=== PATIENT | male | born 1940 | race Hispanic/Latino ===

== ENCOUNTER 2017-10-02 00:09 | Inpatient (IN) | payer MEDICARE, MEDICAID ==
[2017-10-02] MEDS ORDERED: Succinylcholine Chloride 20 MG/ML 10 ml SYRINGE FS ONE (00:17)
[2017-10-02 00:28] LABS: #Eosinphils 0.1 thou/uL (0.0-0.7); #Lymphocytes 1.5 thou/uL (1.20-3.40); #Monocytes 0.4 thou/uL (0.11-0.59); #Neutrophils 5.9 thou/uL (1.40-6.50); %Basophils 0.2 % (0.0-1.0); %Eosinophils 1.3 % (0.0-10.0); %Lymphocytes 18.6 % (21.0-51.0); %Monocytes 5.6 % (0.0-10.0); %Neutrophils 74.4 % (42.0-75.0); Hemoglobin 13.6 g/dL (14.0-18.0); Mean Corpuscular HGB CONC 34.5 g/dL (32.0-36.0); Mean Corpuscular Hemoglobin 30.7 pg (27.0-31.0); Mean Platelet Volume 7.4 fL (7.4-10.4); Platelet Count 169 thou/uL (130-400); RBC Distribution Width 12.7 % (11.5-14.5); Red Blood Cell (RBC) Count 4.43 mill/uL (4.70-6.10); White Blood Cell (WBC) Count 7.9 thou/uL (4.8-10.8)
[2017-10-02] MEDS ORDERED: Propofol 1,000 MG/100 ML VIAL IV ONE ×2 (00:33→03:19)
[2017-10-02 00:35] LABS: INR-International Normal Ratio 1.1; PTT 27.9 SEC (22.9-36.1); Prothrombin Time 14.3 SEC (12.0-14.7)
[2017-10-02 00:55] LABS: ALT (SGPT) 14 U/L (8-55); AST (SGOT) 21 U/L (5-34); Albumin 4.3 g/dL (3.4-4.8); Alkaline Phosphatase 92 U/L (40-150); Anion Gap 12 mmol/L (10-20); BUN (Urea Nitrogen) 27 mg/dL (8.4-25.7); Bilirubin, Total 0.5 mg/dL (0.2-1.2); Calc. Creatinine Clearance 0 mL/min (70-130); Carbon Dioxide 25 mmol/L (23-31); Chloride 107 mmol/L (98-107); Estimated GFR-MDRD 65; Globulin 3.1 g/dL (2.4-3.5); Glucose 174 mg/dL (83-110); Protein, Total 7.4 g/dL (5.8-8.1); Sodium 140 mmol/L (136-145)
[2017-10-02 00:59] LABS: CKMB 4.5 ng/mL (0-6.6)
[2017-10-02] MEDS ORDERED: Midazolam HCl 5 mg/ml Vial ONE (01:09)
[2017-10-02] MEDS ORDERED: Vecuronium 10 MG VIAL ONE (01:34)
[2017-10-02 01:35] LABS: Actual Bicarbonate (HCO3a) 24.9 mEq/L (22-26); Base Excess (BEa) 1.2 mEq/L (0 (+/-) 2.5); CO2 Tension 47.4 mmHg (35.0-45.0); Hematocrit-ABG 36.6 % (42.0-52.0); O2 Tension (PaO2) 75.5 mmHg (80.0-100.0); pH, Arterial 7.34 (7.35-7.45)
[2017-10-02 01:36] LABS: Analyzer IN Cardio ER; Calcium, Ionized 1.2 mmol/L (1.12-1.30); Puncture Site LRA
[2017-10-02] MEDS ORDERED: Azithromycin 500 MG VIAL ONE (01:56)
[2017-10-02 02:40] LABS: Bilirubin Negative (Negative); Blood, Urine Large (Negative); Clarity CLEAR (Clear); Glucose, Urine (Dipstick) Negative (Negative); Leukocyte Negative (Negative); Nitrite Negative (Negative); Protein, Urine (Dipstick) 30 mg/dL (Neg-Trace); Specific Gravity, Urine 1.029 (1.002-1.036); Urobilinogen 0.2 mg/dL (0.2-1.0); pH, Urine 6.5 (5.0-9.0)
[2017-10-02 02:42] LABS: Bacteria/HPF None Seen HPF (None Seen); Hyaline Casts/LPF 4-6 HYALINE CAST LPF (0-3 Hyaline); Pathc Cast-AUWi Flag 0.58 (0-2.49); Squamous Epithelial 0-3 HPF (0-3); WBC/HPF 0-3 HPF (0-3)
[2017-10-02] MEDS ORDERED: Aspirin 300 MG Suppository ONE (02:55)
[2017-10-02] MEDS ORDERED: diphenhydrAMINE 50 MG/ML VIAL IVP SCH ×2 (03:30→03:44)
[2017-10-02] MEDS ORDERED: Dextrose 5 % And 0.9 % NaCl 1,000 ML IV SCH (03:45)
[2017-10-02] MEDS ORDERED: Famotidine/PF 20 mg/2ml Vial SLOW IVP SCH (03:45)
[2017-10-02] MEDS ORDERED: methylPREDNISolone Sod Succ/PF 125 MG/2 ML VIAL IVP SCH (03:45)
[2017-10-02] MEDS ORDERED: Ventilator Sedation Protocol 1 EACH FS SCH (03:48)
[2017-10-02] MEDS ORDERED: DISCONTINUE PREVIOUS NARCOTIC PAIN MEDICATIONS AND BENZODIAZEPINES FS SCH (03:56)
[2017-10-02] MEDS ORDERED: Fentanyl BOLUS 250 ML IVPB PRN (03:56)
[2017-10-02] MEDS ORDERED: fentaNYL Citrate/PF 2,000 MCG in Sodium Chloride 0.9% 60 ML IV SCH (03:56)
[2017-10-02] MEDS ORDERED: Propofol BOLUS 1,000 MG/100 ML VIAL IV PRN (03:56)
[2017-10-02] MEDS ORDERED: Morphine 4 MG/ML VIAL SLOW IVP PRN (03:56)
[2017-10-02] MEDS ORDERED: Famotidine 40 MG/4 ML VIAL SLOW IVP SCH ×3 (04:00→21:00)
[2017-10-02] MEDS ORDERED: Sodium Chloride 0.9% 1,000 ML IV SCH (04:00)
[2017-10-02] MEDS ORDERED: RENALLY ADJUST ANTIBIOTICS IVPB PRN (04:18)
[2017-10-02] MEDS: Sodium Chloride 0.9% 1,000 ML IV SCH ×2 (04:45→14:54)
[2017-10-02] MEDS: diphenhydrAMINE 50 MG/ML VIAL IVP SCH ×4 (04:52→22:04)
--- NOTE | 2017-10-02 05:03 | HP ---
DATE OF ADMISSION: 10/02/2017 CHIEF COMPLAINT: Altered mentation, stroke-like symptoms. HISTORY OF PRESENT ILLNESS: Patient is a 77-year-old male with coronary artery disease, status post CABG; hypertension; hyperlipidemia who presented to the emergency room by EMS with altered mentation. Patient currently follows Dr. Field. History obtained from the ER chart. No family at the bedside. No family in the waiting room. The patient was last seen normal around 8:00 p.m. yesterday. Around 11:00 p.m., he was in the shower when the family heard the patient screaming. When the family came to the bathroom, he was found to have altered mentation with some stroke-like symptoms. EMS was called. Per ER report, the patient h ad some weakness on the right side. Exact symptoms are unclear. Patient was intubated in the emerge ncy room due to worsening mentation. He received aspirin, azithromycin, ceftriaxone, Versed, propofo l, succinylcholine, etomidate, and vecuronium in the emergency room. After arrival to the emergency room, patient started breaking out in the generalized rash. PAST MEDICAL HISTORY: 1. Coronary artery disease, status post CABG. 2. Hypertension. 3. Hyperlipidemia. 4. History of ME. 5. ERCP. PAST SURGICAL HISTORY: 1. Cholecystectomy. 2. CABG. ALLERGIES: No known drug allergies. CURRENT HOME MEDICATIONS: Unavailable at this time. We will try to confirm with family when they ar rive. SOCIAL HISTORY: Cannot be obtained from the patient due to current cognitive status. FAMILY HISTORY: Cannot be obtained from the patient due to current cognitive status. REVIEW OF SYSTEMS: Cannot be obtained from the patient due to current cognitive status. PHYSICAL EXAMINATION: VITAL SIGNS: In the emergency room on arrival showed temperature 96.1, pulse rate of 69, blood press ure of 183/96 with O2 saturation 91% on room air. GENERAL: A 77-year-old male, intubated and sedated on mechanical ventilation. HEENT: Head atraumatic, normocephalic. Sclerae anicteric. Moist mucous membranes. No oral lesion. NECK: Supple. No JVD appreciated. No carotid bruit. LUNGS: Showed coarse breath sounds bilaterally with bibasilar crackles. There were scattered rhonch i. No wheezing appreciated. HEART: S1, S2 present. Regular rate and rhythm. Healed midline scar from previous CABG, 2/6 systol ic murmur over the mitral area. ABDOMEN: Soft. Bowel sounds present. No organomegaly appreciated. No guarding or rigidity. EXTREMITIES: No edema or calf tenderness. NEUROLOGIC/PSYCHIATRIC: Could not be done due to current cognitive status. Apparently, his NIH in [facility] emergency room was 37. SKIN: Warm and dry. LYMPH NODES: No palpable lymph nodes in the neck. PERIPHERAL VASCULAR: Radial pulses palpable bilaterally. MUSCULOSKELETAL: No joint swelling or tenderness. LABORATORY AND DIAGNOSTIC FINDINGS: EKG by my review showed sinus rhythm. CT scan of the brain was negative for acute CVA. CT angiogram of the head and neck were essentially negative. Chest x-ray by my review showed left-sided infiltrate. CBC showed WBC 7.9 with hemoglobin 13.6, hematocrit 39.4, p latelet 169,000. ABG showed pH 7.34 with pCO2 of 47.4, pO2 of 75.5 on mechanical ventilation. Tropo nins were negative. BUN was 27, creatinine 1.1. Urinalysis was negative for wbc's, bacteria. Chest x-ray by my review as discussed above. IMPRESSION AND PLAN: 1. Altered mentation/toxic metabolic encephalopathy/suspected cerebrovascular accident. Family not available at this time to confirm his symptoms prior to intubation. 2. Acute hypoxic and hypercapnic respiratory failure, multifactorial. 3. Suspected aspiration pneumonia. 4. Generalized rash, generalized rash/urticaria probably secondary to either aspirin or ceftriaxone. 5. Coronary artery disease, status post coronary artery bypass grafting. 6. Chronic kidney disease, stage 2. 7. Chronic anemia. 8. Hypertension. 9. Dyslipidemia. Home medications will be verified. Again, when the family arrives, will discuss the plan of care. This patient will require 3-4 days for stabilization.
[2017-10-02] MEDS ORDERED: MEROPENEM 1 GM/50 ML 1 GM in Premix Bag 1 BAG IVPB SCH (06:00)
[2017-10-02 06:02] LABS: Troponin I 0.016 ng/mL (< 0.028)
[2017-10-02] MEDS: Propofol 1,000 MG/100 ML VIAL IV PRN ×3 (06:30→15:08)
[2017-10-02 07:37] LABS: Actual Bicarbonate (HCO3a) 23.1 mEq/L (22-26); CO2 Tension 35.1 mmHg (35.0-45.0); O2 Tension (PaO2) 80.6 mmHg (80.0-100.0); pH, Arterial 7.44 (7.35-7.45)
[2017-10-02 07:38] LABS: Base Excess (BEa) -0.6 mEq/L (0 (+/-) 2.5); Calcium, Ionized 1.2 mmol/L (1.12-1.30); Hematocrit-ABG 39.5 % (42.0-52.0); Hemoglobin (Hb) 12.8 g/dL (14.0-18.0)
[2017-10-02 07:39] LABS: ALV-art Gradient 160.725 (0-20); Puncture Site L.R.
[2017-10-02] MEDS ORDERED: Vancomycin HCl 1 GM in Premix Bag 1 BAG IVPB SCH (08:00)
--- NOTE | 2017-10-02 08:50 | RAD ---
CHEST ONE VIEW: History: Pneumonia. Follow up. Comparison: 02-27-16 FINDINGS: Cardiac silhouette is magnified and upper limits of normal in size. Pulmonary vasculature is accentua gauri by shallow inspiration. Patchy infiltrate throughout the left lung is present with some component of atelectasis. Tip of the endotracheal catheter overlies the lower trachea just above the level of the ricky. Nasogastric tube descends to the abdomen. There are post-operative changes in the mediast inum. IMPRESSION: 1. Left lung infiltrate. Evidence of pneumonia. 2. Endotracheal catheter at the level of the ricky. Please consider withdrawal by approximately 2 cm . POS: [facility]
[2017-10-02] MEDS ORDERED: Prevnar 13-Val Conj/PF 0.5 ML SYRINGE IM ONE (09:00)
--- NOTE | 2017-10-02 09:23 | CT ---
PRELIMINARY REPORT/[facility]/EMERGENTY AFTER-HOURS PROCEDURE Addendum created by Raul Sanchez MD on 10/02/2017 1:19 AM Central Time ([place] & [place]) THIS REPORT CONTAINS FINDINGS THAT MAY BE CRITICAL TO PATIENT CARE. The findings were verbally commun icated via telephone conference with BASEBALL PLAYER Sofy Boston at 1:17 AM CDT on 10/02/2017. The findings were acknowledged and understood. Initial Report created on 10/02/2017 1:08 AM Central Time ([place] & [place]) CT Head Without Intravenous Contrast EXAM DATE/TIME: 10/02/2017 12:51 AM CLINICAL HISTORY: 77 years old, male; Signs and symptoms; Altered mental status/memory loss and weakness, facial; Other : AMS; Patient HX: stroke alert ems reports pt was lsn 1999, was in the shower at 2300 when famil y reported they hear pt screaming. They came to bathroom and pt was presenting altered to them. When ems arrived pt was altered by arousable. Pt with right sided facial droop but had equal gear inspector strength . Vss en route and glucose in 170's. TECHNIQUE: Axial computed tomography images of the head/brain without intravenous contrast. COMPARISON: No relevant prior studies available. FINDINGS: Brain: No radiographic evidence of acute territorial infarct or intracranial bleed. Patchy hypodensit y of the cerebral white matter, nonspecific but likely secondary to small vessel ischemic disease. Sm all areas of encephalomalacia from old infarcts in the right frontal, right occipital parietal, and h igh right frontal parietal regions. Ventricles: Unremarkable for patient age. Age-related generalized volume loss Bones/joints: No acute findings. No acute fracture. Soft tissues: No acute findings. Sinuses: Small fluid/mucosal thickening in the visualized left maxillary sinus Mastoid air cells: No significant mastoid effusion. IMPRESSION: 1. No radiographic evidence of acute territorial infarct or intracranial bleed. 2. Small vessel ischemic disease. 3. 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 4. Small fluid/mucosal thickening in the visualized left maxillary sinus. Consistent with changes fro m sinusitis Thank you for allowing us to participate in the care of your patient. Dictated and Authenticated by: Raul Sanchez MD 10/02/2017 1:08 AM Central Time ([place] & [place]) FINAL REPORT CT BRAIN WITHOUT CONTRAST: No acute intracranial hemorrhage, mass effect. Multifocal chronic ischemic disease including supratentorial and infratentorial remote infarctions [place] perimposed upon microvascular ischemic disease and mild cortical atrophy. I agree with the preliminary interpretation by DEBBI. POS: [facility]
--- NOTE | 2017-10-02 09:27 | CT ---
PRELIMINARY REPORT/[facility]/EMERGENTY AFTER-HOURS PROCEDURE Addendum created by Raul Sanchez MD on 10/02/2017 1:31 AM Central Time ([place] & [place]) THIS REPORT CONTAINS FINDINGS THAT MAY BE CRITICAL TO PATIENT CARE. The findings were verbally communicated via telephone conference with JADEN CHA at 1:30 AM CDT on 10/02/2017. The findings were acknowledged and unde rstood. Initial Report created on 10/02/2017 1:29 AM Central Time ([place] & [place]) CT Angiography Head With Intravenous Contrast CLINICAL HISTORY: 77 years old, male; Signs and symptoms; Weakness; Patient HX: stroke alert ems reports pt was lsn 1999, was in the shower at 2300 when family reported they hear pt screaming. They came to bathroom a nd pt was presenting altered to them. When ems arrived pt was altered by arousable. Pt with right bong ed facial droop but had eequal staff anesthesiologist strength. Vss en route and glucose in 170's. TECHNIQUE: Axial computed tomographic angiography images of the head with intravenous contrast using CT angiogra phy protocol. MIP reconstructed images were created and reviewed. Coronal reformatted images were cre ated and reviewed. COMPARISON: No relevant prior studies available. FINDINGS: Right internal carotid artery: No acute findings. Intracranial segment is patent with no significant stenosis. No aneurysm. Right anterior cerebral artery: No acute findings. No occlusion or significant stenosis. No aneurysm. Right middle cerebral artery: No acute findings. No occlusion or significant stenosis. No aneurysm. Right posterior cerebral artery: No acute findings. No occlusion or significant stenosis. No aneurysm . Right vertebral artery: Unremarkable as visualized. Left internal carotid artery: No acute findings. Intracranial segment is patent with no significant s tenosis. No aneurysm. Left anterior cerebral artery: No acute findings. No occlusion or significant stenosis. No aneurysm. Left middle cerebral artery: No acute findings. No occlusion or significant stenosis. No aneurysm. Left posterior cerebral artery: No acute findings. No occlusion or significant stenosis. No aneurysm. Left vertebral artery: Unremarkable as visualized. Basilar artery: No acute findings. No occlusion or significant stenosis. No aneurysm. Other: Moderate fluid/mucosal thickening in the left maxillary sinus. See head CT dictation IMPRESSION: 1: No acute vascular findings. 2: Moderate fluid/mucosal thickening in the left maxillary sinus. Consistent with changes from sinusi tis EXAM: CT Angiography Neck With Intravenous Contrast EXAM DATE/TIME: 10/02/2017 12:56 AM TECHNIQUE: Axial computed tomographic angiography images of the neck with intravenous contrast using CT angiogra phy protocol. MIP reconstructed images were created and reviewed. Coronal reformatted images were cre ated and reviewed. COMPARISON: CT Brain WO Con 2017-10-02 00:51 FINDINGS: VASCULATURE: Right common carotid artery: No acute findings. No significant stenosis. No dissection or occlusion. Right internal carotid artery: No acute findings. Extracranial segment is patent with no significant stenosis. No dissection or occlusion. Right external carotid artery: No acute findings. No occlusion. Right vertebral artery: No acute findings. No significant stenosis. No dissection or occlusion. Left common carotid artery: No acute findings. No significant stenosis. No dissection or occlusion. Left internal carotid artery: No acute findings. Extracranial segment is patent with no significant s tenosis. No dissection or occlusion. Left external carotid artery: No acute findings. No occlusion. Left vertebral artery: No acute findings. No significant stenosis. No dissection or occlusion. NECK: Bones/joints: No acute fracture. No dislocation. Small to moderate osteophytes at multiple levels of the C-spine Soft tissues: Unremarkable as visualized. No mass. Other findings: Atelectasis versus infiltrates in the visualized lungs, mild to moderate on the left and mild on the right. Endotracheal tube is in the right mainstem bronchus, 1.5 cm below the ricky. Vascular calcification in the aortic arch IMPRESSION: 1: No acute vascular findings. 2: Endotracheal tube is in the right mainstem bronchus, 1.5 cm below the ricky. Recommend withdrawin g the endotracheal tube 3.5 cm 3: Atelectasis versus infiltrates in the visualized lungs, mild to moderate on the left and mild on t he right. Thank you for allowing us to participate in the care of your patient. Dictated and Authenticated by: Raul Sanchez MD 10/02/2017 1:29 AM Central Time ([place] & [place]) FINAL REPORT CT ANGIOGRAM OF HEAD AND NECK: Date: 10/02/17 HISTORY: Altered mental status. Stroke alert. Right facial droop. COMPARISON: None. TECHNIQUE: CT angiogram of the head and neck are performed in the axial plane. Three-dimensional reformatted davey ges are submitted for interpretation. FINDINGS: This report is in agreement with the preliminary report by Alannah. There does not appear to be any acut e thrombus or high grade stenosis at the level of the [place]. There is asymmetric decrease in size of the left internal carotid artery involving the cervical, as well as intracranial segments. Findings are presumed to be longstanding. Endotracheal tube is at the level of the right mainstem bronchus and repositioning is recommended. There is opacification of the lung parenchyma as described in the preliminary report by Alannah. POS: [facility]
[2017-10-02] MEDS: Clopidogrel Bisulfate 75 MG TAB PER TUBE SCH (09:34)
[2017-10-02] MEDS: Famotidine 40 MG/4 ML VIAL SLOW IVP SCH (09:35)
[2017-10-02] MEDS: Vancomycin HCl 1 GM in Premix Bag 1 BAG IVPB SCH ×2 (09:39→20:30)
[2017-10-02] MEDS: MEROPENEM 1 GM/50 ML 1 GM in Premix Bag 1 BAG IVPB SCH ×2 (14:02→22:09)
[2017-10-02] MEDS ORDERED: ISOVUE-370 76%-LOCM 1 ML ONE (15:10)
[2017-10-02] MEDS: Lorazepam 2 MG/ML VIAL SLOW IVP PRN (18:20)
[2017-10-02] MEDS: Enoxaparin Sodium 40 MG/0.4 ML SYRINGE SC SCH (21:54)
[2017-10-02] MEDS: Atorvastatin Calcium 10 MG TAB PER TUBE SCH (22:08)
[2017-10-02] MEDS ORDERED: Famotidine 20 MG TAB PER TUBE SCH (22:15)
[2017-10-03] MEDS: Sodium Chloride 0.9% 1,000 ML IV SCH ×3 (00:14→22:20)
--- NOTE | 2017-10-03 00:45 | CON ---
DATE OF CONSULTATION: 10/02/2017 REFERRING PROVIDER: Giovany Ly M.D. REASON FOR CONSULTATION: Altered mental status. HISTORY OF PRESENT ILLNESS: Mr. Zamora is a 77-year-old male who has been consulted for evaluation of altered mental status. History is very limited as patient is unable to provide thus most of the history is obtained from the patient's medical chart and dictated H and P note. Apparently, the alonso ent was last seen normal around 8:00 p.m. on yesterday, around 11:00 p.m. he was in shower when the abby christy heard the patient screaming, when the family came to bathroom he was found to have altered ment ation and stroke-like symptoms. EMS was called. In the ER, he was noted to be somewhat weaker on hi s right side. He was intubated in the emergency room due to worsening of mentation. I am being aske d to further evaluate for changes in mentation. PAST MEDICAL HISTORY: Significant for hypertension, hyperlipidemia, history of [place], coronary artery d isease. PAST SURGICAL HISTORY: Significant for ERCP, CABG, and cholecystectomy. CURRENT MEDICATIONS: Please review MAR. ALLERGIES: No known drug allergies. SOCIAL HISTORY: Unable to obtain. FAMILY HISTORY: Unable to obtain. REVIEW OF SYSTEMS: Unable to obtain. PHYSICAL EXAMINATION: VITAL SIGNS: Blood pressure of 124/74, pulse of 92, temperature of 99.7, respirations of 16, O2 sats of 95% on mechanical ventilation. GENERAL: Well-developed, well-nourished male in no apparent distress. RESPIRATORY: Clear to auscultation bilaterally. CARDIOVASCULAR: Regular rate and rhythm. NEUROLOGIC: Mental status: The patient is awake. The patient is sedated with the Ativan that was g iven few minutes before my examination. He is nonresponsive to noxious or verbal stimuli. Cranial n erves: Pupils are 3 mm and reactive. Visual che cannot be performed. He does breathe over the v entilator machine. Face appears symmetric. Motor exam showed normal tone and bulk in both upper and lower extremities. He grimaces to noxious stimuli to supraorbital region on both sides. He withdra ws to pain on both upper extremities. No withdrawal is noted in both lower extremities. Babinski: Plantar responses equivocal bilaterally. Deep tendon reflexes, hyperreflexive throughout. LABORATORY DATA: Reviewed, which included CBC, CMP, BNP, urinalysis, which is significant for hemogl obin 13.6, hematocrit 39.4, BUN of 27, BNP of 165.8, glucose of 140, otherwise unremarkable. IMAGING STUDIES: CT head without contrast was reviewed which showed no acute intracranial abnormalit y. CT angiogram of the head and neck were reviewed, which showed no acute intracranial or extracrani al vascular abnormality and bilateral infiltrates noted in both lungs, more so on the left than the r ight. Chest x-ray showed left lung infiltrate, evidence of pneumonia. IMPRESSION: 1. Altered mental status, likely toxic metabolic encephalopathy. 2. Pneumonia. Mr. Zamora is a 77-year-old male who presented with the changes in mentation. He is found to have pneumonia on the chest x-ray and CT angiogram of the neck, this may be contributing to his changes in mentation. At this time, I will recommend continuing current medical management. I will recommend obtaining MRI brain without contrast in the morning. If MRI brain shows no acute intracranial abnorm ality, then patient is to be managed medically for changes in mentation. Thank you for the consultation.
[2017-10-03] MEDS: Propofol 1,000 MG/100 ML VIAL IV PRN ×3 (02:54→19:56)
[2017-10-03] MEDS: diphenhydrAMINE 50 MG/ML VIAL IVP SCH ×4 (03:38→22:39)
[2017-10-03] MEDS: MEROPENEM 1 GM/50 ML 1 GM in Premix Bag 1 BAG IVPB SCH ×3 (05:52→22:38)
[2017-10-03 06:01] LABS: #Lymphocytes 1.1 thou/uL (1.20-3.40); #Monocytes 0.2 thou/uL (0.11-0.59); #Neutrophils 10.2 thou/uL (1.40-6.50); %Basophils 0.1 % (0.0-1.0); %Eosinophils 0.2 % (0.0-10.0); %Lymphocytes 9.2 % (21.0-51.0); %Monocytes 1.8 % (0.0-10.0); %Neutrophils 88.8 % (42.0-75.0); Mean Corpuscular HGB CONC 32.3 g/dL (32.0-36.0); Mean Corpuscular Hemoglobin 29.4 pg (27.0-31.0); Mean Corpuscular Volume 90.8 fl (80.0-94.0); Mean Platelet Volume 8.5 fL (7.4-10.4); Platelet Count 155 thou/uL (130-400); Red Blood Cell (RBC) Count 4.42 mill/uL (4.70-6.10); White Blood Cell (WBC) Count 11.5 thou/uL (4.8-10.8)
--- NOTE | 2017-10-03 06:03 | CON ---
DATE OF CONSULTATION: 10/02/2017 HISTORY OF PRESENT ILLNESS: Mr. Zamora is a 77-year-old male who apparently presented to the emerg ency department with altered mental status, apparently was intubated in the emergency department. He was admitted to the critical care unit and I was consulted because of his presence in the critical care unit. History is obtained from the family and the medical records. PAST MEDICAL HISTORY: Remarkable for, 1. Coronary bypass grafting. 2. History of lipid disorder. 3. History of hypertension. 4. History of a cholecystectomy. Family says he is not a smoker or drinker. ALLERGIES: He has no known drug allergies. PAST SURGICAL HISTORY: 1. His last admission here was in 2013 for a laparoscopic cholecystectomy. 2. History of an appendectomy in the past. 3. History of anticoagulation in the past, reviewing all records. SOCIAL HISTORY: Apparently, has 8 children, according to old records, there is only one in the room and it was a granddaughter, there are 2 pastors in the room. Quit smoking in 1984. REVIEW OF SYSTEMS: Not obtainable because he is intubated. Family said he was fine up until the ons et of his confusion. PHYSICAL EXAMINATION: VITAL SIGNS: His heart rate is 92, blood pressure is 124/74, respiratory rate is 18, and oximetry is 92. GENERAL: He is sedated for ventilation. HEENT: Pupils react. Sclerae is anicteric. NECK: Supple. LUNGS: Clear anteriorly. HEART: Regular rhythm. S1 and S2 are normal. ABDOMEN: Soft and nontender. EXTREMITIES: Without clubbing, cyanosis, or edema. NEUROLOGIC: Cannot be assessed because of his sedation. LABORATORY AND X-RAY FINDINGS: White count 7.9, hemoglobin 13.6, and platelets 169. Sodium 140, pot assium 4, chloride 107, bicarb 25, BUN 27, creatinine 1.1, glucose 174. A pH of 7.44, pCO2 of 35, an d pO2 of 80. IMV of 16, FiO2 is 40, tidal volume is 500, pressure support is 10, and PEEP is 5. Chest x-ray shows patchy bilateral alveolar infiltrates, worse on the left than the right. IMPRESSION: 1. Respiratory failure associated with pneumonia. 2. Altered mental status ? secondary to pneumonia. 3. 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 No acute abnormalities were seen on the CT. Obtain ventilatory support, antimicrobial therapy. I have explained to the family that he will not b e weanable probably for several days. Critical care time was 30 minutes.
[2017-10-03 06:22] LABS: ALT (SGPT) 13 U/L (8-55); AST (SGOT) 20 U/L (5-34); Albumin 3.3 g/dL (3.4-4.8); Alkaline Phosphatase 77 U/L (40-150); Anion Gap 12 mmol/L (10-20); BUN (Urea Nitrogen) 19 mg/dL (8.4-25.7); Bilirubin, Total 0.4 mg/dL (0.2-1.2); Calc. Creatinine Clearance 111 mL/min (70-130); Carbon Dioxide 17 mmol/L (23-31); Cardiac Risk 5.8 (Less than 4.5); Chloride 112 mmol/L (98-107); Cholesterol 209 mg/dl (< 200 Desired); Estimated GFR-MDRD 89; Globulin 3.3 g/dL (2.4-3.5); Glucose 134 mg/dL (83-110); HDL Cholesterol 36 mg/dL (>60 Neg Risk); LDL Cholesterol, Calculated 143 mg/dL; Potassium 4.1 mmol/L (3.5-5.1); Protein, Total 6.6 g/dL (5.8-8.1); Sodium 137 mmol/L (136-145); Triglycerides 151 mg/dL (Less than 150)
--- NOTE | 2017-10-03 07:56 | RAD ---
SINGLE VIEW OF THE CHEST: COMPARISON: 10/02/17. HISTORY: Ventilated patient with respiratory failure. FINDINGS: A single view of the chest shows an enlarged but stable cardiomediastinal silhouette. The patient is status post sternotomy. The endotracheal tube is seen in good position with its tip above the lola a. The NG tube is seen with its tip in the stomach. Slight blunting of both costophrenic angles may represent small pleural effusions or atelectasis. IMPRESSION: Stable exam. POS: [facility]
[2017-10-03 08:01] LABS: Actual Bicarbonate (HCO3a) 22.7 mEq/L (22-26); Base Excess (BEa) -1.5 mEq/L (0 (+/-) 2.5); CO2 Tension 36.2 mmHg (35.0-45.0); Hematocrit-ABG 37.2 % (42.0-52.0); Hemoglobin (Hb) 12.3 g/dL (14.0-18.0); O2 Tension (PaO2) 75.8 mmHg (80.0-100.0); pH, Arterial 7.42 (7.35-7.45)
[2017-10-03 08:02] LABS: Calcium, Ionized 1.1 mmol/L (1.12-1.30); Puncture Site L.R.
[2017-10-03] MEDS: Vancomycin HCl 1 GM in Premix Bag 1 BAG IVPB SCH (09:43)
[2017-10-03] MEDS: Clopidogrel Bisulfate 75 MG TAB PER TUBE SCH (09:44)
[2017-10-03] MEDS: Famotidine 20 MG TAB PER TUBE SCH ×2 (09:44→21:38)
[2017-10-03] MEDS: Famotidine 40 MG/4 ML VIAL SLOW IVP SCH (09:48)
--- NOTE | 2017-10-03 11:33 | PDOC.PN ---
- Subjective Encounter Start Date: 10/03/17 Encounter Start Time: 10:15 -: old records requested/rev Pt seen and examined, chart reviewed in its entirety, this is my frist visit with this patient. Sedated and intubated. patchy bilaterla pneumonia, hypoxemic resp failure and metabolic encephalopathy Pt seen by neuro, CT reviewed, CTA ordered, but feels likely due to pneumonia. No F/C, no N/V/D/C. yeison vent Family at bedside, case disussed with dr Moreno ROs not obtainable - Objective Resuscitation Status: Resuscitation Status FULL:Full Resuscitation MAR Reviewed: Yes Vital Signs & Weight: Vital Signs (12 hours) Temp Pulse Resp BP Pulse Ox 10/03/17 10:32 61 122/59 L 10/03/17 10:00 16 10/03/17 09:00 98.8 F 10/03/17 08:00 98.8 F 61 16 93 L 10/03/17 07:31 64 121/59 L 10/03/17 06:00 16 10/03/17 05:40 98.5 F 10/03/17 04:00 16 10/03/17 03:05 94 L 10/03/17 03:00 98.9 F 16 10/03/17 02:00 16 10/03/17 00:00 98.3 F 16 93 L Weight Admit Weight 233 lb Weight 227 lb 11.8 oz Most Recent Monitor Data Heart Rate from ECG 60 NIBP 127/61 NIBP BP-Mean 72 Respiration from ECG 16 SpO2 92 I&O: 10/02/17 10/03/17 10/04/17 06:59 06:59 06:59 Intake Total 203.2 3091 Output Total 425 1525 220 Balance -221.8 1566 -220 Result Diagrams: 10/03/17 04:25 10/03/17 04:25 Additional Labs: Accuchecks 10/03/17 10/02/17 10/02/17 03:38 23:17 18:33 POC Glucose 145 H 165 H 140 H Radiology Reviewed by me: Yes EKG Reviewed by me: Yes Phys Exam - Physical Examination Constitutional: NAD HEENT: PERRLA, moist MMs, sclera anicteric, oral pharynx no lesions orally intubated Neck: no nodes, no JVD, supple, full ROM coarse rales bilaterally, no wheezes Cardiovascular: RRR, no significant murmur, no rub Gastrointestinal: soft, non-tender, no distention, positive bowel sounds Musculoskeletal: pulses present, edema present Lymphatic: no nodes Skin: no rash, normal turgor, cap refill <2 seconds Dx/Plan (1) CAP (community acquired pneumonia) Code(s): J18.9 - PNEUMONIA, UNSPECIFIED ORGANISM Status: Acute Qualifiers: Laterality: unspecified laterality Qualified Code(s): J18.9 - Pneumonia, unspecified organism Comment: bilateral, L>R (2) Acute hypoxemic respiratory failure Code(s): J96.01 - ACUTE RESPIRATORY FAILURE WITH HYPOXIA Status: Acute Comment: on vent, wean sedation, extubate when able (3) Metabolic encephalopathy Code(s): G93.41 - METABOLIC ENCEPHALOPATHY Status: Acute (4) CAD (coronary artery disease), [place] coronary artery Code(s): I25.10 - ATHSCL HEART DISEASE OF [place] CORONARY ARTERY W/O ANG PCTRS Status: Chronic Qualifiers: [place] vs. transplanted heart: [place] heart Associated angina: without angina Qualified Code(s): I25.10 - Atherosclerotic heart disease of [place] coronary artery without angina pectoris (5) HTN (hypertension) Code(s): I10 - ESSENTIAL (PRIMARY) HYPERTENSION Status: Chronic Qualifiers: Hypertension type: essential hypertension Qualified Code(s): I10 - Essential (primary) hypertension (6) CKD (chronic kidney disease), stage III Code(s): N18.3 - CHRONIC KIDNEY DISEASE, STAGE 3 (MODERATE) Status: Chronic - Plan cont current plan of care, plan discussed w/ family, continue antibiotics, PT/OT , respiratory therapy * . tube feeds started by Dr Moreno
--- NOTE | 2017-10-03 11:42 | PRG ---
DATE OF SERVICE: 10/03/2017 Mr. Zamora is sedated for mechanical ventilation. PHYSICAL EXAMINATION: VITAL SIGNS: His heart rate is in the 60s. Blood pressure 133/61, respiratory rate 16, oximetry is 92. LUNGS: Clear. CARDIOVASCULAR: Regular rhythm. S1 and S2 are normal. ABDOMEN: Soft and nontender. EXTREMITIES: Without clubbing, cyanosis, or edema. LABORATORY DATA: White count 11.5, hemoglobin 13.0, platelets 155,000. Sodium 137, potassium 4.1, c hloride 112, bicarb 17, BUN 19, creatinine 0.84, pH 7.42, CO2 36, pO2 of 75. Chest radiograph today is unchanged. Tomorrow we will probably start decreasing mechanical ventilatory support. IMPRESSION: Pneumonia with encephalopathy on presentation. He follows commands and helps out with r olling in bed now as long as instructions are given in Japanese. Overall I explained to the [facility] that he is clinically stable at this time. Hopefully, he will be weanable within a few days. Critical care time was 30 minutes.
[2017-10-03 19:40] LABS: Vancomycin, Trough 13.4 ug/mL
[2017-10-03] MEDS: Vancomycin HCl 1.25 GM in Sodium Chloride 0.9% 250 ML 250 ML IVPB SCH (21:36)
[2017-10-03] MEDS: Enoxaparin Sodium 40 MG/0.4 ML SYRINGE SC SCH (21:37)
[2017-10-03] MEDS: Atorvastatin Calcium 10 MG TAB PER TUBE SCH (22:38)
[2017-10-04 05:26] LABS: #Lymphocytes 0.9 thou/uL (1.20-3.40); #Monocytes 0.2 thou/uL (0.11-0.59); %Basophils 0.1 % (0.0-1.0); %Eosinophils 0.2 % (0.0-10.0); %Lymphocytes 8.4 % (21.0-51.0); %Monocytes 2.4 % (0.0-10.0); %Neutrophils 88.9 % (42.0-75.0); Hemoglobin 12.9 g/dL (14.0-18.0); Mean Corpuscular HGB CONC 33.4 g/dL (32.0-36.0); Mean Corpuscular Hemoglobin 30.4 pg (27.0-31.0); Mean Corpuscular Volume 90.9 fl (80.0-94.0); Mean Platelet Volume 9.2 fL (7.4-10.4); PLT Morphology Comment Appears Decreased; Platelet Count 88 thou/uL (130-400); RBC Distribution Width 12.9 % (11.5-14.5); RBC Morphology Normal; Red Blood Cell (RBC) Count 4.25 mill/uL (4.70-6.10); White Blood Cell (WBC) Count 10.1 thou/uL (4.8-10.8)
[2017-10-04 06:23] LABS: CO2 Tension 33.9 mmHg (35.0-45.0); O2 Tension (PaO2) 74.6 mmHg (80.0-100.0)
[2017-10-04 06:24] LABS: Base Excess (BEa) -3.3 mEq/L (0 (+/-) 2.5); Calcium, Ionized 1.2 mmol/L (1.12-1.30); Hemoglobin (Hb) 11.9 g/dL (14.0-18.0); Puncture Site RRA
[2017-10-04 06:25] LABS: ALV-art Gradient 168.225 (0-20)
[2017-10-04 06:30] LABS: ALT (SGPT) 16 U/L (8-55); AST (SGOT) 18 U/L (5-34); Albumin 3.1 g/dL (3.4-4.8); Alkaline Phosphatase 66 U/L (40-150); Anion Gap 8 mmol/L (10-20); BUN (Urea Nitrogen) 24 mg/dL (8.4-25.7); Bilirubin, Total 0.3 mg/dL (0.2-1.2); Calc. Creatinine Clearance 111 mL/min (70-130); Calcium 7.9 mg/dL (7.8-10.44); Carbon Dioxide 21 mmol/L (23-31); Chloride 112 mmol/L (98-107); Estimated GFR-MDRD Greater than 90; Globulin 2.7 g/dL (2.4-3.5); Glucose 192 mg/dL (83-110); Potassium 3.8 mmol/L (3.5-5.1); Protein, Total 5.8 g/dL (5.8-8.1); Sodium 137 mmol/L (136-145)
[2017-10-04] MEDS: MEROPENEM 1 GM/50 ML 1 GM in Premix Bag 1 BAG IVPB SCH ×3 (06:30→22:47)
[2017-10-04] MEDS: Propofol 1,000 MG/100 ML VIAL IV PRN ×3 (06:35→18:13)
[2017-10-04] MEDS: Sodium Chloride 0.9% 1,000 ML IV SCH ×2 (07:51→20:17)
--- NOTE | 2017-10-04 09:22 | RAD ---
SE[facility]UPRIGHT PORTABLE CHEST 1 VIEW: Date: 10/04/17 HISTORY: 77-year-old male with history of respiratory insufficiency, follow-up. COMPARISON: 10/03/17. FINDINGS: NG tube and endotracheal tubes remain in place. Left pleural effusion and small right pleural effusio n with bilateral vascular congestion and increased markings in the lower lobes. The amount of opacity in the left chest appears somewhat increased, suggesting some increasing pleural effusion. IMPRESSION: Vascular congestion bilaterally with bilateral pleural effusions, greater on the left side, showing s ome increase from prior study. Continue short-term follow-up. POS: OFF
[2017-10-04] MEDS ORDERED: DOBUTamine 500 mg/250 ml 250 ML IVPB SCH (09:30)
[2017-10-04] MEDS: Clopidogrel Bisulfate 75 MG TAB PER TUBE SCH (09:44)
[2017-10-04] MEDS: Famotidine 20 MG TAB PER TUBE SCH ×2 (09:44→20:21)
[2017-10-04] MEDS: Vancomycin HCl 1.25 GM in Sodium Chloride 0.9% 250 ML 250 ML IVPB SCH (09:47)
[2017-10-04] MEDS: Lorazepam 2 MG/ML VIAL SLOW IVP PRN ×2 (10:44→17:55)
--- NOTE | 2017-10-04 12:50 | CON ---
DATE OF CONSULTATION: 10/04/2017 REASON FOR CONSULTATION: Bradycardia. REFERRING PROVIDER: Dr. Lin. HISTORY OF PRESENT ILLNESS: Mr. Zamora is a 77-year-old gentleman who I have seen and evaluated in the past. He has a history of mechanical mitral valve replacement, not performed at [place]. He recently presented with altered mental status. He was felt to be septic. He was intubated. Upon my arrival, he is awake, still intubated, off any pressors. He is on antibiotic therapy. He recently began having acute onset of bradycardia with heart rate in the 30s to 40s. Blood pressur e appears stable. His QRS complex was narrow. PAST MEDICAL HISTORY: Previous bacterial endocarditis, status post mechanical mitral valve in 1995, hyperlipidemia, mild coronary disease diagnosed in 2014. ALLERGIES: PENICILLIN. HOME MEDICATIONS: Hydrocodone, Nexium, Coumadin, atenolol, lisinopril/hydrochlorothiazide, nitroglyc rola, Zocor, and aspirin. REVIEW OF SYSTEMS: Unobtainable. He is currently intubated. PHYSICAL EXAMINATION: GENERAL: Patient is a pleasant male who is in no acute distress. The patient appears his stated age . VITAL SIGNS: Blood pressure 152/65, pulse 89, temperature afebrile. NEUROLOGIC: He is currently intubated. HEENT: Sclerae without icterus. Mouth has moist mucous membranes with normal pallor. NECK: No JVD. Carotid upstroke brisk. No bruits bilaterally. LUNGS: Clear to auscultation with unlabored respirations. BACK: No scoliosis or kyphosis. CARDIAC: Regular rate and rhythm with normal S1 and S2. No S3 or S4 noted. No significant rubs, mu rmurs, thrills, or gallops noted throughout the precordium. PMI is not displaced. There is no boo ternal heave. ABDOMEN: Soft, nontender, nondistended. No peritoneal signs present. No hepatosplenomegaly. No ab normal striae. EXTREMITIES: 2+ femoral and 2+ dorsalis pedis pulses. No cyanosis, clubbing, or edema. SKIN: No gross abnormalities. PERTINENT LABORATORY DATA: Hemoglobin 12.9, hematocrit 38.6, platelet count 0.79. IMPRESSION: 1. Bradycardia. 2. Sepsis. 3. Respiratory failure. 4. Status post mechanical mitral valve. RECOMMENDATIONS: Continue Coumadin as prescribed. His bradycardia has improved on low dose dobutami ne. Dobutamine was started at 10, then had decreased to 5 and is now on 2.5 mg with appropriate hear t rate response. We will continue to monitor closely. At this point, there is no need for temporary pacemaker or permanent pacemaker. Continue antibiotic therapy as prescribed. Continue respiratory support.
[2017-10-04] MEDS: Enoxaparin Sodium 100 MG/ML SYRINGE SC SCH (17:55)
[2017-10-04] MEDS ORDERED: Furosemide 100 MG/10 ML VIAL SLOW IVP SCH (19:53)
[2017-10-04] MEDS: Atorvastatin Calcium 10 MG TAB PER TUBE SCH (20:14)
--- NOTE | 2017-10-04 20:14 | PRG ---
Date of service: 10/04/2017 SUBJECTIVE: Mr. Zamora is hemodynamically stable overnight. Heart rates in the 50s, respiratory r ate is 18, blood pressure 145/38. Heart rate actually dropped into the 20s this morning. He was started on dobutamine by Cardiology and this has been tapered down to a minimal dose. When th e dobutamine is turned off, he becomes bradycardic again. His intake and output is positive 2309. OBJECTIVE: LUNGS: Clear. CARDIOVASCULAR: Regular rate and rhythm. ABDOMEN: Soft and nontender. EXTREMITIES: Without clubbing, cyanosis or edema. IMAGING: Chest radiograph shows increased infiltrates bilaterally. LABORATORY DATA: White count 10.5, hemoglobin 12.9, platelets 88,000. Sodium 137, potassium 3.8, chloride 112, bicarbonate 21, BUN 24, creatinine 0.7. PH 7.40, CO2 33, pO 2 74. IMPRESSION: 1. Pneumonia. 2. ? cardiogenic pulmonary edema with increase in pulmonary infiltrates with positive fluid balance. An echocardiogram needs to be done. He will be given Lasix this evening. CRITICAL CARE TIME: 30 minutes.
[2017-10-04] MEDS ORDERED: Enoxaparin Sodium 100 MG/ML SYRINGE SC SCH (21:00)
[2017-10-05] MEDS: Enoxaparin Sodium 100 MG/ML SYRINGE SC SCH ×2 (04:48→15:14)
[2017-10-05] MEDS: MEROPENEM 1 GM/50 ML 1 GM in Premix Bag 1 BAG IVPB SCH ×3 (04:52→21:44)
[2017-10-05 05:59] LABS: #Lymphocytes 0.8 thou/uL (1.20-3.40); #Monocytes 0.5 thou/uL (0.11-0.59); #Neutrophils 9.3 thou/uL (1.40-6.50); %Basophils 0.1 % (0.0-1.0); %Eosinophils 0.2 % (0.0-10.0); %Lymphocytes 7.8 % (21.0-51.0); %Monocytes 4.3 % (0.0-10.0); %Neutrophils 87.6 % (42.0-75.0); Hemoglobin 13.4 g/dL (14.0-18.0); Mean Corpuscular Hemoglobin 30.1 pg (27.0-31.0); Mean Corpuscular Volume 88.4 fl (80.0-94.0); Platelet Count 162 thou/uL (130-400); RBC Distribution Width 12.8 % (11.5-14.5); Red Blood Cell (RBC) Count 4.46 mill/uL (4.70-6.10); White Blood Cell (WBC) Count 10.7 thou/uL (4.8-10.8)
[2017-10-05 06:22] LABS: ALT (SGPT) 49 U/L (8-55); AST (SGOT) 58 U/L (5-34); Albumin 3.4 g/dL (3.4-4.8); Alkaline Phosphatase 68 U/L (40-150); Anion Gap 12 mmol/L (10-20); BUN (Urea Nitrogen) 25 mg/dL (8.4-25.7); Bilirubin, Total 0.4 mg/dL (0.2-1.2); Calc. Creatinine Clearance 114 mL/min (70-130); Carbon Dioxide 21 mmol/L (23-31); Chloride 111 mmol/L (98-107); Estimated GFR-MDRD Greater than 90; Globulin 3.2 g/dL (2.4-3.5); Glucose 163 mg/dL (83-110); Potassium 4.2 mmol/L (3.5-5.1); Protein, Total 6.6 g/dL (5.8-8.1); Sodium 140 mmol/L (136-145)
[2017-10-05] MEDS: Propofol 1,000 MG/100 ML VIAL IV PRN ×3 (06:59→18:53)
[2017-10-05 07:33] LABS: Actual Bicarbonate (HCO3a) 23.7 mEq/L (22-26); Base Excess (BEa) 0.3 mEq/L (0 (+/-) 2.5); CO2 Tension 34.2 mmHg (35.0-45.0); Hematocrit-ABG 39.6 % (42.0-52.0); Hemoglobin (Hb) 13.3 g/dL (14.0-18.0); O2 Tension (PaO2) 65.3 mmHg (80.0-100.0); pH, Arterial 7.46 (7.35-7.45)
[2017-10-05 07:34] LABS: Calcium, Ionized 1.2 mmol/L (1.12-1.30); Puncture Site RR
[2017-10-05] MEDS: Famotidine 20 MG TAB PER TUBE SCH ×2 (08:40→21:00)
[2017-10-05] MEDS: Clopidogrel Bisulfate 75 MG TAB PER TUBE SCH (08:40)
[2017-10-05] MEDS: Acetaminophen 650 MG Suppository PR PRN (09:01)
--- NOTE | 2017-10-05 09:36 | RAD ---
CHEST 1 VIEW: COMPARISON: 10/04/17. HISTORY: Respiratory distress. Ventilated patient. FINDINGS: Redemonstration of ET and NG tubes. There is persistent cardiomegaly. The patient is rotated to the left, limiting evaluation of the cardiac silhouette. Improved aeration of the left lung. There is still persistent pleural and parenchymal changes in the left lung base. There is worsening opacifica tion of the right lung base. IMPRESSION: Bibasilar pleural and parenchymal changes. Continued surveillance. POS: [facility]
[2017-10-05] MEDS ORDERED: Furosemide 100 MG/10 ML VIAL SLOW IVP SCH (12:45)
--- NOTE | 2017-10-05 12:48 | PDOC.PN ---
- Subjective Encounter Start Date: 10/04/17 Encounter Start Time: 09:40 -: non-verbal pt developed bradycardia, cards called, recommended echo and low dose dobutatine. looks to be sinus. Pt awake, sedation off, following commands, falls asleep otherwise, no distress. no acute overnight events otherwise. No F/C, no N/V/d/C, no CP with low heart rate All systems reviewed and neg except as above - Objective Resuscitation Status: Resuscitation Status FULL:Full Resuscitation MAR Reviewed: Yes Vital Signs & Weight: Vital Signs (12 hours) Temp Pulse Resp BP Pulse Ox 10/05/17 10:55 60 161/59 H 10/05/17 08:00 99.8 F H 64 18 92 L 10/05/17 07:20 64 157/68 H 10/05/17 06:00 16 10/05/17 04:55 98.2 F 10/05/17 04:00 17 10/05/17 02:55 74 16 94 L 10/05/17 02:00 16 Weight Admit Weight 233 lb Weight 228 lb 2.855 oz Most Recent Monitor Data Heart Rate from ECG 57 NIBP 157/61 NIBP BP-Mean 93 Respiration from ECG 16 SpO2 92 I&O: 10/04/17 10/05/17 10/06/17 06:59 06:59 06:59 Intake Total 3679 4130.3 30 Output Total 1370 4275 135 Balance 2309 -144.7 -105 Result Diagrams: 10/05/17 05:43 10/05/17 05:43 Additional Labs: Accuchecks 10/05/17 10/05/17 10/05/17 12:34 06:26 00:44 POC Glucose 157 H 141 H 135 H 10/04/17 18:49 POC Glucose 108 Radiology Reviewed by me: Yes EKG Reviewed by me: Yes Phys Exam - Physical Examination Constitutional: NAD HEENT: PERRLA, moist MMs, sclera anicteric, oral pharynx no lesions Neck: no nodes, no JVD, supple, full ROM coare rales bialterally, no wheezes, no rpolnged expiration Cardiovascular: no significant murmur, no rub bradycardic, regular Gastrointestinal: soft, non-tender, no distention, positive bowel sounds Musculoskeletal: pulses present, edema present Neurological: non-focal, normal sensation, moves all 4 limbs Lymphatic: no nodes Skin: no rash, normal turgor, cap refill <2 seconds Dx/Plan (1) CAP (community acquired pneumonia) Code(s): J18.9 - PNEUMONIA, UNSPECIFIED ORGANISM Status: Acute Qualifiers: Laterality: unspecified laterality Qualified Code(s): J18.9 - Pneumonia, unspecified organism Comment: bilateral, L>R (2) Acute hypoxemic respiratory failure Code(s): J96.01 - ACUTE RESPIRATORY FAILURE WITH HYPOXIA Status: Acute Comment: on vent, wean sedation, extubate when able (3) Metabolic encephalopathy Code(s): G93.41 - METABOLIC ENCEPHALOPATHY Status: Acute Comment: improved, more awake, follwoing commands, nods/shakes head appropriately (4) CAD (coronary artery disease), [place] coronary artery Code(s): I25.10 - ATHSCL HEART DISEASE OF [place] CORONARY ARTERY W/O ANG PCTRS Status: Chronic Qualifiers: [place] vs. transplanted heart: [place] heart Associated angina: without angina Qualified Code(s): I25.10 - Atherosclerotic heart disease of [place] coronary artery without angina pectoris (5) HTN (hypertension) Code(s): I10 - ESSENTIAL (PRIMARY) HYPERTENSION Status: Chronic Qualifiers: Hypertension type: essential hypertension Qualified Code(s): I10 - Essential (primary) hypertension (6) CKD (chronic kidney disease), stage III Code(s): N18.3 - CHRONIC KIDNEY DISEASE, STAGE 3 (MODERATE) Status: Chronic - Plan cont current plan of care, continue antibiotics, PT/OT, respiratory therapy, DVT proph w/lovenox * .
--- NOTE | 2017-10-05 12:51 | PDOC.PN ---
- Subjective Encounter Start Date: 10/05/17 Encounter Start Time: 11:45 -: non-verbal Pt remained rally intubated, still on , but less. Pt arousable, follows commands no acute events reported, no sadie, no D/C, no N/V, denies CP still All systems reviewed, and neg x as above - Objective Resuscitation Status: Resuscitation Status FULL:Full Resuscitation MAR Reviewed: Yes Vital Signs & Weight: Vital Signs (12 hours) Temp Pulse Resp BP Pulse Ox 10/05/17 10:55 60 161/59 H 10/05/17 08:00 99.8 F H 64 18 92 L 10/05/17 07:20 64 157/68 H 10/05/17 06:00 16 10/05/17 04:55 98.2 F 10/05/17 04:00 17 10/05/17 02:55 74 16 94 L 10/05/17 02:00 16 Weight Admit Weight 233 lb Weight 228 lb 2.855 oz Most Recent Monitor Data Heart Rate from ECG 57 NIBP 157/61 NIBP BP-Mean 93 Respiration from ECG 16 SpO2 92 I&O: 10/04/17 10/05/17 10/06/17 06:59 06:59 06:59 Intake Total 3679 4130.3 30 Output Total 1370 4275 135 Balance 2309 -144.7 -105 Result Diagrams: 10/05/17 05:43 10/05/17 05:43 Additional Labs: Accuchecks 10/05/17 10/05/17 10/05/17 12:34 06:26 00:44 POC Glucose 157 H 141 H 135 H 10/04/17 18:49 POC Glucose 108 Radiology Reviewed by me: Yes EKG Reviewed by me: Yes Phys Exam - Physical Examination Constitutional: NAD HEENT: PERRLA, moist MMs, sclera anicteric, oral pharynx no lesions orally intubated, OG tube in Neck: no nodes, no JVD, supple, full ROM Respiratory: no wheezing coarse bialteral raels, L>R Cardiovascular: RRR, no significant murmur, no rub HR in 60s Gastrointestinal: soft, non-tender, no distention, positive bowel sounds Musculoskeletal: pulses present, edema present Neurological: non-focal, normal sensation, moves all 4 limbs Lymphatic: no nodes Psychiatric: normal affect, A&O x 3 Skin: no rash, normal turgor, cap refill <2 seconds Dx/Plan (1) CAP (community acquired pneumonia) Code(s): J18.9 - PNEUMONIA, UNSPECIFIED ORGANISM Status: Acute Qualifiers: Laterality: unspecified laterality Qualified Code(s): J18.9 - Pneumonia, unspecified organism Comment: bilateral, L>R (2) Acute hypoxemic respiratory failure Code(s): J96.01 - ACUTE RESPIRATORY FAILURE WITH HYPOXIA Status: Acute Comment: on vent, wean sedation, extubate when able (3) Metabolic encephalopathy Code(s): G93.41 - METABOLIC ENCEPHALOPATHY Status: Acute Comment: improved, more awake, follwoing commands, nods/shakes head appropriately (4) CAD (coronary artery disease), [place] coronary artery Code(s): I25.10 - ATHSCL HEART DISEASE OF [place] CORONARY ARTERY W/O ANG PCTRS Status: Chronic Qualifiers: [place] vs. transplanted heart: [place] heart Associated angina: without angina Qualified Code(s): I25.10 - Atherosclerotic heart disease of [place] coronary artery without angina pectoris (5) HTN (hypertension) Code(s): I10 - ESSENTIAL (PRIMARY) HYPERTENSION Status: Chronic Qualifiers: Hypertension type: essential hypertension Qualified Code(s): I10 - Essential (primary) hypertension (6) CKD (chronic kidney disease), stage III Code(s): N18.3 - CHRONIC KIDNEY DISEASE, STAGE 3 (MODERATE) Status: Chronic - Plan * .
--- NOTE | 2017-10-05 17:05 | PRG ---
DATE OF SERVICE: 10/05/2017 SUBJECTIVE: Mr. Zamora is on the ventilator, resting comfortably. OBJECTIVE: VITAL SIGNS: Blood pressure 153/77, pulse is in the 60s, not having recurrent bradycardia currently. LUNGS: Clear. CARDIAC: Normal S1 and normal S2. ABDOMEN: Soft, nontender. EXTREMITIES: No edema. ASSESSMENT AND PLAN: 1. Sepsis. 2. Previous mechanical mitral valve. 3. Episode of bradycardia, no bradycardia currently. Continue current medical regimen.
[2017-10-05] MEDS: Sodium Chloride 0.9% 1,000 ML IV SCH (18:53)
--- NOTE | 2017-10-05 19:45 | PRG ---
DATE OF SERVICE: 10/05/2017 SUBJECTIVE: Mr. Zamora awakens quickly. He is in no distress. His minute volume is about 8 liter s a minute. OBJECTIVE: VITAL SIGNS: His blood pressure 120/96, heart rate is 83, respiratory rate is 23, oximetry 100%. LUNGS: His lungs are remarkable for coarse equal breath sounds. HEART: Regular rhythm. ABDOMEN: Soft. EXTREMITIES: Without asymmetry. Moves all his extremities equally. LABORATORY DATA: White count 10.7, hemoglobin 13.4, platelets 162. Sodium 140, potassium 4.2, chloride 111, bicarbonate 21, BUN 25, creatinine 0.82. A pH of 7.46, CO2 of 34, PO2 of 65. His ventilatory rate has been turned down to 6 and he is maintained his minute volume. IMAGING: Chest radiographs have been reviewed. Bibasilar infiltrates are seen. Echocardiogram report has been reviewed. 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 His function appears to be normal per the report. IMPRESSION AND PLAN: 1. Respiratory failure associated with pneumonia. 2. Bradycardia, one of his rhythm strips looks like a type 2 Mobitz block. He is on low dose dobuta mine at this point in time. 3. History of mechanical mitral valve. Cultures have again been reviewed and these remain negative. We will continue progressive weaning attempts. Pacemaker decisions or the need for a pacemaker will be determined by Cardiology. His dobutamine probably should be discontinued while he is intubated, s o we can determine whether or not he continues to have a bradycardic rhythm disturbance. I discussed with Cardiology in the morning. We would like to extubate him tomorrow if he clinically remains sta ble and his radiograph remains stable. Critical care time was 30 minutes.
[2017-10-05] MEDS: Atorvastatin Calcium 10 MG TAB PER TUBE SCH (21:45)
[2017-10-06] MEDS: Propofol 1,000 MG/100 ML VIAL IV PRN (01:30)
[2017-10-06] MEDS: Enoxaparin Sodium 100 MG/ML SYRINGE SC SCH ×2 (04:29→16:11)
[2017-10-06] MEDS: MEROPENEM 1 GM/50 ML 1 GM in Premix Bag 1 BAG IVPB SCH ×3 (06:00→20:48)
[2017-10-06] MEDS ORDERED: Furosemide 40 MG/4 ML VIAL SLOW IVP SCH (07:45)
[2017-10-06] MEDS: Famotidine 20 MG TAB PER TUBE SCH ×2 (08:12→20:48)
[2017-10-06] MEDS: Clopidogrel Bisulfate 75 MG TAB PER TUBE SCH (08:12)
[2017-10-06 08:21] LABS: #Lymphocytes 1.2 thou/uL (1.20-3.40); #Monocytes 0.8 thou/uL (0.11-0.59); #Neutrophils 11.1 thou/uL (1.40-6.50); %Basophils 0.3 % (0.0-1.0); %Eosinophils 0.2 % (0.0-10.0); %Lymphocytes 9.4 % (21.0-51.0); %Monocytes 6.1 % (0.0-10.0); %Neutrophils 84.1 % (42.0-75.0); Hemoglobin 14.3 g/dL (14.0-18.0); Mean Corpuscular HGB CONC 33.3 g/dL (32.0-36.0); Mean Corpuscular Hemoglobin 29.7 pg (27.0-31.0); Platelet Count 184 thou/uL (130-400); RBC Distribution Width 13.1 % (11.5-14.5); Red Blood Cell (RBC) Count 4.82 mill/uL (4.70-6.10); White Blood Cell (WBC) Count 13.2 thou/uL (4.8-10.8)
[2017-10-06 08:35] LABS: ALT (SGPT) 73 U/L (8-55); AST (SGOT) 56 U/L (5-34); Albumin 3.7 g/dL (3.4-4.8); Alkaline Phosphatase 75 U/L (40-150); Anion Gap 10 mmol/L (10-20); BUN (Urea Nitrogen) 27 mg/dL (8.4-25.7); Bilirubin, Total 0.5 mg/dL (0.2-1.2); Calc. Creatinine Clearance 118 mL/min (70-130); Calcium 8.3 mg/dL (7.8-10.44); Carbon Dioxide 24 mmol/L (23-31); Chloride 108 mmol/L (98-107); Estimated GFR-MDRD Greater than 90; Glucose 158 mg/dL (83-110); Magnesium 2.6 mg/dL (1.6-2.6); Potassium 3.7 mmol/L (3.5-5.1); Protein, Total 6.7 g/dL (5.8-8.1); Sodium 138 mmol/L (136-145)
[2017-10-06 08:37] LABS: Actual Bicarbonate (HCO3a) 24.6 mEq/L (22-26); Base Excess (BEa) 1.4 mEq/L (0 (+/-) 2.5); CO2 Tension 34.5 mmHg (35.0-45.0); Hematocrit-ABG 41.5 % (42.0-52.0); Hemoglobin (Hb) 13.8 g/dL (14.0-18.0); O2 Tension (PaO2) 62.6 mmHg (80.0-100.0); pH, Arterial 7.47 (7.35-7.45)
[2017-10-06 08:38] LABS: ALV-art Gradient 177.475 (0-20); Calcium, Ionized 1.1 mmol/L (1.12-1.30); Puncture Site RR
[2017-10-06] MEDS ORDERED: Spironolactone 25 MG TAB PO SCH (10:30)
--- NOTE | 2017-10-06 11:48 | RAD ---
PORTABLE AP CHEST XRAY: DATE: 10/06/17. HISTORY: Patient on a ventilator. Daily followup evaluation. COMPARISON: 10/05/17. FINDINGS: Postsurgical changes related to median sternotomy and likely CABG are again present. Again noted is a fracture of the most superior sternal wire. Endotracheal tube and nasogastric tubes remain in plac e and unchanged in position. The cardiac silhouette is magnified by projection. There is increased density at the left lung base which may represent left pleural effusion and atelectasis. Pneumonia i n left lung base cannot be excluded. The opacity at the right lung base does appear improved. The c ardiac silhouette and bronchovascular markers are accentuated by the shallow depth of inspiration. IMPRESSION: 1. Lines and tubes stable in position. 2. Persistent opacity at the left lung base which may be related to left pleural effusion and atelec tasis. Pneumonia left lung base cannot be excluded. 3. Improved aeration right lung base compared to the prior study. However, there is small right ple ural effusion present. POS: [facility]
--- NOTE | 2017-10-06 12:24 | PDOC.PN ---
- Subjective Encounter Start Date: 10/06/17 Encounter Start Time: 10:45 Pt extubated at 1020 this AM, doing well, weaning off of O2. no CP, no SOb, no N/V. Mental status almost to baseline. HR elevated earlier, BP elevated, stopped. HR setling into lower 60s. Pt did go inafib, cardiology contacted, no itnervention at this time no f/c, no cough, no N/V/D/C. family at bedside all systems reviewed and neg x as above - Objective Resuscitation Status: Resuscitation Status FULL:Full Resuscitation MAR Reviewed: Yes Vital Signs & Weight: Vital Signs (12 hours) Temp Pulse Resp BP Pulse Ox 10/06/17 10:45 97 10/06/17 10:44 66 18 97 10/06/17 10:20 96 10/06/17 07:25 71 161/79 H 10/06/17 06:00 18 10/06/17 04:00 99.6 F 18 10/06/17 03:13 85 20 92 L 10/06/17 02:00 18 Weight Admit Weight 233 lb Weight 231 lb 0.711 oz Most Recent Monitor Data Heart Rate from ECG 72 NIBP 171/72 NIBP BP-Mean 95 Respiration from ECG 18 SpO2 92 I&O: 10/05/17 10/06/17 10/07/17 06:59 06:59 06:59 Intake Total 4130.3 1434.2 833 Output Total 4275 4460 60 Balance -144.7 -3025.8 773 Result Diagrams: 10/06/17 08:05 10/06/17 08:05 Additional Labs: Accuchecks 10/06/17 10/06/17 10/06/17 09:03 06:36 00:40 POC Glucose 175 H 149 H 151 H 10/05/17 10/05/17 17:33 12:34 POC Glucose 160 H 157 H Radiology Reviewed by me: Yes EKG Reviewed by me: Yes Phys Exam - Physical Examination Constitutional: NAD HEENT: PERRLA, moist MMs, sclera anicteric, oral pharynx no lesions Neck: no nodes, no JVD, supple, full ROM Respiratory: no wheezing, no rhonchi, clear to auscultation bilateral Cardiovascular: irregular mech MV without murmur Gastrointestinal: soft, non-tender, no distention, positive bowel sounds Musculoskeletal: pulses present, edema present Neurological: non-focal, normal sensation, moves all 4 limbs Lymphatic: no nodes Psychiatric: normal affect, A&O x 3 Skin: no rash, normal turgor, cap refill <2 seconds Dx/Plan (1) CAP (community acquired pneumonia) Code(s): J18.9 - PNEUMONIA, UNSPECIFIED ORGANISM Status: Acute Qualifiers: Laterality: unspecified laterality Qualified Code(s): J18.9 - Pneumonia, unspecified organism Comment: bilateral, L>R, covered with abx. ? aspiration (2) Acute hypoxemic respiratory failure Code(s): J96.01 - ACUTE RESPIRATORY FAILURE WITH HYPOXIA Status: Resolved Comment: extubated today. awake and alert (3) Metabolic encephalopathy Code(s): G93.41 - METABOLIC ENCEPHALOPATHY Status: Resolved Comment: A&O X 3 , family reports occasioally 'off' but almost at baseline (4) CAD (coronary artery disease), [place] coronary artery Code(s): I25.10 - ATHSCL HEART DISEASE OF [place] CORONARY ARTERY W/O ANG PCTRS Status: Chronic Qualifiers: [place] vs. transplanted heart: [place] heart Associated angina: without angina Qualified Code(s): I25.10 - Atherosclerotic heart disease of [place] coronary artery without angina pectoris (5) HTN (hypertension) Code(s): I10 - ESSENTIAL (PRIMARY) HYPERTENSION Status: Chronic Qualifiers: Hypertension type: essential hypertension Qualified Code(s): I10 - Essential (primary) hypertension (6) CKD (chronic kidney disease), stage III Code(s): N18.3 - CHRONIC KIDNEY DISEASE, STAGE 3 (MODERATE) Status: Chronic (7) Sinus bradycardia Code(s): R00.1 - BRADYCARDIA, UNSPECIFIED Status: Resolved Comment: resovled with drip. drip now off (8) New onset atrial fibrillation Code(s): I48.91 - UNSPECIFIED ATRIAL FIBRILLATION Status: Acute Comment: cardiology aware, rate controlled - Plan cont current plan of care, plan discussed w/ family, continue antibiotics, PT/OT , respiratory therapy, out of bed/ambulate * .
--- NOTE | 2017-10-06 13:17 | PRG ---
DATE OF SERVICE: 10/06/2017 SUBJECTIVE: Mr. Zamora remains on the ventilator. He looks comfortable. There is consideration f or possibly going off the ventilator today. OBJECTIVE: GENERAL: He is awake and alert. VITAL SIGNS: His blood pressure is high 160/79, pulse is in the 70s. It looks like he is now in atr ial fibrillation with a controlled rate. ASSESSMENT: 1. Previous mechanical mitral valve. 2. Bradycardia, resolved. 3. Atrial fibrillation with controlled rate. 4. Hypertension. PLAN: 1. He did receive intravenous furosemide. 2. He is now off dobutamine. 3. We will add spironolactone 25 mg per NG.
--- NOTE | 2017-10-06 13:26 | PRG ---
DATE OF SERVICE: 10/06/2017 SUBJECTIVE: He has done well overnight. OBJECTIVE: GENERAL: He is awake and alert. He follows all commands, moves all four extremities. VITAL SIGNS: Heart rate 66, respiratory rate 18, blood pressure 161/79. LUNGS: Clear. HEART: Regular rhythm. ABDOMEN: Soft and nontender. EXTREMITIES: Without clubbing, cyanosis, or edema. NEUROLOGIC: Nonfocal. LABORATORY DATA: White count 13.2, hemoglobin 14.3, platelets 184. Sodium 138, potassium 3.7, chlor luis 108, bicarbonate 24, BUN 27, creatinine 0.8, pH 7.47, CO2 of 35, and PO2 of 62. IMPRESSION: 1. Respiratory failure associated with pneumonia. 2. Bradycardia, resolved. 3. Atrial fibrillation, now with controlled ventricular response. PLAN: His minute volume is 7-8 liters a minute. I felt he was a candidate for extubation after we g radually decrease ventilatory support throughout the morning. This has been done successfully. Ches t radiograph reviewed by me shows no alveolar infiltrates. His dobutamine was held when he went into atrial fibrillation. He is still anticoagulated. Antimicrobial therapy can be converted to p.o. to asencio. We will decrease his steroid dosing today. He will remain in the Critical Care Unit. CRITICAL CARE TIME: 30 minutes.
[2017-10-06] MEDS: Sodium Chloride 0.9% 1,000 ML IV SCH ×2 (18:16→21:38)
[2017-10-06] MEDS: Atorvastatin Calcium 10 MG TAB PER TUBE SCH (20:50)
[2017-10-06] MEDS: Vancomycin HCl 1 GM in Premix Bag 1 BAG IVPB SCH (21:37)
[2017-10-06] MEDS: Potassium Chloride 20 MEQ in Premix Bag 1 BAG IVPB SCH (22:26)
[2017-10-07] MEDS: Potassium Chloride 20 MEQ in Premix Bag 1 BAG IVPB SCH (02:03)
[2017-10-07 05:45] LABS: #Basophils 0.1 thou/uL (0.0-0.2); #Eosinphils 0.1 thou/uL (0.0-0.7); #Lymphocytes 1.8 thou/uL (1.20-3.40); #Monocytes 1.2 thou/uL (0.11-0.59); #Neutrophils 9.1 thou/uL (1.40-6.50); %Basophils 0.8 % (0.0-1.0); %Eosinophils 0.4 % (0.0-10.0); %Lymphocytes 14.5 % (21.0-51.0); %Monocytes 9.9 % (0.0-10.0); %Neutrophils 74.4 % (42.0-75.0); Hemoglobin 15.3 g/dL (14.0-18.0); Mean Corpuscular HGB CONC 32.9 g/dL (32.0-36.0); Mean Corpuscular Hemoglobin 29.6 pg (27.0-31.0); Mean Platelet Volume 8.4 fL (7.4-10.4); Platelet Count 155 thou/uL (130-400); RBC Distribution Width 13.3 % (11.5-14.5); Red Blood Cell (RBC) Count 5.15 mill/uL (4.70-6.10); White Blood Cell (WBC) Count 12.2 thou/uL (4.8-10.8)
[2017-10-07 05:49] LABS: ALT (SGPT) 103 U/L (8-55); AST (SGOT) 64 U/L (5-34); Albumin 3.7 g/dL (3.4-4.8); Alkaline Phosphatase 82 U/L (40-150); Anion Gap 12 mmol/L (10-20); BUN (Urea Nitrogen) 31 mg/dL (8.4-25.7); Bilirubin, Total 0.9 mg/dL (0.2-1.2); Calc. Creatinine Clearance 125 mL/min (70-130); Calcium 8.3 mg/dL (7.8-10.44); Carbon Dioxide 26 mmol/L (23-31); Chloride 105 mmol/L (98-107); Estimated GFR-MDRD Greater than 90; Glucose 118 mg/dL (83-110); Magnesium 2.8 mg/dL (1.6-2.6); Potassium 4.1 mmol/L (3.5-5.1); Protein, Total 6.7 g/dL (5.8-8.1); Sodium 139 mmol/L (136-145)
[2017-10-07] MEDS: MEROPENEM 1 GM/50 ML 1 GM in Premix Bag 1 BAG IVPB SCH ×3 (06:01→21:05)
[2017-10-07] MEDS: Enoxaparin Sodium 100 MG/ML SYRINGE SC SCH ×2 (06:01→16:13)
--- NOTE | 2017-10-07 07:38 | PDOC.CTH ---
Cardiology Progress Note - Subjective Pt extubated. Pt without complaints. Remains on dobutaimne at low dose. When dobutamine d/c'ed, HR decreases to 30's. - ROS not able to obtain ROS - Objective Vital Signs Temp Pulse Resp Pulse Ox 10/07/17 07:15 96 10/07/17 07:13 64 14 97 10/07/17 04:00 98.2 F 10/07/17 02:14 68 14 96 10/06/17 22:27 69 16 93 L 10/06/17 20:00 97.9 F 69 16 93 L Admit Weight 233 lb Weight 231 lb 12.8 oz 10/06/17 10/07/17 10/08/17 06:59 06:59 06:59 Intake Total 1434.2 2010.7 Output Total 4460 4740 Balance -3025.8 -2729.3 - Physical Examination General/Neuro: other: (nfusion) Neck: carotid US brisk, no JVD present Lungs: CTA Heart: RRR Abdomen: no HSM, NT/ND Extremities: + femoral B - Labs Result Diagrams: 10/07/17 05:03 10/07/17 05:03 Troponin/CKMB CK-MB (CK-2) 4.5 ng/mL (0-6.6) 10/02/17 00:16 Troponin I 0.016 ng/mL (< 0.028) 10/02/17 04:33 - Assessment/Plan 1. Respiratory failure 2. Pneumonia 3. Bradycardia 4. mechanical MVR 5. Non-compliance d/c plavix Pt with previous mild CAD diagnosed on angio in 2014. Bradycardia continues to require low dose dobutamine. May benefit from pacer. Will disucss with Dr. Harris. Continue lovenox and add coumadin when more stable. I have been unable to discuss reasoning behind stopping coumadin in the past. Pt has not been see in the office for over 2 yrs.
--- NOTE | 2017-10-07 09:15 | RAD ---
PORTABLE AP CHEST: Date: 10/07/17 HISTORY: Patient on ventilator. Daily follow-up evaluation. COMPARISON: 10/06/17. FINDINGS: The endotracheal tube and nasogastric tubes have been removed. Median sternotomy wires are again seen with fracture of the superior sternotomy wire. Cardiac silhouette is magnified by projection, but does appear mildly enlarged. Again noted is increa sed density at the left lung base, which could be related to either atelectasis or pneumonia. Mild at electasis present at the right lung base. There is probable tiny left pleural effusion. Pulmonary vas culature is within normal limits. No other interval change. IMPRESSION: 1. Interval removal of endotracheal tube and nasogastric tube. 2. Persistent increased density left lung base, which may be related to small left pleural effusion and\or atelectasis. Pneumonia is not entirely excluded. 3. Atelectasis right lung base. POS: [facility]
[2017-10-07] MEDS: Famotidine 20 MG TAB PER TUBE SCH ×2 (09:28→21:04)
[2017-10-07] MEDS: Spironolactone 25 MG TAB PO SCH (09:28)
--- NOTE | 2017-10-07 13:54 | PRG ---
DATE OF SERVICE: 10/07/2017 SUBJECTIVE: Mr. Zamora is doing well. He has no complaints. PHYSICAL EXAMINATION: VITAL SIGNS: Have been stable. Heart rates in the 60s, respiratory rates in the teens, oximetry is 96%, he is afebrile, blood pressure is 124/54. He had dobutamine removed and then became bradycardic with dobutamines continued to run. LUNGS: Clear anteriorly. HEART: Regular rhythm. ABDOMEN: Soft. IMPRESSION: 1. Pneumonia. 2. Bradycardia? needing a pacemaker. 3. Status post mechanical ventilation for pneumonia. 4. Encephalopathy associated with his pneumonia that is resolved. 5. Atrial fibrillation. 6. Status post mechanical mitral valve replacement. 7. Mild coronary artery disease. 8. History of medical noncompliance. He remains anticoagulated. 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 We will continue to follow along with t [place] physician's care and for me, he probably should remain in a critical care environment given that h e may require pacing.
--- NOTE | 2017-10-07 14:15 | PDOC.PN ---
- Subjective Encounter Start Date: 10/07/17 Encounter Start Time: 14:30 Subjective: Patient Lao speaking mostly, still confused per family, sleeping most -: of the day today. Heart rate dropped to 30s this AM and had to turn up -: dobutamine, currently HR stable at 90-100 - Objective Resuscitation Status: Resuscitation Status FULL:Full Resuscitation MAR Reviewed: Yes Vital Signs & Weight: Vital Signs (12 hours) Temp Pulse Resp Pulse Ox 10/07/17 14:10 99 14 95 10/07/17 10:25 63 17 94 L 10/07/17 08:00 98.6 F 72 16 95 10/07/17 07:57 98.6 F 10/07/17 07:15 96 10/07/17 07:13 64 14 97 10/07/17 04:00 98.2 F 10/07/17 02:14 68 14 96 Weight Admit Weight 233 lb Weight 231 lb 12.8 oz Most Recent Monitor Data Heart Rate from ECG 98 NIBP 119/61 NIBP BP-Mean 81 Respiration from ECG 13 SpO2 94 I&O: 10/06/17 10/07/17 10/08/17 06:59 06:59 06:59 Intake Total 1434.2 2010.7 Output Total 4460 4740 200 Balance -3025.8 -2729.3 -200 Result Diagrams: 10/07/17 05:03 10/07/17 05:03 Additional Labs: Accuchecks 10/07/17 10/06/17 00:56 15:59 POC Glucose 115 H 139 H Phys Exam - Physical Examination Constitutional: NAD HEENT: moist MMs Respiratory: no wheezing, no rales, no rhonchi Cardiovascular: no significant murmur tachycardic, regular Gastrointestinal: soft, non-tender, positive bowel sounds davis in place Neurological: non-focal, moves all 4 limbs Psychiatric: normal affect Deviation from normal: sleepy Dx/Plan (1) CAP (community acquired pneumonia) Code(s): J18.9 - PNEUMONIA, UNSPECIFIED ORGANISM Status: Acute Qualifiers: Laterality: unspecified laterality Qualified Code(s): J18.9 - Pneumonia, unspecified organism Comment: bilateral, L>R, covered with abx. ? aspiration (2) Acute hypoxemic respiratory failure Code(s): J96.01 - ACUTE RESPIRATORY FAILURE WITH HYPOXIA Status: Resolved Comment: extubated today. awake and alert (3) Metabolic encephalopathy Code(s): G93.41 - METABOLIC ENCEPHALOPATHY Status: Resolved Comment: A&O X 3 , family reports still confused (4) CAD (coronary artery disease), [place] coronary artery Code(s): I25.10 - ATHSCL HEART DISEASE OF [place] CORONARY ARTERY W/O ANG PCTRS Status: Chronic Qualifiers: [place] vs. transplanted heart: [place] heart Associated angina: without angina Qualified Code(s): I25.10 - Atherosclerotic heart disease of [place] coronary artery without angina pectoris (5) CKD (chronic kidney disease), stage III Code(s): N18.3 - CHRONIC KIDNEY DISEASE, STAGE 3 (MODERATE) Status: Chronic (6) HTN (hypertension) Code(s): I10 - ESSENTIAL (PRIMARY) HYPERTENSION Status: Chronic Qualifiers: Hypertension type: essential hypertension Qualified Code(s): I10 - Essential (primary) hypertension (7) Sinus bradycardia Code(s): R00.1 - BRADYCARDIA, UNSPECIFIED Status: Resolved Comment: resovled with drip. may need pacerDr. Harris consulted - Plan cont current plan of care, continue antibiotics, PT/OT, DVT proph w/lovenox, DVT proph w/SCDs * . - Discharge Day Encounter end time: 14:40
[2017-10-07] MEDS: Atorvastatin Calcium 10 MG TAB PER TUBE SCH (21:04)
[2017-10-07] MEDS: Sodium Chloride 0.9% 1,000 ML IV SCH (21:07)
[2017-10-08] MEDS: MEROPENEM 1 GM/50 ML 1 GM in Premix Bag 1 BAG IVPB SCH ×3 (05:40→21:39)
[2017-10-08] MEDS: Enoxaparin Sodium 100 MG/ML SYRINGE SC SCH ×2 (05:41→16:24)
--- NOTE | 2017-10-08 06:47 | PDOC.CTH ---
Cardiology Progress Note - Subjective Pt still with some encephalopathy noted. He denies stopping coumadin. He remains on low dose dobutamine at 3 mics with stable HR. - Objective Vital Signs Temp Pulse Resp Pulse Ox 10/08/17 04:00 97.9 F 10/08/17 02:33 61 12 94 L 10/07/17 22:00 68 17 93 L 10/07/17 20:00 98.2 F 72 11 L 95 10/07/17 18:49 71 10 L 92 L Admit Weight 233 lb Weight 231 lb 12.8 oz 10/06/17 10/07/17 10/08/17 06:59 06:59 06:59 Intake Total 1434.2 2010.7 1181.9 Output Total 4460 4740 1380 Balance -3025.8 -2729.3 -198.1 - Physical Examination General/Neuro: NAD Neck: no JVD present Lungs: CTA, unlabored respirations Heart: RRR Abdomen: no HSM, NT/ND, soft Extremities: + femoral B - Labs Result Diagrams: 10/07/17 05:03 10/07/17 05:03 Troponin/CKMB CK-MB (CK-2) 4.5 ng/mL (0-6.6) 10/02/17 00:16 Troponin I 0.016 ng/mL (< 0.028) 10/02/17 04:33 - Assessment/Plan 1. Respiratory failure 2. Pneumonia 3. Bradycardia 4. mechanical MVR 5. Non-compliance Spoke with Dr. Harris yesterday. Concerned about continued requirement of dobutamine. Pt likely would benefit from pacer. Continue dobutamine for now. EP consult today. Needs INR 2.5-3.5 when pacer is placed and pt more stable. Spoke with family yesterday. They are unaware of him not taking coumadin for valve.
--- NOTE | 2017-10-08 09:16 | RAD ---
CHEST ONE VIEW: History: Dyspnea. Follow up. Comparison: 10-07-17 FINDINGS: Cardiac silhouette is magnified and upper limits of normal in size. Pulmonary vasculature remains sli ghtly engorged and accentuated by shallow inspiration. Patchy bibasilar infiltrates are unchanged. Me diastinum is midline with post-operative changes and aortic calcification. IMPRESSION: 1. Pulmonary vascular congestion and other findings are stable. POS: TPC
[2017-10-08] MEDS: Spironolactone 25 MG TAB PO SCH (09:28)
[2017-10-08] MEDS: Famotidine 20 MG TAB PER TUBE SCH ×2 (09:28→21:39)
--- NOTE | 2017-10-08 10:10 | PDOC.PN ---
- Subjective Encounter Start Date: 10/08/17 Encounter Start Time: 12:30 Subjective: Patient reports some mild chest discomfort, worse on the lower left side. -: No other complaints. Had some recurrent bradycardia, back on Dobutamine -: 3. - Objective Resuscitation Status: Resuscitation Status FULL:Full Resuscitation MAR Reviewed: Yes Vital Signs & Weight: Vital Signs (12 hours) Temp Pulse Resp Pulse Ox 10/08/17 08:00 98.7 F 72 14 100 10/08/17 07:40 75 18 10/08/17 04:00 97.9 F 10/08/17 02:33 61 12 94 L Weight Admit Weight 233 lb Weight 231 lb 12.8 oz Most Recent Monitor Data Heart Rate from ECG 72 NIBP 140/52 NIBP BP-Mean 77 Respiration from ECG 14 SpO2 98 I&O: 10/07/17 10/08/17 10/09/17 06:59 06:59 06:59 Intake Total 2010.7 1181.9 Output Total 4740 1380 100 Balance -2729.3 -198.1 -100 Result Diagrams: 10/07/17 05:03 10/07/17 05:03 Additional Labs: Accuchecks 10/08/17 10/07/17 10/07/17 05:49 21:16 17:14 POC Glucose 98 90 115 H Phys Exam - Physical Examination Constitutional: NAD HEENT: moist MMs Respiratory: no wheezing, no rales, no rhonchi Cardiovascular: no significant murmur, irregular Gastrointestinal: soft, positive bowel sounds Neurological: non-focal, moves all 4 limbs Psychiatric: normal affect Dx/Plan (1) CAP (community acquired pneumonia) Code(s): J18.9 - PNEUMONIA, UNSPECIFIED ORGANISM Status: Acute Qualifiers: Laterality: unspecified laterality Qualified Code(s): J18.9 - Pneumonia, unspecified organism Comment: bilateral, L>R, covered with abx. ? aspiration, ST eval and start diet if ok (2) Acute hypoxemic respiratory failure Code(s): J96.01 - ACUTE RESPIRATORY FAILURE WITH HYPOXIA Status: Resolved Comment: extubated, awake and alert (3) Metabolic encephalopathy Code(s): G93.41 - METABOLIC ENCEPHALOPATHY Status: Resolved Comment: A&O X 3 , improved (4) CAD (coronary artery disease), [place] coronary artery Code(s): I25.10 - ATHSCL HEART DISEASE OF [place] CORONARY ARTERY W/O ANG PCTRS Status: Chronic Qualifiers: [place] vs. transplanted heart: [place] heart Associated angina: without angina Qualified Code(s): I25.10 - Atherosclerotic heart disease of [place] coronary artery without angina pectoris (5) CKD (chronic kidney disease), stage III Code(s): N18.3 - CHRONIC KIDNEY DISEASE, STAGE 3 (MODERATE) Status: Chronic (6) HTN (hypertension) Code(s): I10 - ESSENTIAL (PRIMARY) HYPERTENSION Status: Chronic Qualifiers: Hypertension type: essential hypertension Qualified Code(s): I10 - Essential (primary) hypertension (7) Sinus bradycardia Code(s): R00.1 - BRADYCARDIA, UNSPECIFIED Status: Resolved Comment: resolved with drip. may need pacer, Dr. Harris concerned about MAINOR and hypoxia as source, will try and wean dobutamine, document O2 sat with any bradycardia and see if stimulation alone resolves - Plan cont current plan of care, continue antibiotics, PT/OT, speech therapy * . - Discharge Day Encounter end time: 12:45
--- NOTE | 2017-10-08 16:14 | PRG ---
DATE OF SERVICE: 10/08/2017 SUBJECTIVE: Natalio Zamora has no complaints. OBJECTIVE: VITAL SIGNS: He is afebrile, heart rate in the 70s, respiratory rates in teens, blood pressure 143/7 1. LUNGS: Clear. HEART: Regular rhythm. ABDOMEN: Soft and nontender. EXTREMITIES: Without asymmetry. LABORATORY DATA: Chest radiograph is unchanged, reviewed by me. White count 12.2, hemoglobin 15.3, platelets 155,000. There are no electrolytes today. IMPRESSION: 1. Status post intubation for pneumonia and encephalopathy, clinically stable post-extubation. 2. Mechanical mitral valve. 3. Bradycardia. 4. Medical noncompliance. Continuing with Dobutamine and evaluation by Electrophysiology.
--- NOTE | 2017-10-08 19:17 | CON ---
DATE OF CONSULTATION: 10/07/2017 ELECTROPHYSIOLOGY CONSULTATION This is Esha Valenzuela, nurse practitioner, dictating as scribe for Dr. Patrick Harris REFERRING PHYSICIAN: Alvaro Onofre M.D. REASON FOR CONSULTATION: Bradycardia. HISTORY OF PRESENT ILLNESS: Mr. Zamora is a pleasant 77-year-old gentleman, [facility]. He was felt to be septic and was intubated for a while. He is c urrently extubated, awake, alert, and oriented. He did have metabolic encephalopathy. Once he was e xtubated, he had an acute onset of bradycardia with heart rates in the 30s and 40s; however, blood pr essure remained stable. The QRS at that time was narrow. He was started on dobutamine, which has sl owly been titrated down and is currently too low dose; however, he continues to have bradycardia epis odes at night. He is asymptomatic at the bradycardia and overall does not have any cardiac concerns or complaints today. REVIEW OF SYSTEMS: Twelve point review of systems was conducted and is negative except that listed i n the HPI. PAST MEDICAL HISTORY: 1. Status post mechanical mitral valve in 1995, on chronic anticoagulation. 2. Bacterial endocarditis. 3. Hyperlipidemia. 4. Mild coronary artery disease diagnosed in 2014. SOCIAL HISTORY: Negative for alcohol or illicit drug use. FAMILY HISTORY: Noncontributory. Unknown if there is history of arrhythmias or sudden cardiac . ALLERGIES: PENICILLIN. MEDICATIONS AT HOME: Hydrocodone, Nexium, Coumadin, atenolol, lisinopril, hydrochlorothiazide, nitro glycerin, Zocor, and aspirin. PHYSICAL EXAMINATION: GENERAL: The patient is well-groomed, well-nourished elderly male in no acute distress. VITAL SIGNS: Most recent vital signs, blood pressure 154/79, heart rate 75, respirations 15, oxygen saturation 94%. HEENT: He is normocephalic, atraumatic. Sclerae are anicteric. Awake, alert, and oriented. His sp eech is clear. Affect is appropriate. NECK: Supple without jugular venous distention. CHEST: His lungs are clear to auscultation bilaterally. Respirations are even and unlabored. CARDIOVASCULAR: Heart rate is regularly regular. ABDOMEN: Soft, nontender, no palpable masses. EXTREMITIES: Warm and dry to touch without clubbing or cyanosis. NEUROLOGIC: He is grossly intact, but he still has some mild encephalopathy noted. DATABASE: WBC 12.2, hemoglobin 15, hematocrit 46, platelet count 155. INR on 10/02/2017 was 1.1. C hemistry on 10/07/2017, sodium 139, potassium 4.1, chloride 105, carbon dioxide 26, BUN 31, creatini ne 0.76, magnesium 2.8, AST 64, ALT 103. Chest x-ray on 10/08/2017, stable findings, but there is so me pulmonary vascular congestion present. Echocardiogram on 10/05/2017, EF 65%-70%. LV size is norm al. Left atrium normal size. Mechanical mitral prosthetic valve present with normal function. Stru cturally normal aortic valve. Review of telemetry and EKG reveal currently sinus rhythm with heart r ates in the 70-80 range. There is paroxysmal sinus bradycardia while asleep and there was an episode of nonsustained ventricular tachycardia as well as some trigeminy and paroxysmal atrial fibrillation with controlled ventricular response. IMPRESSION: 1. Paroxysmal sinus bradycardia while asleep. 2. Nonsustained ventricular tachycardia. 3. Mental status changes and metabolic encephalopathy. 4. History of mechanical mitral valve replacement, on chronic anticoagulation with warfarin. 5. Likely obstructive sleep apnea. 6. Paroxysmal atrial fibrillation with controlled ventricular response. PLAN: Continue to monitor and wean dobutamine as tolerated. Recommend evaluation for obstructive sl eep apnea and feel the patient would likely benefit from CPAP at night as these are when he is asympt omatic pauses and sinus bradycardia are occurring. Continue Coumadin for chronic anticoagulation giv en his mechanical valve. Thank you for allowing us to participate in the care of this patient.
[2017-10-08] MEDS: Atorvastatin Calcium 10 MG TAB PER TUBE SCH (21:39)
[2017-10-08] MEDS: Sodium Chloride 0.9% 1,000 ML IV SCH (21:41)
[2017-10-09] MEDS: Enoxaparin Sodium 100 MG/ML SYRINGE SC SCH ×2 (04:16→18:17)
[2017-10-09] MEDS: MEROPENEM 1 GM/50 ML 1 GM in Premix Bag 1 BAG IVPB SCH ×2 (05:53→13:41)
--- NOTE | 2017-10-09 06:35 | PDOC.CTH ---
Cardiology Progress Note - Objective Vital Signs Temp Pulse Resp Pulse Ox 10/09/17 04:00 98.3 F 10/09/17 02:06 53 L 16 100 10/09/17 00:00 98.0 F 10/08/17 22:10 52 L 16 95 10/08/17 20:00 98.1 F 61 10 L 94 L Admit Weight 233 lb Weight 229 lb 8.019 oz 10/07/17 10/08/17 10/09/17 06:59 06:59 06:59 Intake Total 2010.7 1181.9 791 Output Total 4740 1380 1758 Balance -2729.3 -198.1 -967 - Physical Examination Neck: carotid US brisk, no JVD present, other: Lungs: CTA, unlabored respirations, other: Heart: PMI normal, RRR, other: Abdomen: no HSM, NT/ND, soft, other: Extremities: + femoral B - Labs Result Diagrams: 10/07/17 05:03 10/07/17 05:03 Troponin/CKMB CK-MB (CK-2) 4.5 ng/mL (0-6.6) 10/02/17 00:16 Troponin I 0.016 ng/mL (< 0.028) 10/02/17 04:33 Labs: O/W CBC wnl, O/W BMP wnl - Assessment/Plan 1. Respiratory failure 2. Pneumonia 3. Bradycardia 4. mechanical MVR 5. Non-compliance EP consulted anf felt symptoms related to MAINOR. Dobutrex off Lovenox BID until we are able to determine pt does not need a pacer. Once dobutrex off, add coumadin Abx Encephalopathy improving Given no episodes in last 18 hours of dobutrex, ok to transfer to [facility] and start coumadin
--- NOTE | 2017-10-09 07:45 | PRG ---
ELECTROPHYSIOLOGIY FOLLOWUP NOTE This is dictated as scribe for Dr. Patrick Harris. SUBJECTIVE: The patient was seen and evaluated and does not have any new cardiac concerns or complai nts. He has some mild encephalopathy noted. Dobutamine is currently off. He denies any dizziness, lightheadedness, heart racing, palpitations, chest pain, pressure, syncope, near syncope, stroke, or stroke-like symptoms. OBJECTIVE: VITAL SIGNS: Most recent vital signs, temperature 98.2 degrees, heart rate is 72, respirations are 1 2, oxygen saturations 95% on room air. GENERAL: The patient is alert, oriented, in no acute distress. NECK: Supple without jugular venous distention. LUNGS: Clear to auscultation. Respirations are even and unlabored with good bilateral excursion. HEART: His heart rate is regularly regular. ABDOMEN: Soft and nontender without palpable masses. Positive bowel tones are heard throughout. EXTREMITIES: Warm and dry to touch without clubbing, cyanosis, or edema. NEUROLOGIC: Nonfocal. DATA BASE: EKG and telemetry reveals normal sinus rhythm with a first-degree AV block. He continues to have sinus bradycardia while sleeping, which also correlates with significant desaturation episod e that he had, where saturations dropped to 70% while asleep. Lab work was reviewed and is unremarka ble except elevated white count of 12.2, BUN of 31, and glucose of 118. ASSESSMENT AND PLAN: 1. Paroxysmal sinus bradycardia while asleep, asymptomatic and likely associated with undiagnosed sl eep apnea. 2. Nonsustained ventricular tachycardia without recurrence. 3. Altered mental status, mostly resolved, but mild encephalopathic changes noted. 4. History of mechanical mitral valve. Continue chronic Coumadin, currently subtherapeutic. 5. Paroxysmal atrial fibrillation, now in sinus rhythm.
--- NOTE | 2017-10-09 09:18 | RAD ---
PORTABLE AP CHEST RADIOGRAPH: Date: 10-09-17 History: Follow up evaluation. Comparison: 10-08-17 FINDINGS: Again noted are median sternotomy wires with fracture of the superior external wire. Cardiac silhouet te is magnified by projection. Pulmonary vasculature is within normal limits. There is mild bibasilar atelectasis with what appears to be moderate improvement in aeration of the left lung base. Pulmonar y vascular congestion also appears improved. The thoracic aorta is ectatic and calcified. IMPRESSION: Mild improvement in aeration in each lung base as well as improvement in pulmonary vascular congestio n. POS: OFF
[2017-10-09] MEDS: Famotidine 20 MG TAB PER TUBE SCH ×2 (10:18→21:29)
[2017-10-09] MEDS: Spironolactone 25 MG TAB PO SCH (10:18)
--- NOTE | 2017-10-09 11:16 | PDOC.PN ---
- Subjective Encounter Start Date: 10/09/17 Encounter Start Time: 11:14 Subjective: alert, only complaint is discomfort in L arm iv site - Objective Resuscitation Status: Resuscitation Status FULL:Full Resuscitation MAR Reviewed: Yes Vital Signs & Weight: Vital Signs (12 hours) Temp Pulse Resp Pulse Ox 10/09/17 09:00 98.1 F 10/09/17 08:00 98.1 F 62 16 95 10/09/17 07:59 99 10/09/17 07:55 59 L 16 10/09/17 04:00 98.3 F 10/09/17 02:06 53 L 16 100 10/09/17 00:00 98.0 F Weight Admit Weight 233 lb Weight 229 lb 8.019 oz Most Recent Monitor Data Heart Rate from ECG 62 NIBP 137/69 NIBP BP-Mean 83 Respiration from ECG 15 SpO2 98 I&O: 10/08/17 10/09/17 10/10/17 06:59 06:59 06:59 Intake Total 1181.9 791 Output Total 1380 1758 355 Balance -198.1 -967 -355 Result Diagrams: 10/07/17 05:03 10/07/17 05:03 Additional Labs: Accuchecks 10/09/17 10/09/17 10/08/17 05:57 00:34 18:35 POC Glucose 98 101 129 H 10/08/17 13:15 POC Glucose 121 H Phys Exam - Physical Examination Neck: no JVD good BS, bilat rhonchi Cardiovascular: RRR crisp mech valve sounds Gastrointestinal: soft, positive bowel sounds Musculoskeletal: edema present L spastic hemiplegia Dx/Plan (1) Hemiplegia affecting left nondominant side Code(s): G81.94 - HEMIPLEGIA, UNSPECIFIED AFFECTING LEFT NONDOMINANT SIDE Status: Acute Qualifiers: 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 ? aspiration, ST eval and start diet if ok (4) CAD (coronary artery disease), [place] coronary artery Code(s): I25.10 - ATHSCL HEART DISEASE OF [place] CORONARY ARTERY W/O ANG PCTRS Status: Chronic Qualifiers: [place] vs. transplanted heart: [place] heart Associated angina: without angina Qualified Code(s): I25.10 - Atherosclerotic heart disease of [place] coronary artery without angina pectoris (5) CKD (chronic kidney disease), stage III Code(s): N18.3 - CHRONIC KIDNEY DISEASE, STAGE 3 (MODERATE) Status: Chronic (6) HTN (hypertension) Code(s): I10 - ESSENTIAL (PRIMARY) HYPERTENSION Status: Chronic Qualifiers: Hypertension type: essential hypertension Qualified Code(s): I10 - Essential (primary) hypertension (7) Acute hypoxemic respiratory failure Code(s): J96.01 - ACUTE RESPIRATORY FAILURE WITH HYPOXIA Status: Resolved Comment: extubated, awake and alert (8) Metabolic encephalopathy Code(s): G93.41 - METABOLIC ENCEPHALOPATHY Status: Resolved Comment: A&O X 3 , improved (9) Sinus bradycardia Code(s): R00.1 - BRADYCARDIA, UNSPECIFIED Status: Resolved Comment: resolved with drip. may need pacer, Dr. Harris concerned about MAINOR and hypoxia as source, will try and wean dobutamine, document O2 sat with any bradycardia and see if stimulation alone resolves - Plan move to tele -: CPAP at [facility] -: cont antibx, nebs, steroids * .
--- NOTE | 2017-10-09 15:25 | PRG ---
DATE OF SERVICE: 10/09/2017 SUBJECTIVE: Mr. Zamora has been stable. He was taken off dobutamine. OBJECTIVE: VITAL SIGNS: His heart rate is in the 70s in sinus rhythm. Blood pressure 156/76, respiratory rate 16. LUNGS: Clear. HEART: Regular rhythm. ABDOMEN: Soft. LABORATORY DATA: There are no new labs. IMPRESSION: 1. Status post pneumonia with mechanical ventilation. 2. Encephalopathy secondary to his pneumonia, resolved. 3. Bradycardia, on dobutamine for a while for his bradycardia. He will continue to be telemetry mon itored. He will be transferred out of the Critical Care Unit to a telemetry bed. PLAN: He was started on antimicrobial therapy on the . Today , so he has had 7 days of IV me ropenem I believe we can stop his antimicrobial therapy at this point, especially in light of the fac t that his radiograph is almost completely cleared completely. His Solu-Medrol will be discontinued as well. He is on warfarin for his heart valve. His INR is 1.1 when last checked on the . This will need to be followed closely. If he is going to be managed with warfarin. He is still on Lovenox, at full dose, but no acute pulmonary issues and he is certainly stable enough to move out of the Critical Care Unit. We will sign off.
[2017-10-09] MEDS: Warfarin Sodium 5 MG TAB PO SCH (18:17)
[2017-10-09] MEDS: Sodium Chloride 0.9% 1,000 ML IV SCH (21:27)
[2017-10-09] MEDS: Atorvastatin Calcium 10 MG TAB PER TUBE SCH (21:29)
[2017-10-10] MEDS: Enoxaparin Sodium 100 MG/ML SYRINGE SC SCH ×2 (05:31→17:02)
[2017-10-10 05:57] LABS: INR-International Normal Ratio 1.1; Prothrombin Time 14.1 SEC (12.0-14.7)
--- NOTE | 2017-10-10 08:12 | PDOC.PN ---
- Subjective Encounter Start Date: 10/10/17 Encounter Start Time: 08:09 - Objective Resuscitation Status: Resuscitation Status FULL:Full Resuscitation MAR Reviewed: Yes Vital Signs & Weight: Vital Signs (12 hours) Temp Pulse Resp BP Pulse Ox 10/10/17 07:06 96 10/10/17 07:04 56 L 16 96 10/10/17 04:29 97.4 F L 59 L 20 129/65 95 10/10/17 03:17 61 14 97 10/10/17 00:00 98.4 F 65 14 161/78 H 92 L 10/09/17 22:40 67 14 96 Weight Admit Weight 233 lb Weight 223 lb 2.24 oz Most Recent Monitor Data Heart Rate from ECG 80 NIBP 156/76 NIBP BP-Mean 117 Respiration from ECG 16 SpO2 98 I&O: 10/09/17 10/10/17 10/11/17 06:59 06:59 06:59 Intake Total 791 550 Output Total 1758 960 Balance -967 -410 Result Diagrams: 10/07/17 05:03 10/07/17 05:03 Additional Labs: Accuchecks 10/10/17 10/09/17 06:26 13:11 POC Glucose 105 155 H Radiology Reviewed by me: Yes (cxr- improved airation, decreased POVC) Phys Exam - Physical Examination Neck: no JVD Respiratory: clear to auscultation bilateral Cardiovascular: RRR, no significant murmur crisp mech valve sounds Gastrointestinal: soft, positive bowel sounds Musculoskeletal: edema present Dx/Plan (1) Hemiplegia affecting left nondominant side Code(s): G81.94 - HEMIPLEGIA, UNSPECIFIED AFFECTING LEFT NONDOMINANT SIDE Status: Acute Qualifiers: 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 ? aspiration, ST eval and start diet if ok (4) CAD (coronary artery disease), [place] coronary artery Code(s): I25.10 - ATHSCL HEART DISEASE OF [place] CORONARY ARTERY W/O ANG PCTRS Status: Chronic Qualifiers: [place] vs. transplanted heart: [place] heart Associated angina: without angina Qualified Code(s): I25.10 - Atherosclerotic heart disease of [place] coronary artery without angina pectoris (5) CKD (chronic kidney disease), stage III Code(s): N18.3 - CHRONIC KIDNEY DISEASE, STAGE 3 (MODERATE) Status: Chronic (6) HTN (hypertension) Code(s): I10 - ESSENTIAL (PRIMARY) HYPERTENSION Status: Chronic Qualifiers: Hypertension type: essential hypertension Qualified Code(s): I10 - Essential (primary) hypertension (7) Acute hypoxemic respiratory failure Code(s): J96.01 - ACUTE RESPIRATORY FAILURE WITH HYPOXIA Status: Resolved Comment: extubated, awake and alert (8) Metabolic encephalopathy Code(s): G93.41 - METABOLIC ENCEPHALOPATHY Status: Resolved Comment: A&O X 3 , improved (9) Sinus bradycardia Code(s): R00.1 - BRADYCARDIA, UNSPECIFIED Status: Resolved Comment: resolved with drip. may need pacer, Dr. Harris concerned about MAINOR and hypoxia as source, will try and wean dobutamine, document O2 sat with any bradycardia and see if stimulation alone resolves (10) H/O prosthetic mitral valve Status: Acute - Plan oral anticoag started, daily PT/INR. still on [place] lovenox -: off antibx -: discuss with cardiology * .
[2017-10-10] MEDS: Spironolactone 25 MG TAB PO SCH (09:02)
[2017-10-10] MEDS: Famotidine 20 MG TAB PER TUBE SCH ×2 (09:02→22:34)
--- NOTE | 2017-10-10 16:24 | PRG ---
DATE OF SERVICE: 10/10/2017 SUBJECTIVE: Mr. Zamora is transferred from the ICU to a telemetry floor. He still feels very fati gued. He does not want to take a shower because of that. OBJECTIVE: VITAL SIGNS: Blood pressure is 135/60, heart rate 66, respiration 16, temperature 97.6 degrees [place] nheit. GENERAL: He is alert and oriented man, in no apparent distress. NECK: Supple. Jugular veins not distended. CHEST: Coarse without crackles. CARDIOVASCULAR: Heart sounds are regular to rate and rhythm. Mechanical heart sounds are heard. ABDOMEN: Benign. Bowel sounds positive. EXTREMITIES: Lower extremities without edema, clubbing or cyanosis. DATABASE: Telemetry strips reviewed reveals chronic bradycardia down in the 40s. ASSESSMENT AND PLAN: Noah is a 77-year-old man with history of mechanical mitral valve replaceme nt, on Coumadin, who was admitted with community-acquired pneumonia, required intubation, but now ext ubated. He had episodes of marked bradycardia which do seems to have improved with him recovering fr om respiratory status. Although he might have genuine sinus node disease, I suspect sleep apnea and other cause of hypoxia l ikely contributes to his paroxysmal bradycardia. Extreme pausing has not recurred for now. For now, we are waiting for further evaluation while he is awake to see if his milder bradycardia is indeed s ymptomatic enough to warrant pacemaker. We will follow with you.
[2017-10-10] MEDS: Warfarin Sodium 5 MG TAB PO SCH (17:02)
[2017-10-10] MEDS: Atorvastatin Calcium 10 MG TAB PER TUBE SCH (22:34)
[2017-10-11] MEDS: Enoxaparin Sodium 100 MG/ML SYRINGE SC SCH ×2 (04:40→16:30)
[2017-10-11 05:58] LABS: Hemoglobin 14.2 g/dL (14.0-18.0); Platelet Count 159 thou/uL (130-400)
[2017-10-11 06:03] LABS: INR-International Normal Ratio 1.3; Prothrombin Time 16.9 SEC (12.0-14.7)
[2017-10-11 06:06] LABS: Calc. Creatinine Clearance 130 mL/min (70-130); Estimated GFR-MDRD Greater than 90
--- NOTE | 2017-10-11 07:12 | PDOC.PN ---
- Subjective Encounter Start Date: 10/11/17 Encounter Start Time: 07:11 Subjective: alert, no complaints - Objective Resuscitation Status: Resuscitation Status FULL:Full Resuscitation MAR Reviewed: Yes Vital Signs & Weight: Vital Signs (12 hours) Temp Pulse Resp BP Pulse Ox 10/11/17 04:00 99.1 F 66 17 154/69 H 95 10/11/17 02:00 64 16 95 10/10/17 22:52 68 18 95 10/10/17 20:00 98.4 F 64 16 152/81 H 92 L Weight Admit Weight 233 lb Weight 216 lb 1.6 oz Most Recent Monitor Data Heart Rate from ECG 80 NIBP 156/76 NIBP BP-Mean 117 Respiration from ECG 16 SpO2 98 I&O: 10/10/17 10/11/17 10/12/17 06:59 06:59 06:59 Intake Total 550 1340 Output Total 960 1600 Balance -410 -260 Result Diagrams: 10/11/17 05:33 10/11/17 05:33 Additional Labs: Accuchecks 10/11/17 10/10/17 10/10/17 06:38 16:31 10:44 POC Glucose 100 93 133 H Phys Exam - Physical Examination Neck: no JVD Respiratory: clear to auscultation bilateral Cardiovascular: RRR crisp valve soounds Gastrointestinal: soft, positive bowel sounds Musculoskeletal: pulses present, edema present Dx/Plan (1) Hemiplegia affecting left nondominant side Code(s): G81.94 - HEMIPLEGIA, UNSPECIFIED AFFECTING LEFT NONDOMINANT SIDE Status: Acute Qualifiers: 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 ? aspiration, ST eval and start diet if ok (4) CAD (coronary artery disease), [place] coronary artery Code(s): I25.10 - ATHSCL HEART DISEASE OF [place] CORONARY ARTERY W/O ANG PCTRS Status: Chronic Qualifiers: [place] vs. transplanted heart: [place] heart Associated angina: without angina Qualified Code(s): I25.10 - Atherosclerotic heart disease of [place] coronary artery without angina pectoris (5) CKD (chronic kidney disease), stage III Code(s): N18.3 - CHRONIC KIDNEY DISEASE, STAGE 3 (MODERATE) Status: Chronic (6) HTN (hypertension) Code(s): I10 - ESSENTIAL (PRIMARY) HYPERTENSION Status: Chronic Qualifiers: Hypertension type: essential hypertension Qualified Code(s): I10 - Essential (primary) hypertension (7) Acute hypoxemic respiratory failure Code(s): J96.01 - ACUTE RESPIRATORY FAILURE WITH HYPOXIA Status: Resolved Comment: extubated, awake and alert (8) Metabolic encephalopathy Code(s): G93.41 - METABOLIC ENCEPHALOPATHY Status: Resolved Comment: A&O X 3 , improved (9) Sinus bradycardia Code(s): R00.1 - BRADYCARDIA, UNSPECIFIED Status: Resolved Comment: resolved with drip. may need pacer, Dr. Harris concerned about MAINOR and hypoxia as source, will try and wean dobutamine, document O2 sat with any bradycardia and see if stimulation alone resolves (10) H/O prosthetic mitral valve Status: Acute (11) Anticoagulant long-term use Code(s): Z79.01 - [facility] (CURRENT) USE OF ANTICOAGULANTS Status: Acute - Plan plan discussed w/ family, PT/OT warfarin- anticoag in progress , still on lovenox -: eventual SNF/rehab * .
[2017-10-11] MEDS: Famotidine 20 MG TAB PER TUBE SCH ×2 (08:43→19:54)
[2017-10-11] MEDS: Spironolactone 25 MG TAB PO SCH (08:43)
[2017-10-11] MEDS: Sodium Chloride 0.9% 1,000 ML IV SCH ×2 (08:43→19:54)
--- NOTE | 2017-10-11 13:28 | PDOC.CTH ---
Cardiology Progress Note - Subjective No complaints. Overall feels well. No CP, SOB, dizziness. - Objective Vital Signs Temp Pulse Resp BP Pulse Ox 10/11/17 11:29 70 12 10/11/17 08:00 98.0 F 74 17 122/56 L 92 L 10/11/17 07:24 95 10/11/17 07:22 66 12 10/11/17 04:00 99.1 F 66 17 154/69 H 95 10/11/17 02:00 64 16 95 Admit Weight 233 lb Weight 216 lb 1.6 oz 10/10/17 10/11/17 10/12/17 06:59 06:59 06:59 Intake Total 550 2024 Output Total 960 1600 Balance -410 424 - Physical Examination General/Neuro: alert & oriented x3, NAD Neck: no JVD present Lungs: CTA Heart: RRR Abdomen: NT/ND Extremities: other: (no edema) - Telemetry Telemetry Rhythm: SB - Labs Result Diagrams: 10/11/17 05:33 10/11/17 05:33 Troponin/CKMB CK-MB (CK-2) 4.5 ng/mL (0-6.6) 10/02/17 00:16 Troponin I 0.016 ng/mL (< 0.028) 10/02/17 04:33 - Assessment/Plan 1. Bradycardia - asymptomatic and no significant pauses while awake. ? related to MAINOR. Continue monitoring. Needs EVR at discharge. 2. Respiratory failure - improved. Managed per primary team. 3. Pneumonia - continue antibiotics 4. s/p mechanical MVR - noncompliant with coumadin in the past. INR managed by pharmacy. Continue Lovenox bridge for now. 5. Non-compliance 6. HTN - well-controlled
--- NOTE | 2017-10-11 15:10 | PDOC.CTH ---
<Esha Valenzuela - Last Filed: 10/11/17 15:09> Cardiology Progress Note - Subjective EP progress note: Patient seen and evaluated. No new cardiac concerns or complaints. + generalized weakness. Not able to ambulate due to weakness. No dizziness or passing out. - Objective Vital Signs Temp Pulse Resp BP Pulse Ox 10/11/17 12:00 98.3 F 88 18 121/65 95 10/11/17 11:29 70 12 10/11/17 08:00 98.0 F 74 17 122/56 L 92 L 10/11/17 07:24 95 10/11/17 07:22 66 12 10/11/17 04:00 99.1 F 66 17 154/69 H 95 Admit Weight 233 lb Weight 216 lb 1.6 oz 10/10/17 10/11/17 10/12/17 06:59 06:59 06:59 Intake Total 550 2024 Output Total 960 1600 Balance -410 424 - Physical Examination General/Neuro: alert & oriented x3, NAD Neck: no JVD present Lungs: CTA, unlabored respirations Heart: RRR Abdomen: NT/ND (NSR, minimal transient SB), soft - Labs Result Diagrams: 10/11/17 05:33 10/11/17 05:33 Troponin/CKMB CK-MB (CK-2) 4.5 ng/mL (0-6.6) 10/02/17 00:16 Troponin I 0.016 ng/mL (< 0.028) 10/02/17 04:33 - Assessment/Plan 1. Bradycardia- while asleep, most likely MAINOR but possibly true sinus node dysfunction. No significant bradycardia episodes overnight. Asymptomatic with episodes. No true indication for PPM at this time. 2. Mechanical MVR- continue life long coumadin. 3. CAP Ok for discharge by EP. <Patrick Harris - Last Filed: 10/15/17 18:23> Cardiology Progress Note - Objective Vital Signs Temp Pulse Resp BP Pulse Ox 10/15/17 18:00 20 10/15/17 16:00 99.6 F 10/15/17 14:30 69 121/39 L 10/15/17 14:29 68 20 99 10/15/17 14:00 20 10/15/17 12:00 99.6 F 10/15/17 10:49 63 132/50 L 10/15/17 10:48 60 20 99 10/15/17 10:00 20 10/15/17 08:00 99.6 F 68 20 97 10/15/17 06:37 63 122/38 L 10/15/17 06:35 69 26 H 97 Admit Weight 233 lb Weight 236 lb 15.951 oz 10/14/17 10/15/17 10/16/17 06:59 06:59 06:59 Intake Total 6625.8 6780.0 2226 Output Total 725 674 210 Balance 5900.8 6106.0 2016 - Labs Result Diagrams: 10/15/17 17:06 10/15/17 04:26 Troponin/CKMB CK-MB (CK-2) 5.6 ng/mL (0-6.6) 10/14/17 03:58 Troponin I 0.586 ng/mL (< 0.028) H* 10/14/17 03:58 Attending Addendum - Attending Addendum Date/Time: 10/15/171822 I personally evaluated the patient and discussed the management with Ms Valenzuela. I agree with the History, Examination, Assessment and Plan documented above with any addition or exceptions noted below.
[2017-10-11] MEDS: Warfarin Sodium 5 MG TAB PO SCH (16:30)
[2017-10-11] MEDS: Atorvastatin Calcium 10 MG TAB PER TUBE SCH (19:54)
[2017-10-12] MEDS: Enoxaparin Sodium 100 MG/ML SYRINGE SC SCH ×2 (04:38→18:13)
[2017-10-12 06:06] LABS: INR-International Normal Ratio 1.7; Prothrombin Time 20.3 SEC (12.0-14.7)
[2017-10-12] MEDS: Famotidine 20 MG TAB PER TUBE SCH ×2 (08:23→19:41)
[2017-10-12] MEDS: Spironolactone 25 MG TAB PO SCH (08:23)
--- NOTE | 2017-10-12 11:20 | PDOC.PN ---
- Subjective Encounter Start Date: 10/12/17 Encounter Start Time: 11:18 Subjective: "martinez" - Objective Resuscitation Status: Resuscitation Status FULL:Full Resuscitation MAR Reviewed: Yes Vital Signs & Weight: Vital Signs (12 hours) Temp Pulse Resp BP Pulse Ox 10/12/17 11:00 98.5 F 82 16 138/72 93 L 10/12/17 10:38 76 15 96 10/12/17 08:00 98.2 F 76 15 96 10/12/17 07:18 98.2 F 72 16 106/61 92 L 10/12/17 06:44 68 16 94 L 10/12/17 03:43 98 F 71 20 137/78 96 10/12/17 02:50 74 16 95 10/12/17 00:00 98 F 74 20 125/75 91 L Weight Admit Weight 233 lb Weight 213 lb Most Recent Monitor Data Heart Rate from ECG 80 NIBP 156/76 NIBP BP-Mean 117 Respiration from ECG 16 SpO2 98 I&O: 10/11/17 10/12/17 10/13/17 06:59 06:59 06:59 Intake Total 4 200 Output Total 1600 Balance 424 200 Result Diagrams: 10/11/17 05:33 10/11/17 05:33 Additional Labs: Accuchecks 10/11/17 10/11/17 16:42 12:13 POC Glucose 116 H 104 Phys Exam - Physical Examination Neck: no JVD Respiratory: clear to auscultation bilateral Cardiovascular: RRR mech valve sounds Gastrointestinal: soft, positive bowel sounds Musculoskeletal: edema present Dx/Plan (1) Hemiplegia affecting left nondominant side Code(s): G81.94 - HEMIPLEGIA, UNSPECIFIED AFFECTING LEFT NONDOMINANT SIDE Status: Acute Qualifiers: 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 ? aspiration, ST eval and start diet if ok (4) CAD (coronary artery disease), [place] coronary artery Code(s): I25.10 - ATHSCL HEART DISEASE OF [place] CORONARY ARTERY W/O ANG PCTRS Status: Chronic Qualifiers: [place] vs. transplanted heart: [place] heart Associated angina: without angina Qualified Code(s): I25.10 - Atherosclerotic heart disease of [place] coronary artery without angina pectoris (5) CKD (chronic kidney disease), stage III Code(s): N18.3 - CHRONIC KIDNEY DISEASE, STAGE 3 (MODERATE) Status: Chronic (6) HTN (hypertension) Code(s): I10 - ESSENTIAL (PRIMARY) HYPERTENSION Status: Chronic Qualifiers: Hypertension type: essential hypertension Qualified Code(s): I10 - Essential (primary) hypertension (7) Acute hypoxemic respiratory failure Code(s): J96.01 - ACUTE RESPIRATORY FAILURE WITH HYPOXIA Status: Resolved Comment: extubated, awake and alert (8) Metabolic encephalopathy Code(s): G93.41 - METABOLIC ENCEPHALOPATHY Status: Resolved Comment: A&O X 3 , improved (9) Sinus bradycardia Code(s): R00.1 - BRADYCARDIA, UNSPECIFIED Status: Resolved Comment: resolved with drip. may need pacer, Dr. Harris concerned about MAINOR and hypoxia as source, will try and wean dobutamine, document O2 sat with any bradycardia and see if stimulation alone resolves (10) H/O prosthetic mitral valve Status: Acute (11) Anticoagulant long-term use Code(s): Z79.01 - [employer] (CURRENT) USE OF ANTICOAGULANTS Status: Acute - Plan awaiting REHAB approval -: cont warfarin, DC lovenox when INR > 2.5 * .
--- NOTE | 2017-10-12 16:00 | EKG ---
Test Reason : Blood Pressure : / mmHG Vent. Rate : 068 BPM Atrial Rate : 068 BPM P-R Int : 204 ms QRS Dur : 088 ms QT Int : 432 ms P-R-T Axes : 033 006 026 degrees QTc Int : 459 ms Normal sinus rhythm Normal ECG Confirmed by JADEN CHA ([id number]), photographic editor MIKE MONSON ([id number]) on 10/12/2017 4:00:01 PM Referred By: STARLA Confirmed By:JADEN CHA
[2017-10-12] MEDS: Sodium Chloride 0.9% 1,000 ML IV SCH (17:10)
[2017-10-12] MEDS: Warfarin Sodium 5 MG TAB PO SCH (18:13)
[2017-10-12] MEDS: Atorvastatin Calcium 10 MG TAB PER TUBE SCH (19:41)
[2017-10-13] MEDS: Enoxaparin Sodium 100 MG/ML SYRINGE SC SCH ×2 (05:11→17:13)
[2017-10-13 05:34] LABS: Hemoglobin 12.7 g/dL (14.0-18.0); Platelet Count 160 thou/uL (130-400)
[2017-10-13 05:40] LABS: INR-International Normal Ratio 1.9; Prothrombin Time 22.5 SEC (12.0-14.7)
[2017-10-13 05:47] LABS: Calc. Creatinine Clearance 106 mL/min (70-130); Estimated GFR-MDRD Greater than 90
[2017-10-13] MEDS: Spironolactone 25 MG TAB PO SCH (07:51)
[2017-10-13] MEDS: Famotidine 20 MG TAB PER TUBE SCH ×2 (07:52→20:03)
--- NOTE | 2017-10-13 13:40 | PDOC.PN ---
- Subjective Encounter Start Date: 10/13/17 Encounter Start Time: 12:35 -: old records requested/rev Pt seen adn examined, chart reviewed, this is my first visit with this patient in a week. Interval history reviewed. Extubated, transitioned to floor, awaiting insurance approval for rehab Pt denies fever or chills, no N/V/D/c, no CP, somewhat weak all systems reviewed and neg x as per HPI - Objective Resuscitation Status: Resuscitation Status FULL:Full Resuscitation MAR Reviewed: Yes Vital Signs & Weight: Vital Signs (12 hours) Temp Pulse Resp BP Pulse Ox 10/13/17 10:46 89 16 94 L 10/13/17 08:00 98.0 F 86 20 126/72 94 L 10/13/17 07:58 98.8 F 93 20 139/84 91 L 10/13/17 07:04 80 16 95 10/13/17 01:56 90 18 90 L Weight Admit Weight 233 lb Weight 216 lb Most Recent Monitor Data Heart Rate from ECG 80 NIBP 156/76 NIBP BP-Mean 117 Respiration from ECG 16 SpO2 98 I&O: 10/12/17 10/13/17 10/14/17 06:59 06:59 06:59 Intake Total 200 1700 240 Balance 200 1700 240 Result Diagrams: 10/13/17 04:55 10/13/17 04:55 Additional Labs: Accuchecks 10/12/17 10/12/17 20:33 16:18 POC Glucose 140 H 127 H Radiology Reviewed by me: Yes EKG Reviewed by me: Yes Phys Exam - Physical Examination Constitutional: NAD HEENT: PERRLA, moist MMs, sclera anicteric, oral pharynx no lesions Neck: no nodes, no JVD, supple, full ROM Respiratory: no wheezing, no rales, no rhonchi, clear to auscultation bilateral Cardiovascular: RRR, no significant murmur, no rub Gastrointestinal: soft, non-tender, no distention, positive bowel sounds Musculoskeletal: pulses present, edema present Neurological: non-focal, normal sensation, moves all 4 limbs Lymphatic: no nodes Psychiatric: normal affect Skin: no rash, normal turgor, cap refill <2 seconds Dx/Plan (1) CAP (community acquired pneumonia) Code(s): J18.9 - PNEUMONIA, UNSPECIFIED ORGANISM Status: Acute Qualifiers: Laterality: unspecified laterality Qualified Code(s): J18.9 - Pneumonia, unspecified organism Comment: bilateral, L>R, treated (2) Acute hypoxemic respiratory failure Code(s): J96.01 - ACUTE RESPIRATORY FAILURE WITH HYPOXIA Status: Resolved Comment: extubated, awake and alert (3) Metabolic encephalopathy Code(s): G93.41 - METABOLIC ENCEPHALOPATHY Status: Resolved Comment: A&O X 3 , improved (4) CAD (coronary artery disease), [place] coronary artery Code(s): I25.10 - ATHSCL HEART DISEASE OF [place] CORONARY ARTERY W/O ANG PCTRS Status: Chronic Qualifiers: [place] vs. transplanted heart: [place] heart Associated angina: without angina Qualified Code(s): I25.10 - Atherosclerotic heart disease of [place] coronary artery without angina pectoris (5) HTN (hypertension) Code(s): I10 - ESSENTIAL (PRIMARY) HYPERTENSION Status: Chronic Qualifiers: Hypertension type: essential hypertension Qualified Code(s): I10 - Essential (primary) hypertension (6) CKD (chronic kidney disease), stage III Code(s): N18.3 - CHRONIC KIDNEY DISEASE, STAGE 3 (MODERATE) Status: Chronic (7) Sinus bradycardia Code(s): R00.1 - BRADYCARDIA, UNSPECIFIED Status: Resolved Comment: resolved with drip. may need pacer, Dr. Harris concerned about MAINOR and hypoxia as source, will try and wean dobutamine, document O2 sat with any bradycardia and see if stimulation alone resolves (8) New onset atrial fibrillation Code(s): I48.91 - UNSPECIFIED ATRIAL FIBRILLATION Status: Acute Comment: cardiology aware, rate controlled (9) Anticoagulant long-term use Code(s): Z79.01 - ASSISTED (CURRENT) USE OF ANTICOAGULANTS Status: Chronic (10) H/O prosthetic mitral valve Status: Chronic (11) Hemiplegia affecting left nondominant side Code(s): G81.94 - HEMIPLEGIA, UNSPECIFIED AFFECTING LEFT NONDOMINANT SIDE Status: Acute Qualifiers: 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
[2017-10-13] MEDS: Warfarin Sodium 5 MG TAB PO SCH (17:13)
[2017-10-13] MEDS: Sodium Chloride 0.9% 1,000 ML IV SCH (17:25)
[2017-10-13] MEDS: Atorvastatin Calcium 10 MG TAB PER TUBE SCH (20:03)
[2017-10-13] MEDS ORDERED: Digoxin 0.5 MG/2 ML AMP SLOW IVP SCH (21:30)
[2017-10-13 21:49] LABS: Band 4 % (5-11); Hemoglobin 10.7 g/dL (14.0-18.0); Lymphocytes 4 % (21-51); MDiff Complete? YES; Mean Corpuscular HGB CONC 33.1 g/dL (32.0-36.0); Mean Corpuscular Hemoglobin 29.8 pg (27.0-31.0); Mean Corpuscular Volume 90.1 fl (80.0-94.0); Mean Platelet Volume 8.3 fL (7.4-10.4); Monocytes 5 % (0-10); Neutrophil 87 % (42-75); PLT Morphology Comment Appears Adequate; Platelet Count 192 thou/uL (130-400); Red Blood Cell (RBC) Count 3.61 mill/uL (4.70-6.10); White Blood Cell (WBC) Count 24.2 thou/uL (4.8-10.8)
[2017-10-13 21:51] LABS: Anion Gap 16 mmol/L (10-20); BUN (Urea Nitrogen) 35 mg/dL (8.4-25.7); Calc. Creatinine Clearance 49 mL/min (70-130); Calcium 8.4 mg/dL (7.8-10.44); Carbon Dioxide 16 mmol/L (23-31); Chloride 103 mmol/L (98-107); Estimated GFR-MDRD 37; Glucose 300 mg/dL (83-110); Potassium 4.6 mmol/L (3.5-5.1); Sodium 130 mmol/L (136-145)
[2017-10-13 21:57] LABS: Troponin I 0.592 ng/mL (< 0.028)
[2017-10-13] MEDS ORDERED: Vancomycin HCl 25 MG/ML Oral PO SCH (22:00)
[2017-10-13 22:11] LABS: INR-International Normal Ratio 2.4; Prothrombin Time 26.8 SEC (12.0-14.7)
[2017-10-13 22:12] LABS: PTT 69.5 SEC (22.9-36.1)
[2017-10-13] MEDS ORDERED: Sodium Chloride 0.9% 1,000 ML IV SCH (22:30)
[2017-10-13] MEDS: metroNIDAZOLE 500 MG in Premix Bag 1 BAG IVPB SCH (22:57)
--- NOTE | 2017-10-13 23:02 | RAD ---
SUPINE ABDOMEN: History: Abdominal pain. FINDINGS: Two supine views of the abdomen obtained. Abdominal gas pattern is nonspecific. No evidence of obstruction or ileus seen. No dilated loops of b owel seen. Multilevel lumbar and lower thoracic changes of spondylosis with osteophytes and mid and lower lumbar disc space height loss is seen. IMPRESSION: Unremarkable AP abdomen. POS: [facility]
[2017-10-13] MEDS ORDERED: Sodium Chloride 0.9% 500 ML IV SCH (23:30)
[2017-10-14] MEDS ORDERED: Sodium Chloride 0.9% 500 ML IV SCH ×2 (00:15)
[2017-10-14] MEDS: Sodium Chloride 0.9% 1,000 ML IV SCH ×2 (01:41→09:31)
--- NOTE | 2017-10-14 02:04 | PDOC.EVN ---
Event Note - Event Note Event Note: jann ascencio was called around 9pm. Pt was found to be in afib rvr and hypotensive. pt was diaphoretic and was complaining of abdominal pain. Iv was started and pt was given 500ml of bolus and iv digoxin of 0.5mg and was transferred to im. Upon arrival pt was still hypotensive and had received only 100ml of the 500ml bolus ordered. Second iv was started and pt received a total of 2L of fluid. Labs were drawn, pt hh was stable but [place] wbc was [id number]. Nurse notified me that pt has been having diarrhea also. stool for cdiff and leukocytes were sent and oral vanco and flagyl was started. Pt continued to be hypotensive after fluid and will be transferred to ccu for levophed. Abd xray no abnormalities noted if pt's continue be worsen will get ct abd/pel. will check lactic acid and also get cxr. Inr is therapeutic. pt continued to have low bp. Pt awake and alert but appears ill. called ICU attending about pt. Pt was also given steroids. some haziness around the left heart border. Since pt is so ill and continues to be hypotensive besides fluid will given him one dose of abx. Also he went into aflutter pt initially was given 0.5mg of dig and then given 0.25mg. His map's have improved. lactic acid is 3.5. pt is alert and talking but appears ill. Called family and left message. May discontinue flagyl.
[2017-10-14] MEDS ORDERED: Vancomycin HCl 1.5 GM in Sodium Chloride 0.9% 250 ML 300 ML IVPB SCH (04:00)
[2017-10-14] MEDS ORDERED: Cefepime 2 GM in Sodium Chloride 0.9% 100 ML IVPB SCH (04:00)
[2017-10-14] MEDS: Hydrocortisone Sod Succ/PF 100 mg/2 ml Vial IVP SCH ×4 (04:12→23:53)
[2017-10-14] MEDS: Enoxaparin Sodium 100 MG/ML SYRINGE SC SCH (04:14)
[2017-10-14] MEDS ORDERED: Digoxin 0.5 MG/2 ML AMP SLOW IVP SCH ×2 (04:15→10:30)
[2017-10-14 04:28] LABS: INR-International Normal Ratio 2.5; Prothrombin Time 27.7 SEC (12.0-14.7)
[2017-10-14 04:29] LABS: Lactic Acid 3.5 mmol/L (0.5-2.2)
[2017-10-14 04:45] LABS: pH, Arterial 7.46 (7.35-7.45)
[2017-10-14 04:46] LABS: Actual Bicarbonate (HCO3a) 14.1 mEq/L (22-26); Base Excess (BEa) -8.4 mEq/L (0 (+/-) 2.5); CO2 Tension 20.5 mmHg (35.0-45.0); Hematocrit-ABG 28.4 % (42.0-52.0); Hemoglobin (Hb) 8.7 g/dL (14.0-18.0); O2 Tension (PaO2) 83.5 mmHg (80.0-100.0)
[2017-10-14 04:47] LABS: ALV-art Gradient 90.515 (0-20); Puncture Site RBR
[2017-10-14 04:48] LABS: CKMB 5.6 ng/mL (0-6.6)
[2017-10-14 04:50] LABS: Troponin I 0.586 ng/mL (< 0.028)
[2017-10-14] MEDS: metroNIDAZOLE 500 MG in Premix Bag 1 BAG IVPB SCH ×2 (05:06→16:14)
[2017-10-14] MEDS: Vancomycin HCl 25 MG/ML Oral PO SCH ×2 (05:06→16:07)
[2017-10-14] MEDS ORDERED: Vancomycin HCl 25 MG/ML Oral PO SCH (06:00)
[2017-10-14 06:29] LABS: Band 6 % (5-11); Hemoglobin 9.7 g/dL (14.0-18.0); Lymphocytes 8 % (21-51); MDiff Complete? YES; Mean Corpuscular HGB CONC 32.3 g/dL (32.0-36.0); Mean Corpuscular Hemoglobin 29.6 pg (27.0-31.0); Mean Corpuscular Volume 91.5 fl (80.0-94.0); Mean Platelet Volume 9.4 fL (7.4-10.4); Monocytes 8 % (0-10); Neutrophil 78 % (42-75); PLT Morphology Comment Appears Adequate; Platelet Count 192 thou/uL (130-400); RBC Distribution Width 13.3 % (11.5-14.5); Red Blood Cell (RBC) Count 3.28 mill/uL (4.70-6.10); White Blood Cell (WBC) Count 36.2 thou/uL (4.8-10.8)
--- NOTE | 2017-10-14 09:07 | RAD ---
SEMIUPRIGHT PORTABLE CHEST ONE VIEW: History: 77-year-old male with history of hypotension. Comparison: 10-09-17 FINDINGS: Post underlying sternotomy. Monitor leads overlie the chest. Inspiration is suboptimal with increased markings bilaterally. No overt confluent pneumonia or acute edema. IMPRESSION: Suboptimal inspiratory effort with increased markings bilaterally but overall stable. No significant new process. POS: OFF
[2017-10-14] MEDS ORDERED: Benzocaine 20% Spray 60 ML CAN ONE (10:00)
[2017-10-14 12:46] LABS: Hemoglobin 9.1 g/dL (14.0-18.0); Mean Corpuscular HGB CONC 32.1 g/dL (32.0-36.0); Mean Corpuscular Hemoglobin 29.9 pg (27.0-31.0); Platelet Count 191 thou/uL (130-400); RBC Distribution Width 13.1 % (11.5-14.5); Red Blood Cell (RBC) Count 3.03 mill/uL (4.70-6.10)
[2017-10-14 12:57] LABS: Anion Gap 19 mmol/L (10-20); BUN (Urea Nitrogen) 50 mg/dL (8.4-25.7); Calc. Creatinine Clearance 36 mL/min (70-130); Calcium 7.6 mg/dL (7.8-10.44); Carbon Dioxide 13 mmol/L (23-31); Chloride 107 mmol/L (98-107); Estimated GFR-MDRD 25; Glucose 229 mg/dL (83-110); Magnesium 2.2 mg/dL (1.6-2.6); Potassium 5.3 mmol/L (3.5-5.1); Sodium 134 mmol/L (136-145)
[2017-10-14 12:58] LABS: Lactic Acid 7.2 mmol/L (0.5-2.2)
--- NOTE | 2017-10-14 13:00 | EKG ---
Test Reason : STAT Blood Pressure : / mmHG Vent. Rate : 100 BPM Atrial Rate : 326 BPM P-R Int : 000 ms QRS Dur : 072 ms QT Int : 334 ms P-R-T Axes : 000 020 145 degrees QTc Int : 430 ms Atrial fibrillation Cannot rule out Inferior infarct , age undetermined Abnormal ECG When compared with ECG of 04-OCT-2017 08:49, (Unconfirmed) Significant changes have occurred Confirmed by SERGE GOMEZ, SDulce ([id number]) on 10/14/2017 1:00:41 PM Referred By: COGENT Confirmed By:DR. Sudhakar VALENTINE MD
--- NOTE | 2017-10-14 13:01 | EKG ---
Test Reason : STAT Blood Pressure : / mmHG Vent. Rate : 099 BPM Atrial Rate : 374 BPM P-R Int : 000 ms QRS Dur : 074 ms QT Int : 336 ms P-R-T Axes : 036 023 208 degrees QTc Int : 431 ms Atrial flutter with variable A-V block Abnormal ECG When compared with ECG of 13-OCT-2017 21:10, (Unconfirmed) Atrial flutter has replaced Atrial fibrillation Minimal criteria for Inferior infarct are no longer Present ST now depressed in Inferior leads Nonspecific T wave abnormality, worse in Inferior leads T wave inversion now evident in Anterior leads Confirmed by SERGE GOMEZ, DR. De La Fuente ([id number]) on 10/14/2017 1:00:48 PM Referred By: CLEO Confirmed By:DR. Sudhakar VALENTINE MD
[2017-10-14 13:10] LABS: Bilirubin Small (Negative); Blood, Urine Moderate (Negative); Clarity TURBID (Clear); Glucose, Urine (Dipstick) Negative (Negative); Leukocyte Moderate (Negative); Nitrite Negative (Negative); Protein, Urine (Dipstick) Trace mg/dL (Neg-Trace); Specific Gravity, Urine 1.023 (1.002-1.036); Urobilinogen 0.2 mg/dL (0.2-1.0)
[2017-10-14 13:12] LABS: Bacteria/HPF None Seen HPF (None Seen); WBC/HPF 21-50 HPF (0-3)
--- NOTE | 2017-10-14 13:13 | EKG ---
Test Reason : MARKED BRADYCARDIA Blood Pressure : / mmHG Vent. Rate : 037 BPM Atrial Rate : 037 BPM P-R Int : 220 ms QRS Dur : 100 ms QT Int : 518 ms P-R-T Axes : 066 022 035 degrees QTc Int : 406 ms Marked sinus bradycardia with marked sinus arrhythmia with 1st degree A-V block Abnormal ECG When compared with ECG of 02-OCT-2017 01:28, (Unconfirmed) Vent. rate has decreased BY 31 BPM QT has shortened Confirmed by DR. Sepideh LORENZO ([id number]) on 10/14/2017 1:12:50 PM Referred By: ANNA Confirmed By:DR. Sepideh LORENZO
[2017-10-14 13:15] LABS: Pathc Cast-AUWi Flag 17.59 (0-2.49); Yeast-AUWi Flag 165.1 (0-25.0)
[2017-10-14 13:20] LABS: Other Casts/LPF 4-6 COARSE GRAN LPF (0-3 Hyaline)
[2017-10-14 13:29] LABS: Renal Epithelial 0-3 HPF (0-3); Transitional Epithelial 0-3 HPF (0-3); Yeast-All Forms None Seen HPF (None Seen)
[2017-10-14 13:30] LABS: Band 9 % (5-11); Lymphocytes 12 % (21-51); MDiff Complete? YES; Monocytes 3 % (0-10); Neutrophil 76 % (42-75); PLT Morphology Comment Appears Adequate; Polychromasia SLIGHT = 2-3 cells (100X) (0-2/hpf)
--- NOTE | 2017-10-14 14:07 | PRG ---
DATE OF SERVICE: 10/14/2017 SUBJECTIVE: Ms. Zamora has developed a sudden diaphoresis and abdominal discomfort which prompted a code green evaluation. He was found to be in atrial fibrillation with controlled rate 90-100. Eventually, he was also noted to be hypotensive. IV digoxin was given. He was transferred over to the ICU where he is being monitored, still on norepinephrine. Lowest blood pressure recorded on a code green sheet was 76/48. OBJECTIVE: VITAL SIGNS: Blood pressure is 105/36, heart rate 86 in atrial fibrillation, respirations 30, temperature 99.5 degrees Fahrenheit, still on Levophed. GENERAL: Reveals a morbidly obese [place]an speaking man in mild abdominal distress. NECK: Supple. Jugular veins difficult to be visualized. CHEST: Coarse without crackles. CARDIOVASCULAR: Heart sounds are irregularly irregular. S1, S2, variable. No murmur or gallop. ABDOMEN: Benign. Bowel sounds positive. EXTREMITIES: Lower extremities without edema, clubbing or cyanosis. LABORATORY DATA: White count increased to 43, marked jump from 24 on 2017 and 36 on 10/14/2017. Hemoglobin 9.1, platelet count is 191. INR 2.5 and was somewhat subtherapeutic, on the was 1.7, 1.9 on 10/13/2017 and 2.4 on the 10/13/2017. PTT was 69.5. The blood gases revealed pCO2 of 20, sodium 134 , potassium 5.3, BUN 50, creatinine is 2.49, which is marked worsening compared to before. Abnormal x-ray was reviewed, report was unremarkable. EKG reveals atrial fibrillation. ASSESSMENT AND PLAN: Mr. Zamora is a 77-year-old man with history of mechanical mitral valve, who was admitted with respiratory distress and mental status changes and was eventually intubated, had developed paroxysmal bradycardia and also paroxysms of atrial fibrillation as well. His bradycardia is improved after extubation and remained stable and we opted no pacemaker implantation. On the other hand yesterday he required transfer to the ICU, hence development of hypertension and abdomen discomforts. Currently, the patient has persisting atrial fibrillation. Rates, are though controlled on the initially given digoxin. He is on Levophed. His INRs final are therapeutic. PLAN: 1. Bradycardai, now resolved. Likely due to transient excessive central vagotonia. 2. Regarding atrial fibrillation, continued monitoring is advised. At this point, he is a poor candidate for cardioversion and/or antiarrhythmic agents. If necessary amiodarone could be considered. 2. Hypertension and abdominal discomfort of unclear etiology as per primary team workup for ischemic bowel versus sepsis in view of the elevated white cell count. 3. Acute on chronic renal failure. 4. History of mechanical mitral valve as per Dr. Onofre. No history of malfunction. We will follow with you. BREANA
[2017-10-14 14:19] LABS: Actual Bicarbonate (HCO3a) 8.3 mEq/L (22-26); Base Excess (BEa) -14.8 mEq/L (0 (+/-) 2.5); CO2 Tension 13.9 mmHg (35.0-45.0); Hematocrit-ABG 25.2 % (42.0-52.0); Hemoglobin (Hb) 7.6 g/dL (14.0-18.0); O2 Tension (PaO2) 102.4 mmHg (80.0-100.0)
[2017-10-14 14:20] LABS: ALV-art Gradient 51.345 (0-20); Calcium, Ionized 0.9 mmol/L (1.12-1.30); Puncture Site L.B.
[2017-10-14] MEDS: Norepinephrine 8 MG/0.9% NS 250 ML IVPB SCH (14:55)
[2017-10-14] MEDS: ADMIXTURE FEE IV SCH ×2 (14:55→22:10)
[2017-10-14] MEDS: STERILE WATER IV SCH ×2 (14:55→22:10)
[2017-10-14] MEDS: SODIUM BICARBONATE IV SCH ×2 (14:55→22:10)
[2017-10-14] MEDS ORDERED: DISCONTINUE PREVIOUS NARCOTIC PAIN MEDICATIONS AND BENZODIAZEPINES FS SCH (15:24)
[2017-10-14] MEDS ORDERED: Fentanyl BOLUS 250 ML IVPB PRN (15:24)
[2017-10-14] MEDS ORDERED: Propofol BOLUS 1,000 MG/100 ML VIAL IV PRN (15:24)
[2017-10-14] MEDS ORDERED: Lorazepam 2 MG/ML VIAL SLOW IVP PRN (15:24)
[2017-10-14] MEDS: Midazolam HCl 2 mg/2 ml Vial ONE ×2 (15:25→16:15)
[2017-10-14 16:11] LABS: pH, Arterial 7.33 (7.35-7.45)
[2017-10-14] MEDS: Propofol 1,000 MG/100 ML VIAL IV PRN (16:11)
--- NOTE | 2017-10-14 16:11 | HP ---
HISTORY OF PRESENT ILLNESS: Natalio Zamora is a 77-year-old male, Bangladeshi speaking only, whose gra ndson is at the bedside. 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 He has had intermittent episodes of atrial fibrillation with R VR. He was on therapeutic Lovenox, last dose last night at 1700, none since, starting on Coumadin. INR 2.5 this morning, developed acute onset of left lower quadrant pain with associated white count i ncreasing from 12,000-20,000 last night and [id number] today without a left shift. He became acidotic tod ay. He has not had fever and underwent a CAT scan oral without IV contrast (acute kidney injury) not ed to have fluid density in the left lower quadrant. I have discussed with Radiology, Dr. Reeder. Th e patient has acute tenderness in left lower quadrant, localized without tenderness elsewhere in his abdomen. The density of the fluid is more consistent with a hematoma and radiologically more consist ent with a hematoma. I have been asked to see him regarding these findings. ALLERGIES: None. TOBACCO: None. ALCOHOL: None. MEDICATIONS: At home, hydroxyzine, hydrocodone, atenolol, lisinopril and Coumadin. PAST SURGICAL HISTORY: Coronary bypass grafting, prosthetic aortic valve, cholecystectomy. He has n ever had a colonoscopy. History of umbilical hernia repair. PAST MEDICAL HISTORY: Coronary artery disease, status post CABG, prosthetic valve, hypertension, hyp erlipidemia, history of ERCP, cholecystectomy. The patient has never had a colonoscopy. He has neve r had past history of diverticulitis. PHYSICAL EXAMINATION: VITAL SIGNS: 5 foot 8, 220 pounds, BMI 33, and 99.5 degrees, 105/36, heart rate 86, respiratory rate 30. LUNGS: Clear to auscultation. CARDIAC: Regular rate and rhythm without murmur or gallop. ABDOMEN: Soft, tenderness in his left lower quadrant, guarding, rebound. Remainder of abdomen is so ft. He has protuberant abdomen, obese. EXTREMITIES: Unremarkable. Scar infraumbilical per past umbilical hernia repair. LABORATORY DATA: White count 43, hemoglobin 9.1 down from 12.7 yesterday. INR 2.5. Sodium 134, pot assium 5.3, chloride 107, BUN 19, BUN 50, creatinine 2.49. Lactic acid 7.2. ASSESSMENT AND PLAN: 1. Acute bleed. Drop in hemoglobin is consistent with that. Elevated white count is concerning. I have discussed with Radiology and Radiology is convinced this is a hematoma and acute bleeding and n ot diverticulitis. At this point, I would reverse his anticoagulation. Continue meropenem antibioti cs and observe the patient and I check serial hemoglobins, percutaneous drainage I do not think is in dicated. 2. Coronary artery disease. 3. Acute kidney injury.
[2017-10-14 16:13] LABS: Actual Bicarbonate (HCO3a) 7.1 mEq/L (22-26); CO2 Tension 13.8 mmHg (35.0-45.0); O2 Tension (PaO2) 472.6 mmHg (80.0-100.0)
[2017-10-14 16:14] LABS: Calcium, Ionized 0.9 mmol/L (1.12-1.30); Hematocrit-ABG 23.6 % (42.0-52.0); Hemoglobin (Hb) 7.2 g/dL (14.0-18.0); Puncture Site LBA
--- NOTE | 2017-10-14 16:36 | CT ---
ABDOMEN CT WITHOUT CONTRAST PELVIC CT WITHOUT CONTRAST: Date: 10/14/17 HISTORY: Diarrhea. Severe sepsis. Acute abdominal pain. COMPARISON: None. CORRELATION: Dissection protocol CT dated 11/01/13. TECHNIQUE: Abdomen and pelvis CT are performed without IV contrast. Enteric contrast was administered. Coronal r eformatted images are submitted for interpretation. FINDINGS: ABDOMEN CT: Multiple nodules are noted in the visualized lung parenchyma. Largest nodule in the right lower lobe measuring 7.0 mm. There is consolidation in the left lower lobe with adjacent pleural effusion. Heart size is normal. No significant pericardial fluid. Prosthetic mitral valve is noted. Limited evaluation of the solid organs due to lack of IV contrast. Grossly, the adrenal glands and pa ncreas are unremarkable. Diminutive spleen is noted. There is a hypodensity involving the liver, near the hepatic dome, which is inadequately assessed. No gastrohepatic, retrocrural, or periportal lymphadenopathy. Symmetric attenuation of the kidneys. Bilaterally, no obstructive uropathy. Hypodensity in the left r enal cortex is incompletely evaluated. There is abnormal attenuation involving the left flank and left retroperitoneal region. There is abno rmal attenuation involving an asymmetrically enlarged left psoas muscle that measures 6.0 x 6.8 cm. M ixed attenuation of the psoas muscle in this region is noted. There is a predominantly hypodense lesi on with peripheral isodensity measuring 7.6 x 9.5 cm. No evidence of bowel obstruction. PELVIC CT: Verdin catheter decompresses urinary bladder. Mild prosthetic hypertrophy. Small amount of fluid in th e left hemipelvis. There are no lytic or blastic lesions of the osseous structures. IMPRESSION: 1. Abnormal attenuation in the left retroperitoneal region, worrisome for retroperitoneal hematoma u ntil proven otherwise. Hemorrhagic masses cannot be excluded. There is involvement of the left psoas muscle. If there is concern for an infectious process, clinical correlation and interrogation with po stcontrast CT is recommended. 2. Multiple lung parenchymal nodules, incompletely evaluated. The possibility of malignancy/metastas es cannot be excluded. Nodules are not appreciated on the examination from October 2013 but were noted i n 2015. Results of study discussed with Dr. Jovel on 10/14/17 at 1511 hours. CODE CR. POS: [facility]
--- NOTE | 2017-10-14 16:37 | PDOC.PN ---
- Subjective Encounter Start Date: 10/14/17 Encounter Start Time: 11:45 (revisited at 1400) Pt complaining of LLQ abd pain, tender to palpation, no fevers, no N/V/D/c. events from overnight reviewed Pt with abd pain, diarrhea, hypotension. labs with increased WBC and lactate. required pressors, 2L IV fluids given today, still with lactate increase form 3.5 to 7, Cr up from 0.8 yesterday AM to 1.8 last evening, to 2.5 today. bowel sounds quiet, abd exquisitely tender. ROs neg x as above - Objective Resuscitation Status: Resuscitation Status FULL:Full Resuscitation MAR Reviewed: Yes Vital Signs & Weight: Vital Signs (12 hours) Temp Pulse Resp Pulse Ox 10/14/17 15:46 98 10/14/17 15:39 100 46 H 10/14/17 11:57 99.5 F 10/14/17 10:48 86 19 99 10/14/17 09:31 85 10/14/17 08:00 99.4 F 85 32 H 96 10/14/17 07:50 99.4 F 10/14/17 06:41 99 10/14/17 06:39 90 28 H 99 Weight Admit Weight 233 lb Weight 220 lb 0.341 oz Most Recent Monitor Data Heart Rate from ECG 104 NIBP 131/72 NIBP BP-Mean 97 Respiration from ECG 36 SpO2 100 I&O: 10/13/17 10/14/17 10/15/17 06:59 06:59 06:59 Intake Total 1700 6625.8 250 Output Total 725 50 Balance 1700 5900.8 200 Result Diagrams: 10/14/17 12:27 10/14/17 12:27 Additional Labs: Accuchecks 10/13/17 10/13/17 20:45 16:22 POC Glucose 220 H 205 H Radiology Reviewed by me: Yes EKG Reviewed by me: Yes Phys Exam - Physical Examination nod distress, looks acutely ill HEENT: PERRLA, moist MMs, sclera anicteric, oral pharynx no lesions Neck: no nodes, no JVD, supple, full ROM Respiratory: no wheezing, no rhonchi, clear to auscultation bilateral Cardiovascular: no significant murmur, no rub, irregular tachy soft, +guarding,+ ttp, no rebound, decreased bowel sounds Musculoskeletal: pulses present, edema present Neurological: non-focal, normal sensation, moves all 4 limbs Lymphatic: no nodes Psychiatric: normal affect, A&O x 3 Skin: no rash, normal turgor, cap refill <2 seconds Dx/Plan (1) CAP (community acquired pneumonia) Code(s): J18.9 - PNEUMONIA, UNSPECIFIED ORGANISM Status: Resolved Qualifiers: Laterality: unspecified laterality Qualified Code(s): J18.9 - Pneumonia, unspecified organism Comment: bilateral, L>R, treated (2) Acute hypoxemic respiratory failure Code(s): J96.01 - ACUTE RESPIRATORY FAILURE WITH HYPOXIA Status: Resolved Comment: extubated, awake and alert (3) Metabolic encephalopathy Code(s): G93.41 - METABOLIC ENCEPHALOPATHY Status: Resolved Comment: A&O X 3 , improved, starting to worsen now (4) CAD (coronary artery disease), [place] coronary artery Code(s): I25.10 - ATHSCL HEART DISEASE OF [place] CORONARY ARTERY W/O ANG PCTRS Status: Chronic Qualifiers: [place] vs. transplanted heart: [place] heart Associated angina: without angina Qualified Code(s): I25.10 - Atherosclerotic heart disease of [place] coronary artery without angina pectoris (5) HTN (hypertension) Code(s): I10 - ESSENTIAL (PRIMARY) HYPERTENSION Status: Chronic Qualifiers: Hypertension type: essential hypertension Qualified Code(s): I10 - Essential (primary) hypertension Comment: meds on hold due to hypotension (6) CKD (chronic kidney disease), stage III Code(s): N18.3 - CHRONIC KIDNEY DISEASE, STAGE 3 (MODERATE) Status: Chronic Comment: nowwith CHICO on CKD 3 (7) Sinus bradycardia Code(s): R00.1 - BRADYCARDIA, UNSPECIFIED Status: Resolved Comment: resolved with drip. may need pacer, Dr. Harris concerned about MAINOR and hypoxia as source, will try and wean dobutamine, document O2 sat with any bradycardia and see if stimulation alone resolves (8) New onset atrial fibrillation Code(s): I48.91 - UNSPECIFIED ATRIAL FIBRILLATION Status: Acute Comment: cardiology aware, rate controlled (9) Anticoagulant long-term use Code(s): Z79.01 - WOOD GLUER (CURRENT) USE OF ANTICOAGULANTS Status: Chronic Comment: plasma now, reversal needed, planfor abscess drainage tomorrow (10) H/O prosthetic mitral valve Status: Chronic (11) Hemiplegia affecting left nondominant side Code(s): G81.94 - HEMIPLEGIA, UNSPECIFIED AFFECTING LEFT NONDOMINANT SIDE Status: Acute Qualifiers: 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 Cerebrovascular disease type: cerebral infarction Qualified Code(s): I69.354 - Hemiplegia and hemiparesis following cerebral infarction affecting left non-dominant side (12) Bowel perforation Code(s): K63.1 - PERFORATION OF INTESTINE (NONTRAUMATIC) Status: Acute (13) Intra-abdominal abscess Code(s): K65.1 - PERITONEAL ABSCESS Status: Acute (14) Septic shock Code(s): A41.9 - SEPSIS, UNSPECIFIED ORGANISM; R65.21 - SEVERE SEPSIS WITH SEPTIC SHOCK Status: Acute (15) Metabolic acidosis Code(s): E87.2 - ACIDOSIS Status: Acute - Plan cont current plan of care, plan discussed w/ family, continue antibiotics, respiratory therapy * . intubated by pulm, change abx to meropenem. needs abscess drainage tomorrow. pressors, IV fluids with bicard as i started earlier, aM labs
[2017-10-14] MEDS ORDERED: Meropenem 1 GM in Sodium Chloride 0.9% 100 ML IVPB SCH (17:00)
--- NOTE | 2017-10-14 19:08 | PRG ---
DATE OF SERVICE: 10/14/2017 SUBJECTIVE: Mr. Zamora apparently was transferred back to the Critical Care Unit after a code green was called last night for hypotension. After talking with Dr. Lin, he actually looked well yesterday and they are just waiting for clearance for rehabilitation. Apparently, last night, he started developing abdominal pain, drop in his blood pressure, and was transferred in. His creatinine has gone from 0.8 to [place] 2[place] [address] [place]. On the when we last checked, it was 12.2. OBJECTIVE: VITAL SIGNS: He is afebrile, blood pressure 105/36 at noon, heart rate 86, respiratory rates in the 30s. LUNGS: Clear. CARDIOVASCULAR: Regular rhythm. S1 and S2 are normal. ABDOMEN: Very tender, especially with left lower quadrant. He guards in this area. CT just done shows a left lower quadrant abscess. I suspect there is perforated diverticulitis. IMPRESSION: Clinical sepsis with perforated diverticulitis. I have consulted General Surgery. He will be having operative procedure today and then remain mechanically ventilated afterwards. He is compensating now. His pH 7.39 with a CO2 of 13. Two units of packed cells have been ordered. Four units of fresh frozen plasma have been ordered since his INR is 2.5. Needs to be n.p.o. Warfarin will be discontinued for now. Dr. Lin write antibiotic orders. Critical care time 35 minutes excluding procedures. [facility]
[2017-10-14] MEDS: MEROPENEM 1 GM/50 ML 1 GM in Premix Bag 1 BAG IVPB SCH (19:09)
--- NOTE | 2017-10-14 19:19 | PRG ---
DATE OF SERVICE: 10/14/2017 SUBJECTIVE: Mr. Zamora's CT was reviewed with Radiology and General Surgery. The radiologist jefferson eves this more likely to be a hematoma and an abscess. The history certainly would fit with an acute bleed since he looked so well yesterday. Acute perforation can also make him suddenly ill, but he should not have an abscess at this point. I recommended intubation and mechanical ventilation as well as central line placement. We will not p lace a subclavian at this point in time because of his anticoagulation. He will receive 4 units of f resh frozen, 2 units of packed cells and also get a blood gas as soon as we have him intubated.
--- NOTE | 2017-10-14 19:26 | CON ---
DATE OF SERVICE: 10/14/2017 CRITICAL CARE NOTE Total critical care time 40 minutes. HISTORY OF PRESENT ILLNESS: Mr. Zamora last night worsened. He became hypotensive and tachycardic . He had atrial fibrillation with RVR. He also had mental status changes. He was transferred to [facility] ICU. He was placed on Levophed. He was intubated. Subsequent CT scan of the abdomen and pelvis suggested a left retroperitoneal hematoma cannot complet vinayak exclude his infection. PHYSICAL EXAMINATION: VITAL SIGNS: Blood pressure 90/40, pulse 74, temperature afebrile. He is currently on vancomycin IV in addition to norepinephrine. LUNGS: Clear to auscultation. CARDIAC: Irregularly irregular with a systolic click present. ABDOMEN: Distended. EXTREMITIES: No edema. PERTINENT LABORATORY DATA: ABG, hemoglobin of 7.2, which is down from 13.8. IMPRESSION: 1. Hypotension. 2. Retroperitoneal hematoma versus infection. 3. Mechanical mitral valve. 4. Atrial fibrillation. RECOMMENDATIONS: I had a long discussion with the family today including his two daughters and his w edwige. I stated that his situation is certainly complex. There were highly suspicious of a retroperit sandy hematoma which makes it very difficult to anticoagulate which is what he requires to help preve nt stroke. At this point, no anticoagulation. He did receive a plasma products in order to reverse the Coumadin effects. The patient's family understand the risk of stroke, but also understand the ri sk of continuing anticoagulation not prevent stroke and risk of worsening of bleeding. We will denisse nue antibiotic therapy given elevated white blood cell count. All questions from the family were answered. The entire discussion was noted in [place].
[2017-10-14 19:33] LABS: Hemoglobin 7.6 g/dL (14.0-18.0)
[2017-10-14] MEDS ORDERED: Famotidine 20 MG TAB PER TUBE SCH (21:00)
[2017-10-14] MEDS: Atorvastatin Calcium 10 MG TAB PER TUBE SCH (22:10)
--- NOTE | 2017-10-14 22:23 | OP ---
10/14/2017 PROCEDURE: It was explained to Mr. Zamora in French that we plan to put a breathing tube in him. He consented by nodding. Bronchoscope was brought to the bedside. Bite block was placed in his mouth. Hurricaine [place] was used to anesthetize the airway. Bronchoscope was introduced and his trachea was quickly cannulated. A 7.5 endotracheal tube was inserted to 24 cm and secured. No endobronchial lesions or retained secretions were identified in his tracheobronchial inspection. The scope was then withdrawn. Central line placed in his right groin and shaved. He was then prepped with 4 x 4s and Betadine. Once this was dry, sterile drape was applied. His femoral vein was located easily with an introducer needle. J-wire was easily passed. The vein dilator was then inserted after a small incision was made with a #11 blade. Central line triple lumen was inserted and sewn in place x2. Good blood return was obtained from all 3 ports. Sterile dressing was applied. BREANA
[2017-10-15 00:48] LABS: Hemoglobin 9.8 g/dL (14.0-18.0)
[2017-10-15] MEDS: ADMIXTURE FEE IV SCH ×3 (04:08→18:07)
[2017-10-15] MEDS: SODIUM BICARBONATE IV SCH ×3 (04:08→18:07)
[2017-10-15] MEDS: STERILE WATER IV SCH ×3 (04:08→18:07)
[2017-10-15] MEDS: Norepinephrine 8 MG/0.9% NS 250 ML IVPB SCH (04:08)
[2017-10-15 04:45] LABS: INR-International Normal Ratio 2.2
[2017-10-15 05:02] LABS: Band 16 % (5-11); Hemoglobin 9.7 g/dL (14.0-18.0); Lymphocytes 5 % (21-51); MDiff Complete? YES; Mean Corpuscular HGB CONC 34.3 g/dL (32.0-36.0); Mean Corpuscular Hemoglobin 29.9 pg (27.0-31.0); Mean Platelet Volume 8.6 fL (7.4-10.4); Monocytes 4 % (0-10); Neutrophil 74 % (42-75); PLT Morphology Comment Appears Decreased; Platelet Count 114 thou/uL (130-400); RBC Distribution Width 12.7 % (11.5-14.5); Red Blood Cell (RBC) Count 3.23 mill/uL (4.70-6.10); White Blood Cell (WBC) Count 28.6 thou/uL (4.8-10.8)
[2017-10-15] MEDS: Propofol 1,000 MG/100 ML VIAL IV PRN ×2 (05:18→10:27)
[2017-10-15] MEDS: MEROPENEM 1 GM/50 ML 1 GM in Premix Bag 1 BAG IVPB SCH ×2 (05:18→17:56)
[2017-10-15] MEDS: Hydrocortisone Sod Succ/PF 100 mg/2 ml Vial IVP SCH ×2 (05:18→11:32)
[2017-10-15 05:40] LABS: ALT (SGPT) 1516 U/L (8-55); AST (SGOT) 2284 U/L (5-34); Albumin 2.9 g/dL (3.4-4.8); Alkaline Phosphatase 66 U/L (40-150); Anion Gap 18 mmol/L (10-20); BUN (Urea Nitrogen) 65 mg/dL (8.4-25.7); Bilirubin, Total 1.1 mg/dL (0.2-1.2); Calc. Creatinine Clearance 25 mL/min (70-130); Calcium 6.8 mg/dL (7.8-10.44); Carbon Dioxide 24 mmol/L (23-31); Chloride 101 mmol/L (98-107); Estimated GFR-MDRD 15; Globulin 2.1 g/dL (2.4-3.5); Glucose 159 mg/dL (83-110); Magnesium 1.9 mg/dL (1.6-2.6); Potassium 4.5 mmol/L (3.5-5.1); Sodium 138 mmol/L (136-145)
[2017-10-15 06:53] LABS: pH, Arterial 7.57 (7.35-7.45)
[2017-10-15 06:54] LABS: ALV-art Gradient 191.625 (0-20); Base Excess (BEa) -0.4 mEq/L (0 (+/-) 2.5); CO2 Tension 23.5 mmHg (35.0-45.0); Calcium, Ionized 0.8 mmol/L (1.12-1.30); Hematocrit-ABG 26.9 % (42.0-52.0); Hemoglobin (Hb) 8.9 g/dL (14.0-18.0); O2 Tension (PaO2) 64.2 mmHg (80.0-100.0); Puncture Site LRA
[2017-10-15 08:36] LABS: Hemoglobin 9.4 g/dL (14.0-18.0)
--- NOTE | 2017-10-15 12:20 | PDOC.PN ---
- Subjective Encounter Start Date: 10/15/17 Encounter Start Time: 11:00 -: non-verbal Pt seen and examined, grand-daughter, daughter at bedside, updated. Pt intubated yesterday, low grade temp this AM, 100.9 overnight. Seen by Tiffanie De La Fuente and Med and radiology apparently discussed the case. radiology feels strongly that hematoma is more favored than abscess. Pt given 4 units FFP and 4 units PRBCs. H/H up today to 9.8. Remains on abx, weaning off of pressors, WBC down. Still with exquisite abd tenderness, particularly in LLQ ROs not obtainable - Objective Resuscitation Status: Resuscitation Status FULL:Full Resuscitation MAR Reviewed: Yes Vital Signs & Weight: Vital Signs (12 hours) Temp Pulse Resp BP Pulse Ox 10/15/17 12:00 99.6 F 20 10/15/17 10:49 63 132/50 L 10/15/17 10:48 60 20 99 10/15/17 10:00 20 10/15/17 08:00 99.6 F 68 20 97 10/15/17 06:37 63 122/38 L 10/15/17 06:35 69 26 H 97 10/15/17 06:00 26 H 10/15/17 04:00 100.3 F H 32 H 10/15/17 03:38 88 26 H 95 10/15/17 03:35 75 142/45 H 10/15/17 02:00 28 H Weight Admit Weight 233 lb Weight 236 lb 15.951 oz Most Recent Monitor Data Heart Rate from ECG 74 NIBP 124/49 NIBP BP-Mean 60 Respiration from ECG 20 SpO2 99 I&O: 10/14/17 10/15/17 10/16/17 06:59 06:59 06:59 Intake Total 6625.8 6780.0 Output Total 725 674 70 Balance 5900.8 6106.0 -70 Result Diagrams: 10/15/17 08:26 10/15/17 04:26 Radiology Reviewed by me: Yes EKG Reviewed by me: Yes Phys Exam - Physical Examination Constitutional: NAD HEENT: PERRLA, moist MMs, sclera anicteric, oral pharynx no lesions oral ETT and OGT in place Neck: no nodes, no JVD, supple, full ROM Respiratory: no wheezing, no rales, no rhonchi, clear to auscultation bilateral Cardiovascular: no significant murmur, no rub, irregular normal rate tense, tender to palpation, no guarding, no rebound. no peritoneal signs Musculoskeletal: no edema, pulses present Lymphatic: no nodes Skin: no rash, normal turgor, cap refill <2 seconds Dx/Plan (1) CAP (community acquired pneumonia) Code(s): J18.9 - PNEUMONIA, UNSPECIFIED ORGANISM Status: Resolved Qualifiers: Laterality: unspecified laterality Qualified Code(s): J18.9 - Pneumonia, unspecified organism Comment: bilateral, L>R, treated (2) Acute hypoxemic respiratory failure Code(s): J96.01 - ACUTE RESPIRATORY FAILURE WITH HYPOXIA Status: Resolved Comment: intubated again (3) Metabolic encephalopathy Code(s): G93.41 - METABOLIC ENCEPHALOPATHY Status: Resolved Comment: A&O X 3 , improved, then declined in setting of hyoptensive event. sedated on vent, arousable (4) CAD (coronary artery disease), [place] coronary artery Code(s): I25.10 - ATHSCL HEART DISEASE OF [place] CORONARY ARTERY W/O ANG PCTRS Status: Chronic Qualifiers: [place] vs. transplanted heart: [place] heart Associated angina: without angina Qualified Code(s): I25.10 - Atherosclerotic heart disease of [place] coronary artery without angina pectoris Comment: eleavted trop to 0.5XX in setting of hypotension. [place] following (5) HTN (hypertension) Code(s): I10 - ESSENTIAL (PRIMARY) HYPERTENSION Status: Chronic Qualifiers: Hypertension type: essential hypertension Qualified Code(s): I10 - Essential (primary) hypertension Comment: meds on hold due to hypotension (6) CKD (chronic kidney disease), stage III Code(s): N18.3 - CHRONIC KIDNEY DISEASE, STAGE 3 (MODERATE) Status: Chronic Comment: now with [facility]ICO on CKD 3. Cr continues to rise. support (7) Sinus bradycardia Code(s): R00.1 - BRADYCARDIA, UNSPECIFIED Status: Resolved Comment: resolved with drip. may need pacer, Dr. Harris concerned about MAINOR and hypoxia as source, will try and wean dobutamine, document O2 sat with any bradycardia and see if stimulation alone resolves (8) New onset atrial fibrillation Code(s): I48.91 - UNSPECIFIED ATRIAL FIBRILLATION Status: Acute Comment: cardiology aware, rate controlled (9) Anticoagulant long-term use Code(s): Z79.01 - LONG-TERM (CURRENT) USE OF ANTICOAGULANTS Status: Chronic Comment: 4 units FFP overnight, IN only down to 2.0. If hematoma, needs reversal of anticoagultion, if abscess, may need temporary reversal for drianage. 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 radiolgy favors hematoma, though rpresentation doesnt fit 100%. Will discuss with Dr Moreno (14) Septic shock Code(s): A41.9 - SEPSIS, UNSPECIFIED ORGANISM; R65.21 - SEVERE SEPSIS WITH SEPTIC SHOCK Status: Acute (15) Metabolic acidosis Code(s): E87.2 - ACIDOSIS Status: Acute - Plan cont current plan of care, davis catheter, continue antibiotics, respiratory therapy * .
[2017-10-15] MEDS: Albumin 25% 25 GM/100 ML BOT IVPB SCH ×3 (12:53→23:38)
--- NOTE | 2017-10-15 13:45 | PDOC.CTH ---
Cardiology Progress Note - Subjective Pt intubated sedated. HR and BP more stable today. COntinues with low dose levophed. Pt received 4 units of PRBC yesterday with stable HB today (9.6). Pt continues to be irregular - Objective Vital Signs Temp Pulse Resp BP Pulse Ox 10/15/17 12:00 99.6 F 20 10/15/17 10:49 63 132/50 L 10/15/17 10:48 60 20 99 10/15/17 10:00 20 10/15/17 08:00 99.6 F 68 20 97 10/15/17 06:37 63 122/38 L 10/15/17 06:35 69 26 H 97 10/15/17 06:00 26 H 10/15/17 04:00 100.3 F H 32 H 10/15/17 03:38 88 26 H 95 10/15/17 03:35 75 142/45 H 10/15/17 02:00 28 H Admit Weight 233 lb Weight 236 lb 15.951 oz 10/14/17 10/15/17 10/16/17 06:59 06:59 06:59 Intake Total 6625.8 6780.0 Output Total 725 674 70 Balance 5900.8 6106.0 -70 - Physical Examination General/Neuro: other: (I/S) Neck: carotid US brisk, no JVD present Lungs: CTA Heart: other: (IRR) Abdomen: no HSM, other: (decreased BS) Extremities: + femoral B - Telemetry Telemetry Rhythm: afib - Labs Result Diagrams: 10/15/17 08:26 10/15/17 04:26 Troponin/CKMB CK-MB (CK-2) 5.6 ng/mL (0-6.6) 10/14/17 03:58 Troponin I 0.586 ng/mL (< 0.028) H* 10/14/17 03:58 - Assessment/Plan 1. Retroperitoneal HT 2. Mechanical MVR 3. Respiratory failure 4. afib 5. Anemia 6. Elevated LFT's After discussing the case with Dr. Lin, the most likley scenario is retroperitoneal HT after receivng ACT for mechanical MV Difficult situation. Discussed with family. At this point, do not feel comfortable continuing ACT given RP HT. Pt at increased risk of CVA but also at risk of a life-threatening bleed if continued. Family understands. Continue pressor support and vent support. INR elevated likely from recent shocked liver (from hypovolemic shock Prognosis guarded.
[2017-10-15 14:12] LABS: Hemoglobin 8.4 g/dL (14.0-18.0)
[2017-10-15] MEDS: Sodium Chloride 0.45% 1,000 ML IV SCH ×2 (14:28→23:38)
[2017-10-15] MEDS ORDERED: Phytonadione 10 MG/ML AMP SC SCH (14:30)
--- NOTE | 2017-10-15 16:19 | PRG ---
DATE OF SERVICE: 10/15/2017 OBJECTIVE: VITAL SIGNS: His vital signs are stabilized. , blood pressure , respiratory rate 20, oxi metry is 99, and blood pressure 124/38. LUNGS: Clear. CARDIOVASCULAR: Regular rhythm. ABDOMEN: Soft. EXTREMITIES: No clubbing, cyanosis, or edema. He is sedated for ventilation. He is still on Levophed. We stopped his propofol to see if we can facilitate weaning from Levophed. I received 2 more units of blood last night. His hemoglobin this morning is 9.4, it was 9.7 at 4:00, 7.6 when we transfused him 2 more units. He still has coagulopathy with INR 2.2, but does not appear to be bleeding rather not completely reversi ng because of a stroke risk. Hopefully, he will clinically stabilize. I met with family and answered all their questions. Hopefu lly, we can wean from mechanical ventilation with 48-72 hours. Critical care time was 30 minutes.
[2017-10-15] MEDS: Morphine 4 MG/ML VIAL SLOW IVP PRN ×2 (18:05→21:53)
--- NOTE | 2017-10-15 18:14 | PRG ---
DATE OF SERVICE: 10/15/2017 SUBJECTIVE: The patient is doing well. He is on the ventilator. He is communicative. He indicates that he is having less pain today than yesterday. He feels better. OBJECTIVE: VITAL SIGNS: Blood pressure 136/41, heart rate 71. He has been afebrile overnight. He is on the ve ntilator and tolerating this well. LUNGS: Clear to auscultation. CARDIAC: Regular rate and rhythm without murmur or gallop. ABDOMEN: Soft. Less tender in left lower quadrant. Less guarding. He is protuberant and obese. LABORATORY DATA: White count has fallen from 43,000 yesterday to 28,000 today. Hemoglobin dropped d own to 7.6. He was transfused, it is now 8.4. After fresh frozen plasma yesterday, his PT is 25, IN R 2.2. Prosthetic cardiac valve, on anticoagulation, probably complication of bleeding due to bridging thera peutic Lovenox to Coumadin. We would probably can resume anticoagulation in the future as he had bee n anticoagulated in the past without problems to this date. Continue current management. Currently, no evidence of infection and this is most likely related to bleeding.
--- NOTE | 2017-10-15 19:12 | PRG ---
DATE OF SERVICE: 10/15/2017 Esha Valenzuela NP, dictating a scribe for Dr. Patrick Harris. SUBJECTIVE: The patient remains intubated and sedated since becoming unstable yesterday. He has rec eived 4 units of packed cells yesterday, so far blood counts remained stable. He remains on a low do se norepinephrine and blood pressure is stable with this on board. OBJECTIVE: VITAL SIGNS: Most recent vital signs, heart rate 78, blood pressure 103/36, respirations 20, and oxy gen saturation 100%, intubated. GENERAL: The patient is intubated and sedated. NECK: Supple without jugular venous distention. LUNGS: Clear to auscultation bilaterally with mechanical ventilation. HEART: Heart rate is irregularly irregular with ventricular rate controlled. ABDOMEN: Obese, but soft. Decreased bowel sounds are noted throughout ( distant). EXTREMITIES: Warm and dry to touch without clubbing or cyanosis. NEUROLOGIC: Not possible at this time given patient's sedation. LABORATORY DATA: Hemoglobin 8.4, hematocrit 24.4. INR is 2.2. Sodium 138, potassium 4.5, BUN is 65 , creatinine 3.85. AST 2284, ALT 1516. Telemetry atrial fibrillation with ventricular rate controlled between 60 and 85 over the past 24 abhishek rs. ASSESSMENT AND PLAN: 1. Atrial fibrillation, rate controlled. 2. Mechanical mitral valve, need for chronic anticoagulation. 3. Respiratory failure. 4. Retroperitoneal HTs. 5. Acute anemia. 6. Elevated liver function tests. PLAN: Mr. Zamora certainly presents a challenging case. At this point, rate control for his atria l arrhythmias is prudent. If he would ever become stable enough or candidate for oral anticoagulatio n, this would benefit in reducing a stroke risk in the presence of atrial arrhythmias; however, given his mechanical valve even left atrial appendage closure would not be of much benefit for him, as he would still require anticoagulation. Thank you for allowing us to participate in the care of this patient. We will continue to follow thr ough his hospitalization and manage with his arrhythmias as possible.
[2017-10-15 21:39] LABS: Hemoglobin 8.2 g/dL (14.0-18.0)
[2017-10-15] MEDS: Pantoprazole 40 MG VIAL IVP SCH (21:39)
[2017-10-16 01:24] LABS: Hemoglobin 8.3 g/dL (14.0-18.0)
[2017-10-16] MEDS: Norepinephrine 8 MG/0.9% NS 250 ML IVPB SCH (03:15)
[2017-10-16 05:21] LABS: INR-International Normal Ratio 2.3
[2017-10-16 05:33] LABS: Anion Gap 18 mmol/L (10-20); BUN (Urea Nitrogen) 79 mg/dL (8.4-25.7); Calc. Creatinine Clearance 20 mL/min (70-130); Calcium 6.4 mg/dL (7.8-10.44); Carbon Dioxide 26 mmol/L (23-31); Chloride 98 mmol/L (98-107); Estimated GFR-MDRD 12; Glucose 101 mg/dL (83-110); Potassium 4.1 mmol/L (3.5-5.1); Sodium 138 mmol/L (136-145)
[2017-10-16 05:43] LABS: Band 7 % (5-11); Hemoglobin 9.1 g/dL (14.0-18.0); Lymphocytes 12 % (21-51); MDiff Complete? YES; Mean Corpuscular HGB CONC 34.9 g/dL (32.0-36.0); Mean Corpuscular Hemoglobin 29.7 pg (27.0-31.0); Mean Corpuscular Volume 85.1 fl (80.0-94.0); Mean Platelet Volume 8.5 fL (7.4-10.4); Monocytes 3 % (0-10); Neutrophil 78 % (42-75); Nucleated RBC 2 % (0); PLT Morphology Comment Appears Decreased; Platelet Count 65 thou/uL (130-400); RBC Distribution Width 14.3 % (11.5-14.5); Red Blood Cell (RBC) Count 3.07 mill/uL (4.70-6.10); White Blood Cell (WBC) Count 13.9 thou/uL (4.8-10.8)
[2017-10-16] MEDS: MEROPENEM 1 GM/50 ML 1 GM in Premix Bag 1 BAG IVPB SCH ×2 (05:48→18:36)
[2017-10-16] MEDS: Albumin 25% 25 GM/100 ML BOT IVPB SCH ×4 (05:48→23:25)
[2017-10-16 07:07] LABS: Puncture Site RR
[2017-10-16 07:08] LABS: ALV-art Gradient 173.725 (0-20); Actual Bicarbonate (HCO3a) 23.6 mEq/L (22-26); Base Excess (BEa) 1.3 mEq/L (0 (+/-) 2.5); CO2 Tension 28.3 mmHg (35.0-45.0); Hematocrit-ABG 26.2 % (42.0-52.0); Hemoglobin (Hb) 8.2 g/dL (14.0-18.0); O2 Tension (PaO2) 74.1 mmHg (80.0-100.0); pH, Arterial 7.54 (7.35-7.45)
--- NOTE | 2017-10-16 08:45 | RAD ---
PORTABLE FRONTAL CHEST RADIOGRAPH: DATE: 10/16/17. COMPARISON: 10/14/17. HISTORY: CCU ventilated patient. FINDINGS: There is an endotracheal tube projecting over the tracheal air column terminating just below the leve l of the clavicles. Nasogastric tube extends into the upper abdomen. Midline sternotomy wires are p resent. Heart and mediastinal contours are grossly unchanged. There is hazy bibasilar density sugge sting nonspecific bilateral lower lobe consolidation/collapse and bilateral pleural effusions, new. IMPRESSION: Lines and tubes as detailed above. Bibasilar pleural and parenchymal opacity as detailed above. POS: [facility]
[2017-10-16 09:33] LABS: Hemoglobin 8.8 g/dL (14.0-18.0)
--- NOTE | 2017-10-16 10:34 | CT ---
CT ABDOMEN AND PELVIS NONCONTRAST: HISTORY: Bleeding. Retroperitoneal hematoma. Abdominal pain. COMPARISON: 10/14/17. FINDINGS: Atelectasis is now apparent at the lung bases. Nodule from the previous study at the right lung base is not visible. A small amount of left pleural fluid. Nasogastric tube descends to the stomach. The lobular low-density indeterminate lesion within the posterior aspect of the liver dome is stable compared to the 2016 exam. There is calcification throughout the arterial structures. The large heterogeneous fluid density mass within the left retroperitoneum is now 8.3 cm length x 10. 7 cm width x 10.4 cm depth. A more clear fluid-fluid level is now apparent. Stranding in the adjace nt fat extending to the left groin and stranding in the right retroperitoneum have not increased sign ificantly. The urinary bladder is decompressed by a Verdin catheter. No evidence of bowel obstruction. IMPRESSION: 1. Slight interval enlargement of the left retroperitoneal hematoma, now measuring up to 10.7 cm gre atest diameter. 2. Interval development of significant bibasilar lung atelectasis and small left pleural fluid. POS: [facility]
[2017-10-16] MEDS: Acetaminophen 650 MG Suppository PR PRN (11:04)
[2017-10-16] MEDS: Sodium Chloride 0.45% 1,000 ML IV SCH ×2 (11:18→20:50)
--- NOTE | 2017-10-16 11:26 | PDOC.PN ---
- Subjective Encounter Start Date: 10/16/17 Encounter Start Time: 10:15 -: non-verbal Pt remained sedated, though a little arousable, on Vent and orally intubated. afebrile overnight, WBC improving. Cr up, Hgb back down to 8.4 yesterday afternoon, 3 more units PRBCs given, 9.1 today. Weaning off propfol in hopes that Levophed can come off. Case discussed with Dr Moreno, repeat CT ordered for today, he conceded thats there is a large drop in Hgb and pt has now had 7 units PRBCs, but bands, high WBC, severe tenderness more consistent with infection. Pt unable to give ROS - Objective Resuscitation Status: Resuscitation Status FULL:Full Resuscitation MAR Reviewed: Yes Vital Signs & Weight: Vital Signs (12 hours) Temp Pulse Pulse Resp BP Pulse Ox 10/16/17 11:00 98.6 F 10/16/17 10:51 62 130/48 L 10/16/17 10:00 19 10/16/17 08:00 100.0 F H 64 17 100 10/16/17 07:32 60 105/30 L 100 10/16/17 06:00 20 10/16/17 04:00 98.9 F 20 10/16/17 03:05 99.7 F H 60 20 10/16/17 03:03 60 20 100 10/16/17 02:53 60 130/42 L 10/16/17 02:50 99.4 F 60 20 10/16/17 02:35 100.1 F H 61 20 10/16/17 02:00 20 10/16/17 00:00 99.0 F 61 20 10/15/17 23:25 99.0 F 72 20 Weight Admit Weight 233 lb Weight 235 lb 7.259 oz Most Recent Monitor Data Heart Rate from ECG 56 NIBP 146/51 NIBP BP-Mean 61 Respiration from ECG 17 SpO2 97 I&O: 10/15/17 10/16/17 10/17/17 06:59 06:59 06:59 Intake Total 6780.0 4432 0 Output Total 674 763 211 Balance 6106.0 3669 -211 Result Diagrams: 10/16/17 09:13 10/16/17 05:00 EKG Reviewed by me: Yes Phys Exam - Physical Examination Constitutional: NAD HEENT: PERRLA, moist MMs, sclera anicteric, oral pharynx no lesions orally intubated, OGT in place Neck: no nodes, no JVD, supple, full ROM Respiratory: no wheezing, no rales, no rhonchi, clear to auscultation bilateral normal rate, irregular, in afib on mintor, no murmur tense, tinkling bowel sounds, grimaces with palpation, no rebound Musculoskeletal: edema present Lymphatic: no nodes Skin: no rash, normal turgor, cap refill <2 seconds Dx/Plan (1) Intra-abdominal abscess Code(s): K65.1 - PERITONEAL ABSCESS Status: Acute Comment: abscess vs hemtoma. radiology favors hematoma, though presentation doesnt fit 100%. Will discuss with Dr Moreno. repeat CT today, will follow up (2) Metabolic encephalopathy Code(s): G93.41 - METABOLIC ENCEPHALOPATHY Status: Resolved Comment: A&O X 3 , improved, then declined in setting of hyoptensive event. sedated on vent, arousable (3) Acute hypoxemic respiratory failure Code(s): J96.01 - ACUTE RESPIRATORY FAILURE WITH HYPOXIA Status: Resolved Comment: intubated again (4) CAD (coronary artery disease), [place] coronary artery Code(s): I25.10 - ATHSCL HEART DISEASE OF [place] CORONARY ARTERY W/O ANG PCTRS Status: Chronic Qualifiers: [place] vs. transplanted heart: [place] heart Associated angina: without angina Qualified Code(s): I25.10 - Atherosclerotic heart disease of [place] coronary artery without angina pectoris Comment: eleavted trop to 0.5XX in setting of hypotension. [place] following (5) HTN (hypertension) Code(s): I10 - ESSENTIAL (PRIMARY) HYPERTENSION Status: Chronic Qualifiers: Hypertension type: essential hypertension Qualified Code(s): I10 - Essential (primary) hypertension Comment: meds on hold due to hypotension (6) CKD (chronic kidney disease), stage III Code(s): N18.3 - CHRONIC KIDNEY DISEASE, STAGE 3 (MODERATE) Status: Chronic Comment: now with CHICO on CKD 3. Cr continues to rise. support (7) Sinus bradycardia Code(s): R00.1 - BRADYCARDIA, UNSPECIFIED Status: Resolved Comment: resolved with drip. may need pacer, Dr. Harris concerned about MAINOR and hypoxia as source, will try and wean dobutamine, document O2 sat with any bradycardia and see if stimulation alone resolves (8) New onset atrial fibrillation Code(s): I48.91 - UNSPECIFIED ATRIAL FIBRILLATION Status: Acute Comment: cardiology aware, rate controlled (9) Anticoagulant long-term use Code(s): Z79.01 - ASH WORKER (CURRENT) USE OF ANTICOAGULANTS Status: Chronic Comment: 4 units FFP overnight, IN only down to 2.0. If hematoma, needs reversal of anticoagultion, if abscess, may need temporary reversal for drianage. 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 Cerebrovascular disease type: cerebral infarction Qualified Code(s): I69.354 - Hemiplegia and hemiparesis following cerebral infarction affecting left non-dominant side (12) Bowel perforation Code(s): K63.1 - PERFORATION OF INTESTINE (NONTRAUMATIC) Status: Acute (13) Septic shock Code(s): A41.9 - SEPSIS, UNSPECIFIED ORGANISM; R65.21 - SEVERE SEPSIS WITH SEPTIC SHOCK Status: Acute (14) Metabolic acidosis Code(s): E87.2 - ACIDOSIS Status: Acute (15) CAP (community acquired pneumonia) Code(s): J18.9 - PNEUMONIA, UNSPECIFIED ORGANISM Status: Resolved Qualifiers: Laterality: unspecified laterality Qualified Code(s): J18.9 - Pneumonia, unspecified organism Comment: bilateral, L>R, treated - Plan * .
--- NOTE | 2017-10-16 13:35 | CON ---
DATE OF CONSULTATION: 10/16/2017 HISTORY OF PRESENT ILLNESS: Mr. Zamora is a 77-year-old male who was initially admitted for mental status change. He has been evaluated by Surgery for abdominal pain and he was incidentally found to have a left retroperitoneal hematoma. The feeling is that this is a bleed secondary to his anticoagulation. He is also being admitted for the possibility of an aspiration pneumonia. Cardiology has followed this patient due to an onset of bradycardia. Initially dobutamine was started to improve the heart rate. At that time, it was felt there was no need for any temporary pacemaker. Over time , his renal function has worsened. He initially had a normal creatinine, but now is abnormal with a creatinine more than 4 mg percent. Cardiac echo showed a value of 65-70%. His most recent creatinine is noted at 4.74 mg percent. Previous to this creatinine on 10/13/2017 was noted at 0.82. A concern for increased intra-abdominal pressure was also entertained. Measurement of the intraabdominal pressure shows it still within normal and below 20 cm . We are now being consulted for further management of this acute kidney injury. REVIEW OF SYSTEMS: Not obtainable since the patient is intubated. PAST MEDICAL HISTORY: Atrial fibrillation, mechanical mitral valve, coronary artery disease, hypertension, hyperlipidemia, status post infective endocarditis. Renal diverticulitis. PAST SURGICAL HISTORY: 1. Status post mitral valve replacement, mechanical. 2. History of cardiac catheterization. 3. Status post CABG. 4. Status post umbilical hernia repair. 5. Status post ERCP. SOCIAL HISTORY: The patient is and lives in [place]. Nine children with 1 . 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 Currently, not smoking, currently no alcohol. Originally from [place]. Education; primary grade. No IV drug abuse. ALLERGIES: No known drug allergies. TRAUMA: None. IMMUNIZATIONS: Unknown. HOSPITALIZATIONS: Please see past medical history. FAMILY HISTORY: Noncontributory. PHYSICAL EXAMINATION: VITAL SIGNS: Blood pressure 151/53, heart rate 68, respiratory rate 19, temperature 98.4, pulse ox 96%. GENERAL: The patient is awake and follows simple commands, intubated on ventilator support. SKIN: Adequate turgor. HEENT: Patient has slightly pale conjunctivae, anicteric sclerae. NECK: No neck mass, no carotid bruits, no JVD. CHEST: No deformities. LUNGS: Decreased breath sounds, no wheezing. HEART: Normal sinus rhythm. Grade 2/6 systolic murmur, no gallops or rubs. ABDOMEN: Globular, soft, nontender. Decreased bowel sounds. EXTREMITIES: Trace edema. NEUROLOGIC: He can follow simple commands. MEDICATIONS: 10/16/2017 - Salt-poor albumin 25 grams IV q.6h., DuoNeb q.4 hours , Ativan 1 mg p.r.n., meropenem 1 gram IV q.12h., Levophed drip, currently on normal saline - half normal at 100 mL an hour. LABORATORY: 10/16/2017 - Hemoglobin 8.8. Sodium 130, potassium 4.6, chloride 103, carbon dioxide 16, BUN 35, creatinine 1.81. 10/16/2017 - Sodium 138, potassium 4.1, chloride 98, carbon dioxide 26, BUN 18, creatinine 79, creatinine 4.74, calcium 6.4. 10/15/2017 - AST 2284, ALT 1516, albumin 2.9. Urinalysis of 10/14/2017 showed a specific gravity 1.023, protein is trace, RBC 4-6, WBC 21-50, positive for coarse granular cast. 10/14/2017 - Positive left retroperitoneal hematoma, - right kidneys, no obstruction. ASSESSMENT AND PLAN: Acute kidney injury - with findings of a coarse granular casts in the urine sediment, I am suspicious for the development of acute tubular necrosis. I am biased towards ischemic acute tubular necrosis with this patient. Even though the specific gravity is quite concentrated, the patient is already being adequately volume repleted. He is currently on IV fluid, at the same time salt poor albumin has been started. The patient does make some urine output and our plan is to continue IV hydration with this patient. If no further improvement in spite of optimizing his hemodynamics with pressor support and volume repletion, consider the possibility of an overt acute tubular necrosis. Furthermore, if the renal function remains unimproved over the next 24 hours, we need to consider the possibility of a dialytic intervention with this patient. I did discuss the case with the patient's granddaughter. I left my number for the daughter to call me if they have any further questions with regard to his renal dysfunction. I am less suspicious for any significant intra-abdominal compression of the renal vessels due to the fact that abdomen is still soft and indirect measurement of intraabdominal pressure was still within normal. It is possible that the left retroperitoneal hematoma may be contributing to the renal dysfunction, but this is less likely due to the fact that the other kidney is not involved with the retroperitoneal hematoma. In addition, there is urine sediment that suggest overt acute tubular necrosis. Thank you for the consult. We will continue to follow. We will be rechecking a urine sodium and urine creatinine. BREANA
[2017-10-16 13:46] LABS: Creatinine, Urine 71.66 mg/dL (63-166)
--- NOTE | 2017-10-16 14:59 | PRG ---
DATE OF SERVICE: 10/16/2017 SUBJECTIVE: Natalio Zamora woke up on exam today. He nods that he is reasonably comfortable. He still has a tender abdomen. His blood pressures are running around 100 off Levophed, so he is on a low dose of Levophed to get hi s pressure up. His urine output picks up when his pressure is higher. His intake and output is positive 6 liters yesterday and positive 3600 mL today. OBJECTIVE: LUNGS: Clear. HEART: Regular rhythm. ABDOMEN: Soft. EXTREMITIES: Without asymmetry. LABORATORY DATA: Hemoglobin was 9.1 at 05:00, 8.8, 9.3. He is receiving another unit of blood. CT of his abdomen was reviewed. This looks in my opinion more like a hematoma that is enlarged. He still has mild coagulopathy, but I am hesitant to completely reverse, I am worrying about him clot ting off his mitral valve or having a stroke. He remains in atrial fibrillation. His renal function continues to decline, but throughout the day today his urine output has picked up a little bit, so hopefully this will plateau. His creatinine is 4.74, potassium is 4.1. His pH today is 7.54, pCO2 28, pO2 74. Turned his rate down to 14 yesterday, but apparently his rate was set at 20 this morning, we turned h is rate down to 14. We will continue to support him. Critical care time was 30 minutes. I met with his daughter and answered all of her questions.
[2017-10-16 15:18] LABS: Hemoglobin 9.8 g/dL (14.0-18.0)
[2017-10-16] MEDS ORDERED: Atropine Sulfate 1 mg/1 ml Vial IVP PRN ×2 (15:33→15:34)
[2017-10-16 17:03] LABS: Hemoglobin 9.8 g/dL (14.0-18.0)
--- NOTE | 2017-10-16 17:04 | PDOC.CTH ---
Cardiology Progress Note - Subjective Pt intubated but awake and answering questions with nodding head. - ROS not able to obtain ROS - Objective Vital Signs Temp Pulse Pulse Resp BP BP Pulse Ox 10/16/17 15:58 98.2 F 10/16/17 15:57 18 10/16/17 14:54 58 L 132/49 L 10/16/17 14:00 18 10/16/17 13:29 98.8 F 58 L 17 149/59 H 98 10/16/17 12:37 68 141/53 H 10/16/17 12:00 98.4 F 19 10/16/17 11:45 98.4 F 63 19 125/52 L 96 10/16/17 11:31 98.6 F 67 16 132/48 L 96 10/16/17 11:00 98.6 F 10/16/17 10:51 62 130/48 L 10/16/17 10:00 19 10/16/17 08:00 100.0 F H 64 17 100 10/16/17 07:32 60 105/30 L 100 10/16/17 06:00 20 Admit Weight 233 lb Weight 235 lb 7.259 oz 10/15/17 10/16/17 10/17/17 06:59 06:59 06:59 Intake Total 6780.0 4432 350 Output Total 674 763 461 Balance 6106.0 3669 -111 - Physical Examination Neck: carotid US brisk, no JVD present, other: Lungs: CTA, unlabored respirations, other: Heart: other: (IRR) Abdomen: NT/ND, soft Extremities: + femoral B - Labs Result Diagrams: 10/16/17 14:52 10/16/17 05:00 Troponin/CKMB CK-MB (CK-2) 5.6 ng/mL (0-6.6) 10/14/17 03:58 Troponin I 0.586 ng/mL (< 0.028) H* 10/14/17 03:58 - Assessment/Plan 1. Retroperitoneal HT 2. Mechanical MVR 3. Respiratory failure 4. afib 5. Anemia 6. Elevated LFT's Pt more awake today. did require low dose levophed to increase pressure for UO. He has require 2 more units of blood today making a retroperitoneal HT more likely. CT scan with contract cannot be performed secondary to increased creatinine. Continue to hold ACT given RPHT. Pts family understand the risk. Avoid FFP for now. Given two units today., It appears Hb may have started to stabilize. Hope if for the RP HT to tamponade.
--- NOTE | 2017-10-16 17:58 | PRG ---
DATE OF SERVICE: 10/16/2017 SUBJECTIVE: Mr. Zamora was doing well this morning. He indicates he is having less pain. He is o n the ventilator. OBJECTIVE: VITAL SIGNS: 150/57, 72, respiratory rate 26. LUNGS: Clear to auscultation, no wheezing. CARDIAC: Regular rate and rhythm. ABDOMEN: Soft, protuberant, less tender than yesterday. Minimal guarding left lower quadrant. LABORATORY: Hemoglobin 8.8 this morning, 9.8 this afternoon, stable. Basic metabolic profile is nor mal with elevation of his BUN and creatinine. His urine output is 170 for the last 24 hours up to 48 8 today. BUN 79, creatinine 4.74. ASSESSMENT AND PLAN: 1. Acute kidney injury secondary to hemorrhage from anticoagulation. 2. Abdominal pain, improving; white count diminishing down to 13.9, hemoglobin stable at 9.8, INR 2. 3. Continue monitoring.
[2017-10-16] MEDS: Morphine 4 MG/ML VIAL SLOW IVP PRN (18:48)
[2017-10-16] MEDS: Pantoprazole 40 MG VIAL IVP SCH (20:43)
[2017-10-16 20:47] LABS: Hemoglobin 9.3 g/dL (14.0-18.0)
--- NOTE | 2017-10-16 21:07 | PRG ---
DATE OF SERVICE: 10/16/2017 ELECTROPHYSIOLOGY FOLLOWUP NOTE SUBJECTIVE: Mr. Zamora seems to be doing fair. He still has anemia and further evaluation will be necessary regarding his abnormal status. He is heading for a CT scan. Overnight, he had no further bradyarrhythmias. OBJECTIVE: VITAL SIGNS: Temperature 100.1, blood pressure 130/42 overnight and 105/30 this morning, heart rate 60, respirations 12. GENERAL: He is an alert and responsive man in intubated state. NECK: Supple. Jugular veins are difficult to see due to obesity. CHEST: Coarse without crackles. CARDIOVASCULAR: Heart sounds are irregularly irregular. S1, S2 variable. Mechanical heart sounds a re heard. ABDOMEN: Distended. Bowel sounds are not heard. EXTREMITIES: Lower extremities without edema, clubbing, or cyanosis. DATABASE: Telemetry strips reviewed, reveals atrial flutter, atypical with controlled ventricular ra enzo. LABORATORY DATA: Hemoglobin this morning 9.1; white count is 13.9; platelet count is 65, which is a marked drop from 10/03/2017. Sodium 138, potassium 4.1, BUN 79, creatinine 4.7, lactic acid 7.2 on . ASSESSMENT AND PLAN: Mr. Zamora is an unfortunate 77-year-old man with a history of mechanical alex ral valve, who developed abnormal issues. Retroperitoneal hematoma is suspected possibly due to the patient's anemia. For now, surgery has evaluated the patient and rates are really well controlled ov ernight. He is requiring pressor support. If bradyarrhythmias recur as it did in the past, consider switching to dopamine. Atropine could also be used. He is a poor candidate for pacing.
[2017-10-16] MEDS: Bisacodyl 10 MG SUPP PR PRN (23:25)
[2017-10-17] MEDS: Morphine 4 MG/ML VIAL SLOW IVP PRN (01:13)
[2017-10-17 01:18] LABS: Hemoglobin 9.1 g/dL (14.0-18.0)
[2017-10-17] MEDS: Albumin 25% 25 GM/100 ML BOT IVPB SCH ×2 (04:59→13:01)
[2017-10-17] MEDS: MEROPENEM 1 GM/50 ML 1 GM in Premix Bag 1 BAG IVPB SCH ×2 (04:59→17:46)
[2017-10-17 05:19] LABS: INR-International Normal Ratio 1.7; Prothrombin Time 20.9 SEC (12.0-14.7)
[2017-10-17 05:33] LABS: Anion Gap 15 mmol/L (10-20); BUN (Urea Nitrogen) 87 mg/dL (8.4-25.7); Calc. Creatinine Clearance 21 mL/min (70-130); Calcium 6.9 mg/dL (7.8-10.44); Carbon Dioxide 26 mmol/L (23-31); Chloride 101 mmol/L (98-107); Estimated GFR-MDRD 12; Glucose 86 mg/dL (83-110); Potassium 4.1 mmol/L (3.5-5.1); Sodium 138 mmol/L (136-145)
[2017-10-17 05:42] LABS: Band 3 % (5-11); Hemoglobin 9.1 g/dL (14.0-18.0); Lymphocytes 7 % (21-51); MDiff Complete? YES; Mean Corpuscular Hemoglobin 29.7 pg (27.0-31.0); Mean Corpuscular Volume 87.3 fl (80.0-94.0); Mean Platelet Volume 8.6 fL (7.4-10.4); Monocytes 5 % (0-10); Neutrophil 85 % (42-75); Nucleated RBC 1 % (0); PLT Morphology Comment Appears Decreased; Platelet Count 57 thou/uL (130-400); RBC Distribution Width 15.1 % (11.5-14.5); Red Blood Cell (RBC) Count 3.08 mill/uL (4.70-6.10); White Blood Cell (WBC) Count 11.1 thou/uL (4.8-10.8)
[2017-10-17 07:20] LABS: Actual Bicarbonate (HCO3a) 22.7 mEq/L (22-26); Base Excess (BEa) -0.9 mEq/L (0 (+/-) 2.5); CO2 Tension 33.1 mmHg (35.0-45.0); Hematocrit-ABG 27.8 % (42.0-52.0); Hemoglobin (Hb) 8.5 g/dL (14.0-18.0); O2 Tension (PaO2) 80.5 mmHg (80.0-100.0); pH, Arterial 7.45 (7.35-7.45)
[2017-10-17 07:21] LABS: ALV-art Gradient 161.325 (0-20); Calcium, Ionized 0.8 mmol/L (1.12-1.30); Puncture Site RR
--- NOTE | 2017-10-17 09:26 | PRG ---
DATE OF SERVICE: 10/17/2017 SERVICE: Renal Medicine. SUBJECTIVE: Mr. Zamora is a 77-year-old male who was seen by the renal service for his ac [place] kidney injury. My initial evaluation is that he may have an acute tubular necrosis based on the urine sediment, which showed numerous granular cast. I did review his urine chemistries and it is no t suggestive of any prerenal azotemia. His urine sodium was 55 and his fractional excretion of sodiu m is greater than 2%. No acute events last night. He remains hemodynamically stable. His pressors has been discontinued. He continues to receive crystalloid and colloid infusion. OBJECTIVE: VITAL SIGNS: Blood pressure is noted at 116/45, heart rate 74, respiratory rate 22, pulse ox 95%, GENERAL: He is awake and follows simple commands. He is intubated on ventilator support. HEENT: He has pinkish conjunctivae, anicteric sclerae. NECK: No neck mass, no carotid bruits, no JVD. CHEST: No deformities. LUNGS: Clear breath sounds. No wheezing, no crackles. HEART: Normal sinus rhythm. No murmur, no gallops or rubs. ABDOMEN: Globular, soft, nontender, no masses. EXTREMITIES: Trace edema. MEDICATIONS: Of 10/17/2017 was reviewed. LABORATORY DATA: Of 10/17/2017, white count 11.1, hemoglobin 9.1. Sodium 138, potassium 4.1, chlori de 101, carbon dioxide 26, BUN 87, creatinine 4.67, glucose 86, calcium 6.9. Urine sodium 55, urine creatinine 71. ASSESSMENT AND PLAN: Acute kidney injury - most likely related to ischemic acute tubular necrosis. I did review the creatinine, it seems to be plateauing. The patient is also diuresing. He is making urine output of about 1.4 liters in the last 24 hours. The plan is to continue the hydration and co ntinue colloid and crystalloid infusion. No indication for any emergent dialysis with this patient. Overall, agree with current management.
--- NOTE | 2017-10-17 09:32 | PRG ---
DATE OF SERVICE: 10/17/2017 SUBJECTIVE: Mr. Zamora is doing well today, reasonably stable. He is still on ____ support with dobutamine. No further significant bradyarrhythmias noted. OBJECTIVE: VITAL SIGNS: Blood pressure is 149/49, heart rate 59, temperature 99.4 degrees Fahrenheit. GENERAL: Reveals an intubated patient who is alert and responsive to verbal stimuli. NECK: Supple. Jugular veins difficult to see. CHEST: Coarse, no crackles. CARDIOVASCULAR: Heart sounds are irregularly irregular. S1 is variable. No murmur or gallop. ABDOMEN: Benign. Bowel sounds positive. EXTREMITIES: No edema, clubbing or cyanosis. Mechanical heart sounds are heard. The ____ reviewed reveals atrial fibrillation with controlled rates. LABORATORY DATA: White count 11.1, hemoglobin 9.1, platelet count is 57. Sodium 138, potassium 4.1, BUN is 87, creatinine 4.67. ASSESSMENT AND PLAN: Ms. Zamora is a 77-year-old man with history of mechanical mitral valve, paro xysmal atrial fibrillation which now persisting, had episodes of bradycardia while intubated, possibl y hyper[place] in nature. Due to worsening of mental status, possible retroperitoneal abscess he h as required reintubation and still being monitored from the GI Service and from a surgical standpoint . He also developed acute kidney injury. He does require some dopamine for increasing his heart rat e. At this point, I would continue the current management. He did not require dopamine support when alice ke and extubated, hopefully we will be able to avoid long-term pacing. For now anticoagulation is o n hold, hence bleeding issues. The plan is to continue supportive dobutamine therapy.
--- NOTE | 2017-10-17 09:36 | RAD ---
CHEST ONE VIEW: Comparison: 10-16-17 History: Respiratory distress. Ventilated patient. FINDINGS: Endotracheal and nasogastric tube are identified. Persistent bibasilar pleural and parenchymal change s. Stable cardiac silhouette. No pneumothorax. IMPRESSION: No significant interval change. POS: [facility]
[2017-10-17] MEDS: Spironolactone 25 MG TAB PO SCH (10:08)
[2017-10-17] MEDS: Sodium Chloride 0.45% 1,000 ML IV SCH ×2 (10:09→17:46)
--- NOTE | 2017-10-17 10:34 | PDOC.CTH ---
Cardiology Progress Note - Subjective Awake and answering questions and following commands appropriately. Still intubated. Pt not able to move left leg. Previous CVA affecting left side but family states he has walked although slowing in the past. - Objective Vital Signs Temp Pulse Resp BP Pulse Ox 10/17/17 07:00 99.4 F 10/17/17 06:23 59 L 149/49 H 10/17/17 06:22 68 16 96 10/17/17 06:00 18 10/17/17 04:00 99.0 F 16 10/17/17 02:17 73 17 96 10/17/17 02:00 19 10/17/17 00:00 18 Admit Weight 233 lb Weight 253 lb 1.451 oz 10/16/17 10/17/17 10/18/17 06:59 06:59 06:59 Intake Total 4432 3590.5 Output Total 763 1556 100 Balance 3669 2034.5 -100 - Physical Examination General/Neuro: NAD Neck: no JVD present Lungs: CTA, unlabored respirations Heart: other: (IRR) Abdomen: no HSM, NT/ND Extremities: + femoral B Other PE findings: normal left leg and UE bilatrerally; no movement noted to left LE this AM - Labs Result Diagrams: 10/17/17 04:40 10/17/17 04:40 Troponin/CKMB CK-MB (CK-2) 5.6 ng/mL (0-6.6) 10/14/17 03:58 Troponin I 0.586 ng/mL (< 0.028) H* 10/14/17 03:58 - Assessment/Plan 1. Retroperitoneal HT 2. Mechanical MVR 3. Respiratory failure 4. afib 5. Anemia 6. Elevated LFT's 7. Left leg weakness INR improved. Hb appears stable Continue pressors as needed Hold ACT Abx Check LFT's Discussed leg weakness with Dr. Moreno. Not felt to be secondary to HT. Recommend CT scan of the head. Unusual to affect only one limb. Cannot perform MRI at this time secondary to pt being intubated.
[2017-10-17 11:09] LABS: ALT (SGPT) 559 U/L (8-55); AST (SGOT) 268 U/L (5-34); Albumin 3.8 g/dL (3.4-4.8); Alkaline Phosphatase 48 U/L (40-150); Bilirubin, Direct 1.2 mg/dL (0.1-0.3); Bilirubin, Total 2.1 mg/dL (0.2-1.2); Protein, Total 5.4 g/dL (5.8-8.1)
--- NOTE | 2017-10-17 11:27 | ULT ---
DIALYSIS ACCESS VENOUS MAPPING: History: Endstage renal disease. Comparison: None. Technique: Grade scale, color flow, doppler imaging and spectral waveform analysis was performed in t he left and right upper extremity venous and arterial systems. FINDINGS: Right Upper Extremity: Brachial artery 5.8 mm Radial artery 3.2 mm Ulnar artery 4.0 mm CEPHALIC VEIN Proximal Arm: 1.2 mm Mid Arm: 1.3 mm Distal Arm: 1.6 mm Antecubital Fossa: 2.6 mm Proximal Forearm: 1.0 mm Mid Forearm: 1.2 mm Distal Forearm: 0.7 mm BASILIC VEIN Proximal Arm: 4.3 mm Mid Arm: 3.6 mm Distal Arm: 4.2 mm Antecubital Fossa: 4.7 mm Proximal Forearm: 1.9 mm Mid Forearm: 1.9 mm Distal Forearm: 1.8 mm LEFT UPPER EXTREMITY BRACHIAL ARTERY: 6.3 mm RADIAL ARTERY: 3.2 mm ULNAR ARTERY: 2.6 mm CEPHALIC VEIN Proximal Arm: 3.1 mm Mid Arm: 3.4 mm Distal Arm: 3.1 mm Antecubital Fossa: 3.7 mm Proximal Forearm: 4.0 mm Mid Forearm: 3.2 mm Distal Forearm: 2.4 mm BASILIC VEIN Proximal Arm: 5.4 mm Mid Arm: 4.4 mm Distal Arm: 4.5 mm Antecubital Fossa: 3.2 mm Proximal Forearm: 3.7 mm Mid Forearm: 4.2 mm Distal Forearm: 3.8 mm IMPRESSION: Venous mapping as above. POS: [facility]
--- NOTE | 2017-10-17 14:12 | PDOC.PN ---
- Subjective Encounter Start Date: 10/17/17 Encounter Start Time: 11:45 -: non-verbal Pt weaning off ssedation, still intubated, arousable. no pain, no F/c, no N/v, no /C, abd still hurts. events reviewed, got another unit of PRBCs overnight, INR down to 1.7. repeat with with slight increase in size of hematoma. ROS not obtainable Family concerned of inability of pt to move left leg. CT recommended by cardiology - Objective Resuscitation Status: Resuscitation Status FULL:Full Resuscitation MAR Reviewed: Yes Vital Signs & Weight: Vital Signs (12 hours) Temp Pulse Pulse Pulse Resp BP BP 10/17/17 13:00 99.3 F 10/17/17 12:21 77 109/39 L 10/17/17 12:00 17 10/17/17 10:46 70 115/45 L 10/17/17 10:00 22 H 10/17/17 09:15 70 66 122/38 L 10/17/17 08:00 99.4 F 90 20 10/17/17 07:00 99.4 F 10/17/17 06:23 59 L 149/49 H 10/17/17 06:22 68 16 10/17/17 06:00 18 10/17/17 04:00 99.0 F 16 10/17/17 02:17 73 17 BP Pulse Ox 10/17/17 13:00 10/17/17 12:21 10/17/17 12:00 10/17/17 10:46 10/17/17 10:00 10/17/17 09:15 111/42 L 10/17/17 08:00 95 10/17/17 07:00 10/17/17 06:23 10/17/17 06:22 96 10/17/17 06:00 10/17/17 04:00 10/17/17 02:17 96 Weight Admit Weight 233 lb Weight 253 lb 1.451 oz Most Recent Monitor Data Heart Rate from ECG 67 NIBP 117/41 NIBP BP-Mean 54 Respiration from ECG 18 SpO2 92 I&O: 10/16/17 10/17/17 10/18/17 06:59 06:59 06:59 Intake Total 4432 3590.5 5.6 Output Total 763 1556 620 Balance 3669 2034.5 -614.4 Result Diagrams: 10/17/17 04:40 10/17/17 04:40 Radiology Reviewed by me: No EKG Reviewed by me: Yes Phys Exam - Physical Examination Constitutional: NAD HEENT: PERRLA, moist MMs, sclera anicteric, oral pharynx no lesions orally intubated Neck: no nodes, no JVD, supple, full ROM Respiratory: no wheezing, no rales, no rhonchi, clear to auscultation bilateral Cardiovascular: no significant murmur, no rub, irregular normal rate Gastrointestinal: soft, no distention TTP, LLQ more than elsewhere,no R/R/G Musculoskeletal: pulses present, edema present Lymphatic: no nodes Skin: no rash, normal turgor, cap refill <2 seconds Dx/Plan (1) Intra-abdominal abscess Code(s): K65.1 - PERITONEAL ABSCESS Status: Acute Comment: abscess vs hemtoma. radiology favors hematoma, though presentation doesnt fit 100%. Repeat CT slightly larger. WBC down, almost normal, afebrile, yeison abx. Will review CT (2) Metabolic encephalopathy Code(s): G93.41 - METABOLIC ENCEPHALOPATHY Status: Resolved Comment: A&O X 3 , improved, then declined in setting of hyoptensive event. sedated on vent, arousable (3) CAD (coronary artery disease), [place] coronary artery Code(s): I25.10 - ATHSCL HEART DISEASE OF [place] CORONARY ARTERY W/O ANG PCTRS Status: Chronic Qualifiers: [place] vs. transplanted heart: [place] heart Associated angina: without angina Qualified Code(s): I25.10 - Atherosclerotic heart disease of [place] coronary artery without angina pectoris Comment: eleavted trop to 0.5XX in setting of hypotension. Onofre following (4) Acute hypoxemic respiratory failure Code(s): J96.01 - ACUTE RESPIRATORY FAILURE WITH HYPOXIA Status: Resolved Comment: intubated, weaning (5) HTN (hypertension) Code(s): I10 - ESSENTIAL (PRIMARY) HYPERTENSION Status: Chronic Qualifiers: Hypertension type: essential hypertension Qualified Code(s): I10 - Essential (primary) hypertension Comment: meds on hold due to hypotension (6) CKD (chronic kidney disease), stage III Code(s): N18.3 - CHRONIC KIDNEY DISEASE, STAGE 3 (MODERATE) Status: Chronic Comment: now with CHICO on CKD 3. Cr continues to rise. support (7) Sinus bradycardia Code(s): R00.1 - BRADYCARDIA, UNSPECIFIED Status: Resolved Comment: resolved with drip. may need pacer, Dr. 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 If hematoma, needs reversal of anticoagultion, if abscess, may need temporary reversal for drianage. 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 Cerebrovascular disease type: cerebral infarction Qualified Code(s): I69.354 - Hemiplegia and hemiparesis following cerebral infarction affecting left non-dominant side (12) Bowel perforation Code(s): K63.1 - PERFORATION OF INTESTINE (NONTRAUMATIC) Status: Acute (13) Septic shock Code(s): A41.9 - SEPSIS, UNSPECIFIED ORGANISM; R65.21 - SEVERE SEPSIS WITH SEPTIC SHOCK Status: Acute (14) Metabolic acidosis Code(s): E87.2 - ACIDOSIS Status: Acute (15) CAP (community acquired pneumonia) Code(s): J18.9 - PNEUMONIA, UNSPECIFIED ORGANISM Status: Resolved Qualifiers: Laterality: unspecified laterality Qualified Code(s): J18.9 - Pneumonia, unspecified organism Comment: bilateral, L>R, treated (16) CHICO (acute kidney injury) Code(s): N17.9 - ACUTE KIDNEY FAILURE, UNSPECIFIED Status: Acute Comment[place] [facility] [place] - Plan cont current plan of care, plan discussed w/ family, continue antibiotics, respiratory therapy * .
--- NOTE | 2017-10-17 15:57 | CT ---
CT BRAIN WITHOUT CONTRAST: INDICATIONS: Left lower extremity weakness. COMPARISON: 10/02/2017 FINDINGS: Remote infarcts involving the right frontal and right parietal lobe and watershed distribution are si milar appearing. A remote infarct involving the left frontal lobe and left cerebellar hemisphere is stable. No definite acute infarct, hemorrhage, or hydrocephalus is present. The septum pellucidum a nd third ventricle are midline. The skull and extracranial soft tissues are within normal limits. IMPRESSION: 1. No acute intracranial abnormality. 2. Chronic ischemic change, as above. POS: [facility]
[2017-10-17 16:04] LABS: Hemoglobin 8.7 g/dL (14.0-18.0)
--- NOTE | 2017-10-17 16:45 | PRG ---
DATE OF SERVICE: 10/17/2017 SUBJECTIVE: Mr. Natalio Zamora is a 77-year-old male on ventilator in the ICU. He still cannot be weaned from the ventilator at this time. Dr. Auguste is working with him on that. Patient, however , is awake and responds appropriately. He has weakness in the left leg and a CT scan of his head was repeated today and was normal. I suspect he will not move his left leg due to the large hematoma ov er his left psoas muscle. OBJECTIVE: VITAL SIGNS: Heart rate 70, 127/39 on the ventilator. LUNGS: Clear to auscultation. CARDIAC: Regular rate and rhythm without murmur or gallop. ABDOMEN: Soft, even less tenderness in the left lower quadrant yesterday. No rebound. No peritonea l signs. LABORATORY DATA: White count 11, hemoglobin 9.1, platelet count 57,000. Renal function worse or at least stabilized, BUN 87, creatinine 4.67. Sodium 138, potassium 4.1. Liver function tests slightly elevated, probably reflecting the liver congestion. The patient's urine output remains adequate 488 mL 24 hours 2 days prior, 1481 yesterday, [address] Romero is following him. ASSESSMENT AND PLAN: 1. Acute kidney injury, severe. He is on chronic kidney disease. Dr. Romero is following him. Avoid IV access blood draws above his wrist. Obtain ultrasound vein mapping his arms, protect his veins fo r possible future dialysis access, hopefully, this will not be necessary. Ultrasound vein mapping adonay th arms was obtained on 10/17/2017, cephalic vein, right, 1.2, 1.3, 1.6 mm, antecubital fossa 2.6, 1 mm of size vein below the elbow, right arm basilic vein 4.3, 3.6, 4.2 mm, 4.7 antecubital fossa, left cephalic vein, 3.1, 3.4, 3.1, 3.7 mm, antecubital fossa 4, 3.2, 2.4, basilic vein 5.4, 4.4, 4,5, 3.2 mm, antecubital fossa, 3.7, 4.2, 3.8. 2. Respiratory failure per Dr. Moreno. 3. Retroperitoneal bleeding, probably irritating the left psoas muscle limiting the left leg movemen t. This should resolve spontaneously. As abdominal tenderness is improving, I would recommend start ing tube feedings. Hopefully, the patient will not need a tracheostomy. At this point, we will star t tube feedings and follow him with you. I can see him occasionally. Please call if necessary.
--- NOTE | 2017-10-17 16:54 | PRG ---
DATE OF SERVICE: 10/17/2017 SUBJECTIVE: Mr. Zamora is more alert, we are decreasing his sedation. He is turned his IMV with his mechanical ventilation down. His transfusion requirements have decreased. He still has abdominal discomfort. It was noted that he is not moving his left leg like he was before this decompensation. CT of his head without contrast has been ordered. PHYSICAL EXAMINATION: VITAL SIGNS: His blood pressure 127/39, heart rate 70, respiratory rate 19. Intake and output was positive 2034 mL. LUNGS: Clear anteriorly. HEART: Regular rhythm. ABDOMEN: Soft. LABORATORY DATA: White count 11.1, hemoglobin 9.1, platelets 57,000. Electrolytes are normal. BUN is 87, creatinine is 4.67, potassium is 4.1. INR is 1.7 today. IMPRESSION: 1. Retroperitoneal bleed. 2. Mechanical mitral valve. 3. History of cerebrovascular accident in the past. 4. Inability to move his left lower extremity, it seem unlikely that this would be related to his retroperitoneal hematoma. 5. Bradycardia, back on dobutamine, this is the problem last time he was in the Critical Care Unit. We decreased the frequency of his blood draws. We will continue to transfuse him as needed. We will continue to monitor his anticoagulation, although fully anticoagulating him again at this point has enormous risk. The family is aware of the risks. His renal function hopefully will plateau. There is no indication for surgical procedure on his abdomen. No indication for dialysis. We probably need to change out his central line in the next day or two. Critical care time 35 minutes. BREANA
[2017-10-18] MEDS: Sodium Chloride 0.45% 1,000 ML IV SCH ×2 (00:06→10:46)
[2017-10-18 04:49] LABS: INR-International Normal Ratio 1.3; Prothrombin Time 16.8 SEC (12.0-14.7)
[2017-10-18 04:52] LABS: Anion Gap 14 mmol/L (10-20); BUN (Urea Nitrogen) 85 mg/dL (8.4-25.7); Calc. Creatinine Clearance 28 mL/min (70-130); Calcium 7.4 mg/dL (7.8-10.44); Carbon Dioxide 23 mmol/L (23-31); Chloride 103 mmol/L (98-107); Estimated GFR-MDRD 16; Glucose 95 mg/dL (83-110); Potassium 4.5 mmol/L (3.5-5.1); Sodium 135 mmol/L (136-145)
[2017-10-18] MEDS: MEROPENEM 1 GM/50 ML 1 GM in Premix Bag 1 BAG IVPB SCH (05:14)
[2017-10-18 05:27] LABS: Band 8 % (5-11); Eosinophils 3 % (0-10); Hemoglobin 9.7 g/dL (14.0-18.0); Lymphocytes 7 % (21-51); MDiff Complete? YES; Mean Corpuscular HGB CONC 34.7 g/dL (32.0-36.0); Mean Corpuscular Hemoglobin 30.9 pg (27.0-31.0); Mean Platelet Volume 8.8 fL (7.4-10.4); Monocytes 7 % (0-10); Neutrophil 75 % (42-75); PLT Morphology Comment Appears Decreased; Platelet Count 60 thou/uL (130-400); RBC Distribution Width 14.9 % (11.5-14.5); Red Blood Cell (RBC) Count 3.15 mill/uL (4.70-6.10); White Blood Cell (WBC) Count 9.2 thou/uL (4.8-10.8)
[2017-10-18] MEDS ORDERED: Atropine Sulfate 1 mg/10 ml Syringe ONE (06:31)
--- NOTE | 2017-10-18 07:04 | PRG ---
DATE OF SERVICE: 10/18/2017 SERVICE: Renal Medicine. SUBJECTIVE: Mr. Zamora is a 77-year-old male who was admitted for abdominal pain with sub sequent findings of a left renal hematoma. Bleeding was suspected that it was secondary to his antic oagulation. He was also referred to the Renal Service for his acute kidney injury secondary to ische teddy acute tubular necrosis. Aggressive volume repletion was given with this patient - blood transfus ion, salt poor albumin and crystalloids. Renal function has been stabilizing over the last 2 days. He has been making adequate urine output at the same time. Last urine output was now noted at 2.3 liters over the last 24 hours. No acute events noted last night. OBJECTIVE: VITAL SIGNS: Blood pressure is noted at 125/49 with a heart rate of 47, respiratory rate 17, O2 sat 94%. GENERAL: Awake, intubated on ventilator support, following commands. SKIN: Adequate turgor. HEENT: He has pinkish conjunctivae, anicteric sclerae. NECK: No neck mass, no carotid bruits, no JVD. CHEST: No deformities. LUNGS: Clear breath sounds, no wheezing, no crackles. HEART: Bradycardic. ABDOMEN: Globular, soft, nontender, no masses. EXTREMITIES: No edema. MEDICATIONS: Of 10/18/2017 was reviewed. LABORATORY DATA: Of 10/18/2017, white count 9.2, hemoglobin 9.7, hematocrit 28.1. Sodium 135, potas sium 4.5, chloride 103, carbon dioxide 23, BUN 85, creatinine 3.67, GFR 16 mL per minute, glucose 95, calcium 7.4. AST is 268, ALT 559, albumin 3.8. ASSESSMENT AND PLAN: 1. Acute kidney injury - secondary to ischemic acute tubular necrosis. Overall, renal function has been stabilizing and actually this morning it is much improved with a creatinine of 3.67. Please not e that the creatinine peaked at 4.74. Continue current supportive care. Continue current IV hydrati on with this patient - currently on half normal saline 100 mL per hour. 2. Status post left retroperitoneal hemorrhage/perinephric hematoma - stabilizing bleeding. Hemoglo bin is now stable. Overall, agree with current management. There is no indication for any dialytic intervention.
[2017-10-18 07:24] LABS: Actual Bicarbonate (HCO3a) 21.4 mEq/L (22-26); CO2 Tension 31.2 mmHg (35.0-45.0); Hematocrit-ABG 31.4 % (42.0-52.0); Hemoglobin (Hb) 9.9 g/dL (14.0-18.0); pH, Arterial 7.45 (7.35-7.45)
[2017-10-18 07:25] LABS: Calcium, Ionized 0.9 mmol/L (1.12-1.30); Puncture Site LRA
[2017-10-18] MEDS: Bisacodyl 10 MG SUPP PR PRN (07:53)
--- NOTE | 2017-10-18 07:53 | PDOC.CTH ---
Cardiology Progress Note - Subjective improving. Creatinine better. Pt extubated. - Objective Vital Signs Temp Pulse Resp BP Pulse Ox 10/18/17 07:00 98.9 F 10/18/17 06:56 56 L 142/54 H 10/18/17 06:52 51 L 19 93 L 10/18/17 06:00 17 10/18/17 04:00 98.9 F 10/18/17 02:07 46 L 141/46 H 10/18/17 02:00 19 10/18/17 00:00 99.2 F 10/17/17 22:38 55 L 127/52 L 10/17/17 22:00 15 10/17/17 20:00 99.2 F 55 L 18 94 L Admit Weight 233 lb Weight 254 lb 10.142 oz 10/17/17 10/18/17 10/19/17 06:59 06:59 06:59 Intake Total 3590.5 3514.6 Output Total 1556 2435 180 Balance 2034.5 1079.6 -180 - Physical Examination General/Neuro: alert & oriented x3, NAD Neck: carotid US brisk, no JVD present Lungs: CTA, unlabored respirations Heart: RRR Abdomen: no HSM, NT/ND Extremities: + femoral B - Labs Result Diagrams: 10/18/17 04:00 10/18/17 04:00 Troponin/CKMB CK-MB (CK-2) 5.6 ng/mL (0-6.6) 10/14/17 03:58 Troponin I 0.586 ng/mL (< 0.028) H* 10/14/17 03:58 - Assessment/Plan 1. Retroperitoneal HT 2. Mechanical MVR 3. Respiratory failure 4. afib 5. Anemia 6. Elevated LFT's 7. Left leg weakness HR and BP have stabilized Pt now in SR Avoid ACT given RPB Pt appears to be moving leg a little better today.
--- NOTE | 2017-10-18 08:42 | RAD ---
CHEST 1 VIEW: HISTORY: Ventilated patient. COMPARISON: Chest radiograph from prior day. FINDINGS: The patient continues to be intubated with endotracheal tube tip above the ricky 2 cm. Layering eff usions. Mild edema. NO pneumothorax. Cardiac silhouette is enlarged. Enteric tube tip below the diaphragm out of the field of view. Fracture of the superiormost median s ternotomy wire. IMPRESSION: No significant change. POS: [facility]
--- NOTE | 2017-10-18 10:22 | PRG ---
DATE OF SERVICE: 10/18/2017 Mr. Zamora is awake and alert. His minute volume was 8 liters a minute. He is in no distress. He has been on 5 of pressure support, 5 of PEEP all morning, doing well with that. PHYSICAL EXAMINATION: VITAL SIGNS: His blood pressure is 127/53, heart rate 82, respiratory rate 23. His intake and outputs is up another liter. He is up 17 liters since he transferred back into the Critical Care Unit at the beginning of the week . His bleeding appears to have stopped his INR is down to 1.3. His white count is 8.9, 9.2, hemoglobin 9.7, platelets 60,000. Creatinine is improved from 4.6 to 3.67. Potassium is still normal at 4.5. Liver enzymes have gone from 2284 to 268 and 1516 to 559. Bilirubin is 2.1. IMPRESSION: 1. Retroperitoneal bleed. 2. Shock liver. 3. Mechanical mitral valve. Perhaps in a few days he can go back on prophylactic dose Lovenox, woul d not fully anticoagulate him at this point. 4. Poor left lower extremity function. CT of his head yesterday showed no evidence of a brain hemor rhage. He has extensive involvement in his iliopsoas muscles on the left. If his left lower extremity function fails to improve, we can repeat a CT in a few days and this shou ld show evidence of a thrombotic event if one has occurred. I do not think he needs to go lay down i n an MRI scanner for an hour. It would be nice to start to diurese him at this point, or at least cut back on his fluids. He denisse nues not to have any pulmonary edema. He does have bilateral pleural effusions as expected. His pH today is 7.45, CO2 of 31, pO2 of 70. Hopefully, we can consider weaning and extubation today. Critical care time was 30 minutes.
--- NOTE | 2017-10-18 13:37 | PDOC.PN ---
- Subjective Encounter Start Date: 10/18/17 Encounter Start Time: 11:30 Pt extubated, off pressors, belly pain less, announces he is hungry No f/C, no N/V/d/C. got another unit of PRBCs. Hgb stable from last night at 9.2. All systems reviewed and neg x as per HPI - Objective Resuscitation Status: Resuscitation Status FULL:Full Resuscitation MAR Reviewed: Yes Vital Signs & Weight: Vital Signs (12 hours) Temp Pulse Resp BP Pulse Ox 10/18/17 12:00 98.6 F 95 10/18/17 11:08 79 19 99 10/18/17 10:05 18 94 L 10/18/17 10:00 20 10/18/17 08:00 98.9 F 53 L 18 92 L 10/18/17 07:00 98.9 F 10/18/17 06:56 56 L 142/54 H 10/18/17 06:52 51 L 19 93 L 10/18/17 06:00 17 10/18/17 04:00 98.9 F 10/18/17 02:07 46 L 141/46 H 10/18/17 02:00 19 Weight Admit Weight 233 lb Weight 254 lb 10.142 oz Most Recent Monitor Data Heart Rate from ECG 68 NIBP 140/64 NIBP BP-Mean 80 Respiration from ECG 21 SpO2 90 I&O: 10/17/17 10/18/17 10/19/17 06:59 06:59 06:59 Intake Total 3590.5 3514.6 79 Output Total 1556 2435 880 Balance 2034.5 1079.6 -801 Result Diagrams: 10/18/17 04:00 10/18/17 04:00 Radiology Reviewed by me: Yes EKG Reviewed by me: Yes Phys Exam - Physical Examination Constitutional: NAD HEENT: PERRLA, moist MMs, sclera anicteric, oral pharynx no lesions Neck: no nodes, no JVD, supple, full ROM Respiratory: no wheezing, no rales, no rhonchi, clear to auscultation bilateral Cardiovascular: RRR, no significant murmur, no rub Gastrointestinal: soft distended, firm, minimally tender Musculoskeletal: edema present Neurological: non-focal, normal sensation, moves all 4 limbs Lymphatic: no nodes Psychiatric: normal affect, A&O x 3 Skin: no rash, normal turgor, cap refill <2 seconds Dx/Plan (1) Intra-abdominal abscess Code(s): K65.1 - PERITONEAL ABSCESS Status: Acute Comment: abscess vs hemtoma. radiology favors hematoma, though presentation doesnt fit 100%. Repeat CT slightly larger. WBC down, almost normal, afebrile, yeison abx. CT still calling it a hematoma. H/H now stable, stop abx and watch (2) Metabolic encephalopathy Code(s): G93.41 - METABOLIC ENCEPHALOPATHY Status: Resolved Comment: extubated, MS normal (3) CAD (coronary artery disease), [place] coronary artery Code(s): I25.10 - ATHSCL HEART DISEASE OF [place] CORONARY ARTERY W/O ANG PCTRS Status: Chronic Qualifiers: [place] vs. transplanted heart: [place] heart Associated angina: without angina Qualified Code(s): I25.10 - Atherosclerotic heart disease of [place] coronary artery without angina pectoris Comment: eleavted trop to 0.5XX in setting of hypotension. [place] following (4) Acute hypoxemic respiratory failure Code(s): J96.01 - ACUTE RESPIRATORY FAILURE WITH HYPOXIA Status: Resolved Comment: extubated (5) HTN (hypertension) Code(s): I10 - ESSENTIAL (PRIMARY) HYPERTENSION Status: Chronic Qualifiers: Hypertension type: essential hypertension Qualified Code(s): I10 - Essential (primary) hypertension Comment: meds on hold due to hypotension (6) CKD (chronic kidney disease), stage III Code(s): N18.3 - CHRONIC KIDNEY DISEASE, STAGE 3 (MODERATE) Status: Chronic Comment: now with CHICO on CKD 3. Cr finally down some, follow (7) Sinus bradycardia Code(s): R00.1 - BRADYCARDIA, UNSPECIFIED Status: Resolved Comment: resolved with drip. may need pacer, Dr. 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 Cerebrovascular disease type: cerebral infarction Qualified Code(s): I69.354 - Hemiplegia and hemiparesis following cerebral infarction affecting left non-dominant side Comment: left leg weakness, but can move it (12) Bowel perforation Code(s): K63.1 - PERFORATION OF INTESTINE (NONTRAUMATIC) Status: Ruled-out Comment: doubted by general surgery (13) Septic shock Code(s): A41.9 - SEPSIS, UNSPECIFIED ORGANISM; R65.21 - SEVERE SEPSIS WITH SEPTIC SHOCK Status: Ruled-out Comment: hemorrhqagic shock instead (14) Metabolic acidosis Code(s): E87.2 - ACIDOSIS Status: Resolved (15) CAP (community acquired pneumonia) Code(s): J18.9 - PNEUMONIA, UNSPECIFIED ORGANISM Status: Resolved Qualifiers: Laterality: unspecified laterality Qualified Code(s): J18.9 - Pneumonia, unspecified organism Comment: bilateral, L>R, treated (16) CHICO (acute kidney injury) Code(s): N17.9 - ACUTE KIDNEY FAILURE, UNSPECIFIED Status: Acute Comment: due to [place] [facility] [place]) - Plan cont current plan of care, PT/OT, respiratory therapy, out of bed/ambulate * .
--- NOTE | 2017-10-18 14:39 | PDOC.CTH ---
<Esha Valenzuela - Last Filed: 10/18/17 14:36> Cardiology Progress Note - Subjective EP progress note: Patient seen and evaluated. Extubated this AM. sitting EOB. + dizziness while upright, weakness, and fatigue. - heart racing, palpitations, CP, passing out. - Objective Vital Signs Temp Pulse Resp BP Pulse Ox 10/18/17 12:00 98.6 F 95 10/18/17 11:08 79 19 99 10/18/17 10:05 18 94 L 10/18/17 10:00 20 10/18/17 08:00 98.9 F 53 L 18 92 L 10/18/17 07:00 98.9 F 10/18/17 06:56 56 L 142/54 H 10/18/17 06:52 51 L 19 93 L 10/18/17 06:00 17 10/18/17 04:00 98.9 F Admit Weight 233 lb Weight 254 lb 10.142 oz 10/17/17 10/18/17 10/19/17 06:59 06:59 06:59 Intake Total 3590.5 3514.6 79 Output Total 1556 2435 1155 Balance 2034.5 1079.6 -1076 - Physical Examination General/Neuro: alert & oriented x3, NAD Neck: no JVD present Lungs: CTA Heart: RRR Abdomen: NT/ND, soft Extremities: + edema B - Telemetry Telemetry Rhythm: NSR - Labs Result Diagrams: 10/18/17 04:00 10/18/17 04:00 Troponin/CKMB CK-MB (CK-2) 5.6 ng/mL (0-6.6) 10/14/17 03:58 Troponin I 0.586 ng/mL (< 0.028) H* 10/14/17 03:58 - Assessment/Plan 1. Atrial fibrillation- Converted to NSR this AM. AF overnight with occasional VR dipping into 40s briefly. No pauses. Known to have bradycardia while extubated. No dennis episodes since converting to NSR. 2. Mechanical Valve- recommend resuming OAC with warfarin as soon as deemed safe. <Patrick Harris - Last Filed: 10/19/17 07:58> Cardiology Progress Note - Objective Vital Signs Temp Pulse Resp Pulse Ox 10/19/17 07:06 75 20 92 L 10/19/17 04:00 98.9 F 10/19/17 03:38 97 10/19/17 00:00 98.7 F 10/18/17 23:08 97 Admit Weight 233 lb Weight 247 lb 5.738 oz 10/18/17 10/19/17 10/20/17 06:59 06:59 06:59 Intake Total 3514.6 3236 Output Total 2435 3070 Balance 1079.6 166 - Labs Result Diagrams: 10/19/17 03:50 10/19/17 03:50 Troponin/CKMB CK-MB (CK-2) 5.6 ng/mL (0-6.6) 10/14/17 03:58 Troponin I 0.586 ng/mL (< 0.028) H* 10/14/17 03:58 Attending Addendum - Attending Addendum Date/Time: 10/19/17 0757 I personally evaluated the patient and discussed the management with Ms Valenzuela. I agree with the History, Examination, Assessment and Plan documented above with any addition or exceptions noted below.
[2017-10-18 16:08] LABS: Hemoglobin 10.3 g/dL (14.0-18.0)
[2017-10-19 04:49] LABS: INR-International Normal Ratio 1.2; Prothrombin Time 15.6 SEC (12.0-14.7)
[2017-10-19 04:58] LABS: Band 3 % (5-11); Eosinophils 5 % (0-10); Hemoglobin 9.8 g/dL (14.0-18.0); Lymphocytes 13 % (21-51); MDiff Complete? YES; Mean Corpuscular Hemoglobin 30.5 pg (27.0-31.0); Mean Corpuscular Volume 89.6 fl (80.0-94.0); Mean Platelet Volume 8.1 fL (7.4-10.4); Monocytes 4 % (0-10); Neutrophil 75 % (42-75); PLT Morphology Comment Appears Decreased; Platelet Count 92 thou/uL (130-400); RBC Distribution Width 15.2 % (11.5-14.5); Red Blood Cell (RBC) Count 3.21 mill/uL (4.70-6.10); White Blood Cell (WBC) Count 9.2 thou/uL (4.8-10.8)
[2017-10-19 05:05] LABS: Anion Gap 11 mmol/L (10-20); BUN (Urea Nitrogen) 80 mg/dL (8.4-25.7); Calc. Creatinine Clearance 41 mL/min (70-130); Calcium 7.9 mg/dL (7.8-10.44); Carbon Dioxide 25 mmol/L (23-31); Chloride 103 mmol/L (98-107); Estimated GFR-MDRD 25; Glucose 82 mg/dL (83-110); Potassium 4.4 mmol/L (3.5-5.1); Sodium 135 mmol/L (136-145)
[2017-10-19] MEDS: Sodium Chloride 0.45% 1,000 ML IV SCH ×2 (05:21→10:20)
--- NOTE | 2017-10-19 10:22 | RAD ---
PORTABLE SEMIUPRIGHT FRONTAL CHEST RADIOGRAPH: DATE: 10/19/17. COMPARISON: 10/18/17. HISTORY: Ventilated CCU patient. FINDINGS: The endotracheal tube and nasogastric tube have been removed since the prior examination. There is n onspecific stable widening of the superior mediastinum. Midline sternotomy wires are present. Blunting of bilateral costophrenic angles suggests bilateral pleural effusions, left greater than rig ht. Increased density in the left base noted obscuring the left heart border and left hemidiaphragm suggesting nonspecific left lower lobe consolidation/collapse. IMPRESSION: No significant interval change aside from interval removal of nasogastric tube and endotracheal tube. POS: [facility]
[2017-10-19] MEDS ORDERED: Furosemide 40 MG/4 ML VIAL SLOW IVP SCH (10:45)
--- NOTE | 2017-10-19 10:58 | PRG ---
DATE OF SERVICE: 10/19/2017 SERVICE: Pulmonary Medicine. INTERVAL HISTORY: The patient is doing fine from a respiratory standpoint. He denies any chest pain , nausea, vomiting, fevers or chills. Otherwise, there has been no interval change to his condition. He has increasing scrotal edema. He is volume overloaded in general. He was in AFIB with RVR yest erday morning, but converted back to sinus rhythm and had no events overnight. PHYSICAL EXAMINATION: VITAL SIGNS: Afebrile, pulse 69, blood pressure 153/58, respirations 21, saturation 97% on 2 liters nasal cannula. GENERAL: The patient is awake, alert, no apparent distress. LUNGS: Decent air entry. There is no prolonged expiratory phase or wheezing. Crackles are present. No rhonchi. HEART: Normal rate and regular. ABDOMEN: Soft. Distended. Bowel sounds are present. No rebound or guarding is identified. MUSCULOSKELETAL: No cyanosis or clubbing. There is 1-2+ pitting throughout. GENITOURINARY: Verdin catheter in place with extensive scrotal edema. NEUROLOGIC: Grossly nonfocal. LABORATORY DATA: WBC 9.2, hemoglobin 9.8 and roughly stable, platelets 92,000 and up trending. INR 1.2. Creatinine 2.52 and beautifully down trending, BUN 80, sodium 135, bicarbonate 25, stable. AST and ALT are down trending. Urine culture is negative. C. diff antigen and toxin are unremarkable. Blood cultures x2 are negative. Stool lactoferrin was positive. IMAGING: Chest x-ray demonstrates removal of the endotracheal tube and nasogastric tube. Sternotomy wires are in place. Low lung volumes accentuate interstitial markings but there appears to be some pulmonary vascular congestion. There is some fluid in the fissure, as well as very subtle pleural ef fusions. ASSESSMENT: 1. Acute hypoxic respiratory failure. 2. Atrial fibrillation with rapid ventricular response. 3. Acute blood loss anemia secondary to retroperitoneal bleed. 4. Shock liver, resolving. 5. Mechanical mitral valve, in need of full anticoagulation at some point in the future. DISCUSSION AND PLAN: I will give the patient a dose of Lasix. We will interrupt his IV fluids. He can be transitioned to the telemetry unit. We will need to keep watching his heart because of his re cent episode of atrial fibrillation. Pulmonary or Critical Care will continue to follow along.
--- NOTE | 2017-10-19 11:05 | PRG ---
DATE OF SERVICE: 10/19/2017 SUBJECTIVE: Mr. Zamora is a 77-year-old male who was admitted for perirenal hematoma sta tus retroperitoneal bleed secondary to anticoagulation which is now resolved. We saw this patient fo r his acute kidney injury secondary to ischemic ATN. Renal function has been spontaneously improving for the last several days. He received crystalloid and colloid infusion with this. However, this m orning, he is mildly short of breath. No complaints of chest pain. OBJECTIVE: VITAL SIGNS: Blood pressure is 164/65, heart rate 73, pulse ox 94%. GENERAL: Awake, obese, comfortable, not in overt distress. SKIN: Adequate turgor. HEENT: Pinkish conjunctivae, anicteric sclerae. NECK: No neck mass, no carotid bruits, no JVD. CHEST: No deformities. LUNGS: Decreased breath sounds. HEART: Normal sinus rhythm. No murmur, no gallops, no rubs. ABDOMEN: Globular, soft, nontender, no masses. EXTREMITIES: Positive for edema. MEDICATIONS: Of 10/19/2017 was reviewed. LABORATORY DATA: Of 10/19/2017, white count 9.2, hemoglobin 9.8. Sodium 135, potassium 4.4, chlorid e 103, carbon dioxide 25, BUN 80, creatinine 2.52, GFR 25 mL per minute, and calcium 7.9. ASSESSMENT AND PLAN: 1. Lower leg edema/mild shortness of breath - agree with p.r.n. diuretics. Continue to observe mike l function. 2. Acute kidney injury - secondary to a presumed ischemic acute tubular necrosis. Slowly improving. Please note the patient has been diuresing. His last urine output was noted at 3 liters. Continue current management, continue p.r.n. Lasix. 3. Status post left retroperitoneal hemorrhage/perinephric hematoma - supportive care. No evidence of active bleeding. As per recommendation by Cardiology, restart anticoagulation when he is more sta ble.
--- NOTE | 2017-10-19 13:37 | PDOC.PN ---
- Subjective Encounter Start Date: 10/19/17 Encounter Start Time: 11:10 Pt doing well, extubated yesterday, resp status stable. ate good, good BP. has a lotof edema in ext x 4, scrotum. No f/c, no n/V, no CP, no SOB, yeison po, no cough or sputum production All systems reviewed and neg x as above - Objective Resuscitation Status: Resuscitation Status FULL:Full Resuscitation MAR Reviewed: Yes Vital Signs & Weight: Vital Signs (12 hours) Temp Pulse Resp Pulse Ox 10/19/17 10:45 75 21 H 94 L 10/19/17 08:00 98.7 F 74 22 H 96 10/19/17 07:06 75 20 92 L 10/19/17 04:00 98.9 F 10/19/17 03:38 97 Weight Admit Weight 233 lb Weight 247 lb 5.738 oz Most Recent Monitor Data Heart Rate from ECG 78 NIBP 164/57 NIBP BP-Mean 126 Respiration from ECG 18 SpO2 96 I&O: 10/18/17 10/19/17 10/20/17 06:59 06:59 06:59 Intake Total 3514.6 3236 677 Output Total 2435 3070 760 Balance 1079.6 166 -83 Result Diagrams: 10/19/17 03:50 10/19/17 03:50 Radiology Reviewed by me: Yes Phys Exam - Physical Examination Constitutional: NAD HEENT: PERRLA, moist MMs, sclera anicteric, oral pharynx no lesions Neck: no nodes, no JVD, supple, full ROM Respiratory: no wheezing, no rales, no rhonchi, clear to auscultation bilateral Cardiovascular: RRR, no significant murmur, no rub mechanical mitral valve stable without regurg Gastrointestinal: soft, non-tender, no distention, positive bowel sounds Musculoskeletal: edema present Neurological: non-focal, normal sensation LLE weakness, worse than baseline Lymphatic: no nodes Psychiatric: normal affect, A&O x 3 Skin: no rash, normal turgor, cap refill <2 seconds Dx/Plan (1) Intra-abdominal abscess Code(s): K65.1 - PERITONEAL ABSCESS Status: Acute Comment: abscess vs hemtoma. radiology favors hematoma, though presentation doesnt fit 100%. Repeat CT slightly larger. WBC down, almost normal, afebrile, yeison abx. CT still calling it a hematoma. H/H now stable, off abx and watching, afebrile normal WBC (2) Metabolic encephalopathy Code(s): G93.41 - METABOLIC ENCEPHALOPATHY Status: Resolved Comment: extubated, MS normal (3) CAD (coronary artery disease), [place] coronary artery Code(s): I25.10 - ATHSCL HEART DISEASE OF [place] CORONARY ARTERY W/O ANG PCTRS Status: Chronic Qualifiers: [place] vs. transplanted heart: [place] heart Associated angina: without angina Qualified Code(s): I25.10 - Atherosclerotic heart disease of [place] coronary artery without angina pectoris Comment: eleavted trop to 0.5XX in setting of hypotension. [place] following (4) Acute hypoxemic respiratory failure Code(s): J96.01 - ACUTE RESPIRATORY FAILURE WITH HYPOXIA Status: Resolved Comment: extubated (5) HTN (hypertension) Code(s): I10 - ESSENTIAL (PRIMARY) HYPERTENSION Status: Chronic Qualifiers: Hypertension type: essential hypertension Qualified Code(s): I10 - Essential (primary) hypertension Comment: meds on hold due to hypotension (6) CKD (chronic kidney disease), stage III Code(s): N18.3 - CHRONIC KIDNEY DISEASE, STAGE 3 (MODERATE) Status: Chronic Comment: now with CHICO on CKD 3. Cr finally down some, follow (7) Sinus bradycardia Code(s): R00.1 - BRADYCARDIA, UNSPECIFIED Status: Resolved Comment: resolved with drip. may need pacer, Dr. 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 Cerebrovascular disease type: cerebral infarction Qualified Code(s): I69.354 - Hemiplegia and hemiparesis following cerebral infarction affecting left non-dominant side Comment: left leg weakness, but can move it (12) Bowel perforation Code(s): K63.1 - PERFORATION OF INTESTINE (NONTRAUMATIC) Status: Ruled-out Comment: doubted by general surgery (13) Septic shock Code(s): A41.9 - SEPSIS, UNSPECIFIED ORGANISM; R65.21 - SEVERE SEPSIS WITH SEPTIC SHOCK Status: Ruled-out Comment: hemorrhqagic shock instead (14) Metabolic acidosis Code(s): E87.2 - ACIDOSIS Status: Resolved (15) CAP (community acquired pneumonia) Code(s): J18.9 - PNEUMONIA, UNSPECIFIED ORGANISM Status: Resolved Qualifiers: Laterality: unspecified laterality Qualified Code(s): J18.9 - Pneumonia, unspecified organism Comment: bilateral, L>R, treated (16) CHICO (acute kidney injury) Code(s): N17.9 - ACUTE KIDNEY FAILURE, UNSPECIFIED Status: Acute Comment: [place] [facility] [place] - Plan cont current plan of care, davis catheter, PT/OT, social services designee, respiratory therapy, out of bed/ambulate * .
[2017-10-20] MEDS ORDERED: Furosemide 40 MG/4 ML VIAL SLOW IVP SCH (06:00)
[2017-10-20 06:25] LABS: Anion Gap 14 mmol/L (10-20); BUN (Urea Nitrogen) 74 mg/dL (8.4-25.7); Calc. Creatinine Clearance 45 mL/min (70-130); Calcium 8.7 mg/dL (7.8-10.44); Carbon Dioxide 21 mmol/L (23-31); Chloride 104 mmol/L (98-107); Estimated GFR-MDRD 33; Glucose 101 mg/dL (83-110); Magnesium 2.1 mg/dL (1.6-2.6); Potassium 4.3 mmol/L (3.5-5.1); Sodium 135 mmol/L (136-145)
[2017-10-20 07:40] LABS: Band 7 % (5-11); Hemoglobin 10.8 g/dL (14.0-18.0); Lymphocytes 12 % (21-51); MDiff Complete? YES; Mean Corpuscular Volume 90.7 fl (80.0-94.0); Mean Platelet Volume 7.7 fL (7.4-10.4); Monocytes 2 % (0-10); Neutrophil 78 % (42-75); Platelet Count 139 thou/uL (130-400); RBC Distribution Width 15.3 % (11.5-14.5); Red Blood Cell (RBC) Count 3.62 mill/uL (4.70-6.10); White Blood Cell (WBC) Count 9.8 thou/uL (4.8-10.8)
--- NOTE | 2017-10-20 08:48 | PRG ---
DATE OF SERVICE: 10/20/2017 RENAL MEDICINE SUBJECTIVE: Mr. Zamora is a 77-year-old male who was admitted for acute abdomen secondary to left retroperitoneal hematoma. It was noted to be actively bleeding. He received several units of packed RBC. With the conservative management and correction of his INR, he eventually improved wi th the bleeding. Renal Service also evaluated this patient for his acute kidney injury secondary to ischemic acute tubular necrosis. Overtime with conservative management, volume repletion with rahel lloids and colloids, renal function stabilized. This morning, he has no new complaints. He continue s to get p.r.n. diuretics. He has diuresed well in the last 24 hours. No new complaints. PHYSICAL EXAMINATION: VITAL SIGNS: Blood pressure is noted at 133/62, heart rate 82, respiratory rate 16, temperature 98, pulse ox 94%. GENERAL: Awake, alert, comfortable, not in distress. SKIN: Adequate turgor. HEENT: He has pinkish conjunctivae, anicteric sclerae. NECK: No neck mass, no carotid bruits, no JVD. CHEST: No deformities. LUNGS: Decreased breath sounds. HEART: Normal sinus rhythm. No murmurs, no gallops, no rubs. ABDOMEN: Globular, soft, nontender, no masses. EXTREMITIES: Positive for edema. MEDICATIONS: Medications of 10/20/2017 was reviewed. LABORATORY DATA: Laboratories of 10/20/2017; white count 9.8, hemoglobin 10.8. Sodium 135, [place] m 4.3, chloride 104, carbon dioxide 21, BUN 74, creatinine 2.01. GFR 33 mL per minute. Calcium 8.7, magnesium 2.1. ASSESSMENT AND PLAN: 1. Acute kidney injury - secondary to ischemic acute tubular necrosis. Slowly improving renal funct ion. Continue supportive care. There is no indication for any dialytic intervention. He is tolerat ing current diuretic regimen. Adjust Lasix as needed. 2. Lower leg edema, currently on IV diuretics. Adjust as needed. 3. Status post retroperitoneal hematoma - left - bleeding stabilized. As per recommendation by Card iology, eventual resumption of anticoagulation is indicated. Overall, agree with current management. Recheck base met and CBC in a.m.
--- NOTE | 2017-10-20 13:23 | PDOC.PN ---
- Subjective Encounter Start Date: 10/20/17 Encounter Start Time: 10:00 Pt feeling better, asking about going home, hasnt been out of bed in days. No f /C, no abd pain. having BMs. passing gas. belly distended but not tender No sOB, no cough, no N/V/D/C All systems reviewed and neg x as per HPI - Objective Resuscitation Status: Resuscitation Status FULL:Full Resuscitation MAR Reviewed: Yes Vital Signs & Weight: Vital Signs (12 hours) Temp Pulse Resp BP BP Pulse Ox 10/20/17 09:59 84 16 95 10/20/17 07:25 98.4 F 76 18 132/60 94 L 10/20/17 06:43 82 16 92 L 10/20/17 04:46 98.0 F 82 16 133/62 94 L 10/20/17 02:21 82 18 89 L Weight Admit Weight 233 lb Weight 222 lb 3.2 oz Most Recent Monitor Data Heart Rate from ECG 78 NIBP 164/57 NIBP BP-Mean 126 Respiration from ECG 18 SpO2 96 I&O: 10/19/17 10/20/17 10/21/17 06:59 06:59 06:59 Intake Total 3236 677 Output Total 3070 5385 Balance 166 -4708 Result Diagrams: 10/20/17 04:33 10/20/17 04:33 Phys Exam - Physical Examination Constitutional: NAD HEENT: PERRLA, moist MMs, sclera anicteric, oral pharynx no lesions Neck: no nodes, no JVD, supple, full ROM Respiratory: no wheezing, no rales, no rhonchi, clear to auscultation bilateral Cardiovascular: RRR, no rub MV murmur stable, mechanical click heard Gastrointestinal: soft, non-tender distended, tympanitic, normal sounds, no R/R/G Musculoskeletal: edema present Neurological: normal sensation, moves all 4 limbs left UE and LE weak Lymphatic: no nodes Psychiatric: normal affect, A&O x 3 Skin: no rash, normal turgor, cap refill <2 seconds Dx/Plan (1) Intra-abdominal abscess Code(s): K65.1 - PERITONEAL ABSCESS Status: Acute Comment: Hematoma - off abx, afebrile, WBC normal. CCM. H/H stable (2) Metabolic encephalopathy Code(s): G93.41 - METABOLIC ENCEPHALOPATHY Status: Resolved Comment: extubated, MS normal (3) CAD (coronary artery disease), [place] coronary artery Code(s): I25.10 - ATHSCL HEART DISEASE OF [place] CORONARY ARTERY W/O ANG PCTRS Status: Chronic Qualifiers: [place] vs. transplanted heart: [place] heart Associated angina: without angina Qualified Code(s): I25.10 - Atherosclerotic heart disease of [place] coronary artery without angina pectoris Comment: eleavted trop to 0.5XX in setting of hypotension. [place] following (4) Acute hypoxemic respiratory failure Code(s): J96.01 - ACUTE RESPIRATORY FAILURE WITH HYPOXIA Status: Resolved Comment: extubated (5) HTN (hypertension) Code(s): I10 - ESSENTIAL (PRIMARY) HYPERTENSION Status: Chronic Qualifiers: Hypertension type: essential hypertension Qualified Code(s): I10 - Essential (primary) hypertension Comment: meds on hold due to hypotension (6) CKD (chronic kidney disease), stage III Code(s): N18.3 - CHRONIC KIDNEY DISEASE, STAGE 3 (MODERATE) Status: Chronic Comment: now with CHICO on CKD 3. Cr almost back to baseline (7) Sinus bradycardia Code(s): R00.1 - BRADYCARDIA, UNSPECIFIED Status: Resolved Comment: resolved with drip. may need pacer, Dr. Harris concerned about MAINOR and hypoxia as source, will try and wean dobutamine, document O2 sat with any bradycardia and see if stimulation alone resolves (8) New onset atrial fibrillation Code(s): I48.91 - UNSPECIFIED ATRIAL FIBRILLATION Status: Acute Comment: cardiology aware, rate controlled (9) Anticoagulant long-term use Code(s): Z79.01 - [facility] (CURRENT) USE OF ANTICOAGULANTS Status: Chronic Comment: 4 units FFP initially, INR only down to 2.0. 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 Cerebrovascular disease type: cerebral infarction Qualified Code(s): I69.354 - Hemiplegia and hemiparesis following cerebral infarction affecting left non-dominant side Comment: left leg weakness, but can move it (12) Bowel perforation Code(s): K63.1 - PERFORATION OF INTESTINE (NONTRAUMATIC) Status: Ruled-out Comment: doubted by general surgery (13) Septic shock Code(s): A41.9 - SEPSIS, UNSPECIFIED ORGANISM; R65.21 - SEVERE SEPSIS WITH SEPTIC SHOCK Status: Ruled-out Comment: hemorrhagic shock instead (14) Metabolic acidosis Code(s): E87.2 - ACIDOSIS Status: Resolved (15) CAP (community acquired pneumonia) Code(s): J18.9 - PNEUMONIA, UNSPECIFIED ORGANISM Status: Resolved Qualifiers: Laterality: unspecified laterality Qualified Code(s): J18.9 - Pneumonia, unspecified organism Comment: bilateral, L>R, treated (16) CHICO (acute kidney injury) Code(s): N17.9 - ACUTE KIDNEY FAILURE, UNSPECIFIED Status: Acute Comment: due to ATN from [facility] [place] (hemorrhagic vs septic) - Plan * .
--- NOTE | 2017-10-20 21:13 | PRG ---
DATE OF SERVICE: 10/20/2017 SERVICE: Pulmonary Medicine. INTERVAL HISTORY: The patient is breathing comfortably. He denies any current chest pain, shortness of breath, cough, fevers or chills. Otherwise, he has no complaints. There were no significant overnight events. He does not typically use Verdin catheter at home. We will wean oxygen down. He has yet to be out of bed essentially since he has been here. PHYSICAL EXAMINATION: VITAL SIGNS: Afebrile, pulse 75, blood pressure 147/61, respirations 16, saturation 97% on 3 liters nasal cannula. GENERAL: The patient is awake, alert, no apparent distress. LUNGS: Excellent air entry. I listened carefully in the dependent regions. There are actually no crackles. No prolonged expiratory phase or wheezing is appreciated. HEART: Normal rate, regular. ABDOMEN: Soft, nontender, nondistended. Bowel sounds are positive. MUSCULOSKELETAL: No cyanosis or clubbing. There is trace pitting in the left lower extremity. No pitting in the right lower extremity. GENITOURINARY: Verdin catheter in place. NEUROLOGIC: Grossly nonfocal. LABORATORY: WBC 9.8, hemoglobin 10.8, platelets 139,000 and beautifully responding. INR 1.2. Creatinine 2.01 and down trending, BUN 74. Basic metabolic profile is otherwise unremarkable. Magnesium 2.1. ASSESSMENT: 1. Acute hypoxic respiratory failure, improving. 2. Atrial fibrillation with rapid ventricular response. 3. Acute blood loss anemia secondary to retroperitoneal bleed. 4. Shock liver, resolving. 5. Acute kidney injury, improving. 6. Mechanical mitral valve, in need of full dose anticoagulation at some future time. DISCUSSION AND PLAN: We will remove the Verdin catheter. We will make certain physical therapy is working with the patient. We will try to get him into a chair a couple times on a daily basis. We will also request that he walk with assistance, frequently. Pulmonary Critical Care will continue to follow along for the time being. Eventually, he will need to resume anticoagulation. BREANA
[2017-10-21 05:25] LABS: #Eosinphils 0.2 thou/uL (0.0-0.7); #Lymphocytes 0.9 thou/uL (1.20-3.40); #Monocytes 0.9 thou/uL (0.11-0.59); #Neutrophils 8.7 thou/uL (1.40-6.50); %Basophils 0.1 % (0.0-1.0); %Eosinophils 2.3 % (0.0-10.0); %Lymphocytes 8.4 % (21.0-51.0); %Monocytes 8.1 % (0.0-10.0); %Neutrophils 81.1 % (42.0-75.0); Hemoglobin 11.4 g/dL (14.0-18.0); Mean Corpuscular HGB CONC 33.1 g/dL (32.0-36.0); Mean Corpuscular Hemoglobin 30.4 pg (27.0-31.0); Mean Corpuscular Volume 91.7 fl (80.0-94.0); Mean Platelet Volume 7.5 fL (7.4-10.4); Platelet Count 179 thou/uL (130-400); RBC Distribution Width 15.2 % (11.5-14.5); Red Blood Cell (RBC) Count 3.76 mill/uL (4.70-6.10); White Blood Cell (WBC) Count 10.7 thou/uL (4.8-10.8)
[2017-10-21 06:00] LABS: Anion Gap 15 mmol/L (10-20); BUN (Urea Nitrogen) 71 mg/dL (8.4-25.7); Calc. Creatinine Clearance 50 mL/min (70-130); Calcium 9.4 mg/dL (7.8-10.44); Carbon Dioxide 21 mmol/L (23-31); Chloride 105 mmol/L (98-107); Estimated GFR-MDRD 37; Glucose 115 mg/dL (83-110); Potassium 4.2 mmol/L (3.5-5.1); Sodium 137 mmol/L (136-145)
--- NOTE | 2017-10-21 10:07 | PDOC.PN ---
- Subjective Encounter Start Date: 10/21/17 Encounter Start Time: 10:30 Subjective: Patient feeling better. No more abdominal pain. No SOB/CP. - Objective Resuscitation Status: Resuscitation Status FULL:Full Resuscitation MAR Reviewed: Yes Vital Signs & Weight: Vital Signs (12 hours) Temp Pulse Resp BP BP Pulse Ox 10/21/17 08:16 98.6 F 81 18 122/60 92 L 10/21/17 06:15 90 16 96 10/21/17 04:54 97.8 F 81 16 130/60 91 L 10/21/17 02:39 77 16 95 10/20/17 23:34 99 F 83 18 154/67 H 91 L 10/20/17 22:16 77 18 96 Weight Admit Weight 233 lb 0.458 oz Weight 218 lb 12.8 oz Most Recent Monitor Data Heart Rate from ECG 78 NIBP 164/57 NIBP BP-Mean 126 Respiration from ECG 18 SpO2 96 I&O: 10/20/17 10/21/17 10/22/17 06:59 06:59 06:59 Intake Total 677 Output Total 5385 350 Balance -4708 -350 Result Diagrams: 10/21/17 04:36 10/21/17 04:36 Additional Labs: Accuchecks 10/20/17 20:39 POC Glucose 130 H Phys Exam - Physical Examination Constitutional: NAD HEENT: moist MMs Respiratory: no wheezing, no rales, no rhonchi Cardiovascular: RRR, no significant murmur Gastrointestinal: soft, non-tender, positive bowel sounds distended Neurological: non-focal, moves all 4 limbs Psychiatric: normal affect, A&O x 3 Dx/Plan (1) Intra-abdominal abscess Code(s): K65.1 - PERITONEAL ABSCESS Status: Acute Comment: Hematoma - off abx, afebrile, WBC normal. CCM. H/H stable (2) CAP (community acquired pneumonia) Code(s): J18.9 - PNEUMONIA, UNSPECIFIED ORGANISM Status: Resolved Qualifiers: Laterality: unspecified laterality Qualified Code(s): J18.9 - Pneumonia, unspecified organism Comment: bilateral, L>R, treated (3) Acute hypoxemic respiratory failure Code(s): J96.01 - ACUTE RESPIRATORY FAILURE WITH HYPOXIA Status: Resolved Comment: extubated (4) Metabolic encephalopathy Code(s): G93.41 - METABOLIC ENCEPHALOPATHY Status: Resolved Comment: extubated, MS normal (5) CAD (coronary artery disease), [place] coronary artery Code(s): I25.10 - ATHSCL HEART DISEASE OF [place] CORONARY ARTERY W/O ANG PCTRS Status: Chronic Qualifiers: [place] vs. transplanted heart: [place] heart Associated angina: without angina Qualified Code(s): I25.10 - Atherosclerotic heart disease of [place] coronary artery without angina pectoris Comment: eleavted trop to 0.5XX in setting of hypotension. [place] following (6) CKD (chronic kidney disease), stage III Code(s): N18.3 - CHRONIC KIDNEY DISEASE, STAGE 3 (MODERATE) Status: Chronic Comment: now with CHCIO on CKD 3. Cr almost back to baseline (7) HTN (hypertension) Code(s): I10 - ESSENTIAL (PRIMARY) HYPERTENSION Status: Chronic Qualifiers: Hypertension type: essential hypertension Qualified Code(s): I10 - Essential (primary) hypertension Comment: well controlled currently (8) Sinus bradycardia Code(s): R00.1 - BRADYCARDIA, UNSPECIFIED Status: Resolved Comment: off dobutamine, Dr. 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 Cerebrovascular disease type: cerebral infarction Qualified Code(s): I69.354 - Hemiplegia and hemiparesis following cerebral infarction affecting left non-dominant side Comment: left leg weakness, but can move it (10) New onset atrial fibrillation Code(s): I48.91 - UNSPECIFIED ATRIAL FIBRILLATION Status: Resolved Comment: cardiology aware, converted to NSR (11) Obstructive sleep apnea Code(s): G47.33 - OBSTRUCTIVE SLEEP APNEA (ADULT) (PEDIATRIC) Status: Acute (12) Anticoagulant long-term use Code(s): Z79.01 - [facility] (CURRENT) USE OF ANTICOAGULANTS Status: Chronic Comment: Will need to resume anticoagulation at some point (13) H/O prosthetic mitral valve Status: Chronic - Plan 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 Resume anticoagulation at some point. * . - Discharge Day Encounter end time: 10:45
--- NOTE | 2017-10-21 10:25 | PRG ---
DATE OF SERVICE: 10/21/2017 SERVICE: Renal Medicine. SUBJECTIVE: Mr. Zamora is a 77-year-old male who was seen by Renal Service for his acute kidney injury secondary to acute tubular necrosis. Renal function has been improving over time. He was previously on diuretics, but this has been placed on hold. The leg edema is much improved. He d enies any chest pain or shortness of breath. Please note, he was initially admitted for an acute abdomen secondary to a left retroperitoneal hemor rhage. He received several units of blood with this. He has no new complaints today. PHYSICAL EXAMINATION: VITAL SIGNS: Blood pressure is 122/60, heart rate 81, respiratory rate 18, temperature 98.6, pulse o x 92%. GENERAL: Noted to be awake, alert, comfortable, obese, not in distress. SKIN: Adequate turgor. HEENT: Pinkish conjunctivae, anicteric sclerae. NECK: No neck mass, no carotid bruits, no JVD. CHEST: No deformities. LUNGS: Decreased breath sounds. HEART: Normal sinus rhythm. No murmur, no gallops, no rubs. ABDOMEN: Globular, soft, nontender, no masses. EXTREMITIES: No edema, no deformities. MEDICATIONS: Of 10/21/2017 was reviewed. LABORATORY DATA: Of 10/21/2017, white count 10.7, hemoglobin 11.4, sodium 137, potassium 4.2, chlori de 105, carbon dioxide 21, BUN 71, creatinine 1.78, GFR 37 mL per minute, calcium 9.4. ASSESSMENT AND PLAN: Acute kidney injury - secondary to ischemic acute tubular necrosis, resolving a cute kidney injury. No indication for any dialytic intervention. Agree with current management. Pl ease note the patient is off diuretics. Due to the much improved renal function, we will be signing off. No new recommendations.
--- NOTE | 2017-10-21 11:41 | PDOC.CTH ---
Cardiology Progress Note - Subjective Awake, multiple family members at bedside. Denies chest pain, SOB, N/V/D. C/O productive cough, states is working with PT. Continues to have LLQ abdominal pain. Left leg weakness improving. No overnight events. - Objective Vital Signs Temp Pulse Resp BP BP Pulse Ox 10/21/17 10:12 85 16 97 10/21/17 08:18 98.6 F 85 16 92 L 10/21/17 08:16 98.6 F 81 18 122/60 92 L 10/21/17 06:15 90 16 96 10/21/17 04:54 97.8 F 81 16 130/60 91 L 10/21/17 02:39 77 16 95 Admit Weight 233 lb 0.458 oz Weight 218 lb 12.8 oz 10/20/17 10/21/17 10/22/17 06:59 06:59 06:59 Intake Total 677 Output Total 5385 350 Balance -4708 -350 - Physical Examination General/Neuro: alert & oriented x3, NAD Neck: no JVD present Lungs: unlabored respirations, other: (Diminished post BLL) Heart: RRR Abdomen: NT/ND - Telemetry Telemetry Rhythm: SR - Labs Result Diagrams: 10/21/17 04:36 10/21/17 04:36 Troponin/CKMB CK-MB (CK-2) 5.6 ng/mL (0-6.6) 10/14/17 03:58 Troponin I 0.586 ng/mL (< 0.028) H* 10/14/17 03:58 - Assessment/Plan 1.Resp failure-aspiration pneumonia, resolved 2. Mechanical MVR-on warfarin, resume when feasible 3. Paroxysmal AFib-maintaining SR 4.Retroperitoneal hematoma 5.CHICO on CKD-creatinine 1.78 today 6.Hypotension-resolved 7.Left leg weakness-some movement, working with PT
--- NOTE | 2017-10-21 12:19 | PRG ---
DATE OF SERVICE: 10/21/2017 Mr. Zamora looks good. He has no complaints. He denies abdominal pain. PHYSICAL EXAMINATION: VITAL SIGNS: He is afebrile, heart rate 88, respiratory rate 14, oximetry is 97 on 2 liters, 90 on r oom air. LUNGS: Lungs are clear. HEART: Regular rhythm. ABDOMEN: Abdomen is still distended. EXTREMITIES: Without asymmetry. LABORATORY DATA: White count 10.7, hemoglobin 11.4, platelets 179. Sodium 137, potassium 4.2, chloride 105, bicarbonate 21, BUN 71, creatinine 1.78. IMPRESSION: 1. Retroperitoneal bleed. 2. Acute tubular necrosis, resolving. 3. Mechanical mitral valve. PLAN: I will plan to discuss with Cardiology. Placing him back on some form of at least prophylacti c anticoagulation. He is doing better than I would have expected him to be at this point. I met with family and answere d their questions.
[2017-10-22 05:43] LABS: Anion Gap 15 mmol/L (10-20); BUN (Urea Nitrogen) 72 mg/dL (8.4-25.7); Calc. Creatinine Clearance 52 mL/min (70-130); Calcium 9.1 mg/dL (7.8-10.44); Carbon Dioxide 21 mmol/L (23-31); Chloride 105 mmol/L (98-107); Estimated GFR-MDRD 39; Glucose 112 mg/dL (83-110); Potassium 4.1 mmol/L (3.5-5.1); Sodium 137 mmol/L (136-145)
--- NOTE | 2017-10-22 08:40 | PDOC.CTH ---
Cardiology Progress Note - Subjective Pt has been moved out of the ICU to tele. No complaints today. Creatinine continues to improve. Hb has stabilized. - Objective Vital Signs Temp Pulse Resp BP Pulse Ox 10/22/17 08:22 79 16 96 10/22/17 07:59 97.9 F 72 18 141/72 H 94 L 10/22/17 04:21 98.5 F 76 19 139/63 93 L 10/22/17 00:13 92 L Admit Weight 233 lb 0.458 oz Weight 217 lb 11.2 oz 10/21/17 10/22/17 10/23/17 06:59 06:59 06:59 Output Total 350 Balance -350 - Physical Examination General/Neuro: alert & oriented x3, NAD Neck: no JVD present Lungs: CTA, unlabored respirations Heart: RRR Abdomen: no HSM, NT/ND Extremities: + femoral B - Labs Result Diagrams: 10/21/17 04:36 10/22/17 04:35 Troponin/CKMB CK-MB (CK-2) 5.6 ng/mL (0-6.6) 10/14/17 03:58 Troponin I 0.586 ng/mL (< 0.028) H* 10/14/17 03:58 - Assessment/Plan 1. Retroperitoneal HT 2. Mechanical MVR 3. Respiratory failure 4. afib 5. Anemia 6. Elevated LFT's 7. Left leg weakness Discussed with Dr. Moreno. Start low dose lovenox today. Slowy increase as tolerated and watch Hb closely. Creatinine continue to improve. More movement of the left LE but still weak overall As lovenox is tolerated may consider adding coumadin. Pt remains in SR
--- NOTE | 2017-10-22 09:19 | PDOC.PN ---
- Subjective Encounter Start Date: 10/22/17 Encounter Start Time: 10:50 Subjective: Patient feeling ok this morning. No pain. No SOB. - Objective Resuscitation Status: Resuscitation Status FULL:Full Resuscitation MAR Reviewed: Yes Vital Signs & Weight: Vital Signs (12 hours) Temp Pulse Resp BP Pulse Ox 10/22/17 08:22 79 16 96 10/22/17 07:59 97.9 F 72 18 141/72 H 94 L 10/22/17 04:21 98.5 F 76 19 139/63 93 L 10/22/17 00:13 92 L Weight Admit Weight 233 lb 0.458 oz Weight 217 lb 11.2 oz Most Recent Monitor Data Heart Rate from ECG 78 NIBP 164/57 NIBP BP-Mean 126 Respiration from ECG 18 SpO2 96 I&O: 10/21/17 10/22/17 10/23/17 06:59 06:59 06:59 Output Total 350 Balance -350 Result Diagrams: 10/21/17 04:36 10/22/17 04:35 Additional Labs: Accuchecks 10/22/17 05:41 POC Glucose 167 H Phys Exam - Physical Examination Constitutional: NAD HEENT: moist MMs Respiratory: no wheezing, no rales, no rhonchi Cardiovascular: RRR 2/6 systolic murmur Gastrointestinal: soft, non-tender, positive bowel sounds Psychiatric: normal affect, A&O x 3 Dx/Plan (1) Intra-abdominal abscess Code(s): K65.1 - PERITONEAL ABSCESS Status: Acute Comment: Hematoma - off abx, afebrile, WBC normal. CCM. H/H stable (2) CAP (community acquired pneumonia) Code(s): J18.9 - PNEUMONIA, UNSPECIFIED ORGANISM Status: Resolved Qualifiers: Laterality: unspecified laterality Qualified Code(s): J18.9 - Pneumonia, unspecified organism Comment: bilateral, L>R, treated (3) Acute hypoxemic respiratory failure Code(s): J96.01 - ACUTE RESPIRATORY FAILURE WITH HYPOXIA Status: Resolved Comment: extubated (4) Metabolic encephalopathy Code(s): G93.41 - METABOLIC ENCEPHALOPATHY Status: Resolved Comment: extubated, MS normal (5) CAD (coronary artery disease), [place] coronary artery Code(s): I25.10 - ATHSCL HEART DISEASE OF [place] CORONARY ARTERY W/O ANG PCTRS Status: Chronic Qualifiers: [place] vs. transplanted heart: [place] heart Associated angina: without angina Qualified Code(s): I25.10 - Atherosclerotic heart disease of [place] coronary artery without angina pectoris Comment: eleavted trop to 0.5XX in setting of hypotension. [place] following (6) CKD (chronic kidney disease), stage III Code(s): N18.3 - CHRONIC KIDNEY DISEASE, STAGE 3 (MODERATE) Status: Chronic Comment: now with CHICO on CKD 3. Cr almost back to baseline (7) HTN (hypertension) Code(s): I10 - ESSENTIAL (PRIMARY) HYPERTENSION Status: Chronic Qualifiers: Hypertension type: essential hypertension Qualified Code(s): I10 - Essential (primary) hypertension Comment: well controlled currently (8) Sinus bradycardia Code(s): R00.1 - BRADYCARDIA, UNSPECIFIED Status: Resolved Comment: off dobutamine, Dr. 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 Cerebrovascular disease type: cerebral infarction Qualified Code(s): I69.354 - Hemiplegia and hemiparesis following cerebral infarction affecting left non-dominant side Comment: left leg weakness, but can move it (10) New onset atrial fibrillation Code(s): I48.91 - UNSPECIFIED ATRIAL FIBRILLATION Status: Resolved Comment: cardiology aware, converted to NSR (11) Obstructive sleep apnea Code(s): G47.33 - OBSTRUCTIVE SLEEP APNEA (ADULT) (PEDIATRIC) Status: Acute (12) Anticoagulant long-term use Code(s): 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 Will titrate up as tolerated and eventually convert back to -: Warfarin. * . - Discharge Day Encounter end time: 11:00
[2017-10-22] MEDS ORDERED: Enoxaparin Sodium 40 MG/0.4 ML SYRINGE SC SCH (09:30)
--- NOTE | 2017-10-22 14:01 | PRG ---
DATE OF SERVICE: 10/22/2017 Natalio Zamora has been started back on prophylactic dose Lovenox. Since he has a mechanical valve there are concerns about him clotting off a low flow mitral valve. Otherwise is doing well. VITAL SIGNS: His vital signs are stable. He is afebrile. His hemoglobin was 10.8 yesterday, 11.4 today. Intake and output is not recorded today. IMPRESSION: 1. Status post retroperitoneal bleed, clinically stable. 2. Mechanical mitral valve. 3. Atrial fibrillation. 4. Elevated liver enzymes. 5. Blood loss anemia. 6. Left leg weakness with no evidence of stroke on CT. This may be a mechanical problem associated with his retroperitoneal hematoma on the left. He probably needs to have Coumadin gently restarted here within the next week. His renal function re darin stable. His creatinine today is 1.71. His acute tubular necrosis associated with his blood lo ss appears to be resolving.
[2017-10-23 05:21] LABS: Anion Gap 11 mmol/L (10-20); BUN (Urea Nitrogen) 64 mg/dL (8.4-25.7); Calc. Creatinine Clearance 54 mL/min (70-130); Calcium 9.1 mg/dL (7.8-10.44); Carbon Dioxide 25 mmol/L (23-31); Chloride 107 mmol/L (98-107); Estimated GFR-MDRD 41; Glucose 138 mg/dL (83-110); Potassium 4.1 mmol/L (3.5-5.1); Sodium 139 mmol/L (136-145)
[2017-10-23] MEDS: Enoxaparin Sodium 40 MG/0.4 ML SYRINGE SC SCH (08:30)
--- NOTE | 2017-10-23 13:06 | PDOC.PN ---
- Subjective Encounter Start Date: 10/23/17 Encounter Start Time: 13:05 Subjective: Pt seen and examined , no new complain - Objective Resuscitation Status: Resuscitation Status FULL:Full Resuscitation MAR Reviewed: Yes Vital Signs & Weight: Vital Signs (12 hours) Temp Pulse Resp BP Pulse Ox 10/23/17 08:18 98.4 F 77 18 92 L 10/23/17 08:16 98.4 F 77 18 152/72 H 92 L 10/23/17 07:33 75 16 92 L 10/23/17 04:32 98.7 F 78 17 133/70 93 L Weight Admit Weight 233 lb 0.458 oz Weight 221 lb 9.6 oz Most Recent Monitor Data Heart Rate from ECG 78 NIBP 164/57 NIBP BP-Mean 126 Respiration from ECG 18 SpO2 96 Result Diagrams: 10/21/17 04:36 10/23/17 04:40 Phys Exam - Physical Examination HEENT: PERRLA, sclera anicteric Neck: no nodes, no JVD, supple, full ROM Respiratory: no wheezing, no rales, no rhonchi, wheezing present, clear to auscultation bilateral Cardiovascular: RRR, no significant murmur, no rub, gallop Gastrointestinal: soft, non-tender, no distention, positive bowel sounds Musculoskeletal: no edema, pulses present, edema present Neurological: non-focal Lymphatic: no nodes Psychiatric: normal affect, A&O x 3 Skin: no rash, normal turgor, cap refill <2 seconds Dx/Plan - Plan (1) Intra-abdominal abscess Code(s): K65.1 - PERITONEAL ABSCESS Status: Acute Comment: Hematoma - off abx, afebrile, WBC normal. CCM. H/H stable (2) CAP (community acquired pneumonia) Code(s): J18.9 - PNEUMONIA, UNSPECIFIED ORGANISM Status: Resolved Qualifiers: Laterality: unspecified laterality Qualified Code(s): J18.9 - Pneumonia, unspecified organism Comment: bilateral, L>R, treated (3) Acute hypoxemic respiratory failure Code(s): J96.01 - ACUTE RESPIRATORY FAILURE WITH HYPOXIA Status: Resolved Comment: extubated (4) Metabolic encephalopathy Code(s): G93.41 - METABOLIC ENCEPHALOPATHY Status: Resolved Comment: extubated, MS normal (5) CAD (coronary artery disease), [place] coronary artery Code(s): I25.10 - ATHSCL HEART DISEASE OF [place] CORONARY ARTERY W/O ANG PCTRS Status: Chronic Qualifiers: [place] vs. transplanted heart: [place] heart Associated angina: without angina Qualified Code(s): I25.10 - Atherosclerotic heart disease of [place] coronary artery without angina pectoris Comment: eleavted trop to 0.5XX in setting of hypotension. [place] following (6) CKD (chronic kidney disease), stage III Code(s): N18.3 - CHRONIC KIDNEY DISEASE, STAGE 3 (MODERATE) Status: Chronic Comment: now with [facility] on CKD 3. Cr almost back to baseline (7) HTN (hypertension) Code(s): I10 - ESSENTIAL (PRIMARY) HYPERTENSION Status: Chronic Qualifiers: Hypertension type: essential hypertension Qualified Code(s): I10 - Essential (primary) hypertension Comment: well controlled currently (8) Sinus bradycardia Code(s): R00.1 - BRADYCARDIA, UNSPECIFIED Status: Resolved Comment: off dobutamine, Dr. 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 Cerebrovascular disease type: cerebral infarction Qualified Code(s): I69.354 - Hemiplegia and hemiparesis following cerebral infarction affecting left non-dominant side Comment: left leg weakness, but can move it (10) New onset atrial fibrillation Code(s): I48.91 - UNSPECIFIED ATRIAL FIBRILLATION Status: Resolved Comment: cardiology aware, converted to NSR (11) Obstructive sleep apnea Code(s): G47.33 - OBSTRUCTIVE SLEEP APNEA (ADULT) (PEDIATRIC) Status: Acute (12) Anticoagulant long-term use Code(s): Z79.01 - FDC (CURRENT) USE OF ANTICOAGULANTS Status: Chronic Comment: Will need to resume anticoagulation at some point (13) H/O prosthetic mitral valve Status: Chronic - Plan cont current plan of care, PT/OT, DVT proph w/lovenox, DVT proph w/SCDs on low dose Lovenox at prophylactic dose only today and monitor H/H -: closely. Will titrate up as tolerated and eventually convert back to -: Warfarin. * . Review of Systems - Review of Systems Constitutional: negative: fever, chills, sweats, weakness, malaise, other Eyes: negative: Pain, Vision Change, Conjunctivae Inflammation, Eyelid Inflammation, Redness, Other Respiratory: negative: Cough, Dry, Shortness of Breath, Hemoptysis, SOB with Excertion, Pleuritic Pain, Sputum, Wheezing Cardiovascular: negative: chest pain, palpitations, orthopnea, paroxysmal nocturnal dyspnea, edema, light headedness, other Gastrointestinal: negative: Nausea, Vomiting, Abdominal Pain, Diarrhea, Constipation, Melena, Hematochezia, Other Genitourinary: negative: Dysuria, Frequency, Incontinence, Hematuria, Retention , Other Musculoskeletal: negative: Neck Pain, Shoulder Pain, Arm Pain, Back Pain, Hand Pain, Leg Pain, Foot Pain, Other - Medications/Allergies Allergies/Adverse Reactions: Allergies Allergy/AdvReac Type Severity Reaction Status Date / Time No Known Allergies Allergy Unverified 11/01/13 16:51 Medications: Current Medications Acetaminophen (Tylenol) 650 mg [place] Q4H PRN PRN Reason: Headache/Fever or Pain Last Admin: 10/16/17 11:04 Dose: 650 mg Albuterol/Ipratropium (Duoneb) 3 ml NEB TID-RT [facility] Last Admin: 10/23/17 07:33 Dose: 3 ml Bisacodyl (Dulcolax) 10 mg [place] Q24H PRN PRN Reason: Constipation Last Admin: 10/18/17 07:53 Dose: 10 mg Enoxaparin Sodium (Lovenox) 40 mg SC 0900 [facility] Last Admin: 10/23/17 08:30 Dose: 40 mg Miscellaneous Medication (Pharmacy To Dose) 1 each IVPB PRN PRN PRN Reason: Pharmacy to dose Discontinue Previous Narcotic Pain Medications And Benzodiazepines 1 each FS .ONE [facility] Stop: 11/01/17 03:56 Discontinue Previous Narcotic Pain Medications And Benzodiazepines 1 each FS .ONE [facility] Stop: 11/13/17 15:24 Pantoprazole Sodium (Protonix) 40 mg PO 2100 [facility] Last Admin: 10/22/17 19:41 Dose: 40 mg Senna (Senokot) 2 tab PO HSPRN PRN PRN Reason: Constipation Sodium Chloride (Flush - Normal Saline) 10 ml IVF Q12HR [facility] Last Admin: 10/23/17 08:30 Dose: 10 ml Sodium Chloride (Flush - Normal Saline) 10 ml IVF PRN PRN PRN Reason: Saline Flush
--- NOTE | 2017-10-23 16:12 | PRG ---
DATE OF SERVICE: 10/23/2017 SUBJECTIVE: Natalio Zamora has no new complaints. PHYSICAL EXAMINATION: VITAL SIGNS: He is afebrile, heart rate is 85, respiratory rate is 18, oximetry is 95% on 2 liters a nd blood pressure 134/63. LUNGS: Clear. HEART: Regular rhythm. ABDOMEN: Distended, but not tender. LABORATORY DATA: His hemoglobin has been checked in a couple of days. Probably it should be checked tomorrow. His creatinine is down to 1.65. IMPRESSION: 1. Status post retroperitoneal bleed. 2. Mechanical mitral valve back on prophylactic dose Lovenox. He will need to be transitioned into Coumadin at some point. I would think this could be safely done in 10-14 days after the acute bleedi ng event. This was on 10/13/2017. So in 2 days to a week, we probably should be restarting Coumadin. It will take a week to get him an ticoagulated on the Coumadin. So it would not be unreasonable to start this within a couple of days. In my opinion, I will discuss with Cardiology first however.
--- NOTE | 2017-10-23 16:53 | PDOC.CTH ---
Cardiology Progress Note - Subjective No complaints today other than some left hip discomfort. - Objective Vital Signs Temp Pulse Pulse Pulse Resp BP BP 10/23/17 16:30 98.7 F 75 18 10/23/17 13:58 97.7 F 85 18 10/23/17 13:56 78 16 10/23/17 11:23 85 78 134/63 136/64 10/23/17 08:18 98.4 F 77 18 10/23/17 08:16 98.4 F 77 18 10/23/17 07:33 75 16 BP Pulse Ox Pulse Ox Pulse Ox 10/23/17 16:30 105/51 L 94 L 10/23/17 13:58 134/63 95 10/23/17 13:56 95 10/23/17 11:23 93 L 89 L 10/23/17 08:18 92 L 10/23/17 08:16 152/72 H 92 L 10/23/17 07:33 92 L Admit Weight 233 lb 0.458 oz Weight 221 lb 9.6 oz - Physical Examination General/Neuro: alert & oriented x3, NAD Lungs: CTA Heart: RRR Abdomen: NT/ND Extremities: other: (no edema) - Labs Result Diagrams: 10/21/17 04:36 10/23/17 04:40 Troponin/CKMB CK-MB (CK-2) 5.6 ng/mL (0-6.6) 10/14/17 03:58 Troponin I 0.586 ng/mL (< 0.028) H* 10/14/17 03:58 - Assessment/Plan 1. Retroperitoneal hematoma - patient started on lovenox. Will closely monitor. 2. History of mechanical MVR - see above. Plan to resume coumadin if H/H remains stable and no increased bleed. 3. Respiratory failure 4. Paroxysmal AFib - in NSR. 5. Anemia - secondary to hematoma - stable counts 6. BA - improved Cr.
[2017-10-24 05:33] LABS: Anion Gap 9 mmol/L (10-20); BUN (Urea Nitrogen) 62 mg/dL (8.4-25.7); Calc. Creatinine Clearance 57 mL/min (70-130); Calcium 9.1 mg/dL (7.8-10.44); Carbon Dioxide 25 mmol/L (23-31); Chloride 109 mmol/L (98-107); Estimated GFR-MDRD 43; Glucose 117 mg/dL (83-110); Sodium 139 mmol/L (136-145)
[2017-10-24 07:17] LABS: #Eosinphils 0.3 thou/uL (0.0-0.7); #Lymphocytes 0.6 thou/uL (1.20-3.40); #Monocytes 0.6 thou/uL (0.11-0.59); #Neutrophils 5.8 thou/uL (1.40-6.50); %Basophils 0.4 % (0.0-1.0); %Eosinophils 3.7 % (0.0-10.0); %Lymphocytes 8.5 % (21.0-51.0); %Neutrophils 79.3 % (42.0-75.0); Mean Corpuscular HGB CONC 32.3 g/dL (32.0-36.0); Mean Corpuscular Hemoglobin 29.9 pg (27.0-31.0); Mean Corpuscular Volume 92.7 fl (80.0-94.0); Mean Platelet Volume 7.6 fL (7.4-10.4); Platelet Count 193 thou/uL (130-400); RBC Distribution Width 14.6 % (11.5-14.5); Red Blood Cell (RBC) Count 3.35 mill/uL (4.70-6.10); White Blood Cell (WBC) Count 7.4 thou/uL (4.8-10.8)
[2017-10-24] MEDS: Enoxaparin Sodium 40 MG/0.4 ML SYRINGE SC SCH (09:16)
--- NOTE | 2017-10-24 13:13 | PDOC.PN ---
- Subjective Encounter Start Date: 10/24/17 Encounter Start Time: 13:16 Subjective: Pt seen and examined, no new complain - Objective Resuscitation Status: Resuscitation Status FULL:Full Resuscitation MAR Reviewed: Yes Vital Signs & Weight: Vital Signs (12 hours) Temp Pulse Pulse Resp BP BP Pulse Ox 10/24/17 09:52 80 145/81 H 10/24/17 06:13 70 16 98 10/24/17 04:03 99 F 73 16 122/58 L 93 L Pulse Ox 10/24/17 09:52 94 L 10/24/17 06:13 10/24/17 04:03 Weight Admit Weight 233 lb 0.458 oz Weight 220 lb 9.6 oz Most Recent Monitor Data Heart Rate from ECG 78 NIBP 164/57 NIBP BP-Mean 126 Respiration from ECG 18 SpO2 96 I&O: 10/23/17 10/24/17 10/25/17 06:59 06:59 06:59 Intake Total 360 Balance 360 Result Diagrams: 10/24/17 04:46 10/24/17 04:46 Radiology Reviewed by me: Yes Phys Exam - Physical Examination HEENT: PERRLA Neck: no nodes Respiratory: no wheezing, no rales, no rhonchi, clear to auscultation bilateral Cardiovascular: RRR, no significant murmur, no rub Gastrointestinal: soft, non-tender, no distention, positive bowel sounds Musculoskeletal: no edema Neurological: non-focal Lymphatic: no nodes Skin: no rash Dx/Plan - Plan Dx/Plan - Plan (1) Intra-abdominal abscess Code(s): K65.1 - PERITONEAL ABSCESS Status: Acute Comment: Hematoma - off abx, afebrile, WBC normal. CCM. H/H stable (2) CAP (community acquired pneumonia) Code(s): J18.9 - PNEUMONIA, UNSPECIFIED ORGANISM Status: Resolved Qualifiers: Laterality: unspecified laterality Qualified Code(s): J18.9 - Pneumonia, unspecified organism Comment: bilateral, L>R, treated (3) Acute hypoxemic respiratory failure Code(s): J96.01 - ACUTE RESPIRATORY FAILURE WITH HYPOXIA Status: Resolved Comment: extubated (4) Metabolic encephalopathy Code(s): G93.41 - METABOLIC ENCEPHALOPATHY Status: Resolved Comment: extubated, MS normal (5) CAD (coronary artery disease), [place] coronary artery Code(s): I25.10 - ATHSCL HEART DISEASE OF [place] CORONARY ARTERY W/O ANG PCTRS Status: Chronic Qualifiers: [place] vs. transplanted heart: [place] heart Associated angina: without angina Qualified Code(s): I25.10 - Atherosclerotic heart disease of [place] coronary artery without angina pectoris Comment: eleavted trop to 0.5XX in setting of hypotension. [place] following (6) CKD (chronic kidney disease), stage III Code(s): N18.3 - CHRONIC KIDNEY DISEASE, STAGE 3 (MODERATE) Status: Chronic Comment: now with [facility] on CKD 3. Cr almost back to baseline (7) HTN (hypertension) Code(s): I10 - ESSENTIAL (PRIMARY) HYPERTENSION Status: Chronic Qualifiers: Hypertension type: essential hypertension Qualified Code(s): I10 - Essential (primary) hypertension Comment: well controlled currently (8) Sinus bradycardia Code(s): R00.1 - BRADYCARDIA, UNSPECIFIED Status: Resolved Comment: off dobutamine, Dr. 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 Cerebrovascular disease type: cerebral infarction Qualified Code(s): I69.354 - Hemiplegia and hemiparesis following cerebral infarction affecting left non-dominant side Comment: left leg weakness, but can move it (10) New onset atrial fibrillation Code(s): I48.91 - UNSPECIFIED ATRIAL FIBRILLATION Status: Resolved Comment: cardiology aware, converted to NSR (11) Obstructive sleep apnea Code(s): G47.33 - OBSTRUCTIVE SLEEP APNEA (ADULT) (PEDIATRIC) Status: Acute (12) Anticoagulant long-term use Code(s): Z79.01 - CUSTODIAL (CURRENT) USE OF ANTICOAGULANTS Status: Chronic Comment: Will need to resume anticoagulation at some point (13) H/O prosthetic mitral valve Status: Chronic - Plan cont current plan of care, PT/OT, DVT proph w/lovenox, DVT proph w/SCDs on low dose Lovenox at prophylactic dose only today and monitor H/H -: closely. Will titrate up as tolerated and eventually convert back to * . * .
[2017-10-25 05:33] LABS: Anion Gap 13 mmol/L (10-20); BUN (Urea Nitrogen) 58 mg/dL (8.4-25.7); Calc. Creatinine Clearance 63 mL/min (70-130); Calcium 9.2 mg/dL (7.8-10.44); Carbon Dioxide 22 mmol/L (23-31); Chloride 108 mmol/L (98-107); Estimated GFR-MDRD 48; Glucose 120 mg/dL (83-110); Potassium 4.2 mmol/L (3.5-5.1); Sodium 139 mmol/L (136-145)
[2017-10-25] MEDS: Enoxaparin Sodium 40 MG/0.4 ML SYRINGE SC SCH (09:44)
--- NOTE | 2017-10-25 13:37 | CT ---
CT OF THE ABDOMEN AND PELVIS WITHOUT CONTRAST: COMPARISON: 10/16/17. History Abdominal pain and distention. History of retroperitoneal bleed. TECHNIQUE: Multiple contiguous axial images were obtained in a CT of the abdomen and pelvis without contrast. C oronal reformats were performed. FINDINGS: The patient is status post cholecystectomy. There is a stable hypodensity in the right lobe of the l iver which likely represents a cyst. There is mild prominence of the bilateral renal collecting syst ems. Air is seen in the urinary bladder which may be from recent instrumentation. No focal kidney abnormality or mass are seen. The adrenal glands, spleen, and pancreas are unremarka ble, although evaluation is limited without IV contrast. The large and small bowel are unremarkable. No abdominal or pelvic lymphadenopathy are seen. Athero sclerotic calcifications are seen in the aorta. There is a left retroperitoneal fluid collection which has decreased in size compared to the prior ex amination. This is high density and consistent with a retroperitoneal hematoma. This measures 9.5 c m in width. Degenerative changes are seen in the spine. There is a trace left pleural effusion. Bibasilar atele ctasis is seen. IMPRESSION: 1. Slightly smaller left retroperitoneal hematoma. 2. Air in the urinary bladder may be from recent instrumentation. Correlate with history. 3. Slight prominence of both renal collecting systems may be secondary to vesicoureteral reflux. 4. Stable hepatic cyst. 5. Small left pleural effusion. POS: [facility]
--- NOTE | 2017-10-25 14:29 | PDOC.CTH ---
Cardiology Progress Note - Subjective NO complaints today. Feels like he is moving the left LE better today - Objective Vital Signs Temp Pulse Resp BP BP Pulse Ox 10/25/17 12:00 98.1 F 67 14 135/69 10/25/17 06:40 70 18 97 10/25/17 03:21 98.1 F 76 19 135/63 96 Admit Weight 233 lb 0.458 oz Weight 218 lb 5 oz 10/24/17 10/25/17 10/26/17 06:59 06:59 06:59 Intake Total 360 940 Balance 360 940 - Physical Examination General/Neuro: alert & oriented x3, NAD Neck: no JVD present Lungs: CTA, unlabored respirations Heart: PMI normal, RRR Abdomen: no HSM, NT/ND Extremities: + femoral B - Labs Result Diagrams: 10/24/17 04:46 10/25/17 04:58 Troponin/CKMB CK-MB (CK-2) 5.6 ng/mL (0-6.6) 10/14/17 03:58 Troponin I 0.586 ng/mL (< 0.028) H* 10/14/17 03:58 - Assessment/Plan 1. Retroperitoneal HT 2. Mechanical MVR 3. Respiratory failure 4. afib 5. Anemia 6. Elevated LFT's 7. Left leg weakness Dicussed with Dr. Moreno. It appears the hematoma is smaller on CT rodriges. Add coumadin without therapeutic Lovenox. HT likley secondary to Lovenox and not Coumadin. Slight risk of hypercoaguablility but will continue lovenox at low dose. Pharmacy to dose coumadin. Ok to move to rehab while titrating coumadin.
[2017-10-25] MEDS: Warfarin Sodium 5 MG TAB PO SCH (18:45)
--- NOTE | 2017-10-25 20:04 | PRG ---
DATE OF SERVICE: 10/25/2017 SUBJECTIVE: Natalio Zamora is clinically unchanged. His abdomen in my opinion is not more tender than it has been. OBJECTIVE: VITAL SIGNS: He is afebrile, heart rate 67, respiratory rate is 14, oximetry is 95 on 2 liters. LUNGS: Clear. CARDIOVASCULAR: Regular rhythm. ABDOMEN: Distended. Abdomen CT shows a decreased size of his retroperitoneal hematoma. I believe he is at a point where starting Coumadin is a reasonable option. I will keep him on DVT prophylaxis with Lovenox and gradua lly anticoagulate him with warfarin with a goal of 1.8 or maybe a high of 2.5 for now. His renal function continues to improve. Deconditioning is the biggest factor and rehabilitation placement is the next task.
[2017-10-26 05:22] LABS: INR-International Normal Ratio 1.2; Prothrombin Time 15.3 SEC (12.0-14.7)
[2017-10-26 05:30] LABS: Hemoglobin 10.4 g/dL (14.0-18.0); Mean Corpuscular HGB CONC 32.1 g/dL (32.0-36.0); Mean Corpuscular Hemoglobin 30.3 pg (27.0-31.0); Mean Corpuscular Volume 94.4 fl (80.0-94.0); Mean Platelet Volume 7.6 fL (7.4-10.4); Platelet Count 183 thou/uL (130-400); RBC Distribution Width 14.5 % (11.5-14.5); Red Blood Cell (RBC) Count 3.42 mill/uL (4.70-6.10); White Blood Cell (WBC) Count 7.9 thou/uL (4.8-10.8)
[2017-10-26 05:31] LABS: Eosinophils 1 % (0-10); Hypochromia SLIGHT = 6-15 cells (100X) (0-5/hpf); Lymphocytes 7 % (21-51); MDiff Complete? YES; Monocytes 9 % (0-10); Neutrophil 83 % (42-75); PLT Morphology Comment Appears Adequate
[2017-10-26 05:32] LABS: Anion Gap 10 mmol/L (10-20); BUN (Urea Nitrogen) 51 mg/dL (8.4-25.7); Calc. Creatinine Clearance 68 mL/min (70-130); Carbon Dioxide 25 mmol/L (23-31); Chloride 109 mmol/L (98-107); Estimated GFR-MDRD 53; Glucose 102 mg/dL (83-110); Potassium 4.1 mmol/L (3.5-5.1); Sodium 140 mmol/L (136-145)
[2017-10-26] MEDS: Enoxaparin Sodium 40 MG/0.4 ML SYRINGE SC SCH (09:54)
--- NOTE | 2017-10-26 11:27 | PDOC.PN ---
- Subjective Encounter Start Date: 10/25/17 Encounter Start Time: 11:00 Patient is seen today indonesian speaking, speaks faroese little, with Nurse at bedside, discused about the abominal pain, he has some bloating of stomach, will repoeat CT today. - Objective Resuscitation Status: Resuscitation Status FULL:Full Resuscitation MAR Reviewed: Yes Vital Signs & Weight: Vital Signs (12 hours) Temp Pulse Resp BP Pulse Ox 10/26/17 08:00 99.0 F 82 16 126/89 10/26/17 07:50 99 10/26/17 07:49 69 16 99 10/26/17 03:52 98.3 F 71 16 138/60 94 L Weight Admit Weight 233 lb 0.458 oz Weight 219 lb 1 oz Most Recent Monitor Data Heart Rate from ECG 78 NIBP 164/57 NIBP BP-Mean 126 Respiration from ECG 18 SpO2 96 I&O: 10/25/17 10/26/17 10/27/17 06:59 06:59 06:59 Intake Total 940 370 Balance 940 370 Result Diagrams: 10/26/17 04:46 10/26/17 04:46 Radiology Reviewed by me: Yes Phys Exam - Physical Examination HEENT: PERRLA, moist MMs Neck: no nodes, no JVD Respiratory: no wheezing, no rales Cardiovascular: no significant murmur Gastrointestinal: soft, non-tender distended Musculoskeletal: no edema, pulses present Dx/Plan (1) Retroperitoneal hematoma Code(s): K66.1 - HEMOPERITONEUM Status: Acute Comment: Resolving per CT , will restart Coumedin per Cardiology recommedations. Plan to transfer to Rehab in [place]. (2) CHICO (acute kidney injury) Code(s): N17.9 - ACUTE KIDNEY FAILURE, UNSPECIFIED Status: Acute Comment: due to ATN from [facility] (hemorrhagic vs septic) (3) Obstructive sleep apnea Code(s): G47.33 - OBSTRUCTIVE SLEEP APNEA (ADULT) (PEDIATRIC) Status: Acute Comment: On Cpap at night. 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 (5) CKD (chronic kidney disease), stage III Code(s): N18.3 - CHRONIC KIDNEY DISEASE, STAGE 3 (MODERATE) Status: Chronic Comment: now with [facility] on CKD 3. Cr almost back to baseline (6) HTN (hypertension) Code(s): I10 - ESSENTIAL (PRIMARY) HYPERTENSION Status: Chronic Qualifiers: Hypertension type: essential hypertension Qualified Code(s): I10 - Essential (primary) hypertension Comment: well controlled currently - Plan cont current plan of care, PT/OT, social work coordinator, incentive spirometry, out of bed/ambulate, DVT proph w/SCDs * . Review of Systems - Review of Systems Respiratory: negative: Cough, Dry, Shortness of Breath, Hemoptysis, SOB with Excertion, Pleuritic Pain, Sputum, Wheezing Cardiovascular: negative: chest pain, palpitations, orthopnea, paroxysmal nocturnal dyspnea, edema, light headedness, other Gastrointestinal: Nausea, Abdominal Pain Genitourinary: negative: Dysuria, Frequency, Incontinence, Hematuria, Retention , Other Musculoskeletal: negative: Neck Pain, Shoulder Pain, Arm Pain, Back Pain, Hand Pain, Leg Pain, Foot Pain, Other - Medications/Allergies Allergies/Adverse Reactions: Allergies Allergy/AdvReac Type Severity Reaction Status Date / Time No Known Allergies Allergy Unverified 11/01/13 16:51 Medications: Current Medications Acetaminophen (Tylenol) 650 mg [place] Q4H PRN PRN Reason: Headache/Fever or Pain Last Admin: 10/16/17 11:04 Dose: 650 mg Albuterol/Ipratropium (Duoneb) 3 ml NEB TID-RT [facility] Last Admin: 10/26/17 07:49 Dose: 3 ml Bisacodyl (Dulcolax) 10 mg [place] Q24H PRN PRN Reason: Constipation Last Admin: 10/18/17 07:53 Dose: 10 mg Enoxaparin Sodium (Lovenox) 40 mg SC 0900 [facility] Last Admin: 10/26/17 09:54 Dose: 40 mg Miscellaneous Medication (Pharmacy To Dose) 1 each IVPB PRN PRN PRN Reason: Pharmacy to dose Miscellaneous Medication (Pharmacy To Dose) 1 each PO ASDIR PRN PRN Reason: Pharmacy to Dose WARFARIN Discontinue Previous Narcotic Pain Medications And Benzodiazepines 1 each FS .ONE [facility] Stop: 11/01/17 03:56 Discontinue Previous Narcotic Pain Medications And Benzodiazepines 1 each FS .ONE [facility] Stop: 11/13/17 15:24 Pantoprazole Sodium (Protonix) 40 mg PO 2100 [facility] Last Admin: 10/25/17 20:27 Dose: 40 mg Senna (Senokot) 2 tab PO HSPRN PRN PRN Reason: Constipation Sodium Chloride (Flush - Normal Saline) 10 ml IVF Q12HR [facility] Last Admin: 10/25/17 20:28 Dose: 10 ml Sodium Chloride (Flush - Normal Saline) 10 ml IVF PRN PRN PRN Reason: Saline Flush Warfarin Sodium (Coumadin) 5 mg PO 1700 [facility] Last Admin: 10/25/17 18:45 Dose: 5 mg
--- NOTE | 2017-10-26 14:32 | PDOC.PN ---
- Subjective Encounter Start Date: 10/26/17 Encounter Start Time: 13:00 Madyson is seen today, alert and oriented. He has worseing urinary retention likely from chronic constipation. - Objective Resuscitation Status: Resuscitation Status FULL:Full Resuscitation MAR Reviewed: Yes Vital Signs & Weight: Vital Signs (12 hours) Temp Pulse Resp BP Pulse Ox 10/26/17 08:00 99.0 F 82 16 126/89 10/26/17 07:50 99 10/26/17 07:49 69 16 99 10/26/17 03:52 98.3 F 71 16 138/60 94 L Weight Admit Weight 233 lb 0.458 oz Weight 219 lb 1 oz Most Recent Monitor Data Heart Rate from ECG 78 NIBP 164/57 NIBP BP-Mean 126 Respiration from ECG 18 SpO2 96 I&O: 10/25/17 10/26/17 10/27/17 06:59 06:59 06:59 Intake Total 940 370 Balance 940 370 Result Diagrams: 10/26/17 04:46 10/26/17 04:46 Radiology Reviewed by me: Yes Phys Exam - Physical Examination HEENT: PERRLA, moist MMs Neck: no nodes, no JVD Respiratory: no wheezing, no rales Cardiovascular: RRR, no significant murmur Gastrointestinal: soft, non-tender Musculoskeletal: no edema, pulses present Neurological: non-focal, normal sensation Lymphatic: no nodes Psychiatric: normal affect Dx/Plan (1) Retroperitoneal hematoma Code(s): K66.1 - HEMOPERITONEUM Status: Acute Comment: Resolving per CT , will restart Coumedin per Cardiology recommedations. Plan to transfer to Rehab in Am. (2) CHICO (acute kidney injury) Code(s): N17.9 - ACUTE KIDNEY FAILURE, UNSPECIFIED Status: Acute Comment: [facility] [place] (hemorrhagic vs septic) (3) Obstructive sleep apnea Code(s): G47.33 - OBSTRUCTIVE SLEEP APNEA (ADULT) (PEDIATRIC) Status: Acute Comment: On Cpap at night. 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 (5) CKD (chronic kidney disease), stage III Code(s): N18.3 - CHRONIC KIDNEY DISEASE, STAGE 3 (MODERATE) Status: Chronic Comment: now with CHICO on CKD 3. Cr almost back to baseline (6) HTN (hypertension) Code(s): I10 - ESSENTIAL (PRIMARY) HYPERTENSION Status: Chronic Qualifiers: Hypertension type: essential hypertension Qualified Code(s): I10 - Essential (primary) hypertension Comment: well controlled currently (7) Acute urinary retention Code(s): R33.8 - OTHER RETENTION OF URINE Status: Acute - Plan cont current plan of care, plan discussed w/ family, PT/OT, foster care social worker, respiratory therapy, incentive spirometry, DVT proph w/lovenox * . Review of Systems - Review of Systems Eyes: negative: Pain, Vision Change, Conjunctivae Inflammation, Eyelid Inflammation, Redness, Other ENT: negative: Ear Pain, Ear Discharge, Nose Pain, Nose Discharge, Nose Congestion, Mouth Pain, Mouth Swelling, Throat Pain, Throat Swelling, Other Respiratory: negative: Cough, Dry, Shortness of Breath, Hemoptysis, SOB with Excertion, Pleuritic Pain, Sputum, Wheezing Cardiovascular: negative: chest pain, palpitations, orthopnea, paroxysmal nocturnal dyspnea, edema, light headedness, other Gastrointestinal: negative: Nausea, Vomiting, Abdominal Pain, Diarrhea, Constipation, Melena, Hematochezia, Other Genitourinary: Retention Musculoskeletal: negative: Neck Pain, Shoulder Pain, Arm Pain, Back Pain, Hand Pain, Leg Pain, Foot Pain, Other - Medications/Allergies Allergies/Adverse Reactions: Allergies Allergy/AdvReac Type Severity Reaction Status Date / Time No Known Allergies Allergy Unverified 11/01/13 16:51 Medications: Current Medications Acetaminophen (Tylenol) 650 mg [place] Q4H PRN PRN Reason: Headache/Fever or Pain Last Admin: 10/16/17 11:04 Dose: 650 mg Albuterol/Ipratropium (Duoneb) 3 ml NEB TID-RT LEIX Last Admin: 10/26/17 07:49 Dose: 3 ml Bisacodyl (Dulcolax) 10 mg [place] Q24H PRN PRN Reason: Constipation Last Admin: 10/18/17 07:53 Dose: 10 mg Enoxaparin Sodium (Lovenox) 40 mg SC 0900 [facility] Last Admin: 10/26/17 09:54 Dose: 40 mg Miscellaneous Medication (Pharmacy To Dose) 1 each IVPB PRN PRN PRN Reason: Pharmacy to dose Miscellaneous Medication (Pharmacy To Dose) 1 each PO ASDIR PRN PRN Reason: Pharmacy to Dose WARFARIN Discontinue Previous Narcotic Pain Medications And Benzodiazepines 1 each FS .ONE [facility] Stop: 11/01/17 03:56 Discontinue Previous Narcotic Pain Medications And Benzodiazepines 1 each FS .ONE [facility] Stop: 11/13/17 15:24 Pantoprazole Sodium (Protonix) 40 mg PO 2100 [facility] Last Admin: 10/25/17 20:27 Dose: 40 mg Senna (Senokot) 2 tab PO HSPRN PRN PRN Reason: Constipation Sodium Chloride (Flush - Normal Saline) 10 ml IVF Q12HR [facility] Last Admin: 10/25/17 20:28 Dose: 10 ml Sodium Chloride (Flush - Normal Saline) 10 ml IVF PRN PRN PRN Reason: Saline Flush Warfarin Sodium (Coumadin) 5 mg PO 1700 [facility] Last Admin: 10/25/17 18:45 Dose: 5 mg
--- NOTE | 2017-10-26 16:36 | PRG ---
DATE OF SERVICE: 10/26/2017 SUBJECTIVE: Mr. Natalio Zamora says he feels about the same. OBJECTIVE: VITAL SIGNS: He is afebrile, heart rate 82, respiratory rate 16, oximetry is 99 on 2 liters. LUNGS: Clear. HEART: Regular rhythm. ABDOMEN: Soft. I am not really sure why he was on oxygen when his O2 sat was 94% on room air. ASSESSMENT AND PLAN: He does have fullness in the area of his bladder. He also has fullness in his left lower quadrant and left flank consistent with hematoma. He has bruising in his left flank, whic h is consistent with his retroperitoneal bleed. We have asked the nurse to make sure he did not have urinary retention since His Verdin catheter is out. He could be having overflow incontinence. His warfarin has been restarted at a low dose. We will proceed with gradual anticoagulation. He needs placement in rehabilitation.
[2017-10-26] MEDS: Warfarin Sodium 5 MG TAB PO SCH (18:23)
--- NOTE | 2017-10-26 19:58 | PDOC.CTH ---
Cardiology Progress Note - Subjective Doing well. No new issues. Still very weak requiring PT. - Objective Vital Signs Temp Pulse Resp BP Pulse Ox 10/26/17 19:29 98 10/26/17 17:00 98.5 F 75 18 137/65 92 L 10/26/17 14:46 77 16 98 10/26/17 08:00 99.0 F 82 16 126/89 Admit Weight 233 lb 0.458 oz Weight 219 lb 1 oz 10/25/17 10/26/17 10/27/17 06:59 06:59 06:59 Intake Total 940 370 450 Output Total 2000 Balance 940 370 -1550 - Physical Examination General/Neuro: alert & oriented x3, NAD Neck: no JVD present Lungs: CTA, unlabored respirations Heart: RRR Abdomen: NT/ND Extremities: other: (no edema) - Telemetry Telemetry Rhythm: NSR - Labs Result Diagrams: 10/26/17 04:46 10/26/17 04:46 Troponin/CKMB CK-MB (CK-2) 5.6 ng/mL (0-6.6) 10/14/17 03:58 Troponin I 0.586 ng/mL (< 0.028) H* 10/14/17 03:58 - Assessment/Plan 1. Retroperitoneal Hematoma 2. Mechanical MVR 3. Respiratory failure 4. afib 5. Anemia 6. Elevated LFT's 7. Left leg weakness PLAN: - Continue coumadin with DVT prophylaxis lovenox dose. - Patient is very weak and will not be able to be discharged home, will need Rehab while coumadin is being titrated. - High risk of thrombosis with mechanical MV. Needs close titration of INR.
[2017-10-27 05:41] LABS: Anion Gap 10 mmol/L (10-20); BUN (Urea Nitrogen) 43 mg/dL (8.4-25.7); Calc. Creatinine Clearance 85 mL/min (70-130); Calcium 8.8 mg/dL (7.8-10.44); Carbon Dioxide 24 mmol/L (23-31); Chloride 110 mmol/L (98-107); Estimated GFR-MDRD 68; Glucose 102 mg/dL (83-110); Potassium 3.8 mmol/L (3.5-5.1); Sodium 140 mmol/L (136-145)
[2017-10-27 06:19] LABS: Hemoglobin 9.5 g/dL (14.0-18.0); Lymphocytes 17 % (21-51); MDiff Complete? YES; Mean Corpuscular HGB CONC 31.5 g/dL (32.0-36.0); Mean Corpuscular Hemoglobin 29.1 pg (27.0-31.0); Mean Corpuscular Volume 92.2 fl (80.0-94.0); Mean Platelet Volume 7.1 fL (7.4-10.4); Monocytes 7 % (0-10); Neutrophil 76 % (42-75); PLT Morphology Comment Appears Adequate; Platelet Count 175 thou/uL (130-400); RBC Distribution Width 14.6 % (11.5-14.5); Red Blood Cell (RBC) Count 3.27 mill/uL (4.70-6.10); White Blood Cell (WBC) Count 6.8 thou/uL (4.8-10.8)
[2017-10-27] MEDS: Enoxaparin Sodium 40 MG/0.4 ML SYRINGE SC SCH (09:52)
[2017-10-27 10:56] LABS: INR-International Normal Ratio 1.4; Prothrombin Time 17.1 SEC (12.0-14.7)
--- NOTE | 2017-10-27 12:36 | PRG ---
DATE OF SERVICE: 10/27/2017 SUBJECTIVE: Natalio Zamora says his abdomen feels much better. He had 1 liter of retained urine y esterday with straight caths, Verdin is back in. OBJECTIVE: VITAL SIGNS: He is afebrile, heart rate 86, respiratory 20, oximetry is 91 on 2 liters a minute. MILLICENT NGS: Clear. HEART: Regular rhythm. ABDOMEN: Soft. LABORATORY DATA: INR is 1.4 today. Sodium 140, potassium 3.8, chloride 110, bicarbonate 24, BUN 43, creatinine 1.06 down from 1.31 yeste rday. White count 6.8, hemoglobin 9.5, platelets 175,000. Hemoglobin stable. IMPRESSION: 1. Status post retroperitoneal bleed. 2. Status post intubation for pneumonia when he presented initially. 3. Mechanical mitral valve. 4. Urinary retention. He can be discharged home and really needs placement for deconditioning plus management of his antico agulation as per my last note.
--- NOTE | 2017-10-27 13:22 | PDOC.PN ---
- Subjective Encounter Start Date: 10/27/17 Encounter Start Time: 13:41 patient seen and examined following admission for New A Fib, retroperitoneal hematoma and CHICO. Complains of some abdominal discomfort but otherwise stable. - Objective Resuscitation Status: Resuscitation Status FULL:Full Resuscitation MAR Reviewed: Yes Vital Signs & Weight: Vital Signs (12 hours) Temp Pulse Resp BP BP Pulse Ox 10/27/17 12:27 97.7 F 84 20 159/67 H 98 10/27/17 12:18 68 20 10/27/17 08:00 98.8 F 86 20 152/72 H 91 L 10/27/17 07:33 94 L 10/27/17 07:23 70 20 94 L 10/27/17 03:47 97.7 F 68 20 127/58 L 94 L Weight Admit Weight 233 lb 0.458 oz Weight 218 lb 6 oz Most Recent Monitor Data Heart Rate from ECG 78 NIBP 164/57 NIBP BP-Mean 126 Respiration from ECG 18 SpO2 96 I&O: 10/26/17 10/27/17 10/28/17 06:59 06:59 06:59 Intake Total 370 750 Output Total 3350 Balance 370 -2600 Result Diagrams: 10/27/17 05:03 10/27/17 05:03 Phys Exam - Physical Examination Constitutional: NAD HEENT: PERRLA, moist MMs, sclera anicteric, oral pharynx no lesions Neck: no JVD, supple, full ROM Respiratory: no wheezing, no rales, no rhonchi, clear to auscultation bilateral Cardiovascular: RRR, no significant murmur, no rub Gastrointestinal: soft, no distention, positive bowel sounds Musculoskeletal: no edema, pulses present Neurological: non-focal, normal sensation Psychiatric: normal affect Skin: no rash, normal turgor Dx/Plan (1) HTN (hypertension) Code(s): I10 - ESSENTIAL (PRIMARY) HYPERTENSION Status: Chronic Qualifiers: Hypertension type: essential hypertension Qualified Code(s): I10 - Essential (primary) hypertension Comment: Fairly well controlled. Monitor BP closely. Might start amlodipine if uncontrolled. (2) Acute urinary retention Code(s): R33.8 - OTHER RETENTION OF URINE Status: Acute (3) Obstructive sleep apnea Code(s): G47.33 - OBSTRUCTIVE SLEEP APNEA (ADULT) (PEDIATRIC) Status: Acute Comment: On Cpap at night. (4) Anticoagulant long-term use Code(s): Z79.01 - RETIREMENT (CURRENT) USE OF ANTICOAGULANTS Status: Chronic Comment: s/p 4 units FFP. Started on Warfarin. Will monitor INR daily in view of retroperitoneal hematoma. Also monitor H&H. (5) CAD (coronary artery disease), [place] coronary artery Code(s): I25.10 - ATHSCL HEART DISEASE OF [place] CORONARY ARTERY W/O ANG PCTRS Status: Chronic Qualifiers: [place] vs. transplanted heart: [place] heart Associated angina: without angina Qualified Code(s): I25.10 - Atherosclerotic heart disease of [place] coronary artery without angina pectoris Comment: Stable, chest pain free. 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 Will attempt to wean off O2. (8) New onset atrial fibrillation Code(s): I48.91 - UNSPECIFIED ATRIAL FIBRILLATION Status: Resolved Comment: STable. Rate controlled. (9) Sinus bradycardia Code(s): R00.1 - BRADYCARDIA, UNSPECIFIED Status: Resolved (10) CHICO (acute kidney injury) Code(s): N17.9 - ACUTE KIDNEY FAILURE, UNSPECIFIED Status: Resolved Comment : Resolved. due to ATN from [facility] [place] (hemorrhagic vs septic). Holding HCTZ/ lisinopril. (11) Retroperitoneal hematoma Code(s): K66.1 - HEMOPERITONEUM Status: Acute Comment: Resolving per CT. Anticoagulation restarted. - Plan cont current plan of care, davis catheter, PT/OT, manager social responsibility Monitor H and H Monitor INR Plan to transfer to Rehab once bed available. Review of Systems - Medications/Allergies Allergies/Adverse Reactions: Allergies Allergy/AdvReac Type Severity Reaction Status Date / Time No Known Allergies Allergy Unverified 11/01/13 16:51 Medications: Current Medications Acetaminophen (Tylenol) 650 mg [place] Q4H PRN PRN Reason: Headache/Fever or Pain Last Admin: 10/16/17 11:04 Dose: 650 mg Albuterol/Ipratropium (Duoneb) 3 ml NEB TID-RT LEXI Last Admin: 10/27/17 12:18 Dose: 3 ml Bisacodyl (Dulcolax) 10 mg [place] Q24H PRN PRN Reason: Constipation Last Admin: 10/18/17 07:53 Dose: 10 mg Enoxaparin Sodium (Lovenox) 40 mg SC 0900 [facility] Last Admin: 10/27/17 09:52 Dose: 40 mg Miscellaneous Medication (Pharmacy To Dose) 1 each IVPB PRN PRN PRN Reason: Pharmacy to dose Miscellaneous Medication (Pharmacy To Dose) 1 each PO ASDIR PRN PRN Reason: Pharmacy to Dose WARFARIN Discontinue Previous Narcotic Pain Medications And Benzodiazepines 1 each FS .ONE [facility] Stop: 11/01/17 03:56 Discontinue Previous Narcotic Pain Medications And Benzodiazepines 1 each FS .ONE [facility] Stop: 11/13/17 15:24 Pantoprazole Sodium (Protonix) 40 mg PO 2100 [facility] Last Admin: 10/26/17 21:30 Dose: 40 mg Senna (Senokot) 2 tab PO HSPRN PRN PRN Reason: Constipation Sodium Chloride (Flush - Normal Saline) 10 ml IVF Q12HR [facility] Last Admin: 10/26/17 21:30 Dose: 10 ml Sodium Chloride (Flush - Normal Saline) 10 ml IVF PRN PRN PRN Reason: Saline Flush Warfarin Sodium (Coumadin) 7.5 mg PO 1700 [facility]
--- NOTE | 2017-10-27 16:08 | PDOC.CTH ---
Cardiology Progress Note - Subjective No new issues. No localized weakness or signs of stroke. - Objective Vital Signs Temp Pulse Resp BP Pulse Ox 10/27/17 12:27 97.7 F 84 20 159/67 H 98 10/27/17 12:18 68 20 10/27/17 08:00 98.8 F 86 20 152/72 H 91 L 10/27/17 07:33 94 L 10/27/17 07:23 70 20 94 L Admit Weight 233 lb 0.458 oz Weight 218 lb 6 oz 10/26/17 10/27/17 10/28/17 06:59 06:59 06:59 Intake Total 370 750 Output Total 3350 Balance 370 -2600 - Physical Examination General/Neuro: alert & oriented x3, NAD Neck: no JVD present Lungs: CTA, unlabored respirations Heart: RRR Abdomen: NT/ND Extremities: + edema B (trace) - Telemetry Telemetry Rhythm: NSR - Labs Result Diagrams: 10/27/17 05:03 10/27/17 05:03 Troponin/CKMB CK-MB (CK-2) 5.6 ng/mL (0-6.6) 10/14/17 03:58 Troponin I 0.586 ng/mL (< 0.028) H* 10/14/17 03:58 - Assessment/Plan 1. Retroperitoneal Hematoma 2. Mechanical MVR 3. Respiratory failure 4. afib 5. Anemia 6. Elevated LFT's 7. Left leg weakness PLAN: - Continue coumadin with DVT prophylaxis lovenox dose. - Patient is very weak and will not be able to be discharged home, will need Rehab while coumadin is being titrated. - High risk of thrombosis with mechanical MV. Needs close titration of INR. - Dr. Onofre will resume follow up tomorrow.
[2017-10-27] MEDS ORDERED: Warfarin Sodium 7.5 MG TAB PO SCH (17:00)
[2017-10-27 18:22] LABS: Hemoglobin 10.4 g/dL (14.0-18.0)
[2017-10-28 05:12] LABS: INR-International Normal Ratio 1.5; Prothrombin Time 18.8 SEC (12.0-14.7)
[2017-10-28 05:21] LABS: Band 5 % (5-11); Eosinophils 2 % (0-10); Hemoglobin 9.9 g/dL (14.0-18.0); Lymphocytes 9 % (21-51); MDiff Complete? YES; Mean Corpuscular HGB CONC 32.5 g/dL (32.0-36.0); Mean Corpuscular Hemoglobin 29.9 pg (27.0-31.0); Mean Corpuscular Volume 92.2 fl (80.0-94.0); Mean Platelet Volume 7.4 fL (7.4-10.4); Monocytes 7 % (0-10); Neutrophil 77 % (42-75); PLT Morphology Comment Appears Adequate; Platelet Count 180 thou/uL (130-400); RBC Distribution Width 14.5 % (11.5-14.5); Red Blood Cell (RBC) Count 3.29 mill/uL (4.70-6.10)
[2017-10-28 05:54] LABS: Anion Gap 9 mmol/L (10-20); BUN (Urea Nitrogen) 37 mg/dL (8.4-25.7); Calc. Creatinine Clearance 92 mL/min (70-130); Calcium 8.9 mg/dL (7.8-10.44); Carbon Dioxide 26 mmol/L (23-31); Chloride 109 mmol/L (98-107); Estimated GFR-MDRD 75; Glucose 103 mg/dL (83-110); Potassium 3.8 mmol/L (3.5-5.1); Sodium 140 mmol/L (136-145)
[2017-10-28] MEDS ORDERED: Warfarin Sodium 7.5 MG TAB PO SCH (08:56)
[2017-10-28] MEDS: Enoxaparin Sodium 40 MG/0.4 ML SYRINGE SC SCH (09:44)
[2017-10-28] MEDS: Amlodipine 5 MG TAB PO SCH (09:44)
--- NOTE | 2017-10-28 10:58 | PRG ---
DATE OF SERVICE: 10/28/2017 PHYSICAL EXAMINATION: VITAL SIGNS: Mr. Zamora is afebrile, heart rate 76, respiratory 20, oximetry is 95. ABDOMEN: He has no abdominal complaints. LUNGS: His lungs are clear. CARDIOVASCULAR: Regular rhythm. ABDOMEN: Soft. EXTREMITIES: Without asymmetry. LABORATORY DATA: White count is 9, hemoglobin 9.9, platelets 180,000. Sodium 140, potassium 3.8, chloride 109, bicarbonate 26, BUN 37, creatinine 0.97. IMPRESSION: 1. Status post pneumonia with respiratory failure requiring mechanical ventilation. 2. Reactive airways (history of tobacco). 3. Urinary retention, acute over the weekend with 1 liter in his bladder. I will discontinue the At rovent as I have seen Atrovent lead to urinary retention in both males and females although I doubt i t is that simple. This will need to be addressed by either the Hospitalist or Urology. 4. Retroperitoneal bleed on therapeutic Lovenox for mechanical mitral valve. 5. Status post mechanical mitral. 6. Status post serial CTs of the abdomen showing improvement of the retroperitoneal bleed. 7. History of a cerebrovascular accident. 8. History of an encephalopathy on presentation with his pneumonia. He speaks [place], but communic ates well now. 9. Extreme deconditioning which will require placement in rehab. 10. History of a cholecystectomy. 11. History of noncompliance with anticoagulation as an outpatient prior to this admission. 12. Hypertension in the past. 13. 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 14. History of mild coronary disease in 2015 on heart catheterization. 15. PENICILLIN allergy. PLAN: Gradual anticoagulation, placement in rehab. He will need evaluation for his urinary retentio n. We will stop his Atrovent. I would shoot for now for an INR between 1.8 and 2.5 since he recentl y bled.
--- NOTE | 2017-10-28 13:45 | PDOC.PN ---
- Subjective Encounter Start Date: 10/28/17 Encounter Start Time: 13:43 Patient seen and examined following admission for New A Fib, retroperitoneal hematoma and CHICO. Has been restarted on anticoagulation and hemoglobin stable. No complaints and no acute overnight events. Stable and awaiting placement at a rehab facility. - Objective Resuscitation Status: Resuscitation Status FULL:Full Resuscitation MAR Reviewed: Yes Vital Signs & Weight: Vital Signs (12 hours) Temp Pulse Resp BP Pulse Ox 10/28/17 12:00 98.3 F 73 18 135/63 100 10/28/17 09:44 76 10/28/17 08:00 97.9 F 76 20 95 10/28/17 07:39 97.9 F 76 20 141/63 H 95 10/28/17 06:58 70 14 10/28/17 04:00 98.2 F 79 18 125/59 L 93 L Weight Admit Weight 233 lb 0.458 oz Weight 223 lb 14.4 oz Most Recent Monitor Data Heart Rate from ECG 78 NIBP 164/57 NIBP BP-Mean 126 Respiration from ECG 18 SpO2 96 I&O: 10/27/17 10/28/17 10/29/17 06:59 06:59 06:59 Intake Total 750 450 Output Total 3350 1400 Balance -2600 -950 Result Diagrams: 10/28/17 03:51 10/28/17 03:51 Phys Exam - Physical Examination Constitutional: NAD HEENT: moist MMs, sclera anicteric, oral pharynx no lesions Neck: supple, full ROM Respiratory: no wheezing, no rales, clear to auscultation bilateral Cardiovascular: RRR, no significant murmur, no rub Gastrointestinal: soft, non-tender, no distention, positive bowel sounds Musculoskeletal: no edema, pulses present Skin: no rash, normal turgor Dx/Plan (1) HTN (hypertension) Code(s): I10 - ESSENTIAL (PRIMARY) HYPERTENSION Status: Chronic Qualifiers: Hypertension type: essential hypertension Qualified Code(s): I10 - Essential (primary) hypertension Comment: Fair control. Monitor BP (2) Acute urinary retention Code(s): R33.8 - OTHER RETENTION OF URINE Status: Acute Plan: Will wean off indwelling davis catheter and bladder scan PRN (3) Obstructive sleep apnea Code(s): G47.33 - OBSTRUCTIVE SLEEP APNEA (ADULT) (PEDIATRIC) Status: Chronic Comment: On Cpap at night. (4) Anticoagulant long-term use Code(s): Z79.01 - COMBINER (CURRENT) USE OF ANTICOAGULANTS Status: Chronic Comment: s/p 4 units FFP. Started on Warfarin. Will monitor INR daily in view of retroperitoneal hematoma. Also monitor H&H. (5) CAD (coronary artery disease), [place] coronary artery Code(s): I25.10 - ATHSCL HEART DISEASE OF [place] CORONARY ARTERY W/O ANG PCTRS Status: Chronic Qualifiers: [place] vs. transplanted heart: [place] heart Associated angina: without angina Qualified Code(s): I25.10 - Atherosclerotic heart disease of [place] coronary artery without angina pectoris Comment: Stable, chest pain free. 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 Will attempt to wean off O2. (8) Retroperitoneal hematoma Code(s): K66.1 - HEMOPERITONEUM Status: Acute Comment: Resolving per CT. Anticoagulation restarted. (9) New onset atrial fibrillation Code(s): I48.91 - UNSPECIFIED ATRIAL FIBRILLATION Status: Resolved Comment: STable. Rate controlled. - Plan cont current plan of care, PT/OT, social work therapist, out of bed/ambulate, DVT proph w/lovenox * . Review of Systems - Medications/Allergies Allergies/Adverse Reactions: Allergies Allergy/AdvReac Type Severity Reaction Status Date / Time No Known Allergies Allergy Unverified 11/01/13 16:51 Medications: Current Medications Acetaminophen (Tylenol) 650 mg [place] Q4H PRN PRN Reason: Headache/Fever or Pain Last Admin: 10/16/17 11:04 Dose: 650 mg Amlodipine Besylate (Norvasc) 5 mg PO DAILY [facility] Last Admin: 10/28/17 09:44 Dose: 5 mg Arformoterol Tartrate (Brovana) 15 mcg NEB BID-RT [facility] Bisacodyl (Dulcolax) 10 mg [place] Q24H PRN PRN Reason: Constipation Last Admin: 10/18/17 07:53 Dose: 10 mg Budesonide (Pulmicort Neb Solution) 0.5 mg INH BID-RT LEXI Enoxaparin Sodium (Lovenox) 40 mg SC 0900 [facility] Last Admin: 10/28/17 09:44 Dose: 40 mg Miscellaneous Medication (Pharmacy To Dose) 1 each IVPB PRN PRN PRN Reason: Pharmacy to dose Miscellaneous Medication (Pharmacy To Dose) 1 each PO ASDIR PRN PRN Reason: Pharmacy to Dose WARFARIN Discontinue Previous Narcotic Pain Medications And Benzodiazepines 1 each FS .ONE [facility] Stop: 11/01/17 03:56 Discontinue Previous Narcotic Pain Medications And Benzodiazepines 1 each FS .ONE [facility] Stop: 11/13/17 15:24 Pantoprazole Sodium (Protonix) 40 mg PO 2100 [facility] Last Admin: 10/27/17 20:59 Dose: 40 mg Senna (Senokot) 2 tab PO HSPRN PRN PRN Reason: Constipation Sodium Chloride (Flush - Normal Saline) 10 ml IVF Q12HR [facility] Last Admin: 10/28/17 09:44 Dose: 10 ml Sodium Chloride (Flush - Normal Saline) 10 ml IVF PRN PRN PRN Reason: Saline Flush Warfarin Sodium (Coumadin) 5 mg PO 1700 [facility]
--- NOTE | 2017-10-28 16:32 | PDOC.CTH ---
Cardiology Progress Note - Subjective No complaints. States left leg near baseline. Pt with previous stroke affecting his left side. - Objective Vital Signs Temp Pulse Resp BP Pulse Ox 10/28/17 12:00 98.3 F 73 18 135/63 100 10/28/17 09:44 76 10/28/17 08:00 97.9 F 76 20 95 10/28/17 07:39 97.9 F 76 20 141/63 H 95 10/28/17 06:58 70 14 Admit Weight 233 lb 0.458 oz Weight 223 lb 14.4 oz 10/27/17 10/28/17 10/29/17 06:59 06:59 06:59 Intake Total 750 450 Output Total 3350 1400 850 Balance -2600 -950 -850 - Physical Examination General/Neuro: alert & oriented x3, NAD Neck: carotid US brisk, no JVD present Lungs: CTA, unlabored respirations Heart: RRR Abdomen: NT/ND, soft Extremities: + femoral B - Labs Result Diagrams: 10/28/17 03:51 10/28/17 03:51 Troponin/CKMB CK-MB (CK-2) 5.6 ng/mL (0-6.6) 10/14/17 03:58 Troponin I 0.586 ng/mL (< 0.028) H* 10/14/17 03:58 - Assessment/Plan 1. Retroperitoneal HT 2. Mechanical MVR 3. Respiratory failure 4. afib 5. Anemia 6. Elevated LFT's 7. Left leg weakness Improving. Pt in SR. Achieved INR 2.5 to 3.5. Managed by pharmacy. LFT's downtrending. Needs rehab. Fu with me in office in 2-3 weeks.
[2017-10-28] MEDS: Warfarin Sodium 5 MG TAB PO SCH (16:43)
[2017-10-28] MEDS: Budesonide 0.5 MG/2 ML NEB INH SCH (18:25)
[2017-10-28] MEDS: Arformoterol 15 MCG/2 ML NEB NEB SCH (18:29)
[2017-10-29 04:31] LABS: INR-International Normal Ratio 1.9
[2017-10-29 04:40] LABS: Anion Gap 8 mmol/L (10-20); BUN (Urea Nitrogen) 28 mg/dL (8.4-25.7); Calc. Creatinine Clearance 96 mL/min (70-130); Calcium 8.5 mg/dL (7.8-10.44); Carbon Dioxide 27 mmol/L (23-31); Chloride 107 mmol/L (98-107); Estimated GFR-MDRD 76; Glucose 111 mg/dL (83-110); Potassium 3.5 mmol/L (3.5-5.1); Sodium 138 mmol/L (136-145)
[2017-10-29 05:16] LABS: Band 3 % (5-11); Hemoglobin 9.9 g/dL (14.0-18.0); Lymphocytes 4 % (21-51); MDiff Complete? YES; Mean Corpuscular HGB CONC 32.7 g/dL (32.0-36.0); Mean Corpuscular Hemoglobin 29.8 pg (27.0-31.0); Mean Corpuscular Volume 91.1 fl (80.0-94.0); Mean Platelet Volume 7.2 fL (7.4-10.4); Monocytes 10 % (0-10); Neutrophil 83 % (42-75); PLT Morphology Comment Appears Adequate; Platelet Count 158 thou/uL (130-400); RBC Distribution Width 14.4 % (11.5-14.5); RBC Morphology Normal; Red Blood Cell (RBC) Count 3.31 mill/uL (4.70-6.10); White Blood Cell (WBC) Count 10.1 thou/uL (4.8-10.8)
[2017-10-29] MEDS: Arformoterol 15 MCG/2 ML NEB NEB SCH ×2 (07:41→18:44)
[2017-10-29] MEDS: Budesonide 0.5 MG/2 ML NEB INH SCH ×2 (07:42→18:44)
[2017-10-29] MEDS: Enoxaparin Sodium 40 MG/0.4 ML SYRINGE SC SCH (08:55)
[2017-10-29] MEDS: Amlodipine 5 MG TAB PO SCH (08:56)
--- NOTE | 2017-10-29 13:26 | PDOC.PN ---
- Subjective Encounter Start Date: 10/29/17 Encounter Start Time: 13:34 Patient seen and examined following admission for New A Fib, PNA leading to acute respiratory failure requiring mechanical ventilation, retroperitoneal hematoma and CHICO. He is off the vent, has been restarted on anticoagulation and hemoglobin remained stable. No complaints and no acute overnight events. - Objective Resuscitation Status: Resuscitation Status FULL:Full Resuscitation MAR Reviewed: Yes Vital Signs & Weight: Vital Signs (12 hours) Temp Pulse Resp BP BP Pulse Ox 10/29/17 12:00 98.9 F 79 20 115/58 L 94 L 10/29/17 08:56 80 123/60 10/29/17 08:00 99.1 F 80 20 116/56 L 92 L 10/29/17 07:42 80 14 Weight Admit Weight 233 lb 0.458 oz Weight 223 lb 9.6 oz Most Recent Monitor Data Heart Rate from ECG 78 NIBP 164/57 NIBP BP-Mean 126 Respiration from ECG 18 SpO2 96 I&O: 10/28/17 10/29/17 10/30/17 06:59 06:59 06:59 Intake Total 450 1450 Output Total 1400 3203 Balance -950 -1753 Result Diagrams: 10/29/17 04:07 10/29/17 04:07 Phys Exam - Physical Examination Constitutional: NAD HEENT: moist MMs, sclera anicteric, oral pharynx no lesions Neck: supple, full ROM Respiratory: no wheezing, no rales, no rhonchi, clear to auscultation bilateral Cardiovascular: RRR, no significant murmur, no rub Gastrointestinal: soft, non-tender, positive bowel sounds Musculoskeletal: no edema, pulses present Neurological: non-focal, moves all 4 limbs Skin: no rash, normal turgor Dx/Plan (1) Acute urinary retention Code(s): R33.8 - OTHER RETENTION OF URINE Status: Acute (2) HTN (hypertension) Code(s): I10 - ESSENTIAL (PRIMARY) HYPERTENSION Status: Chronic Qualifiers: Hypertension type: essential hypertension Qualified Code(s): I10 - Essential (primary) hypertension Comment: Controlled and at goal. (3) Obstructive sleep apnea Code(s): G47.33 - OBSTRUCTIVE SLEEP APNEA (ADULT) (PEDIATRIC) Status: Chronic Comment: On Cpap at night. (4) Anticoagulant long-term use Code(s): Z79.01 - [employer] WORKER (CURRENT) USE OF ANTICOAGULANTS Status: Chronic Comment: s/p 4 units FFP. Started on Warfarin. INR therapeutic and H&H stable. (5) CAD (coronary artery disease), [place] coronary artery Code(s): I25.10 - ATHSCL HEART DISEASE OF [place] CORONARY ARTERY W/O ANG PCTRS Status: Chronic Qualifiers: [place] vs. transplanted heart: [place] heart Associated angina: without angina Qualified Code(s): I25.10 - Atherosclerotic heart disease of [place] coronary artery without angina pectoris Comment: Stable, chest pain free. (6) H/O prosthetic mitral valve Status: Chronic (7) Retroperitoneal hematoma Code(s): K66.1 - HEMOPERITONEUM Status: Acute Comment: Resolving per CT. Anticoagulation restarted. INR therapeutic. (8) New onset atrial fibrillation Code(s): I48.91 - UNSPECIFIED ATRIAL FIBRILLATION Status: Acute Comment: STable. Rate controlled. Started on Warfarin. INR therapeutic and H&H stable. (9) Acute hypoxemic respiratory failure Code(s): J96.01 - ACUTE RESPIRATORY FAILURE WITH HYPOXIA Status: Resolved Comment: 2/2 PNA and requiring Imechanical ventilation. - Plan cont current plan of care, davis catheter, PT/OT, social work professor, respiratory therapy, out of bed/ambulate * . Patient still retaining urine so will place a davis catheter and consult urology. Started on Flomax. Review of Systems - Medications/Allergies Allergies/Adverse Reactions: Allergies Allergy/AdvReac Type Severity Reaction Status Date / Time No Known Allergies Allergy Unverified 11/01/13 16:51 Medications: Current Medications Acetaminophen (Tylenol) 650 mg IA Q4H PRN PRN Reason: Headache/Fever or Pain Last Admin: 10/16/17 11:04 Dose: 650 mg Amlodipine Besylate (Norvasc) 5 mg PO DAILY [facility] Last Admin: 10/29/17 08:56 Dose: 5 mg Arformoterol Tartrate (Brovana) 15 mcg NEB BID-RT [facility] Last Admin: 10/29/17 07:41 Dose: 15 mcg Bisacodyl (Dulcolax) 10 mg IA Q24H PRN PRN Reason: Constipation Last Admin: 10/18/17 07:53 Dose: 10 mg Budesonide (Pulmicort Neb Solution) 0.5 mg INH BID-RT [facility] Last Admin: 10/29/17 07:42 Dose: 0.5 mg Enoxaparin Sodium (Lovenox) 40 mg SC 0900 [facility] Last Admin: 10/29/17 08:55 Dose: 40 mg Miscellaneous Medication (Pharmacy To Dose) 1 each IVPB PRN PRN PRN Reason: Pharmacy to dose Miscellaneous Medication (Pharmacy To Dose) 1 each PO ASDIR PRN PRN Reason: Pharmacy to Dose WARFARIN Discontinue Previous Narcotic Pain Medications And Benzodiazepines 1 each FS .ONE [facility] Stop: 11/01/17 03:56 Discontinue Previous Narcotic Pain Medications And Benzodiazepines 1 each FS .ONE [facility] Stop: 11/13/17 15:24 Pantoprazole Sodium (Protonix) 40 mg PO 2100 [facility] Last Admin: 10/28/17 19:59 Dose: 40 mg Senna (Senokot) 2 tab PO HSPRN PRN PRN Reason: Constipation Sodium Chloride (Flush - Normal Saline) 10 ml IVF Q12HR [facility] Last Admin: 10/29/17 08:59 Dose: 10 ml Sodium Chloride (Flush - Normal Saline) 10 ml IVF PRN PRN PRN Reason: Saline Flush Tamsulosin HCl (Flomax) 0.4 mg PO DAILY [facility] Warfarin Sodium (Coumadin) 5 mg PO 1700 [facility] Last Admin: 10/28/17 16:43 Dose: 5 mg
--- NOTE | 2017-10-29 14:21 | PRG ---
DATE OF SERVICE: 10/29/2017 SERVICE: Pulmonary Medicine. INTERVAL HISTORY: The patient is doing fine from a respiratory standpoint. He denies any current ch est pain, nausea, vomiting, fevers or chills. Otherwise, there has been no interval change to his co ndition. He remains extraordinarily weak. He is coughing up yellow sputum. PHYSICAL EXAMINATION: VITAL SIGNS: Afebrile, pulse 79, blood pressure 115/58, respirations 20, saturation 94% on 2 liters nasal cannula. GENERAL: The patient is awake and alert, in no apparent distress. LUNGS: Excellent air entry. Rhonchi are present. There is no prolonged expiratory phase, wheezing or crackles appreciated. HEART: Normal rate and regular. ABDOMEN: Soft, nontender, and nondistended. Bowel sounds are positive. MUSCULOSKELETAL: No cyanosis or clubbing. There is no pitting in the bilateral lower extremities. NEUROLOGIC: Grossly nonfocal. LABORATORY DATA: Hemoglobin 9.9, WBC 10.1, platelets 158,000. INR 1.9. Basic metabolic profile is completely unremarkable. Culture results are negative to date. ASSESSMENT: 1. Acute hypoxic respiratory failure, improving. 2. Healthcare-associated pneumonia, status post full course of therapy. 3. Acute blood loss anemia secondary to retroperitoneal bleed, resolved. 4. Mechanical mitral valve, requiring anticoagulation with recent resumption of these medications. 5. Deconditioning, severe. PLAN: We will continue our efforts on mobilizing the patient. From a purely respiratory standpoint, the patient is stable for transition out of the hospital. Pulmonary will continue to follow intermi ttently while he remains inhouse. I will repeat a chest x-ray to make certain that he is not develop ing any significant infiltrate once again.
[2017-10-29] MEDS: Warfarin Sodium 5 MG TAB PO SCH (17:14)
--- NOTE | 2017-10-29 23:08 | CON ---
DATE OF CONSULTATION: 10/29/2017 HISTORY OF PRESENT ILLNESS: Mr. Zamora is a 77-year-old Chinese speaking male , who has been admitted since 10/02/2017. The patient has been seen by Critical Care, Cardiology, General Surgery, and Nephrology. He initially presented with mental status changes, subsequently found to have a large left retroperitoneal hematoma. He was also followed by Cardiology due to new-onset bradycardia. Previously, on dobutamine drip. He does have a history of mitral valve replacement, mechanical; on chronic anticoagulation. The retroperitoneal hematoma has improved and he has been restarted on his warfarin by primary service. Urine output has been clear. His indwelling Verdin catheter has been in for quite some time and this was recently removed, in which he had decreased urine output. Therefore, he was straight cathed for PVR 450 mL, and left an indwelling Verdin catheter. Flomax was just started today by primary service. The grandson is at bedside, provides subjective history. There is no prior history of urinary retention. The patient denies sensation of incomplete void, prior history of urinary retention. No prior past medical history of BPH treatment nor family history or personal history of prostate cancer. Currently , he is resting comfortably. Family at bedside. PAST MEDICAL HISTORY: Coronary artery disease, prosthetic heart valve, hyperlipidemia, chronic kidney disease, hypertension, dyslipidemia. PAST SURGICAL HISTORY: Mitral valve replacement, mechanical; history of cardiac catheterization; status post CABG; umbilical hernia repair; status post ERCP. SOCIAL HISTORY: He is , has 9 children. Family at bedside. 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 Denies tobacco abuse. Denies IV drug use. He denies trauma. ALLERGIES: No known drug allergies. CURRENT MEDICATIONS: Norvasc, Brovana, Dulcolax, Protonix, Senokot, Flomax, Coumadin. PHYSICAL EXAMINATION: VITAL SIGNS: Stable. GENERAL: The patient appears to be in no acute distress. HEENT: Unremarkable. HEART: Regular rate. LUNGS: Clear. ABDOMEN: Obese, protuberant. No rigidity, no rebound. Right ecchymosis is noted consistent with his history of retroperitoneal hematoma. No rigidity, no rebound. GENITOURINARY: Demonstrates uncircumcised phallus. Meatus is grossly unremarkable. Verdin catheter draining concentrated yellow urine. Testes are descended. RECTAL: Digital rectal exam demonstrates stool in the rectal vault, prostate volume over 40-50 grams. EXTREMITIES: No cyanosis, clubbing, or edema. PERTINENT LABORATORY DATA: White count 10, hemoglobin 9.9, platelet 158. INR is 1.9. Creatinine today is 0.9. His creatinine since admission has varied from 0.8 to 4.7. Urinalysis demonstrates 4-6 rbc's, 20-50 wbc's, 70 epithelials. Culture negative. This is a catheterized specimen. C. diff is negative. Blood culture negative. PSA 07/16/2015 is 2.7. PERTINENT IMAGING: CT of the abdomen and pelvis without contrast dated 2017 demonstrates left retroperitoneal hematoma has decreased in size, previously measured 9.5 cm. Kidneys demonstrate no evidence of hydronephrosis. Per my review, CT prostate volume is approximately 80 grams. Increased stool in the rectal vault is noted. Mild prominence of the bilateral renal collecting system, air in the bladder consistent with recent Verdin, bladder is distended to the level of L5. This is prior to his catheter was replaced. 10/14/2017, no evidence of hydronephrosis. Kidneys are unremarkable. There is a left retroperitoneal hematoma along the psoas measuring 7.6 x 9.5 cm. IMPRESSION: 1. Mr. Zamora is a 77-year-old male, non-Tajik speaking, admitted for mental status changes, subsequently found to have a retroperitoneal hematoma. 2. History of mechanical valve, on chronic anticoagulation. 3. History of atrial fibrillation. PLAN: Urologic consultation obtained due to urinary retention, a post-void residual of 450 mL with mild prominence of the bilateral ureters. Per CT review , his bladder was distended to the level of L5. Recommend indwelling Verdin catheter to continue as he needs bladder rest due to distention resulting in mild prominence of the ureters. He has no prior history of urinary retention. Anticipate he should be able to void on his own in few days. A voiding trial will be initiated by in few days. His Flomax was just recently initiated. I will add Avodart to his regimen as the CT does demonstrate enlargement of his prostate. We will follow along with you on this admission. [facility]
[2017-10-30] MEDS: Acetaminophen 325 MG TAB PO PRN ×2 (00:06→14:53)
[2017-10-30 05:51] LABS: Hemoglobin 10.1 g/dL (14.0-18.0); Lymphocytes 13 % (21-51); MDiff Complete? YES; Mean Corpuscular HGB CONC 32.6 g/dL (32.0-36.0); Mean Corpuscular Hemoglobin 29.8 pg (27.0-31.0); Mean Corpuscular Volume 91.5 fl (80.0-94.0); Mean Platelet Volume 7.6 fL (7.4-10.4); Monocytes 9 % (0-10); Neutrophil 78 % (42-75); PLT Morphology Comment Appears Adequate; Platelet Count 167 thou/uL (130-400); RBC Distribution Width 14.4 % (11.5-14.5); Red Blood Cell (RBC) Count 3.37 mill/uL (4.70-6.10); White Blood Cell (WBC) Count 8.8 thou/uL (4.8-10.8)
[2017-10-30 05:55] LABS: INR-International Normal Ratio 2.1; Prothrombin Time 24.2 SEC (12.0-14.7)
[2017-10-30 06:03] LABS: Anion Gap 11 mmol/L (10-20); BUN (Urea Nitrogen) 23 mg/dL (8.4-25.7); Calc. Creatinine Clearance 106 mL/min (70-130); Calcium 8.5 mg/dL (7.8-10.44); Carbon Dioxide 25 mmol/L (23-31); Chloride 106 mmol/L (98-107); Estimated GFR-MDRD 87; Glucose 111 mg/dL (83-110); Potassium 3.7 mmol/L (3.5-5.1); Sodium 138 mmol/L (136-145)
[2017-10-30] MEDS: Arformoterol 15 MCG/2 ML NEB NEB SCH ×2 (06:25→18:10)
[2017-10-30] MEDS: Budesonide 0.5 MG/2 ML NEB INH SCH ×2 (06:25→18:10)
--- NOTE | 2017-10-30 07:44 | PRG ---
DATE OF SERVICE: 10/30/2017 SUBJECTIVE: The patient is resting comfortably, no acute complaints. OBJECTIVE: VITAL SIGNS: Stable. He is afebrile. GENITOURINARY: Urine output 1840, clear concentrated yellow urine. Verdin catheter is adequately sec ured. ABDOMEN: Soft, nontender, nondistended. PERTINENT LABORATORY DATA: White count of 8.8, hemoglobin of 10, platelet 167. INR of 2.1. Creatin ine 0.8. Urine culture is negative. IMPRESSION AND PLAN: Mr. Zamora is a 77-year-old male with history of mechanical valve on chronic anticoagulation. 1. Admitted for left retroperitoneal hematoma. 2. Deconditioning status. 3. History of pneumonia. 4. Urologic consultation obtained due to urinary retention, a post-void residual of 450 mL with mild bilateral prominence of the collecting system due to retention. Recommend continue Verdin catheter p lacement and bladder rest with indwelling Verdin. Flomax was just initiated by primary service yester day. The patient has been in the hospital for a prolonged period of time and is deconditioned. I wi ll perform a voiding trial in few days, optimal voiding trial would be when patient has had Flomax fo r a few days.
[2017-10-30] MEDS: Dutasteride 0.5 MG CAP PO SCH (07:50)
[2017-10-30] MEDS: Tamsulosin HCl 0.4 MG CAP PO SCH (07:50)
[2017-10-30] MEDS: Amlodipine 5 MG TAB PO SCH (08:01)
--- NOTE | 2017-10-30 14:54 | PDOC.PN ---
- Subjective Encounter Start Date: 10/30/17 Encounter Start Time: 09:40 Pt seen for followup re: acute urinary retention. Denies chest pain, shortness of breath, fevers or chills. Occ cough after eating. - Objective Resuscitation Status: Resuscitation Status FULL:Full Resuscitation MAR Reviewed: Yes Vital Signs & Weight: Vital Signs (12 hours) Temp Pulse Resp BP BP BP Pulse Ox 10/30/17 13:45 152/72 H 148/72 H 10/30/17 12:40 98.9 F 74 20 132/60 95 10/30/17 08:01 66 10/30/17 08:00 98.7 F 66 18 10/30/17 07:26 98.1 F 66 20 123/58 L 95 10/30/17 06:25 70 12 10/30/17 04:00 98.1 F Weight Admit Weight 233 lb 0.458 oz Weight 223 lb 9.6 oz Most Recent Monitor Data Heart Rate from ECG 78 NIBP 164/57 NIBP BP-Mean 126 Respiration from ECG 18 SpO2 96 I&O: 10/29/17 10/30/17 10/31/17 06:59 06:59 06:59 Intake Total 1450 860 Output Total 3203 675 Balance -1753 185 Result Diagrams: 11/04/17 04:42 11/04/17 04:42 Additional Labs: labs reviewed by me Phys Exam - Physical Examination Constitutional: NAD HEENT: moist MMs Neck: supple Respiratory: clear to auscultation bilateral Cardiovascular: irregular Gastrointestinal: soft Neurological: moves all 4 limbs Psychiatric: normal affect Dx/Plan (1) Acute urinary retention Code(s): R33.8 - OTHER RETENTION OF URINE Status: Acute Comment: Urology studies tomorrow (2) New onset atrial fibrillation Code(s): I48.91 - UNSPECIFIED ATRIAL FIBRILLATION Status: Acute Comment: continue warfarin. INR climbing, pharmacy is managing warfarin. (3) Retroperitoneal hematoma Code(s): K66.1 - HEMOPERITONEUM Status: Acute Comment: Stable. (4) CAD (coronary artery disease), [place] coronary artery Code(s): I25.10 - ATHSCL HEART DISEASE OF [place] CORONARY ARTERY W/O ANG PCTRS Status: Chronic Qualifiers: [place] vs. transplanted heart: [place] heart Associated angina: without angina Qualified Code(s): I25.10 - Atherosclerotic heart disease of [place] coronary artery without angina pectoris Comment: Stable (5) CKD (chronic kidney disease), stage III Code(s): N18.3 - CHRONIC KIDNEY DISEASE, STAGE 3 (MODERATE) Status: Chronic Comment: stable (6) HTN (hypertension) Code(s): I10 - ESSENTIAL (PRIMARY) HYPERTENSION Status: Chronic Qualifiers: Hypertension type: essential hypertension Qualified Code(s): I10 - Essential (primary) hypertension Comment: Controlled and at goal (7) Obstructive sleep apnea Code(s): G47.33 - OBSTRUCTIVE SLEEP APNEA (ADULT) (PEDIATRIC) Status: Chronic Comment: On Cpap at night. - Plan * . Review of Systems - Review of Systems Constitutional: negative: fever, chills, sweats, weakness, malaise Respiratory: Cough Cardiovascular: negative: chest pain, palpitations, orthopnea, paroxysmal nocturnal dyspnea, edema, light headedness - Medications/Allergies Allergies/Adverse Reactions: Allergies Allergy/AdvReac Type Severity Reaction Status Date / Time No Known Allergies Allergy Unverified 11/01/13 16:51 Medications: Current Medications Acetaminophen (Tylenol) 650 mg ND Q4H PRN PRN Reason: Headache/Fever or Pain Last Admin: 10/16/17 11:04 Dose: 650 mg Acetaminophen (Tylenol) 650 mg PO Q4H PRN PRN Reason: Headache/Fever or Pain Last Admin: 10/30/17 00:06 Dose: 650 mg Amlodipine Besylate (Norvasc) 5 mg PO DAILY [facility] Last Admin: 10/30/17 08:01 Dose: 5 mg Arformoterol Tartrate (Brovana) 15 mcg NEB BID-RT [facility] Last Admin: 10/30/17 06:25 Dose: 15 mcg Bisacodyl (Dulcolax) 10 mg ND Q24H PRN PRN Reason: Constipation Last Admin: 10/18/17 07:53 Dose: 10 mg Budesonide (Pulmicort Neb Solution) 0.5 mg INH BID-RT [facility] Last Admin: 10/30/17 06:25 Dose: 0.5 mg Dutasteride (Avodart) 0.5 mg PO DAILY [facility] Last Admin: 10/30/17 07:50 Dose: 0.5 mg Miscellaneous Medication (Pharmacy To Dose) 1 each IVPB PRN PRN PRN Reason: Pharmacy to dose Miscellaneous Medication (Pharmacy To Dose) 1 each PO ASDIR PRN PRN Reason: Pharmacy to Dose WARFARIN Discontinue Previous Narcotic Pain Medications And Benzodiazepines 1 each FS .ONE [facility] Stop: 11/01/17 03:56 Discontinue Previous Narcotic Pain Medications And Benzodiazepines 1 each FS .ONE [facility] Stop: 11/13/17 15:24 Pantoprazole Sodium (Protonix) 40 mg PO 2100 [facility] Last Admin: 10/29/17 20:31 Dose: 40 mg Senna (Senokot) 2 tab PO HSPRN PRN PRN Reason: Constipation Sodium Chloride (Flush - Normal Saline) 10 ml IVF Q12HR [facility] Last Admin: 10/30/17 07:50 Dose: Not Given Sodium Chloride (Flush - Normal Saline) 10 ml IVF PRN PRN PRN Reason: Saline Flush Tamsulosin HCl (Flomax) 0.4 mg PO DAILY [facility] Last Admin: 10/30/17 07:50 Dose: 0.4 mg Warfarin Sodium (Coumadin) 5 mg PO 1700 [facility] Last Admin: 10/29/17 17:14 Dose: 5 mg
[2017-10-30 17:14] LABS: Bilirubin Negative (Negative); Blood, Urine Large (Negative); Clarity CLOUDY (Clear); Glucose, Urine (Dipstick) Negative (Negative); Leukocyte Moderate (Negative); Nitrite Negative (Negative); Protein, Urine (Dipstick) 100 mg/dL (Neg-Trace); Specific Gravity, Urine 1.014 (1.002-1.036); pH, Urine 6.5 (5.0-9.0)
[2017-10-30 17:21] LABS: Bacteria/HPF 4+ HPF (None Seen); Hyaline Casts/LPF 4-6 HYALINE CAST LPF (0-3 Hyaline); Pathc Cast-AUWi Flag 0.43 (0-2.49); RBC/HPF 21-50 HPF (0-3); Squamous Epithelial None Seen HPF (0-3)
[2017-10-30] MEDS: Warfarin Sodium 5 MG TAB PO SCH (17:38)
--- NOTE | 2017-10-30 17:49 | RAD ---
CHEST ONE VIEW: 10/30/17 COMPARISON: 10/19/17. HISTORY: Fever. FINDINGS: There are sternotomy wires. There is atherosclerosis of the aorta. Normal cardiac silhouette. The pul monary vessels are within normal limits. There are patchy interstitial opacities in the lung bases. P ossible bibasilar infiltrate. No pneumothorax. IMPRESSION: Possible bibasilar infiltrate. POS: [facility]
[2017-10-31 05:04] LABS: INR-International Normal Ratio 2.4; Prothrombin Time 26.7 SEC (12.0-14.7)
[2017-10-31 05:12] LABS: Anion Gap 13 mmol/L (10-20); BUN (Urea Nitrogen) 21 mg/dL (8.4-25.7); Calc. Creatinine Clearance 99 mL/min (70-130); Calcium 8.5 mg/dL (7.8-10.44); Carbon Dioxide 23 mmol/L (23-31); Chloride 103 mmol/L (98-107); Estimated GFR-MDRD 79; Glucose 115 mg/dL (83-110); Potassium 3.7 mmol/L (3.5-5.1); Sodium 135 mmol/L (136-145)
[2017-10-31 05:43] LABS: Band 6 % (5-11); Eosinophils 2 % (0-10); Hemoglobin 9.9 g/dL (14.0-18.0); Lymphocytes 11 % (21-51); MDiff Complete? YES; Mean Corpuscular HGB CONC 32.7 g/dL (32.0-36.0); Mean Corpuscular Hemoglobin 29.6 pg (27.0-31.0); Mean Corpuscular Volume 90.6 fl (80.0-94.0); Monocytes 2 % (0-10); Neutrophil 79 % (42-75); Platelet Count 171 thou/uL (130-400); RBC Distribution Width 14.3 % (11.5-14.5); Red Blood Cell (RBC) Count 3.33 mill/uL (4.70-6.10); White Blood Cell (WBC) Count 12.7 thou/uL (4.8-10.8)
[2017-10-31] MEDS ORDERED: Budesonide 0.5 MG/2 ML NEB ONE (06:26)
[2017-10-31] MEDS: Arformoterol 15 MCG/2 ML NEB NEB SCH ×2 (06:30→19:27)
[2017-10-31] MEDS: Budesonide 0.5 MG/2 ML NEB INH SCH ×2 (06:31→19:28)
[2017-10-31] MEDS ORDERED: cefTRIAXone\\ROCEPHIN 1 GM in Sodium Chloride 0.9% 100 ML IVPB SCH ×2 (07:30→11:45)
--- NOTE | 2017-10-31 07:53 | PRG ---
DATE OF SERVICE: 10/31/2017 SUBJECTIVE: The patient is sleeping, resting comfortably. OBJECTIVE: VITAL SIGNS: Temperature is 101.2 last night, currently 98.9. I's and O's, urine output 1600, elayne ntrated yellow. ABDOMEN: Soft, nontender, nondistended. PERTINENT LABORATORY DATA: White count is slightly increased from 8.8-12.7, hemoglobin stable at 9.9 , platelet 171. Renal function is stable at 0.93. Blood culture on 10/30/2017, negative. Urine cul ture negative. The patient is currently on Rocephin. IMPRESSION AND PLAN: Mr. Zamora is a 77-year-old male who presented with left retroperitoneal kristy merrill. 1. Mechanical heart valve, on chronic anticoagulation. 2. Deconditioning status. 3. Urologic consultation secondary to urinary retention of 450 mL with mild bilateral prominence of the ureters. Flomax was recently initiated on Saturday, I did add Avodart due to prostate size volume . The patient deconditioned. Continue indwelling Verdin catheter. The fever will be worked up by pr imary care service. Chest x-ray demonstrating atelectasis likely pulmonary. From a urologic perspec tive, I recommend voiding trial sometime next week. Voiding trials usually initiated in 1 week inter xochilt after medical therapy is initiated. Continue indwelling Verdin catheter, Flomax, Avodart.
[2017-10-31] MEDS ORDERED: Azithromycin 500 MG in Sodium Chloride 0.9% 250 ML 250 ML IVPB SCH (08:00)
[2017-10-31] MEDS: Amlodipine 5 MG TAB PO SCH (09:12)
[2017-10-31] MEDS: Dutasteride 0.5 MG CAP PO SCH (09:13)
[2017-10-31] MEDS: Tamsulosin HCl 0.4 MG CAP PO SCH (09:13)
--- NOTE | 2017-10-31 10:25 | PDOC.PN ---
- Subjective Encounter Start Date: 10/31/17 Encounter Start Time: 07:20 Pt seen for followup re: sepsis. Reports cough, reports dysuria. Denies fevers. Not ambulating. - Objective Resuscitation Status: Resuscitation Status FULL:Full Resuscitation MAR Reviewed: Yes Vital Signs & Weight: Vital Signs (12 hours) Temp Pulse Resp BP BP Pulse Ox 10/31/17 09:12 87 134/66 10/31/17 09:03 98.8 F 87 20 92/44 L 92 L 10/31/17 06:30 104 H 14 95 10/31/17 04:00 98.9 F 10/31/17 03:04 99 10/30/17 23:39 99.1 F Weight Admit Weight 233 lb 0.458 oz Weight 223 lb 14.071 oz Most Recent Monitor Data Heart Rate from ECG 78 NIBP 164/57 NIBP BP-Mean 126 Respiration from ECG 18 SpO2 96 I&O: 10/30/17 10/31/17 11/01/17 06:59 06:59 06:59 Intake Total 860 Output Total 675 1600 Balance 185 -1600 Result Diagrams: 10/31/17 04:40 10/31/17 04:40 Additional Labs: labs reviewed by me Phys Exam - Physical Examination Constitutional: NAD HEENT: moist MMs Neck: supple Bibasal crackles Cardiovascular: RRR Gastrointestinal: soft Neurological: moves all 4 limbs Psychiatric: normal affect Dx/Plan (1) Sepsis Code(s): A41.9 - SEPSIS, UNSPECIFIED ORGANISM Status: Acute Comment: start pt on antibiotics, source of infection either lung or urine. (2) Pneumonia Code(s): J18.9 - PNEUMONIA, UNSPECIFIED ORGANISM Status: Acute Comment: probable aspiration, start ceftriaxone and metronidazole (3) UTI (urinary tract infection) Status: Acute Comment: continue ceftriaxone, await urine cultures (4) Acute urinary retention Code(s): R33.8 - OTHER RETENTION OF URINE Status: Acute Comment: indwelling davis catheter (5) New onset atrial fibrillation Code(s): I48.91 - UNSPECIFIED ATRIAL FIBRILLATION Status: Acute Comment: Stable. Continue warfarin (6) Retroperitoneal hematoma Code(s): K66.1 - HEMOPERITONEUM Status: Acute Comment: Stable. (7) CAD (coronary artery disease), [place] coronary artery Code(s): I25.10 - ATHSCL HEART DISEASE OF [place] CORONARY ARTERY W/O ANG PCTRS Status: Chronic Qualifiers: [place] vs. transplanted heart: [place] heart Associated angina: without angina Qualified Code(s): I25.10 - Atherosclerotic heart disease of [place] coronary artery without angina pectoris Comment: Stable (8) CKD (chronic kidney disease), stage III Code(s): N18.3 - CHRONIC KIDNEY DISEASE, STAGE 3 (MODERATE) Status: Chronic Comment: stable (9) HTN (hypertension) Code(s): I10 - ESSENTIAL (PRIMARY) HYPERTENSION Status: Chronic Qualifiers: Hypertension type: essential hypertension Qualified Code(s): I10 - Essential (primary) hypertension Comment: Controlled and at goal. (10) Obstructive sleep apnea Code(s): G47.33 - OBSTRUCTIVE SLEEP APNEA (ADULT) (PEDIATRIC) Status: Chronic Comment: On Cpap at night. - Plan * . Review of Systems - Review of Systems Respiratory: Cough. negative: Dry, Shortness of Breath, Hemoptysis, SOB with Excertion, Pleuritic Pain, Wheezing Cardiovascular: negative: chest pain, palpitations, orthopnea, paroxysmal nocturnal dyspnea, edema, light headedness Genitourinary: Dysuria. negative: Frequency, Incontinence, Hematuria, Retention - Medications/Allergies Allergies/Adverse Reactions: Allergies Allergy/AdvReac Type Severity Reaction Status Date / Time No Known Allergies Allergy Unverified 11/01/13 16:51 Medications: Current Medications Acetaminophen (Tylenol) 650 mg [place] Q4H PRN PRN Reason: Headache/Fever or Pain Last Admin: 10/16/17 11:04 Dose: 650 mg Acetaminophen (Tylenol) 650 mg PO Q4H PRN PRN Reason: Headache/Fever or Pain Last Admin: 10/30/17 14:53 Dose: 650 mg Amlodipine Besylate (Norvasc) 5 mg PO DAILY [facility] Last Admin: 10/31/17 09:12 Dose: 5 mg Arformoterol Tartrate (Brovana) 15 mcg NEB BID-RT [facility] Last Admin: 10/31/17 06:30 Dose: 15 mcg Bisacodyl (Dulcolax) 10 mg [place] Q24H PRN PRN Reason: Constipation Last Admin: 10/18/17 07:53 Dose: 10 mg Budesonide (Pulmicort Neb Solution) 0.5 mg INH BID-RT [facility] Last Admin: 10/31/17 06:31 Dose: 0.5 mg Dutasteride (Avodart) 0.5 mg PO DAILY [facility] Last Admin: 10/31/17 09:13 Dose: 0.5 mg Azithromycin 500 mg/ Sodium (Chloride) 250 mls @ 250 mls/hr IVPB Q24HR [facility] Ceftriaxone Sodium 1 gm/ (Sodium Chloride) 100 mls @ 200 mls/hr IVPB Q24HR [facility] Miscellaneous Medication (Pharmacy To Dose) 1 each IVPB PRN PRN PRN Reason: Pharmacy to dose Miscellaneous Medication (Pharmacy To Dose) 1 each PO ASDIR PRN PRN Reason: Pharmacy to Dose WARFARIN Discontinue Previous Narcotic Pain Medications And Benzodiazepines 1 each FS .ONE [facility] Stop: 11/01/17 03:56 Discontinue Previous Narcotic Pain Medications And Benzodiazepines 1 each FS .ONE [facility] Stop: 11/13/17 15:24 Pantoprazole Sodium (Protonix) 40 mg PO 2100 [facility] Last Admin: 10/30/17 20:59 Dose: 40 mg Senna (Senokot) 2 tab PO HSPRN PRN PRN Reason: Constipation Sodium Chloride (Flush - Normal Saline) 10 ml IVF Q12HR [facility] Last Admin: 10/31/17 09:13 Dose: Not Given Sodium Chloride (Flush - Normal Saline) 10 ml IVF PRN PRN PRN Reason: Saline Flush Tamsulosin HCl (Flomax) 0.4 mg PO DAILY [facility] Last Admin: 10/31/17 09:13 Dose: 0.4 mg Warfarin Sodium (Coumadin) 5 mg PO 1700 [facility] Last Admin: 10/30/17 17:38 Dose: 5 mg
[2017-10-31] MEDS: metroNIDAZOLE 500 MG in Premix Bag 1 BAG IVPB SCH ×2 (12:23→21:28)
[2017-10-31] MEDS: Acetaminophen 325 MG TAB PO PRN (14:38)
[2017-10-31] MEDS: Warfarin Sodium 2 MG TAB PO SCH (17:46)
[2017-10-31] MEDS: Senokot 8.6 MG TAB PO PRN (17:46)
[2017-11-01] MEDS ORDERED: Vancomycin HCl 1.25 GM in Sodium Chloride 0.9% 250 ML 250 ML IVPB SCH (02:00)
[2017-11-01] MEDS: metroNIDAZOLE 500 MG in Premix Bag 1 BAG IVPB SCH ×3 (04:58→20:28)
[2017-11-01 06:04] LABS: Anion Gap 12 mmol/L (10-20); BUN (Urea Nitrogen) 20 mg/dL (8.4-25.7); Calc. Creatinine Clearance 113 mL/min (70-130); Calcium 8.2 mg/dL (7.8-10.44); Carbon Dioxide 22 mmol/L (23-31); Chloride 107 mmol/L (98-107); Estimated GFR-MDRD 89; Glucose 120 mg/dL (83-110); Potassium 3.5 mmol/L (3.5-5.1); Sodium 137 mmol/L (136-145)
[2017-11-01 06:11] LABS: Band 2 % (5-11); Eosinophils 1 % (0-10); Hemoglobin 9.5 g/dL (14.0-18.0); Lymphocytes 4 % (21-51); MDiff Complete? YES; Mean Corpuscular HGB CONC 32.6 g/dL (32.0-36.0); Mean Corpuscular Hemoglobin 30.1 pg (27.0-31.0); Mean Corpuscular Volume 92.2 fl (80.0-94.0); Mean Platelet Volume 7.8 fL (7.4-10.4); Monocytes 6 % (0-10); Neutrophil 86 % (42-75); Platelet Count 165 thou/uL (130-400); RBC Distribution Width 14.2 % (11.5-14.5); Red Blood Cell (RBC) Count 3.17 mill/uL (4.70-6.10)
[2017-11-01 06:34] LABS: INR-International Normal Ratio 2.8; Prothrombin Time 30.6 SEC (12.0-14.7)
--- NOTE | 2017-11-01 07:49 | PRG ---
DATE OF SERVICE: 11/01/2017 SUBJECTIVE: Mr. Zamora is a 77-year-old male currently resting comfortably. PHYSICAL EXAMINATION: VITAL SIGNS: T-max 100.2, T-current 98. Urine output 3700 mL clear, he is negative 2.2 liters. ABDOMEN: Soft, nontender, nondistended. No suprapubic tenderness. GENITOURINARY: Verdin catheter is somewhat kinked, on tension. There is no purulent discharge at the meatus, however, due to inadequate catheter securing, there is some pressure induced meatal tear. Mild oozing is noted. I did resecured his Verdin catheter to the contralateral leg, secure with StatLock x2 off tension. LABORATORY DATA: White count 13, hemoglobin 9.5, platelet 165. INR 2.8. Kidney function stable at 0.8. Blood culture 1 of 2 coag negative Staph, likely skin contaminant. Urine culture demonstrated polymicrobial gram negative dheeraj with Klebsiella, Enterobacter, sensitivity is pending. Corresponding UA demonstrates 4+ bacteria , no epithelials, moderate leukocytes, 20-50 RBCs, greater than 50 WBCs. IMPRESSION AND PLAN: 1. Mr. Zamora is a 77-year-old male, non-Tristanian speaking, with protracted hospital stay secondary to left retroperitoneal hematoma. 2. Pneumonia. 3. Mechanical heart valve, on chronic anticoagulation. 4. Deconditioning status. 1. Urologic consultation secondary to urinary retention of 450 mL with mild bilateral prominence of the ureters. Flomax was initiated this Saturday, I did add Avodart as an adjunct due to enlarged prostate volume seen on CT. PLAN: I plan a voiding trial sometime next week if he remains afebrile. Urine culture reviewed, with chronic indwelling urethral Verdin catheter, bacteriuria is expected; however, this patient is noted to have fever, with history of mechanical heart valve would treat empirically for possible component contributing to leukocytosis and fever. Currently on Rocephin and vancomycin. Consider changing Rocephin to Levaquin as he developed a urine culture positive on Rocephin. Verdin catheter care instructed to nursing staff. I will be off service until Saturday. Dr. Gonzalez is covering me this weekend, Dr. Hyman covering me on Saturday if needed . Continue Avodart and Flomax. [facility]
[2017-11-01] MEDS: Arformoterol 15 MCG/2 ML NEB NEB SCH ×2 (09:15→19:24)
[2017-11-01] MEDS: Budesonide 0.5 MG/2 ML NEB INH SCH ×2 (09:15→19:27)
[2017-11-01] MEDS: Amlodipine 5 MG TAB PO SCH (10:23)
[2017-11-01] MEDS: Dutasteride 0.5 MG CAP PO SCH (10:24)
[2017-11-01] MEDS: Tamsulosin HCl 0.4 MG CAP PO SCH (10:25)
[2017-11-01] MEDS ORDERED: cefTRIAXone\\ROCEPHIN 1 GM in Sodium Chloride 0.9% 100 ML IVPB SCH (11:00)
[2017-11-01] MEDS ORDERED: diphenhydrAMINE 25 MG CAP PO SCH (11:30)
--- NOTE | 2017-11-01 13:16 | PDOC.PN ---
- Subjective Encounter Start Date: 11/01/17 Encounter Start Time: 07:20 Pt seen for followup re: sepsis. Denies chest pain. Cough+, sputum+. - Objective Resuscitation Status: Resuscitation Status FULL:Full Resuscitation MAR Reviewed: Yes Vital Signs & Weight: Vital Signs (12 hours) Temp Pulse Resp BP BP Pulse Ox 11/01/17 11:26 98.1 F 11/01/17 10:23 78 113/54 L 11/01/17 09:15 80 20 11/01/17 08:00 98.1 F 78 14 113/54 L 92 L 11/01/17 03:17 98.2 F 83 20 122/52 L 91 L 11/01/17 01:40 92 L Weight Admit Weight 233 lb 0.458 oz Weight 231 lb Most Recent Monitor Data Heart Rate from ECG 78 NIBP 164/57 NIBP BP-Mean 126 Respiration from ECG 18 SpO2 96 I&O: 10/31/17 11/01/17 11/02/17 06:59 06:59 06:59 Intake Total 1470 Output Total 1600 3700 Balance -1600 -2230 Result Diagrams: 11/01/17 05:29 11/01/17 05:29 Additional Labs: Labs reviewed by me Phys Exam - Physical Examination Constitutional: NAD HEENT: moist MMs Neck: supple Bibasal crackles Cardiovascular: RRR Gastrointestinal: soft Neurological: moves all 4 limbs Psychiatric: normal affect Dx/Plan (1) Sepsis Code(s): A41.9 - SEPSIS, UNSPECIFIED ORGANISM Status: Acute Comment: source of infection likely lung. 1/2 blood cultures positive, likely contaminant. Stop vancomycin. (2) Pneumonia Code(s): J18.9 - PNEUMONIA, UNSPECIFIED ORGANISM Status: Acute Comment: continue aspiration precautions, pt needs swallow function re-eval. Discussed with urology service. Less likely to be UTI, will change antibiotic to levofloxacin (3) Acute urinary retention Code(s): R33.8 - OTHER RETENTION OF URINE Status: Acute Comment: indwelling davis catheter (4) New onset atrial fibrillation Code(s): I48.91 - UNSPECIFIED ATRIAL FIBRILLATION Status: Acute Comment: Stable. Pt is on warfarin. (5) Retroperitoneal hematoma Code(s): K66.1 - HEMOPERITONEUM Status: Acute Comment: Stable. (6) CAD (coronary artery disease), [place] coronary artery Code(s): I25.10 - ATHSCL HEART DISEASE OF [place] CORONARY ARTERY W/O ANG PCTRS Status: Chronic Qualifiers: [place] vs. transplanted heart: [place] heart Associated angina: without angina Qualified Code(s): I25.10 - Atherosclerotic heart disease of [place] coronary artery without angina pectoris Comment: Stable (7) CKD (chronic kidney disease), stage III Code(s): N18.3 - CHRONIC KIDNEY DISEASE, STAGE 3 (MODERATE) Status: Chronic Comment: stable (8) HTN (hypertension) Code(s): I10 - ESSENTIAL (PRIMARY) HYPERTENSION Status: Chronic Qualifiers: Hypertension type: essential hypertension Qualified Code(s): I10 - Essential (primary) hypertension Comment: Controlled (9) UTI (urinary tract infection) Status: Ruled-out Comment: urine cultures growing Kleb/Enterobacter and a second gram negative dheeraj. Less likely to be a true UTI, since pt has an indwelling Davis - Plan * . Review of Systems - Review of Systems Respiratory: Cough, Sputum. negative: Dry, Shortness of Breath, Hemoptysis, SOB with Excertion, Pleuritic Pain, Wheezing Cardiovascular: negative: chest pain, palpitations, orthopnea, paroxysmal nocturnal dyspnea, edema, light headedness - Medications/Allergies Allergies/Adverse Reactions: Allergies Allergy/AdvReac Type Severity Reaction Status Date / Time No Known Allergies Allergy Unverified 11/01/13 16:51 Medications: Current Medications Acetaminophen (Tylenol) 650 mg [place] Q4H PRN PRN Reason: Headache/Fever or Pain Last Admin: 10/16/17 11:04 Dose: 650 mg Acetaminophen (Tylenol) 650 mg PO Q4H PRN PRN Reason: Headache/Fever or Pain Last Admin: 10/31/17 14:38 Dose: 650 mg Amlodipine Besylate (Norvasc) 5 mg PO DAILY [facility] Last Admin: 11/01/17 10:23 Dose: 5 mg Arformoterol Tartrate (Brovana) 15 mcg NEB BID-RT [facility] Last Admin: 11/01/17 09:15 Dose: 15 mcg Bisacodyl (Dulcolax) 10 mg [place] Q24H PRN PRN Reason: Constipation Last Admin: 10/18/17 07:53 Dose: 10 mg Budesonide (Pulmicort Neb Solution) 0.5 mg INH BID-RT [facility] Last Admin: 11/01/17 09:15 Dose: 0.5 mg Diphenhydramine HCl (Benadryl) 25 mg PO NOW [facility] Stop: 11/01/17 13:30 Dutasteride (Avodart) 0.5 mg PO DAILY [facility] Last Admin: 11/01/17 10:24 Dose: 0.5 mg Metronidazole 500 mg/ Device 100 mls @ 100 mls/hr IVPB 0400,1200,2000 [facility] Last Admin: 11/01/17 04:58 Dose: 100 mls Ceftriaxone Sodium 1 gm/ (Sodium Chloride) 100 mls @ 200 mls/hr IVPB Q24HR [facility] Last Admin: 11/01/17 11:41 Dose: 100 mls Miscellaneous Medication (Pharmacy To Dose) 1 each IVPB PRN PRN PRN Reason: Pharmacy to dose Miscellaneous Medication (Pharmacy To Dose) 1 each PO ASDIR PRN PRN Reason: Pharmacy to Dose WARFARIN Discontinue Previous Narcotic Pain Medications And Benzodiazepines 1 each FS .ONE [facility] Stop: 11/13/17 15:24 Pantoprazole Sodium (Protonix) 40 mg PO 2100 [facility] Last Admin: 10/31/17 21:28 Dose: 40 mg Senna (Senokot) 2 tab PO HSPRN PRN PRN Reason: Constipation Last Admin: 10/31/17 17:46 Dose: 2 tab Sodium Chloride (Flush - Normal Saline) 10 ml IVF Q12HR [facility] Last Admin: 11/01/17 10:25 Dose: 10 ml Sodium Chloride (Flush - Normal Saline) 10 ml IVF PRN PRN PRN Reason: Saline Flush Tamsulosin HCl (Flomax) 0.4 mg PO DAILY [facility] Last Admin: 11/01/17 10:25 Dose: 0.4 mg Warfarin Sodium (Coumadin) 4 mg PO 1700 [facility] Last Admin: 10/31/17 17:46 Dose: 4 mg
--- NOTE | 2017-11-01 13:46 | PRG ---
DATE OF SERVICE: 11/01/2017 SERVICE: Pulmonary Medicine INTERVAL HISTORY: The patient is doing fine from a respiratory standpoint. He continues to cough a little bit. Outside of this, he ran a low grade temperature yesterday prompting a roth culture and em piric antibiotics. His discharge from the hospital was held. Otherwise, there has been no interval change to his condition. PHYSICAL EXAMINATION: VITAL SIGNS: Currently afebrile with a T-max yesterday at noon of 100.6. Pulse 78, blood pressure 1 13/54, respirations 14, saturation 92% on room air. GENERAL: The patient is awake, alert, no apparent distress. LUNGS: Decent air entry. There is no prolonged expiratory phase or wheezing present. HEART: Normal rate, regular. ABDOMEN: Soft. Nontender, nondistended. Bowel sounds are positive. MUSCULOSKELETAL: No cyanosis or clubbing. No pitting in the bilateral lower extremities. NEUROLOGIC: Grossly nonfocal. LABORATORY DATA: WBC 13.0, hemoglobin 9.5 and stable, platelets 165,000. Basic metabolic profile is completely unremarkable again. Blood culture x1 is growing coag negative staph. The other one is n ormal. The urine is growing presumptive Klebsiella/Enterobacter and a different gram negative dheeraj. IMAGING: Chest x-ray demonstrates a bibasilar pleural parenchymal opacification, likely consistent w ith a little volume loss, though infiltrate cannot be excluded. ASSESSMENT: 1. Acute hypoxic respiratory failure, resolved. 2. Healthcare-associated pneumonia, status post full course of therapy. 3. Acute blood loss anemia secondary to retroperitoneal bleed, resolved. 4. Mechanical mitral valve, requiring anticoagulation. 5. Deconditioning, severe. 6. Sepsis without end organ damage. 7. Urinary tract infection. DISCUSSION AND PLAN: Once the cultures result, we can convert the patient on to a p.o. medication. He can subsequently be discharged from the hospital. Pulmonary Critical Care will continue to follow intermittently during this hospital stay. Ultimately, he will require repeat chest x-ray in 4 weeks in the outpatient setting to verify the infiltrate resolves. We will continue to mobilize him to e best of our ability while he remains in house, I will return on Saturday, but if he gets into trouble over the weekend, please give Dr. Weldon call.
[2017-11-01] MEDS: Warfarin Sodium 2 MG TAB PO SCH (17:18)
[2017-11-01] MEDS: Senokot 8.6 MG TAB PO PRN (20:27)
[2017-11-02] MEDS: metroNIDAZOLE 500 MG in Premix Bag 1 BAG IVPB SCH ×2 (03:10→13:03)
[2017-11-02] MEDS: Bisacodyl 10 MG SUPP PR PRN (05:21)
[2017-11-02 05:24] LABS: Prothrombin Time 32.4 SEC (12.0-14.7)
[2017-11-02 05:35] LABS: Anion Gap 9 mmol/L (10-20); BUN (Urea Nitrogen) 16 mg/dL (8.4-25.7); Calc. Creatinine Clearance 113 mL/min (70-130); Calcium 8.1 mg/dL (7.8-10.44); Carbon Dioxide 24 mmol/L (23-31); Chloride 106 mmol/L (98-107); Estimated GFR-MDRD 90; Glucose 113 mg/dL (83-110); Potassium 3.4 mmol/L (3.5-5.1); Sodium 136 mmol/L (136-145)
[2017-11-02 05:57] LABS: Band 8 % (5-11); Hemoglobin 9.3 g/dL (14.0-18.0); Lymphocytes 8 % (21-51); MDiff Complete? YES; Mean Corpuscular HGB CONC 32.1 g/dL (32.0-36.0); Mean Corpuscular Hemoglobin 29.5 pg (27.0-31.0); Mean Corpuscular Volume 91.6 fl (80.0-94.0); Monocytes 7 % (0-10); Neutrophil 77 % (42-75); Platelet Count 182 thou/uL (130-400); RBC Distribution Width 14.3 % (11.5-14.5); Red Blood Cell (RBC) Count 3.15 mill/uL (4.70-6.10); White Blood Cell (WBC) Count 10.4 thou/uL (4.8-10.8)
[2017-11-02] MEDS: Budesonide 0.5 MG/2 ML NEB INH SCH ×2 (06:05→18:24)
[2017-11-02] MEDS: Arformoterol 15 MCG/2 ML NEB NEB SCH ×2 (06:05→18:31)
[2017-11-02] MEDS: Tamsulosin HCl 0.4 MG CAP PO SCH (08:37)
[2017-11-02] MEDS: Amlodipine 5 MG TAB PO SCH (08:37)
[2017-11-02] MEDS: Dutasteride 0.5 MG CAP PO SCH (08:37)
--- NOTE | 2017-11-02 12:11 | PDOC.PN ---
- Subjective Encounter Start Date: 11/02/17 Encounter Start Time: 07:20 Pt seen for followup re: pneumonia. Cough is better. No fevers or chills. - Objective Resuscitation Status: Resuscitation Status FULL:Full Resuscitation MAR Reviewed: Yes Vital Signs & Weight: Vital Signs (12 hours) Temp Pulse Resp BP Pulse Ox 11/02/17 08:37 84 11/02/17 07:45 98.2 F 84 18 124/58 L 92 L 11/02/17 06:05 72 12 11/02/17 03:42 98.9 F Weight Admit Weight 233 lb 0.458 oz Weight 228 lb 4.8 oz Most Recent Monitor Data Heart Rate from ECG 78 NIBP 164/57 NIBP BP-Mean 126 Respiration from ECG 18 SpO2 96 I&O: 11/01/17 11/02/17 11/03/17 06:59 06:59 06:59 Intake Total 1470 1260 Output Total 3700 1200 Balance -2230 60 Result Diagrams: 11/03/17 04:58 11/03/17 04:58 Additional Labs: Labs reviewed by me Phys Exam - Physical Examination Constitutional: NAD HEENT: moist MMs Neck: supple Bibasal crackles Cardiovascular: RRR Gastrointestinal: soft Neurological: moves all 4 limbs Psychiatric: normal affect Dx/Plan (1) Pneumonia Code(s): J18.9 - PNEUMONIA, UNSPECIFIED ORGANISM Status: Acute Comment: continue aspiration precautions, continue levofloxacin (2) Acute urinary retention Code(s): R33.8 - OTHER RETENTION OF URINE Status: Acute Comment: indwelling davis catheter; discussed with urology service. Urology studies next Saturday (3) New onset atrial fibrillation Code(s): I48.91 - UNSPECIFIED ATRIAL FIBRILLATION Status: Acute Comment: continue warfarin (4) Retroperitoneal hematoma Code(s): K66.1 - HEMOPERITONEUM Status: Acute Comment: Stable. (5) CAD (coronary artery disease), [place] coronary artery Code(s): I25.10 - ATHSCL HEART DISEASE OF [place] CORONARY ARTERY W/O ANG PCTRS Status: Chronic Qualifiers: [place] vs. transplanted heart: [place] heart Associated angina: without angina Qualified Code(s): I25.10 - Atherosclerotic heart disease of [place] coronary artery without angina pectoris Comment: Stable (6) CKD (chronic kidney disease), stage III Code(s): N18.3 - CHRONIC KIDNEY DISEASE, STAGE 3 (MODERATE) Status: Chronic Comment: stable (7) HTN (hypertension) Code(s): I10 - ESSENTIAL (PRIMARY) HYPERTENSION Status: Chronic Qualifiers: Hypertension type: essential hypertension Qualified Code(s): I10 - Essential (primary) hypertension Comment: Controlled (8) UTI (urinary tract infection) Status: Ruled-out (9) Sepsis Code(s): A41.9 - SEPSIS, UNSPECIFIED ORGANISM Status: Resolved - Plan * . Review of Systems - Review of Systems Respiratory: Cough, Sputum. negative: Shortness of Breath, SOB with Excertion, Pleuritic Pain, Wheezing Cardiovascular: negative: chest pain, palpitations, orthopnea, paroxysmal nocturnal dyspnea, edema, light headedness - Medications/Allergies Allergies/Adverse Reactions: Allergies Allergy/AdvReac Type Severity Reaction Status Date / Time No Known Allergies Allergy Unverified 11/01/13 16:51 Medications: Current Medications Acetaminophen (Tylenol) 650 mg [place] Q4H PRN PRN Reason: Headache/Fever or Pain Last Admin: 10/16/17 11:04 Dose: 650 mg Acetaminophen (Tylenol) 650 mg PO Q4H PRN PRN Reason: Headache/Fever or Pain Last Admin: 10/31/17 14:38 Dose: 650 mg Amlodipine Besylate (Norvasc) 5 mg PO DAILY [facility] Last Admin: 11/02/17 08:37 Dose: 5 mg Arformoterol Tartrate (Brovana) 15 mcg NEB BID-RT [facility] Last Admin: 11/02/17 06:05 Dose: 15 mcg Bisacodyl (Dulcolax) 10 mg [place] Q24H PRN PRN Reason: Constipation Last Admin: 11/02/17 05:21 Dose: 10 mg Budesonide (Pulmicort Neb Solution) 0.5 mg INH BID-RT [facility] Last Admin: 11/02/17 06:05 Dose: 0.5 mg Dutasteride (Avodart) 0.5 mg PO DAILY [facility] Last Admin: 11/02/17 08:37 Dose: 0.5 mg Metronidazole 500 mg/ Device 100 mls @ 100 mls/hr IVPB 0400,1200,2000 [facility] Last Admin: 11/02/17 03:10 Dose: 100 mls Levofloxacin 750 mg/ Device 150 mls @ 100 mls/hr IVPB Q24HR [facility] Last Admin: 11/01/17 15:03 Dose: 150 mls Miscellaneous Medication (Pharmacy To Dose) 1 each IVPB PRN PRN PRN Reason: Pharmacy to dose Miscellaneous Medication (Pharmacy To Dose) 1 each PO ASDIR PRN PRN Reason: Pharmacy to Dose WARFARIN Discontinue Previous Narcotic Pain Medications And Benzodiazepines 1 each FS .ONE [facility] Stop: 11/13/17 15:24 Pantoprazole Sodium (Protonix) 40 mg PO 2100 [facility] Last Admin: 11/01/17 20:26 Dose: 40 mg Potassium Chloride (K-Dur) 40 meq PO ONE [facility] Senna (Senokot) 2 tab PO HSPRN PRN PRN Reason: Constipation Last Admin: 11/01/17 20:27 Dose: 2 tab Sodium Chloride (Flush - Normal Saline) 10 ml IVF Q12HR [facility] Last Admin: 11/02/17 08:38 Dose: 10 ml Sodium Chloride (Flush - Normal Saline) 10 ml IVF PRN PRN PRN Reason: Saline Flush Last Admin: 11/01/17 15:07 Dose: 10 ml Tamsulosin HCl (Flomax) 0.4 mg PO DAILY [facility] Last Admin: 11/02/17 08:37 Dose: 0.4 mg Warfarin Sodium (Coumadin) 4 mg PO 1700 [facility] Last Admin: 11/01/17 17:18 Dose: 4 mg
[2017-11-02] MEDS ORDERED: Potassium Chloride 20 MEQ TAB PO SCH (12:15)
[2017-11-02] MEDS: Warfarin Sodium 2 MG TAB PO SCH (16:28)
[2017-11-02] MEDS: metroNIDAZOLE 500 MG TAB PO SCH (20:41)
[2017-11-03 05:20] LABS: INR-International Normal Ratio 3.4; Prothrombin Time 35.5 SEC (12.0-14.7)
[2017-11-03 05:29] LABS: Anion Gap 9 mmol/L (10-20); BUN (Urea Nitrogen) 16 mg/dL (8.4-25.7); Calc. Creatinine Clearance 113 mL/min (70-130); Calcium 8.5 mg/dL (7.8-10.44); Carbon Dioxide 23 mmol/L (23-31); Chloride 108 mmol/L (98-107); Estimated GFR-MDRD Greater than 90; Glucose 108 mg/dL (83-110); Potassium 3.8 mmol/L (3.5-5.1); Sodium 136 mmol/L (136-145)
[2017-11-03 05:49] LABS: Eosinophils 3 % (0-10); Hemoglobin 9.6 g/dL (14.0-18.0); Lymphocytes 2 % (21-51); MDiff Complete? YES; Mean Corpuscular Hemoglobin 29.9 pg (27.0-31.0); Mean Corpuscular Volume 90.6 fl (80.0-94.0); Mean Platelet Volume 7.9 fL (7.4-10.4); Monocytes 11 % (0-10); Myelocyte 1 % (0-0); Neutrophil 83 % (42-75); Platelet Count 224 thou/uL (130-400); RBC Distribution Width 14.4 % (11.5-14.5); White Blood Cell (WBC) Count 8.4 thou/uL (4.8-10.8)
[2017-11-03] MEDS: Budesonide 0.5 MG/2 ML NEB INH SCH ×2 (07:59→18:28)
[2017-11-03] MEDS: Arformoterol 15 MCG/2 ML NEB NEB SCH ×2 (07:59→18:22)
[2017-11-03] MEDS: Amlodipine 5 MG TAB PO SCH (09:13)
[2017-11-03] MEDS: metroNIDAZOLE 500 MG TAB PO SCH ×3 (09:13→20:13)
[2017-11-03] MEDS: Tamsulosin HCl 0.4 MG CAP PO SCH (09:13)
[2017-11-03] MEDS: Dutasteride 0.5 MG CAP PO SCH (09:13)
[2017-11-03] MEDS: Senokot 8.6 MG TAB PO PRN (09:15)
--- NOTE | 2017-11-03 12:00 | PDOC.PN ---
- Subjective Encounter Start Date: 11/03/17 Encounter Start Time: 07:20 Pt seen for followup re: pneumonia. Cough better. Denies fevers or chills. - Objective Resuscitation Status: Resuscitation Status FULL:Full Resuscitation MAR Reviewed: Yes Vital Signs & Weight: Vital Signs (12 hours) Temp Pulse Resp BP BP Pulse Ox 11/03/17 09:13 82 113/56 L 11/03/17 08:00 97.7 F 82 20 113/56 L 90 L 11/03/17 07:59 80 12 11/03/17 02:43 97 Weight Admit Weight 233 lb 0.458 oz Weight 224 lb 6 oz Most Recent Monitor Data Heart Rate from ECG 78 NIBP 164/57 NIBP BP-Mean 126 Respiration from ECG 18 SpO2 96 I&O: 11/02/17 11/03/17 11/04/17 06:59 06:59 06:59 Intake Total 1260 Output Total 1200 7900 Balance 60 -7900 Result Diagrams: 11/04/17 04:42 11/04/17 04:42 Additional Labs: labs reviewed by me Phys Exam - Physical Examination Obesity HEENT: moist MMs Neck: supple Respiratory: clear to auscultation bilateral Cardiovascular: RRR Gastrointestinal: soft Neurological: moves all 4 limbs Psychiatric: normal affect Dx/Plan (1) Pneumonia Code(s): J18.9 - PNEUMONIA, UNSPECIFIED ORGANISM Status: Acute Comment: continue aspiration precautions, continue levofloxacin and metronidazole (2) Acute urinary retention Code(s): R33.8 - OTHER RETENTION OF URINE Status: Acute Comment: Urology studies tomorrow (3) New onset atrial fibrillation Code(s): I48.91 - UNSPECIFIED ATRIAL FIBRILLATION Status: Acute Comment: continue warfarin. INR climbing, pharmacy is managing warfarin. (4) Retroperitoneal hematoma Code(s): K66.1 - HEMOPERITONEUM Status: Acute Comment: Stable. (5) CAD (coronary artery disease), [place] coronary artery Code(s): I25.10 - ATHSCL HEART DISEASE OF [place] CORONARY ARTERY W/O ANG PCTRS Status: Chronic Qualifiers: [place] vs. transplanted heart: [place] heart Associated angina: without angina Qualified Code(s): I25.10 - Atherosclerotic heart disease of [place] coronary artery without angina pectoris Comment: Stable (6) CKD (chronic kidney disease), stage III Code(s): N18.3 - CHRONIC KIDNEY DISEASE, STAGE 3 (MODERATE) Status: Chronic Comment: stable (7) HTN (hypertension) Code(s): I10 - ESSENTIAL (PRIMARY) HYPERTENSION Status: Chronic Qualifiers: Hypertension type: essential hypertension Qualified Code(s): I10 - Essential (primary) hypertension Comment: Controlled and at goal (8) UTI (urinary tract infection) Status: Ruled-out (9) Sepsis Code(s): A41.9 - SEPSIS, UNSPECIFIED ORGANISM Status: Resolved - Plan * . Review of Systems - Review of Systems Respiratory: Cough, Sputum. negative: Dry, Shortness of Breath, Hemoptysis, SOB with Excertion, Pleuritic Pain, Wheezing Cardiovascular: negative: chest pain, palpitations, orthopnea, paroxysmal nocturnal dyspnea, edema, light headedness - Medications/Allergies Allergies/Adverse Reactions: Allergies Allergy/AdvReac Type Severity Reaction Status Date / Time No Known Allergies Allergy Unverified 11/01/13 16:51 Medications: Current Medications Acetaminophen (Tylenol) 650 mg NE Q4H PRN PRN Reason: Headache/Fever or Pain Last Admin: 10/16/17 11:04 Dose: 650 mg Acetaminophen (Tylenol) 650 mg PO Q4H PRN PRN Reason: Headache/Fever or Pain Last Admin: 10/31/17 14:38 Dose: 650 mg Amlodipine Besylate (Norvasc) 5 mg PO DAILY [facility] Last Admin: 11/03/17 09:13 Dose: 5 mg Arformoterol Tartrate (Brovana) 15 mcg NEB BID-RT [facility] Last Admin: 11/03/17 07:59 Dose: 15 mcg Bisacodyl (Dulcolax) 10 mg NE Q24H PRN PRN Reason: Constipation Last Admin: 11/02/17 05:21 Dose: 10 mg Budesonide (Pulmicort Neb Solution) 0.5 mg INH BID-RT [facility] Last Admin: 11/03/17 07:59 Dose: 0.5 mg Dutasteride (Avodart) 0.5 mg PO DAILY [facility] Last Admin: 11/03/17 09:13 Dose: 0.5 mg Levofloxacin (Levaquin) 750 mg PO Q24H [facility] Last Admin: 11/02/17 14:39 Dose: 750 mg Metronidazole (Flagyl) 500 mg PO TID [facility] Last Admin: 11/03/17 09:13 Dose: 500 mg Miscellaneous Medication (Pharmacy To Dose) 1 each IVPB PRN PRN PRN Reason: Pharmacy to dose Miscellaneous Medication (Pharmacy To Dose) 1 each PO ASDIR PRN PRN Reason: Pharmacy to Dose WARFARIN Discontinue Previous Narcotic Pain Medications And Benzodiazepines 1 each FS .ONE [facility] Stop: 11/13/17 15:24 Pantoprazole Sodium (Protonix) 40 mg PO 2100 [facility] Last Admin: 11/02/17 20:41 Dose: 40 mg Senna (Senokot) 2 tab PO HSPRN PRN PRN Reason: Constipation Last Admin: 11/03/17 09:15 Dose: 2 tab Sodium Chloride (Flush - Normal Saline) 10 ml IVF Q12HR [facility] Last Admin: 11/03/17 09:37 Dose: Not Given Sodium Chloride (Flush - Normal Saline) 10 ml IVF PRN PRN PRN Reason: Saline Flush Last Admin: 11/01/17 15:07 Dose: 10 ml Tamsulosin HCl (Flomax) 0.4 mg PO DAILY [facility] Last Admin: 11/03/17 09:13 Dose: 0.4 mg Warfarin Sodium (Coumadin) 4 mg PO 1700 [facility] Last Admin: 11/02/17 16:28 Dose: 4 mg
[2017-11-03] MEDS: Warfarin Sodium 2 MG TAB PO SCH (17:43)
[2017-11-04 05:21] LABS: INR-International Normal Ratio 3.8; Prothrombin Time 39.7 SEC (12.0-14.7)
[2017-11-04 05:34] LABS: Calcium 8.4 mg/dL (7.8-10.44); Chloride 108 mmol/L (98-107); Potassium 3.7 mmol/L (3.5-5.1); Sodium 138 mmol/L (136-145)
[2017-11-04 05:42] LABS: BUN (Urea Nitrogen) 20 mg/dL (8.4-25.7); Calc. Creatinine Clearance 107 mL/min (70-130); Carbon Dioxide 23 mmol/L (23-31); Estimated GFR-MDRD 87; Glucose 110 mg/dL (83-110)
[2017-11-04 05:46] LABS: Band 6 % (5-11); Hemoglobin 9.8 g/dL (14.0-18.0); Lymphocytes 18 % (21-51); MDiff Complete? YES; Mean Corpuscular Hemoglobin 29.2 pg (27.0-31.0); Mean Corpuscular Volume 91.3 fl (80.0-94.0); Mean Platelet Volume 7.5 fL (7.4-10.4); Neutrophil 76 % (42-75); Platelet Count 226 thou/uL (130-400); RBC Distribution Width 14.4 % (11.5-14.5); Red Blood Cell (RBC) Count 3.34 mill/uL (4.70-6.10); White Blood Cell (WBC) Count 8.6 thou/uL (4.8-10.8)
[2017-11-04 05:49] LABS: Anion Gap 11 mmol/L (10-20)
[2017-11-04] MEDS: Arformoterol 15 MCG/2 ML NEB NEB SCH ×2 (06:28→18:24)
[2017-11-04] MEDS: Budesonide 0.5 MG/2 ML NEB INH SCH ×2 (06:28→18:21)
[2017-11-04] MEDS: Dutasteride 0.5 MG CAP PO SCH (08:18)
[2017-11-04] MEDS: metroNIDAZOLE 500 MG TAB PO SCH ×3 (08:19→20:03)
[2017-11-04] MEDS: Tamsulosin HCl 0.4 MG CAP PO SCH (08:19)
[2017-11-04] MEDS: Amlodipine 5 MG TAB PO SCH (08:19)
--- NOTE | 2017-11-04 11:05 | PDOC.PN ---
- Subjective Encounter Start Date: 11/04/17 Encounter Start Time: 07:40 Pt seen for followup re: pneumonia. Cough better. No fevers or chills. - Objective Resuscitation Status: Resuscitation Status FULL:Full Resuscitation MAR Reviewed: Yes Vital Signs & Weight: Vital Signs (12 hours) Temp Pulse Resp BP BP Pulse Ox 11/04/17 08:19 87 135/64 11/04/17 07:57 98.3 F 85 18 135/64 92 L 11/04/17 06:28 78 12 11/04/17 00:47 96 Weight Admit Weight 233 lb 0.458 oz Weight 225 lb Most Recent Monitor Data Heart Rate from ECG 78 NIBP 164/57 NIBP BP-Mean 126 Respiration from ECG 18 SpO2 96 I&O: 11/03/17 11/04/17 11/05/17 06:59 06:59 06:59 Output Total 7900 600 Balance -7900 -600 Result Diagrams: 11/04/17 04:42 11/04/17 04:42 Additional Labs: Labs reviewed by me Phys Exam - Physical Examination Constitutional: NAD HEENT: moist MMs Neck: supple Respiratory: clear to auscultation bilateral Cardiovascular: RRR Gastrointestinal: soft Musculoskeletal: edema present Psychiatric: normal affect Dx/Plan (1) Pneumonia Code(s): J18.9 - PNEUMONIA, UNSPECIFIED ORGANISM Status: Acute Comment: continue aspiration precautions, continue levofloxacin and metronidazole (2) Acute urinary retention Code(s): R33.8 - OTHER RETENTION OF URINE Status: Acute Comment: Urology studies tomorrow (3) New onset atrial fibrillation Code(s): I48.91 - UNSPECIFIED ATRIAL FIBRILLATION Status: Acute Comment: continue warfarin. INR climbing, pharmacy is managing warfarin. (4) Retroperitoneal hematoma Code(s): K66.1 - HEMOPERITONEUM Status: Acute Comment: Stable. (5) CAD (coronary artery disease), [place] coronary artery Code(s): I25.10 - ATHSCL HEART DISEASE OF [place] CORONARY ARTERY W/O ANG PCTRS Status: Chronic Qualifiers: [place] vs. transplanted heart: [place] heart Associated angina: without angina Qualified Code(s): I25.10 - Atherosclerotic heart disease of [place] coronary artery without angina pectoris Comment: Stable (6) CKD (chronic kidney disease), stage III Code(s): N18.3 - CHRONIC KIDNEY DISEASE, STAGE 3 (MODERATE) Status: Chronic Comment: stable (7) HTN (hypertension) Code(s): I10 - ESSENTIAL (PRIMARY) HYPERTENSION Status: Chronic Qualifiers: Hypertension type: essential hypertension Qualified Code(s): I10 - Essential (primary) hypertension Comment: Controlled and at goal (8) UTI (urinary tract infection) Status: Ruled-out (9) Sepsis Code(s): A41.9 - SEPSIS, UNSPECIFIED ORGANISM Status: Resolved - Plan * . Review of Systems - Review of Systems Constitutional: negative: fever, chills, sweats, weakness, malaise Respiratory: Cough, Sputum. negative: Dry, Shortness of Breath, Hemoptysis, SOB with Excertion, Pleuritic Pain, Wheezing Skin: negative: Rash, Lesions, Chris, Bruising - Medications/Allergies Allergies/Adverse Reactions: Allergies Allergy/AdvReac Type Severity Reaction Status Date / Time No Known Allergies Allergy Unverified 11/01/13 16:51 Medications: Current Medications Acetaminophen (Tylenol) 650 mg MA Q4H PRN PRN Reason: Headache/Fever or Pain Last Admin: 10/16/17 11:04 Dose: 650 mg Acetaminophen (Tylenol) 650 mg PO Q4H PRN PRN Reason: Headache/Fever or Pain Last Admin: 10/31/17 14:38 Dose: 650 mg Amlodipine Besylate (Norvasc) 5 mg PO DAILY [facility] Last Admin: 11/04/17 08:19 Dose: 5 mg Arformoterol Tartrate (Brovana) 15 mcg NEB BID-RT [facility] Last Admin: 11/04/17 06:28 Dose: 15 mcg Bisacodyl (Dulcolax) 10 mg MA Q24H PRN PRN Reason: Constipation Last Admin: 11/02/17 05:21 Dose: 10 mg Budesonide (Pulmicort Neb Solution) 0.5 mg INH BID-RT [facility] Last Admin: 11/04/17 06:28 Dose: 0.5 mg Dutasteride (Avodart) 0.5 mg PO DAILY [facility] Last Admin: 11/04/17 08:18 Dose: 0.5 mg Levofloxacin (Levaquin) 750 mg PO Q24H [facility] Last Admin: 11/03/17 15:40 Dose: 750 mg Metronidazole (Flagyl) 500 mg PO TID [facility] Last Admin: 11/04/17 08:19 Dose: 500 mg Miscellaneous Medication (Pharmacy To Dose) 1 each IVPB PRN PRN PRN Reason: Pharmacy to dose Miscellaneous Medication (Pharmacy To Dose) 1 each PO ASDIR PRN PRN Reason: Pharmacy to Dose WARFARIN Discontinue Previous Narcotic Pain Medications And Benzodiazepines 1 each FS .ONE [facility] Stop: 11/13/17 15:24 Pantoprazole Sodium (Protonix) 40 mg PO 2100 [facility] Last Admin: 11/03/17 20:13 Dose: 40 mg Senna (Senokot) 2 tab PO HSPRN PRN PRN Reason: Constipation Last Admin: 11/03/17 09:15 Dose: 2 tab Sodium Chloride (Flush - Normal Saline) 10 ml IVF Q12HR [facility] Last Admin: 11/03/17 20:13 Dose: Not Given Sodium Chloride (Flush - Normal Saline) 10 ml IVF PRN PRN PRN Reason: Saline Flush Last Admin: 11/01/17 15:07 Dose: 10 ml Tamsulosin HCl (Flomax) 0.4 mg PO DAILY [facility] Last Admin: 11/04/17 08:19 Dose: 0.4 mg
--- NOTE | 2017-11-04 14:26 | PRG ---
DATE OF SERVICE: 11/04/2017 SERVICE: Pulmonary Medicine. INTERVAL HISTORY: The patient is doing fine from a respiratory standpoint. He is on room air again. His cough is much improved. He is not bringing up much sputum. PHYSICAL EXAMINATION: VITAL SIGNS: Afebrile, pulse 87, blood pressure 135/64, respirations 18, saturation 92% on room air. GENERAL: The patient is awake and alert, in no apparent distress. LUNGS: Decent air entry. Dependent crackles are minimal. There is no prolonged expiratory phase or wheezing appreciated. HEART: Normal rate and regular. ABDOMEN: Soft, nontender, nondistended. Bowel sounds are positive. MUSCULOSKELETAL: No cyanosis or clubbing. There is no pitting in the bilateral lower extremities. NEUROLOGIC: Grossly nonfocal. LABORATORY DATA: WBC 8.6, hemoglobin 9.8 and stable, platelets 226,000. INR of 3.8, pH 7.45, pCO2 3 1, pO2 70. Basic metabolic profile is completely unremarkable otherwise. Klebsiella pneumoniae is g rowing in the urine culture. This is a pansensitive organism. Blood cultures growing coag negative Staph in 1 out of 2. ASSESSMENT: 1. Acute hypoxic respiratory failure, resolved. 2. Healthcare-associated pneumonia, status post full course of therapy. 3. Acute blood loss anemia secondary to retroperitoneal bleed, resolved. 4. Mechanical mitral valve, requiring anticoagulation. 5. Deconditioning, severe. 6. Sepsis without end organ damage. 7. Urinary tract infection DISCUSSION AND PLAN: From a purely respiratory perspective, the patient remains stable for transitio n out of the hospital provided that it is safe for him to go home. His strength is improving dramati ivelisse. Hopefully, he will be in a position where he can get out of the hospital in a couple of days. The primary service is adjusting his Coumadin because he is on the thin side of our goal. Dr. Johnny gann will resume care in the morning.
[2017-11-04 15:14] VITALS: BMI 34.2
[2017-11-05 06:12] LABS: Anion Gap 11 mmol/L (10-20); BUN (Urea Nitrogen) 16 mg/dL (8.4-25.7); Calc. Creatinine Clearance 111 mL/min (70-130); Calcium 8.5 mg/dL (7.8-10.44); Carbon Dioxide 24 mmol/L (23-31); Chloride 108 mmol/L (98-107); Estimated GFR-MDRD 90; Glucose 105 mg/dL (83-110); Sodium 139 mmol/L (136-145)
[2017-11-05 06:28] LABS: Band 2 % (5-11); Eosinophils 3 % (0-10); Hemoglobin 9.7 g/dL (14.0-18.0); Lymphocytes 11 % (21-51); MDiff Complete? YES; Mean Corpuscular HGB CONC 32.2 g/dL (32.0-36.0); Mean Corpuscular Hemoglobin 29.1 pg (27.0-31.0); Mean Corpuscular Volume 90.4 fl (80.0-94.0); Mean Platelet Volume 7.4 fL (7.4-10.4); Monocytes 8 % (0-10); Myelocyte 2 % (0-0); Neutrophil 74 % (42-75); Platelet Count 233 thou/uL (130-400); RBC Distribution Width 14.8 % (11.5-14.5); Red Blood Cell (RBC) Count 3.34 mill/uL (4.70-6.10); White Blood Cell (WBC) Count 8.6 thou/uL (4.8-10.8)
[2017-11-05] MEDS: Arformoterol 15 MCG/2 ML NEB NEB SCH (06:30)
[2017-11-05] MEDS: Budesonide 0.5 MG/2 ML NEB INH SCH (06:33)
--- NOTE | 2017-11-05 08:25 | PRG ---
DATE OF SERVICE: 11/05/2017 SUBJECTIVE: The patient is resting comfortably. PHYSICAL EXAMINATION: VITAL SIGNS: Stable. He has been afebrile for more than 48 hours, T-current is 98.8, 80, 16. I's and O's 2550 of clear yellow urine. ABDOMEN: Soft, nontender, nondistended. GENITOURINARY: Uncircumcised, some meatal excoriation due to chronic indwelling Verdin catheter. No pustular discharge is appreciated. Verdin catheter was removed at bedside. Balloon deflated, intact. PERTINENT LABORATORY DATA: INR is 3.8. White count 8, hemoglobin 9.7, platelet 233. Kidney function stable, creatinine 0.83. Urine culture demonstrates Klebsiella, pansensitive, currently on Levaquin. IMPRESSION AND PLAN: 1. A 77-year-old male with prolonged hospital stay due to left retroperitoneal hematoma. 2. Pneumonia. 3. History of mechanical heart valve, on chronic anticoagulation. 4. Deconditioning status. 5. Urologic consultation obtained due to urinary retention of PVR 450 mL, with mild bilateral prominence of the ureters. Due to prostate size and CT in addition to Flomax provided by primary service, I did add Avodart on initial consultation. As he has had medical therapy for 1 week, voiding trial initiated this morning. Pending PVR voiding status, will provide orders to rehab facility regarding ongoing bladder rehab to monitor PVRs. Please continue his Flomax and Avodart as outpatient/inpatient rehab. 6. Supratherapeutic INR, coagulation profile needs to be monitored closely as he had multiple antibiotics which can result in supratherapeutic INR. 7. From a urologic perspective antibiotics can be discontinued in the next 2-3 days. Addendum: Voiding trial initiated. Postvoid residual prior to discharge approximately 240 mL. Instructions written for discharge to continue bladder rehabilitation. Time void every 6 hours, bladder scan every 6 hours, patient to be catheterized for CIC if postvoid residual greater than 300 mL. MTDD
[2017-11-05 08:43] VITALS: TEMP 98.5
[2017-11-05] MEDS: Amlodipine 5 MG TAB PO SCH (09:01)
[2017-11-05] MEDS: Dutasteride 0.5 MG CAP PO SCH (09:01)
[2017-11-05] MEDS: Tamsulosin HCl 0.4 MG CAP PO SCH (09:03)
[2017-11-05] MEDS: metroNIDAZOLE 500 MG TAB PO SCH ×2 (09:04→14:09)
[2017-11-05 09:06] VITALS: BP 128/60
--- NOTE | 2017-11-05 11:54 | DIS ---
DATE OF ADMISSION: 10/02/2017 DATE OF DISCHARGE: 11/05/2017 DISCHARGE DIAGNOSES: 1. Acute hypoxic respiratory failure, requiring mechanical ventilation, resolved. 2. Acute toxic metabolic encephalopathy, multifactorial, resolved. 3. Acute tubular necrosis, secondary to ischemia, resolving. 4. Left retroperitoneal hematoma secondary to anticoagulation. Conservative management. 5. Chronic kidney disease, stage 3. 6. Sinus bradycardia. Conservative management. 7. Mechanical mitral valve with chronic anticoagulation with Coumadin. 8. Acute urinary retention, multifactorial. 9. Aspiration pneumonia, bibasilar. 10. Severe deconditioning. 11. Acute blood loss anemia, secondary to chronic anticoagulation and left retroperitoneal hematoma. 12. Status post 9 units of packed red blood cells and 4 units of fresh frozen plasma. CONSULTATIONS: Dr. Rios and Dr. Onofre with Cardiology service. Dr. Harris with Electrophysiolog y service. Dr. Macrina Young with Neurology service. Dr. Moreno and Dr. Damian with Pulmonology servic e. Dr. Quinones with Urology service. PERTINENT LABORATORY AND X-RAY FINDINGS: Creatinine ranged between 0.68-4.67, estimated GFR ranged b etween 15 to greater than 90. CBC showed a hemoglobin ranging between 7.6-15.3. PT 39.7, INR 3.86 1 05/2017. Blood cultures x2 from 10/02/2017 showed no growth at 5 days. C. difficile antigen and toxi n dated 10/13/2017 negative. Urine culture dated 10/14/2017 showed no growth at [address] diffic ile antigen and toxin dated 10/20/2017 negative. Urine culture dated 10/30/2017 showed greater than 100,000 colonies of Klebsiella pneumoniae species, pansensitive. Blood cultures 1/2 positive for coa gulase-negative Staphylococcus 10/30/[address] of the brain without contrast dated 10/02/2017 showed no acute intracranial process. Chronic small vessel ischemic changes noted. 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 A 2D t ransthoracic echocardiogram dated 10/05/2017 showed ejection fraction of 65%-70%. Mechanical mitral prosthetic valve noted. Abdominal radiographs dated 10/13/[address] of the abd omen and pelvis dated 10/14/2017 showed left retroperitoneal hematoma involving left psoas muscle. M ultiple lung parenchymal nodules noted. CT of the abdomen and pelvis dated 10/16/2017 showed slight interval enlargement of the left retroperitoneal hematoma, measuring 10.7 cm at greatest diameter. B ibasilar lung atelectasis noted. CT of the brain without contrast dated 10/17/2017 showed no acute i ntracranial process. CT of the abdomen and pelvis dated 10/25/2017 showed slight decreased left retr operitoneal hematoma. Air in the urinary bladder from recent instrumentation. HOSPITAL COURSE: Patient was initially admitted to the Critical Care Unit after presenting with alte red mentation and concern for an acute CVA. The patient underwent multiple neuroimaging studies show ing no acute intracranial process. The patient was also noted with acute hypoxic respiratory failure , multifactorial, with associated suspected aspiration pneumonia. The patient was placed on broad-sp ectrum antibiotic therapy as well as given aggressive pulmonary supportive measures. The patient was intubated in the emergency department due to profound altered mentation and concern for airway prote ction. The patient was evaluated by the Pulmonology Service with recommendations for aggressive pulm onary supportive measures as stated previously. The patient was evaluated by the Neurology Service w ith recommendations for conservative management as patient exhibited no specific evidence of an acute CVA. The patient slowly clinically improved; however, was noted with paroxysmal sinus bradycardia, requiring cardiology evaluation as well as initiation of dobutamine infusion. The patient was evalua gauri by the Electrophysiology service without specific recommendations for an acute intervention with recommendations to pursue underlying metabolic abnormalities and supportive management. The patient did clinically improve and was subsequently extubated. The patient was monitored with serial CBC kaity wing overall decreasing hemoglobin value from 15-7.6. The patient underwent extensive evaluation inc luding CT of the abdomen and pelvis confirming a left retroperitoneal hematoma. Anticoagulation was held and the patient was evaluated by the General Surgery Service. No specific surgical intervention was instituted and the patient was held on anticoagulation with serial monitoring and serial CTs of the abdomen showing a slight decreasing size of the hematoma. The patient did receive a total of 9 u nits of packed red blood cells and 4 units of fresh frozen plasma during the hospital course. Hemogl obin values did stabilize over the prolonged hospital stay and patient was subsequently resumed on an ticoagulation due to atrial fibrillation history as well as a mechanical mitral valve. The patient a lso developed acute kidney injury secondary to acute tubular necrosis, likely ischemic mediated. The patient was not deemed an appropriate candidate for hemodialysis after evaluation by the Nephrology service. The patient's renal function did recover with supportive management and avoidance of nephro toxic agents. Due to patient's tenuous clinical situation and prolonged hospital course, the patient was deemed an appropriate candidate for consideration of inpatient rehabilitation. The patient was noted severely deconditioned requiring 3-person assistance during the hospital course and needing [facility] medical care and medical monitoring due to supratherapeutic INR and anticoagulation d ifficulties. The patient did receive antibiotic therapy throughout the hospital course after suspici on for aspiration pneumonia. The patient was also evaluated by the Urology service after concern for acute urinary retention. The patient was noted with elevated postvoid residuals with subsequent dis continuation of Verdin catheter and monitoring instructions per Urology with intermittent catheterizat ions and bladder rehabilitation. The patient will need ongoing surveillance after discharge to [facility]. Overall, patient clinically stabilized. I have examined the patient at the yumiko e of discharge and discussed pertinent laboratory studies, radiographic findings, and plans for [facility]. The patient verbalizes understanding and agreement and we [facility]. DISCHARGE MEDICATIONS: 1. Amlodipine 5 mg one tab p.o. daily. 2. Brovana 15 mcg nebulized b.i.d. 3. Atenolol 25 mg p.o. at bedtime. 4. Pulmicort nebulized solution 0.5 mg inhaled b.i.d. 5. Avodart 0.5 mg p.o. daily. 6. Loman 7.5/325 mg 1 tab p.o. q.8 hours p.r.n. 7. Hydroxyzine 25 mg p.o. t.i.d. p.r.n. 8. Levaquin 750 mg p.o. daily and stop on 11/07/2017. 9. Flagyl 500 mg p.o. t.i.d., stop on 11/07/2017. 10. Nystatin powder one application topically b.i.d. 11. Protonix 40 mg p.o. daily. 12. Flomax 0.4 mg p.o. daily. 13. Coumadin 5 mg p.o. daily, hold on 11/05/2017. FOLLOWUP: Patient will follow up with his primary care provider, Dr. Joel Field, after discharge f rom [facility]. The patient will follow up with Dr. Alvaro Onofre 2-3 weeks after discharge from [facility]. The patient will follow up with Dr. Quinones with Urology service and to call her office for appointment time and date. CONDITION ON DISCHARGE: Fair. ACTIVITY: Ad nancy. Three-person assist with fall risk precautions. DIET: Heart healthy. CODE STATUS: FULL. SPECIAL INSTRUCTIONS: Repeat PT/INR on 11/06/2017. Hold Coumadin, 11/05/2017. DISPOSITION: Discharged to [facility], 11/05/2017. Total time in preparing and coordinating this discharge is 50 minutes.
[2017-11-05 17:20] LABS: INR-International Normal Ratio 3.9; Prothrombin Time 40.2 SEC (12.0-14.7)
== END 2017-11-05 17:20 | DRG 207 ==
LOC: ERS 00:09 → CCU 02:30 → 2NO 10-09 14:46 → T4-A 10-11 17:26 → IMCU/EMU 10-13 21:55 → CCU 10-14 02:43 → 2NO 10-19 12:53 → ONC 10-27 17:44
PROVIDERS: ADMIT Internal Medicine; ATTEND Internal Medicine
PROC: 5A1955Z Respiratory Ventilation, Greater than 96 Consecutive Hours (ICD-10-PCS; principal; 2017-10-02)
PROC: 0BH17EZ Insertion of Endotracheal Airway into Trachea, Via Natural or Artificial Opening (ICD-10-PCS; 2017-10-02)
PROC: 0BH17EZ Insertion of Endotracheal Airway into Trachea, Via Natural or Artificial Opening (ICD-10-PCS; 2017-10-14)
PROC: 5A1945Z Respiratory Ventilation, 24-96 Consecutive Hours (ICD-10-PCS; 2017-10-14)
PROC: 06HY33Z Insertion of Infusion Device into Lower Vein, Percutaneous Approach (ICD-10-PCS; 2017-10-14)
PROC: 30233K1 Transfusion of Nonautologous Frozen Plasma into Peripheral Vein, Percutaneous Approach (ICD-10-PCS; 2017-10-14)
PROC: 30233N1 Transfusion of Nonautologous Red Blood Cells into Peripheral Vein, Percutaneous Approach (ICD-10-PCS; 2017-10-14)
DX: J96.01 Acute respiratory failure with hypoxia (principal); J69.0 Pneumonitis due to inhalation of food and vomit; A41.9 Sepsis, unspecified organism; G92 Toxic encephalopathy; R65.21 Severe sepsis with septic shock; K66.1 Hemoperitoneum; N17.0 Acute kidney failure with tubular necrosis; K72.00 Acute and subacute hepatic failure without coma; D62 Acute posthemorrhagic anemia; J96.02 Acute respiratory failure with hypercapnia; I12.9 Hypertensive chronic kidney disease with stage 1 through stage 4 chronic kidney disease, or unspecified chronic kidney disease; N18.3 Chronic kidney disease, stage 3 (moderate); I25.10 Atherosclerotic heart disease of native coronary artery without angina pectoris; E78.5 Hyperlipidemia, unspecified; G47.33 Obstructive sleep apnea (adult) (pediatric); K59.09 Other constipation; I48.0 Paroxysmal atrial fibrillation; R00.1 Bradycardia, unspecified; R33.9 Retention of urine, unspecified; I25.2 Old myocardial infarction; Z91.14 Patient's other noncompliance with medication regimen; Z87.891 Personal history of nicotine dependence; Z88.0 Allergy status to penicillin; Z79.01 Long term (current) use of anticoagulants; Z79.899 Other long term (current) drug therapy; Z95.1 Presence of aortocoronary bypass graft; Z95.2 Presence of prosthetic heart valve; T45.515A Adverse effect of anticoagulants, initial encounter; Y92.239 Unspecified place in hospital as the place of occurrence of the external cause
CPT/HCPCS: 31500; 36415; 36416; 36430; 51702; 70450; 70496; 70498; 71045; 74018; 74176; 80048; 80053; 80061; 80076; 80202; 81001; 81003; 81015; 82553; 82565; 82570; 82805; 83605; 83630; 83735; 83880; 84300; 84484; 85007; 85014; 85018; 85025; 85027; 85049; 85610; 85730; 86850; 86900; 86901; 87040; 87077; 87086; 87149; 87186; 87324; 87449; 93005; 93010; 93306; 93970; 94002; 94003; 94150; 94640; 96365; 96366; 96368; 96375; A4216; A4217; C9113; G0365; G8978-GP-CK; G8978-GP-CM; G8979-GP-CK; G8987-GO-CL; G8988-GO-CJ; G8996-GN-CI; G8996-GN-CJ; G8997-GN-CH; G8997-GN-CI; J0456; J0461; J0692; J0696; J1160; J1200; J1250; J1642; J1650; J1720; J1940; J1956; J2060; J2185; J2250; J2270; J2704; J2920; J2930; J3370; J3430; J3480; J7050; J7070; J7620; J7626; P9016; P9047; P9059

== ENCOUNTER 2017-11-21 17:23 | Emergency (ER) | payer MEDICARE, OTHER ==
--- NOTE | 2017-11-21 19:15 | CT ---
CT CERVICAL SPINE NONCONTRAST: 11/21/17 HISTORY: 77-year-old male status post acute cervical trauma from fall. FINDINGS: There are no jumped or perched facets. There is no evidence of acute fracture. The vertebral body h eights are maintained. There is no prevertebral soft tissue swelling. IMPRESSION: No evidence of acute fracture or acute traumatic subluxation. karol [] POS: YURY
--- NOTE | 2017-11-21 20:10 | CT ---
CT BRAIN NONCONTRAST: DATE: 11/21/17 TIME: 5:54 p.m. HISTORY: 77-year-old male status post acute head trauma from fall. COMPARISON: 10/17/17. FINDINGS: No acute calvarial fracture. No acute intra-axial or extra-axial hemorrhage. No mass effect, midline shift, or extra-axial fluid collection. Diffuse brain parenchymal volume loss of the cerebrum and also in the posterior fossa. Moderate sized old infarction of right upper parasagittal frontoparietal junction. Small old infarctions of anterio r right frontal lobe, right parieto-occipital junction, and left anterior frontal lobe. Large old inf arctions of inferior aspect of left cerebellar hemisphere and also most of the superior aspect of the left cerebellar hemisphere. No obstructive hydrocephalus. No interval change overall since 10/17/17. IMPRESSION: 1. No acute intracranial findings. 2. 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 3. Diffuse involutional changes of the brain. SHAILESH Garcia POS: YURY
== END 2017-11-21 20:20 | disposition home or self-care (01) ==
LOC: ERS 17:23
DX: S01.81XA Laceration without foreign body of other part of head, initial encounter (principal); E78.5 Hyperlipidemia, unspecified; I10 Essential (primary) hypertension; W01.0XXA Fall on same level from slipping, tripping and stumbling without subsequent striking against object, initial encounter
CPT/HCPCS: 70450; 72125; 93005

== ENCOUNTER 2017-12-06 18:34 | Emergency (ER) | payer MEDICARE, MEDICAID ==
[2017-12-06] MEDS ORDERED: Acetaminophen 500 MG TAB ONE (19:11)
--- NOTE | 2017-12-06 19:46 | RAD ---
TWO VIEWS LEFT FOREARM 12/06/17 HISTORY: 77-year-old with history of fall and pain. AP and lateral views of the left forearm is obtained. Images demonstrate comminuted fracture involving the distal left radius. There is some lateral and po sterior displacement of the distal fracture fragments. There is also a mildly displaced fracture in the distal ulna and the ulnar styloid. The rest of the l eft forearm is unremarkable. IMPRESSION: Comminuted distal right radial fracture as well as fractures seen in the distal ulna. POS: [facility]
--- NOTE | 2017-12-06 19:48 | CT ---
CT BRAIN 12/06/17 HISTORY: 77-year-old with history of fall with weakness. Noncontrast enhanced CT images of the brain is obtained on 12/06/17. Comparison made to a previous exam from 11/21/17. CT images demonstrate old areas of stroke seen in the right frontal, right parietal, left frontal, an d left cerebellum. These are all unchanged since the previous exam. No acute intracranial masses or l esions seen. There is diffuse cortical atrophy seen. IMPRESSION: Old areas of stroke with no evidence of acute intracranial pathology seen. POS: [facility]
--- NOTE | 2017-12-06 19:49 | RAD ---
THREE VIEWS LEFT HAND 12/06/17 HISTORY: Fall with deformity. AP, lateral and oblique views left hand is obtained. Again, comminuted fracture in the distal left ra dius as well as fracture of the distal ulnar are seen. No evidence of acute fracture seen in the carpals, metacarpals, or phalanges. No significant evidenc e of dislocation seen. IMPRESSION: Distal radial and ulnar fractures, otherwise no significant evidence of left hand abnormality seen. POS: [facility]
[2017-12-06] MEDS ORDERED: Lidocaine 1% (PF) 30 ML VIAL ONE (23:01)
[2017-12-06] MEDS ORDERED: Fentanyl 100 MCG/2 ML VIAL ONE (23:01)
--- NOTE | 2017-12-07 09:11 | RAD ---
LEFT FOREARM 2 VIEWS: Date: 12/07/17 PROVIDED CLINICAL HISTORY: Post reduction. FINDINGS: Comparison made with study dated 12/06/17. Interval splint placement. Fractures of the distal radius and ulna are redemonstrated with somewhat i mproved alignment. IMPRESSION: As above. POS: [facility]
== END 2017-12-07 01:15 | disposition home or self-care (01) ==
LOC: ERS 18:34
DX: S52.612A Displaced fracture of left ulna styloid process, initial encounter for closed fracture (principal); S52.502A Unspecified fracture of the lower end of left radius, initial encounter for closed fracture; N18.9 Chronic kidney disease, unspecified; I48.91 Unspecified atrial fibrillation; E78.5 Hyperlipidemia, unspecified; I25.10 Atherosclerotic heart disease of native coronary artery without angina pectoris; Z86.73 Personal history of transient ischemic attack (TIA), and cerebral infarction without residual deficits; Z79.899 Other long term (current) drug therapy; W19.XXXA Unspecified fall, initial encounter
CPT/HCPCS: 70450; 96374; J2001; J3010

== ENCOUNTER 2018-07-17 10:20 | Outpatient (CLI) | payer MEDICARE, MEDICAID ==
--- NOTE | 2018-07-17 10:53 | RAD ---
RIGHT KNEE TWO VIEWS: History: Right knee pain. FINDINGS: Weightbearing frontal and lateral views show near complete loss of joint space at the medial compartm ent with mild tricompartmental osteophytosis. Chondrocalcinosis. No acute fracture, dislocation, or f luid distention of the suprapatellar bursa. IMPRESSION: Osteoarthritis with near complete joint space loss at the medial compartment. POS: [facility]
== END 2018-07-17 10:21 | disposition home or self-care (01) ==
LOC: BICRAD 10:20
PROVIDERS: ATTEND Family Medicine
DX: M25.561 Pain in right knee (principal); E78.00 Pure hypercholesterolemia, unspecified; R63.5 Abnormal weight gain; M17.11 Unilateral primary osteoarthritis, right knee; M25.861 Other specified joint disorders, right knee
CPT/HCPCS: 36415; 80061; 82947; 84450; 84460

== ENCOUNTER 2020-10-30 21:21 | Inpatient (IN) | payer MEDICARE, MEDICAID ==
[2020-10-30] MEDS ORDERED: Morphine 4 MG/ML VIAL ONE (22:27)
[2020-10-30 22:40] LABS: #Eosinphils 0.1 thou/uL (0.0-0.7); #Lymphocytes 0.7 thou/uL (1.20-3.40); #Monocytes 0.8 thou/uL (0.11-0.59); %Basophils 0.1 % (0.0-1.0); %Eosinophils 0.7 % (0.0-10.0); %Lymphocytes 7.2 % (21.0-51.0); %Monocytes 8.4 % (0.0-10.0); %Neutrophils 83.6 % (42.0-75.0); Hemoglobin 13.7 g/dL (14.0-18.0); Mean Corpuscular HGB CONC 33.1 g/dL (32.0-36.0); Mean Corpuscular Hemoglobin 29.3 pg (27.0-31.0); Mean Corpuscular Volume 88.6 fL (78.0-98.0); Mean Platelet Volume 8.3 fL (7.4-10.4); Platelet Count 153 thou/uL (130-400); RBC Distribution Width 14.1 % (11.5-14.5); Red Blood Cell (RBC) Count 4.68 mill/uL (4.70-6.10); White Blood Cell (WBC) Count 9.5 thou/uL (4.8-10.8)
[2020-10-30 23:00] LABS: ALT (SGPT) 17 U/L (8-55); AST (SGOT) 22 U/L (5-34); Albumin 3.9 g/dL (3.4-4.8); Alkaline Phosphatase 86 U/L (40-110); Anion Gap 13 mmol/L (10-20); BUN (Urea Nitrogen) 16 mg/dL (8.4-25.7); Bilirubin, Total 1.2 mg/dL (0.2-1.2); Calc. Creatinine Clearance 0 mL/min (70-130); Calcium 8.9 mg/dL (7.8-10.44); Carbon Dioxide 25 mmol/L (23-31); Chloride 103 mmol/L (98-107); Globulin 3.3 g/dL (2.4-3.5); Glucose 107 mg/dL (83-110); Potassium 4.2 mmol/L (3.5-5.1); Protein, Total 7.2 g/dL (5.8-8.1); Sodium 137 mmol/L (136-145)
[2020-10-30 23:23] LABS: CKMB 2.1 ng/mL (0-6.6)
[2020-10-30 23:24] LABS: Bilirubin Negative (Negative); Blood, Urine Moderate (Negative); Glucose, Urine (Dipstick) Negative (Negative); Ketone, Urine Negative (Negative); Leukocyte Negative (Negative); Nitrite Negative (Negative); Protein, Urine (Dipstick) Trace mg/dL (Neg-Trace); Urobilinogen 0.2 mg/dL (Less than 2)
[2020-10-30 23:25] LABS: Clarity Clear (Clear)
[2020-10-30 23:27] LABS: Bacteria/HPF None Seen HPF (None Seen); Squamous Epithelial 0-3 HPF (0-3); WBC/HPF 0-3 HPF (0-3)
[2020-10-31 02:56] LABS: Troponin I 0.034 ng/mL (< 0.028)
[2020-10-31] MEDS ORDERED: HYDROcodone/Acetaminophen 5/325 mg Tablet PO PRN (04:38)
[2020-10-31] MEDS ORDERED: Acetaminophen 325 MG TAB PO PRN (04:38)
[2020-10-31] MEDS ORDERED: Ondansetron PF 4 MG/2 ML Vial IVP PRN (04:38)
[2020-10-31] MEDS ORDERED: Ondansetron ODT 4 MG TAB PO PRN (04:38)
[2020-10-31 05:06] LABS: SARS-CoV-2 NAA Rapid Test Not Detected (NotDetected)
[2020-10-31] MEDS ORDERED: Furosemide 40 MG/4 ML VIAL SLOW IVP SCH (05:45)
[2020-10-31 07:13] VITALS: BMI 40.9
[2020-10-31 07:30] LABS: INR-International Normal Ratio 2.3
[2020-10-31 07:45] LABS: Troponin I 0.033 ng/mL (< 0.028)
[2020-10-31] MEDS ORDERED: Gabapentin 100 MG CAP PO PRN (17:34)
[2020-10-31] MEDS ORDERED: methylPREDNISolone Sod Succ 40 MG VIAL IVP SCH ×2 (17:45→18:15)
[2020-10-31] MEDS ORDERED: Bacteriostatic Water 30 ML VIAL FS PRN (18:15)
[2020-10-31] MEDS ORDERED: Lidocaine 5% Patch TD SCH (21:00)
[2020-10-31] MEDS: Naproxen 500 MG TAB PO SCH (21:40)
[2020-10-31 21:47] LABS: SARS-CoV-2 PCR by NAA Not Detected (NotDetected)
[2020-10-31] MEDS ORDERED: Benzonatate 100 MG CAP PO PRN (22:07)
[2020-11-01 04:45] LABS: #Lymphocytes 0.6 thou/uL (1.20-3.40); #Monocytes 0.1 thou/uL (0.11-0.59); #Neutrophils 5.1 thou/uL (1.40-6.50); %Eosinophils 0.2 % (0.0-10.0); %Lymphocytes 10.9 % (21.0-51.0); %Monocytes 2.1 % (0.0-10.0); %Neutrophils 86.8 % (42.0-75.0); Hemoglobin 14.7 g/dL (14.0-18.0); Mean Corpuscular HGB CONC 32.2 g/dL (32.0-36.0); Mean Corpuscular Hemoglobin 28.6 pg (27.0-31.0); Mean Corpuscular Volume 88.8 fL (78.0-98.0); Mean Platelet Volume 8.4 fL (7.4-10.4); Platelet Count 155 thou/uL (130-400); RBC Distribution Width 13.9 % (11.5-14.5); Red Blood Cell (RBC) Count 5.15 mill/uL (4.70-6.10); White Blood Cell (WBC) Count 5.9 thou/uL (4.8-10.8)
[2020-11-01 05:08] LABS: Anion Gap 11 mmol/L (10-20); BUN (Urea Nitrogen) 19 mg/dL (8.4-25.7); Calc. Creatinine Clearance 115 mL/min (70-130); Calcium 8.7 mg/dL (7.8-10.44); Carbon Dioxide 27 mmol/L (23-31); Chloride 102 mmol/L (98-107); Glucose 151 mg/dL (83-110); Potassium 4.6 mmol/L (3.5-5.1); Sodium 135 mmol/L (136-145)
[2020-11-01 05:28] LABS: Thyroid Stimulating Hormone 0.8021 uIU/mL (0.35-4.94); Vitamin D, 25 Hydroxy 7.3 ng/ml (> 30.0)
[2020-11-01] MEDS ORDERED: Transdermal Patch Removal TOP SCH (09:00)
[2020-11-01] MEDS ORDERED: Ergocalciferol 1.25 MG(50,000 UNITS) CAP PO SCH (09:00)
[2020-11-01] MEDS: Naproxen 500 MG TAB PO SCH (09:10)
[2020-11-01] MEDS ORDERED: Cyanocobalamin 1000 MCG/ML VIAL IM SCH (10:00)
[2020-11-01] MEDS ORDERED: Furosemide 40 MG/4 ML VIAL SLOW IVP SCH (11:45)
[2020-11-01 16:28] VITALS: BP 132/88; TEMP 97.8
[2020-11-01] MEDS ORDERED: Amlodipine 5 MG TAB PO SCH (16:30)
[2020-11-02] MEDS ORDERED: Amlodipine 5 MG TAB PO SCH (09:00)
== END 2020-11-01 18:34 | disposition home or self-care (01) | DRG 280 ==
LOC: ERS 21:21 → 2NO 10-31 02:01 → OBSVTOIN 10-31 17:32
PROVIDERS: ADMIT Student in an Organized Health Care Education/Training Program; ATTEND Internal Medicine
DX: I11.0 Hypertensive heart disease with heart failure (principal); I21.A1 Myocardial infarction type 2; J96.01 Acute respiratory failure with hypoxia; Z20.822 Contact with and (suspected) exposure to COVID-19; R31.9 Hematuria, unspecified; M51.36 Other intervertebral disc degeneration, lumbar region; I50.33 Acute on chronic diastolic (congestive) heart failure; M48.061 Spinal stenosis, lumbar region without neurogenic claudication; M43.16 Spondylolisthesis, lumbar region; K76.89 Other specified diseases of liver; N28.1 Cyst of kidney, acquired; E78.5 Hyperlipidemia, unspecified; E55.9 Vitamin D deficiency, unspecified; I25.10 Atherosclerotic heart disease of native coronary artery without angina pectoris; E53.8 Deficiency of other specified B group vitamins; Z95.1 Presence of aortocoronary bypass graft; Z79.01 Long term (current) use of anticoagulants; Z79.899 Other long term (current) drug therapy; Z95.2 Presence of prosthetic heart valve; Z90.49 Acquired absence of other specified parts of digestive tract
CPT/HCPCS: 36415; 71045; 72128; 72131; 72148; 74176; 76770; 80048; 80053; 81003; 81015; 82306; 82553; 82607; 82746; 83880; 84443; 84484; 85025; 85610; 93005; 93306; 96374; 96375; G0378; J1940; J2270; J2920; J3420; U0002; U0003; U0005

== ENCOUNTER 2021-02-24 10:05 | Inpatient (IN) | payer MEDICARE, MEDICAID ==
[2021-02-24] MEDS ORDERED: Iopamidol 370 76% 100 ML VIAL ONE (10:10)
[2021-02-24 11:34] LABS: #Eosinphils 0.3 thou/uL (0.0-0.7); #Lymphocytes 0.9 thou/uL (1.20-3.40); #Monocytes 0.5 thou/uL (0.11-0.59); #Neutrophils 4.7 thou/uL (1.40-6.50); %Basophils 0.7 % (0.0-1.0); %Eosinophils 4.6 % (0.0-10.0); %Lymphocytes 14.5 % (21.0-51.0); %Monocytes 7.2 % (0.0-10.0); %Neutrophils 73.1 % (42.0-75.0); Hemoglobin 11.8 g/dL (14.0-18.0); Mean Corpuscular Hemoglobin 28.1 pg (27.0-31.0); Mean Corpuscular Volume 90.5 fL (78.0-98.0); Mean Platelet Volume 8.3 fL (7.4-10.4); Platelet Count 205 thou/uL (130-400); RBC Distribution Width 15.3 % (11.5-14.5); Red Blood Cell (RBC) Count 4.19 mill/uL (4.70-6.10); White Blood Cell (WBC) Count 6.4 thou/uL (4.8-10.8)
[2021-02-24 11:48] LABS: PTT 27.7 sec (22.9-36.1)
[2021-02-24 11:58] LABS: ALT (SGPT) 11 U/L (8-55); AST (SGOT) 25 U/L (5-34); Albumin 3.7 g/dL (3.4-4.8); Alkaline Phosphatase 98 U/L (40-110); Anion Gap 12 mmol/L (10-20); BUN (Urea Nitrogen) 16 mg/dL (8.4-25.7); Bilirubin, Total 1.1 mg/dL (0.2-1.2); Calc. Creatinine Clearance 0 mL/min (70-130); Calcium 8.6 mg/dL (7.8-10.44); Carbon Dioxide 24 mmol/L (23-31); Chloride 109 mmol/L (98-107); Globulin 3.1 g/dL (2.4-3.5); Glucose 89 mg/dL (83-110); Potassium 4.7 mmol/L (3.5-5.1); Protein, Total 6.8 g/dL (5.8-8.1); Sodium 140 mmol/L (136-145)
[2021-02-24] MEDS ORDERED: Gabapentin 100 MG CAP PO PRN (14:43)
[2021-02-24] MEDS ORDERED: Dextrose 50% Abboject 50 ML SYRINGE SLOW IVP PRN (14:49)
[2021-02-24] MEDS ORDERED: Dextrose 5% in Water 1,000 ML IV PRN (14:49)
[2021-02-24] MEDS ORDERED: Sodium Chloride 0.9% 1,000 ML IV SCH (15:00)
[2021-02-24] MEDS ORDERED: traMADol HCl 50 MG TAB PO PRN (15:16)
[2021-02-24] MEDS: traMADol HCl 50 MG TAB PO SCH ×2 (16:26→23:43)
[2021-02-24] MEDS ORDERED: Acetaminophen 325 MG TAB PO SCH (17:00)
[2021-02-24] MEDS ORDERED: Warfarin Sodium 5 MG TAB PO SCH (19:00)
[2021-02-24] MEDS: Famotidine 20 MG TAB PO SCH (21:40)
[2021-02-24] MEDS: Atenolol 25 MG TAB PO SCH (21:40)
[2021-02-24 23:08] LABS: SARS-CoV-2 NAA Rapid Test Not Detected (NotDetected)
[2021-02-24] MEDS: Acetaminophen 500 MG TAB PO SCH (23:40)
[2021-02-25] MEDS: Acetaminophen 500 MG TAB PO SCH ×4 (06:03→23:45)
[2021-02-25] MEDS: traMADol HCl 50 MG TAB PO SCH ×4 (06:15→23:44)
[2021-02-25 07:05] LABS: INR-International Normal Ratio 2.2; Prothrombin Time 24.4 sec (12.0-14.7)
[2021-02-25 07:06] LABS: PTT 57.2 sec (22.9-36.1)
[2021-02-25 07:13] LABS: Anion Gap 10 mmol/L (10-20); BUN (Urea Nitrogen) 14 mg/dL (8.4-25.7); Calc. Creatinine Clearance 131 mL/min (70-130); Calcium 8.1 mg/dL (7.8-10.44); Carbon Dioxide 23 mmol/L (23-31); Chloride 108 mmol/L (98-107); Glucose 74 mg/dL (83-110); Potassium 4.2 mmol/L (3.5-5.1); Sodium 137 mmol/L (136-145)
[2021-02-25 07:54] LABS: Hemoglobin 10.3 g/dL (14.0-18.0); Mean Corpuscular HGB CONC 31.8 g/dL (32.0-36.0); Mean Corpuscular Hemoglobin 28.5 pg (27.0-31.0); Mean Corpuscular Volume 89.6 fL (78.0-98.0); RBC Distribution Width 15.1 % (11.5-14.5); Red Blood Cell (RBC) Count 3.62 mill/uL (4.70-6.10)
[2021-02-25] MEDS: Cyclobenzaprine 10 MG TAB PO PRN (08:25)
[2021-02-25] MEDS: Cyanocobalamin (Vitamin B-12) 1,000 MCG TAB PO SCH (08:25)
[2021-02-25] MEDS: Famotidine 20 MG TAB PO SCH ×2 (08:25→21:21)
[2021-02-25] MEDS: Tamsulosin HCl 0.4 MG CAP PO SCH (08:25)
[2021-02-25] MEDS: Furosemide 20 MG TAB PO SCH (08:26)
[2021-02-25] MEDS: Amlodipine 5 MG TAB PO SCH (08:26)
[2021-02-25] MEDS ORDERED: Warfarin Sodium 5 MG TAB PO SCH (09:00)
[2021-02-25] MEDS ORDERED: FLU VACC QS2021-22(65YR UP)/PF 240 MCG/0.7 ML SYRINGE IM ONE (09:00)
[2021-02-25 09:52] VITALS: BMI 38.9
[2021-02-25 10:04] LABS: #Eosinphils 0.3 thou/uL (0.0-0.7); #Monocytes 0.4 thou/uL (0.11-0.59); #Neutrophils 3.5 thou/uL (1.40-6.50); %Basophils 0.2 % (0.0-1.0); %Eosinophils 5.4 % (0.0-10.0); %Lymphocytes 19.3 % (21.0-51.0); %Monocytes 7.4 % (0.0-10.0); %Neutrophils 67.6 % (42.0-75.0); Anisocytosis SLIGHT = 6-15 cells (100X) (0-5/hpf); Eosinophils 4 % (0-10); Lymphocytes 25 % (21-51); MDiff Complete? YES; Mean Platelet Volume 8.2 fL (7.4-10.4); Monocytes 7 % (0-10); Neutrophil 64 % (42-75); Platelet Count 192 thou/uL (130-400); Platelet Morphology Comment Appears Adequate; Polychromasia SLIGHT = 2-3 cells (100X) (0-2/hpf); White Blood Cell (WBC) Count 5.1 thou/uL (4.8-10.8)
[2021-02-25] MEDS ORDERED: Warfarin Sodium 2.5 MG TAB PO SCH (11:00)
[2021-02-25] MEDS: Warfarin Sodium 5 MG TAB PO SCH (18:35)
[2021-02-25] MEDS: Atenolol 25 MG TAB PO SCH (21:21)
[2021-02-26 06:08] LABS: INR-International Normal Ratio 2.3; Prothrombin Time 25.8 sec (12.0-14.7)
[2021-02-26] MEDS: Acetaminophen 500 MG TAB PO SCH ×3 (06:14→17:37)
[2021-02-26] MEDS: traMADol HCl 50 MG TAB PO SCH ×3 (06:15→17:38)
[2021-02-26] MEDS: Amlodipine 5 MG TAB PO SCH (08:53)
[2021-02-26] MEDS: Cyanocobalamin (Vitamin B-12) 1,000 MCG TAB PO SCH (08:53)
[2021-02-26] MEDS: Tamsulosin HCl 0.4 MG CAP PO SCH (08:54)
[2021-02-26] MEDS: Famotidine 20 MG TAB PO SCH ×2 (08:54→21:21)
[2021-02-26] MEDS: Furosemide 20 MG TAB PO SCH (08:54)
[2021-02-26 12:52] LABS: INR-International Normal Ratio 2.3; Prothrombin Time 25.5 sec (12.0-14.7)
[2021-02-26 12:53] LABS: PTT 50.6 sec (22.9-36.1)
[2021-02-26] MEDS: Warfarin Sodium 5 MG TAB PO SCH (17:37)
[2021-02-26] MEDS ORDERED: Enoxaparin Sodium 120 MG/0.8 ML SYRINGE SC SCH (21:00)
[2021-02-26] MEDS: Atenolol 25 MG TAB PO SCH (21:20)
[2021-02-26] MEDS: Atorvastatin Calcium 20 MG TAB PO SCH (21:20)
[2021-02-26] MEDS: Senokot S 8.6-50 MG TAB PO SCH (21:21)
[2021-02-26] MEDS: Gabapentin 100 MG CAP PO PRN (21:21)
[2021-02-26] MEDS: Cyclobenzaprine 10 MG TAB PO PRN (21:22)
[2021-02-27] MEDS: Acetaminophen 500 MG TAB PO SCH ×4 (00:30→18:26)
[2021-02-27] MEDS: traMADol HCl 50 MG TAB PO SCH ×4 (00:30→18:27)
[2021-02-27 06:50] LABS: INR-International Normal Ratio 2.8; Prothrombin Time 29.9 sec (12.0-14.7)
[2021-02-27] MEDS: Finasteride 5 MG TAB PO SCH (08:28)
[2021-02-27] MEDS: Polyethylene Glycol 3350 17 GM Packet PO SCH ×2 (08:28→08:45)
[2021-02-27] MEDS: Tamsulosin HCl 0.4 MG CAP PO SCH (08:28)
[2021-02-27] MEDS: Senokot S 8.6-50 MG TAB PO SCH ×2 (08:28→20:27)
[2021-02-27] MEDS: Famotidine 20 MG TAB PO SCH ×2 (08:29→20:28)
[2021-02-27] MEDS: Cyanocobalamin (Vitamin B-12) 1,000 MCG TAB PO SCH (08:29)
[2021-02-27] MEDS: Amlodipine 5 MG TAB PO SCH (08:29)
[2021-02-27] MEDS: Warfarin Sodium 5 MG TAB PO SCH (18:28)
[2021-02-27] MEDS: Atenolol 25 MG TAB PO SCH (20:27)
[2021-02-27] MEDS: Atorvastatin Calcium 20 MG TAB PO SCH (20:27)
[2021-02-27] MEDS: Cyclobenzaprine 10 MG TAB PO PRN (20:27)
[2021-02-27] MEDS: Gabapentin 100 MG CAP PO PRN (20:28)
[2021-02-28] MEDS: Acetaminophen 500 MG TAB PO SCH ×4 (00:12→17:32)
[2021-02-28] MEDS: traMADol HCl 50 MG TAB PO SCH ×4 (00:13→17:27)
[2021-02-28 07:17] LABS: Prothrombin Time 31.5 sec (12.0-14.7)
[2021-02-28] MEDS: Tamsulosin HCl 0.4 MG CAP PO SCH (09:00)
[2021-02-28] MEDS: Famotidine 20 MG TAB PO SCH ×2 (09:00→19:56)
[2021-02-28] MEDS: Senokot S 8.6-50 MG TAB PO SCH ×2 (09:00→19:56)
[2021-02-28] MEDS: Cyanocobalamin (Vitamin B-12) 1,000 MCG TAB PO SCH (09:01)
[2021-02-28] MEDS: Polyethylene Glycol 3350 17 GM Packet PO SCH (09:02)
[2021-02-28] MEDS: Finasteride 5 MG TAB PO SCH (09:02)
[2021-02-28] MEDS: Amlodipine 5 MG TAB PO SCH (09:02)
[2021-02-28] MEDS: Warfarin Sodium 5 MG TAB PO SCH (17:27)
[2021-02-28] MEDS: Atenolol 25 MG TAB PO SCH (19:54)
[2021-02-28] MEDS: Atorvastatin Calcium 20 MG TAB PO SCH (19:57)
[2021-03-01] MEDS: traMADol HCl 50 MG TAB PO SCH ×4 (00:01→17:10)
[2021-03-01] MEDS: Acetaminophen 500 MG TAB PO SCH ×4 (00:02→17:09)
[2021-03-01] MEDS ORDERED: hydrALAZINE 20 MG/ML VIAL SLOW IVP PRN (01:03)
[2021-03-01] MEDS: Cyanocobalamin (Vitamin B-12) 1,000 MCG TAB PO SCH (08:28)
[2021-03-01] MEDS: Finasteride 5 MG TAB PO SCH (08:28)
[2021-03-01] MEDS: Amlodipine 5 MG TAB PO SCH (08:31)
[2021-03-01] MEDS: Tamsulosin HCl 0.4 MG CAP PO SCH (08:31)
[2021-03-01] MEDS: Polyethylene Glycol 3350 17 GM Packet PO SCH (08:31)
[2021-03-01] MEDS: Senokot S 8.6-50 MG TAB PO SCH (08:36)
[2021-03-01] MEDS: Famotidine 20 MG TAB PO SCH (08:38)
[2021-03-01 15:51] VITALS: BP 136/63; TEMP 97.8
[2021-03-01] MEDS: Warfarin Sodium 5 MG TAB PO SCH (17:10)
== END 2021-03-01 19:29 | DRG 184 ==
LOC: ERS 10:05 → SURG A 14:49 → SJJU 15:43 → OBSVTOIN 02-25 14:38
PROVIDERS: ADMIT Surgery; ATTEND Surgery
DX: S22.42XA Multiple fractures of ribs, left side, initial encounter for closed fracture (principal); S32.392A Other fracture of left ilium, initial encounter for closed fracture; S42.132A Displaced fracture of coracoid process, left shoulder, initial encounter for closed fracture; S43.013 Anterior subluxation of unspecified humerus; Z20.822 Contact with and (suspected) exposure to COVID-19; I25.10 Atherosclerotic heart disease of native coronary artery without angina pectoris; N18.9 Chronic kidney disease, unspecified; I48.91 Unspecified atrial fibrillation; R13.10 Dysphagia, unspecified; E78.5 Hyperlipidemia, unspecified; I12.9 Hypertensive chronic kidney disease with stage 1 through stage 4 chronic kidney disease, or unspecified chronic kidney disease; E11.22 Type 2 diabetes mellitus with diabetic chronic kidney disease; W19.XXXA Unspecified fall, initial encounter; Z90.49 Acquired absence of other specified parts of digestive tract; Z95.2 Presence of prosthetic heart valve; Z95.5 Presence of coronary angioplasty implant and graft; Z79.01 Long term (current) use of anticoagulants; I69.344 Monoplegia of lower limb following cerebral infarction affecting left non-dominant side; Z79.899 Other long term (current) drug therapy; I69.991 Dysphagia following unspecified cerebrovascular disease
CPT/HCPCS: 36415; 70450; 71260; 74177; 80048; 80053; 85025; 85610; 85730; 93005; G0378; J1650; J7050; Q9967; U0002

== ENCOUNTER 2022-01-09 19:00 | Outpatient (CLI) | payer MEDICAID, MEDICARE, OTHER | END 2022-01-09 19:01 | disposition home or self-care (01) | LOC: SLEEPLAB 19:00 | PROVIDERS: ATTEND Family Medicine | DX: G47.33 Obstructive sleep apnea (adult) (pediatric) (principal); G47.10 Hypersomnia, unspecified; G47.00 Insomnia, unspecified; E66.9 Obesity, unspecified; I11.0 Hypertensive heart disease with heart failure; I50.9 Heart failure, unspecified; I25.10 Atherosclerotic heart disease of native coronary artery without angina pectoris; R53.83 Other fatigue; R06.89 Other abnormalities of breathing; R06.83 Snoring | CPT/HCPCS: 95811 ==

== ENCOUNTER 2024-04-02 15:26 | Inpatient (IN) | payer MEDICARE, MEDICAID ==
[~2024-04-02 15:26] MED LIST: Iopamidol-370 76% 500 ML MDV (1 ML CHARGE) ONE
[2024-04-02] MEDS ORDERED: Piperacillin/Tazobactam 4.5 GM VIAL ONE (16:28)
[2024-04-02] MEDS ORDERED: Sodium Chloride 0.9% 100 ML ONE (16:28)
[2024-04-02] MEDS ORDERED: Acetaminophen 500 MG TAB ONE (16:28)
[2024-04-02 16:47] LABS: #Basophils 0.03 10x3/uL (0.0-0.2); %Basophils 0.6 % (0.0-1.0); %Eosinophils 2.7 % (0.0-10.0); %Lymphocytes 15.5 % (21.0-51.0); %Monocytes 9.8 % (0.0-10.0); %Neutrophils 71.2 % (42.0-75.0); Hematocrit 44.4 % (42.0-52.0); Hemoglobin 14.3 g/dL (14.0-18.0); Mean Corpuscular HGB CONC 32.2 g/dL (32.0-36.0); Mean Corpuscular Hemoglobin 28.9 pg (27.0-31.0); Mean Corpuscular Volume 89.7 fL (78.0-98.0); Mean Platelet Volume 10.4 fL (7.4-10.4); Platelet Count 159 10x3/uL (130-400); RBC Distribution Width 14.6 % (11.5-14.5); Red Blood Cell (RBC) Count 4.95 mill/uL (4.70-6.10)
[2024-04-02 17:02] LABS: INR-International Normal Ratio 2.6; PTT 40.8 sec (22.9-36.1); Prothrombin Time 28.1 sec (12.0-14.7)
[2024-04-02 17:07] LABS: Troponin I Less than 0.010 ng/mL (< 0.028)
[2024-04-02 17:09] LABS: ALT (SGPT) 15 U/L (8-55); AST (SGOT) 20 U/L (5-34); Albumin 3.6 g/dL (3.4-4.8); Alkaline Phosphatase 112 U/L (40-110); Anion Gap 12 mmol/L (10-20); BUN (Urea Nitrogen) 17 mg/dL (8.4-25.7); Bilirubin, Total 0.8 mg/dL (0.2-1.2); Calc. Creatinine Clearance 0 mL/min (70-130); Calcium 8.4 mg/dL (7.8-10.44); Carbon Dioxide 30 mmol/L (23-31); Chloride 104 mmol/L (98-107); Estimated GFR 71; Globulin 3.5 g/dL (2.4-3.5); Glucose 111 mg/dL (83-110); Lipase 17 U/L (8-78); Magnesium 2.1 mg/dL (1.6-2.6); Potassium 3.7 mmol/L (3.5-5.1); Protein, Total 7.1 g/dL (5.8-8.1); Sodium 142 mmol/L (136-145)
[2024-04-02 18:18] LABS: Bacteria/HPF None Seen HPF (None Seen); Bilirubin Negative (Negative); Blood, Urine Negative (Negative); CAUTI Indications for Culture Dysuria,urgency,freq; Clarity Clear (Clear); Glucose, Urine (Dipstick) Normal (Negative); Ketone, Urine Negative (Negative); Leukocyte 75 Leu/uL (Negative); Nitrite Negative (Negative); Protein, Urine (Dipstick) Negative (Neg-Trace); RBC/HPF 0-3 HPF (0-3); Specific Gravity, Urine 1.019 (1.002-1.036); Squamous Epithelial 0-3 HPF (0-3)
[2024-04-02 18:19] LABS: Urine Culture Reflex No No
[2024-04-02] MEDS ORDERED: Furosemide 40 MG (4 mL) VIAL ONE (18:43)
[2024-04-02] MEDS ORDERED: Acetaminophen 325 MG TAB ONE (18:44)
[2024-04-02 20:38] VITALS: BMI 43.0
[2024-04-02] MEDS: Azithromycin 500 MG in Sodium Chloride 0.9% 250 ML 250 ML IVPB SCH (22:08)
[2024-04-02] MEDS: cefTRIAXone\\ROCEPHIN 1 GM in Sodium Chloride 0.9% 100 ML IVPB SCH (22:09)
[2024-04-03] MEDS ORDERED: Enoxaparin 40 MG (0.4 mL) SYRINGE SC SCH (09:00)
[2024-04-03] MEDS: Furosemide 40 MG (4 mL) VIAL SLOW IVP SCH (09:14)
[2024-04-03] MEDS ORDERED: Meclizine HCl 12.5 MG TAB PO PRN (14:22)
[2024-04-03] MEDS ORDERED: Gabapentin 100 MG CAP PO PRN (14:22)
[2024-04-03] MEDS ORDERED: Warfarin Sodium 5 MG TAB PO SCH (17:00)
[2024-04-03 17:26] LABS: INR-International Normal Ratio 2.6; Prothrombin Time 27.8 sec (12.0-14.7)
[2024-04-03] MEDS: Atorvastatin Calcium 20 MG TAB PO SCH (20:51)
[2024-04-03] MEDS: Warfarin Sodium 5 MG TAB PO SCH (20:51)
[2024-04-03] MEDS: Atenolol 25 MG TAB PO SCH (20:51)
[2024-04-03] MEDS: Famotidine 20 MG TAB PO SCH (20:52)
[2024-04-03] MEDS: Senokot S 8.6-50 MG TAB PO SCH (20:53)
[2024-04-04] MEDS: Atropine Sulfate 1 mg/10 ml Syringe IVP PRN (01:10)
[2024-04-04] MEDS: cefTRIAXone\\ROCEPHIN 1 GM in Sodium Chloride 0.9% 100 ML IVPB SCH (01:12)
[2024-04-04] MEDS: Azithromycin 500 MG in Sodium Chloride 0.9% 250 ML 250 ML IVPB SCH (01:29)
[2024-04-04 03:08] LABS: Anion Gap 12 mmol/L (10-20); BUN (Urea Nitrogen) 21 mg/dL (8.4-25.7); Calc. Creatinine Clearance 106 mL/min (70-130); Calcium 7.8 mg/dL (7.8-10.44); Carbon Dioxide 26 mmol/L (23-31); Chloride 107 mmol/L (98-107); Estimated GFR 86; Glucose 113 mg/dL (83-110); Potassium 3.9 mmol/L (3.5-5.1); Sodium 141 mmol/L (136-145)
[2024-04-04 03:11] LABS: INR-International Normal Ratio 2.4; Prothrombin Time 26.2 sec (12.0-14.7)
[2024-04-04] MEDS: Glucagon 1 MG/ML KIT IM SCH (07:28)
[2024-04-04] MEDS: Polyethylene Glycol 3350 17 GM Packet PO SCH (08:37)
[2024-04-04] MEDS: Amlodipine 5 MG TAB PO SCH (08:37)
[2024-04-04] MEDS: Cyanocobalamin (Vitamin B-12) 1,000 MCG TAB PO SCH (08:37)
[2024-04-04] MEDS: Furosemide 20 MG TAB PO SCH (08:37)
[2024-04-04] MEDS: Finasteride 5 MG TAB PO SCH (08:37)
[2024-04-04] MEDS: Tamsulosin HCl 0.4 MG CAP PO SCH (08:37)
[2024-04-04] MEDS ORDERED: Warfarin Sodium 5 MG TAB PO SCH ×2 (09:00→17:00)
[2024-04-04 13:20] LABS: T4 4.85 ug/dL (4.87-11.72); Thyroid Stimulating Hormone 4.5438 uIU/mL (0.35-4.94)
[2024-04-04] MEDS: traMADol HCl 50 MG TAB PO PRN (19:19)
[2024-04-04] MEDS: Enoxaparin 120 MG/0.8 ML SYRINGE SC SCH (19:20)
[2024-04-05] MEDS: DOBUTamine 500 mg/250 ml 250 ML IVPB SCH (01:23)
[2024-04-05] MEDS: FLU (Fluad Triv) TS24-25 (65UP)/MF59C/PF 45 MCG/0.5 ML Syringe IM ONE (08:28)
[2024-04-05 08:37] LABS: #Basophils Less than 0.03 10x3/uL (0.0-0.2); %Basophils 0.3 % (0.0-1.0); %Lymphocytes 15.8 % (21.0-51.0); %Neutrophils 72.6 % (42.0-75.0); Hematocrit 42.6 % (42.0-52.0); Hemoglobin 13.6 g/dL (14.0-18.0); Mean Corpuscular HGB CONC 31.9 g/dL (32.0-36.0); Mean Corpuscular Volume 90.8 fL (78.0-98.0); Mean Platelet Volume 10.9 fL (7.4-10.4); Platelet Count 148 10x3/uL (130-400); RBC Distribution Width 14.6 % (11.5-14.5); Red Blood Cell (RBC) Count 4.69 mill/uL (4.70-6.10)
[2024-04-05 08:50] LABS: Anion Gap 10 mmol/L (10-20); BUN (Urea Nitrogen) 18 mg/dL (8.4-25.7); Calc. Creatinine Clearance 91 mL/min (70-130); Calcium 8.1 mg/dL (7.8-10.44); Carbon Dioxide 29 mmol/L (23-31); Chloride 105 mmol/L (98-107); Estimated GFR 72; Glucose 100 mg/dL (83-110); Potassium 3.7 mmol/L (3.5-5.1); Sodium 140 mmol/L (136-145)
[2024-04-05 17:58] LABS: Hematocrit 44.5 % (42.0-52.0); Hemoglobin 14.2 g/dL (14.0-18.0); Mean Corpuscular HGB CONC 31.9 g/dL (32.0-36.0); Mean Corpuscular Hemoglobin 29.1 pg (27.0-31.0); Mean Corpuscular Volume 91.2 fL (78.0-98.0); Mean Platelet Volume 10.8 fL (7.4-10.4); Platelet Count 159 10x3/uL (130-400); RBC Distribution Width 14.6 % (11.5-14.5); Red Blood Cell (RBC) Count 4.88 mill/uL (4.70-6.10)
[2024-04-06 04:38] LABS: Anion Gap 15 mmol/L (10-20); BUN (Urea Nitrogen) 11 mg/dL (8.4-25.7); Calc. Creatinine Clearance 111 mL/min (70-130); Calcium 8.2 mg/dL (7.8-10.44); Carbon Dioxide 24 mmol/L (23-31); Chloride 104 mmol/L (98-107); Estimated GFR 87; Glucose 84 mg/dL (83-110); Magnesium 2.2 mg/dL (1.6-2.6); Potassium 3.9 mmol/L (3.5-5.1); Sodium 139 mmol/L (136-145)
[2024-04-06 08:49] LABS: Troponin I Less than 0.010 ng/mL (< 0.028)
[2024-04-06] MEDS: Enoxaparin 120 MG/0.8 ML SYRINGE SC SCH ×2 (12:48→21:11)
[2024-04-07 05:04] LABS: Anion Gap 11 mmol/L (10-20); BUN (Urea Nitrogen) 15 mg/dL (8.4-25.7); Calc. Creatinine Clearance 97 mL/min (70-130); Calcium 8.6 mg/dL (7.8-10.44); Carbon Dioxide 26 mmol/L (23-31); Chloride 103 mmol/L (98-107); Estimated GFR 82; Glucose 98 mg/dL (83-110); Potassium 3.8 mmol/L (3.5-5.1); Sodium 136 mmol/L (136-145)
[2024-04-08 04:23] LABS: #Basophils 0.03 10x3/uL (0.0-0.2); %Basophils 0.5 % (0.0-1.0); %Eosinophils 3.6 % (0.0-10.0); %Lymphocytes 18.2 % (21.0-51.0); %Monocytes 9.1 % (0.0-10.0); %Neutrophils 68.2 % (42.0-75.0); Hematocrit 44.1 % (42.0-52.0); Hemoglobin 14.5 g/dL (14.0-18.0); Mean Corpuscular HGB CONC 32.9 g/dL (32.0-36.0); Mean Corpuscular Hemoglobin 29.2 pg (27.0-31.0); Mean Corpuscular Volume 88.7 fL (78.0-98.0); Mean Platelet Volume 10.8 fL (7.4-10.4); Platelet Count 161 10x3/uL (130-400); RBC Distribution Width 14.5 % (11.5-14.5); Red Blood Cell (RBC) Count 4.97 mill/uL (4.70-6.10)
[2024-04-08 04:36] LABS: Anion Gap 12 mmol/L (10-20); BUN (Urea Nitrogen) 18 mg/dL (8.4-25.7); Calc. Creatinine Clearance 81 mL/min (70-130); Calcium 8.8 mg/dL (7.8-10.44); Carbon Dioxide 26 mmol/L (23-31); Chloride 104 mmol/L (98-107); Estimated GFR 66; Glucose 108 mg/dL (83-110); Potassium 3.6 mmol/L (3.5-5.1); Sodium 138 mmol/L (136-145)
[2024-04-08 11:25] VITALS: BMI 41.8
[2024-04-09 04:44] LABS: #Basophils 0.03 10x3/uL (0.0-0.2); %Basophils 0.5 % (0.0-1.0); %Eosinophils 2.7 % (0.0-10.0); %Monocytes 9.6 % (0.0-10.0); %Neutrophils 70.8 % (42.0-75.0); Hematocrit 45.7 % (42.0-52.0); Hemoglobin 15.1 g/dL (14.0-18.0); Mean Corpuscular Hemoglobin 28.9 pg (27.0-31.0); Mean Corpuscular Volume 87.5 fL (78.0-98.0); Mean Platelet Volume 10.7 fL (7.4-10.4); Platelet Count 158 10x3/uL (130-400); RBC Distribution Width 14.2 % (11.5-14.5); Red Blood Cell (RBC) Count 5.22 mill/uL (4.70-6.10)
[2024-04-09 05:06] LABS: Anion Gap 13 mmol/L (10-20); BUN (Urea Nitrogen) 19 mg/dL (8.4-25.7); Calc. Creatinine Clearance 103 mL/min (70-130); Calcium 8.9 mg/dL (7.8-10.44); Carbon Dioxide 26 mmol/L (23-31); Chloride 102 mmol/L (98-107); Estimated GFR 86; Glucose 94 mg/dL (83-110); Potassium 3.7 mmol/L (3.5-5.1); Sodium 137 mmol/L (136-145)
[2024-04-09] MEDS: Senokot S 8.6-50 MG TAB PO SCH (20:03)
[2024-04-10 04:48] LABS: #Basophils Less than 0.03 10x3/uL (0.0-0.2); %Basophils 0.4 % (0.0-1.0); %Eosinophils 3.4 % (0.0-10.0); %Lymphocytes 16.8 % (21.0-51.0); %Neutrophils 70.2 % (42.0-75.0); Hematocrit 43.8 % (42.0-52.0); Hemoglobin 14.4 g/dL (14.0-18.0); Mean Corpuscular HGB CONC 32.9 g/dL (32.0-36.0); Mean Corpuscular Hemoglobin 28.9 pg (27.0-31.0); Mean Platelet Volume 11.5 fL (7.4-10.4); Platelet Count 150 10x3/uL (130-400); RBC Distribution Width 14.1 % (11.5-14.5); Red Blood Cell (RBC) Count 4.98 mill/uL (4.70-6.10)
[2024-04-10 05:04] LABS: Anion Gap 15 mmol/L (10-20); BUN (Urea Nitrogen) 19 mg/dL (8.4-25.7); Calc. Creatinine Clearance 101 mL/min (70-130); Calcium 8.8 mg/dL (7.8-10.44); Carbon Dioxide 24 mmol/L (23-31); Chloride 103 mmol/L (98-107); Estimated GFR 86; Glucose 97 mg/dL (83-110); Potassium 3.8 mmol/L (3.5-5.1); Sodium 138 mmol/L (136-145)
[2024-04-10 19:10] LABS: INR-International Normal Ratio 1.1
[2024-04-10] MEDS: Warfarin Sodium 5 MG TAB PO SCH (20:01)
[2024-04-11 05:08] LABS: #Basophils 0.03 10x3/uL (0.0-0.2); %Basophils 0.5 % (0.0-1.0); %Eosinophils 4.1 % (0.0-10.0); %Lymphocytes 17.4 % (21.0-51.0); %Monocytes 9.5 % (0.0-10.0); %Neutrophils 68.3 % (42.0-75.0); Hematocrit 42.6 % (42.0-52.0); Hemoglobin 13.8 g/dL (14.0-18.0); Mean Corpuscular HGB CONC 32.4 g/dL (32.0-36.0); Mean Corpuscular Hemoglobin 28.8 pg (27.0-31.0); Mean Corpuscular Volume 88.8 fL (78.0-98.0); Mean Platelet Volume 11.3 fL (7.4-10.4); Platelet Count 170 10x3/uL (130-400); RBC Distribution Width 14.2 % (11.5-14.5)
[2024-04-11 05:14] LABS: INR-International Normal Ratio 1.1; Prothrombin Time 14.7 sec (12.0-14.7)
[2024-04-11] MEDS ORDERED: Warfarin Sodium 5 MG TAB PO SCH (17:00)
[2024-04-11] MEDS: Warfarin Sodium 7.5 MG TAB PO SCH (18:18)
[2024-04-12 04:28] LABS: #Basophils Less than 0.03 10x3/uL (0.0-0.2); %Basophils 0.3 % (0.0-1.0); %Eosinophils 1.8 % (0.0-10.0); %Lymphocytes 15.8 % (21.0-51.0); %Monocytes 10.4 % (0.0-10.0); %Neutrophils 71.2 % (42.0-75.0); Hematocrit 44.9 % (42.0-52.0); Hemoglobin 14.5 g/dL (14.0-18.0); Mean Corpuscular HGB CONC 32.3 g/dL (32.0-36.0); Mean Corpuscular Hemoglobin 29.2 pg (27.0-31.0); Mean Corpuscular Volume 90.3 fL (78.0-98.0); Mean Platelet Volume 12.3 fL (7.4-10.4); Platelet Count 154 10x3/uL (130-400); RBC Distribution Width 14.3 % (11.5-14.5); Red Blood Cell (RBC) Count 4.97 mill/uL (4.70-6.10)
[2024-04-12 04:53] LABS: INR-International Normal Ratio 1.2; Prothrombin Time 15.1 sec (12.0-14.7)
[2024-04-13 06:26] LABS: INR-International Normal Ratio 1.6; Prothrombin Time 19.2 sec (12.0-14.7)
[2024-04-13] MEDS: Warfarin Sodium 5 MG TAB PO SCH (17:16)
[2024-04-13 20:31] VITALS: BP 136/68; TEMP 98
== END 2024-04-13 20:00 | DRG 154 ==
LOC: ERS 15:26 → 2NO 18:42 → CCU 04-04 10:59 → 2NO 04-06 19:08
PROVIDERS: ADMIT Internal Medicine; ATTEND Internal Medicine
DX: G47.33 Obstructive sleep apnea (adult) (pediatric) (principal); G93.41 Metabolic encephalopathy; I50.33 Acute on chronic diastolic (congestive) heart failure; J96.01 Acute respiratory failure with hypoxia; I13.0 Hypertensive heart and chronic kidney disease with heart failure and stage 1 through stage 4 chronic kidney disease, or unspecified chronic kidney disease; I48.20 Chronic atrial fibrillation, unspecified; Z68.41 Body mass index [BMI] 40.0-44.9, adult; R00.1 Bradycardia, unspecified; E66.01 Morbid (severe) obesity due to excess calories; Z79.01 Long term (current) use of anticoagulants; I25.10 Atherosclerotic heart disease of native coronary artery without angina pectoris; E78.5 Hyperlipidemia, unspecified; Z90.49 Acquired absence of other specified parts of digestive tract; Z95.1 Presence of aortocoronary bypass graft; I25.2 Old myocardial infarction; Z79.899 Other long term (current) drug therapy; N18.30 Chronic kidney disease, stage 3 unspecified
CPT/HCPCS: 36415; 36416; 70450; 70496; 70498; 71045; 80048; 80053; 81001; 83605; 83690; 83735; 83880; 84436; 84443; 84484; 85025; 85610; 85730; 87040; 87086; 87428; 93005; 93306; 96374; 96375; J0456; J0461; J0696; J1250; J1650; J1940; J2543; J7050; Q9967

== ENCOUNTER 2024-04-26 20:13 | Inpatient (IN) | payer MEDICARE, OTHER ==
[2024-04-26 20:45] LABS: #Basophils Less than 0.03 10x3/uL (0.0-0.2); %Basophils 0.3 % (0.0-1.0); %Lymphocytes 13.3 % (21.0-51.0); %Monocytes 7.4 % (0.0-10.0); %Neutrophils 76.9 % (42.0-75.0); Hematocrit 38.2 % (42.0-52.0); Hemoglobin 12.5 g/dL (14.0-18.0); Mean Corpuscular HGB CONC 32.7 g/dL (32.0-36.0); Mean Corpuscular Hemoglobin 29.2 pg (27.0-31.0); Mean Corpuscular Volume 89.3 fL (78.0-98.0); Mean Platelet Volume 10.4 fL (7.4-10.4); Platelet Count 163 10x3/uL (130-400); RBC Distribution Width 14.6 % (11.5-14.5); Red Blood Cell (RBC) Count 4.28 mill/uL (4.70-6.10)
[2024-04-26] MEDS ORDERED: fentaNYL 50 mcg/mL 1 mL Vial ONE (20:49)
[2024-04-26 21:06] LABS: ALT (SGPT) 20 U/L (8-55); AST (SGOT) 18 U/L (5-34); Albumin 3.1 g/dL (3.4-4.8); Alkaline Phosphatase 78 U/L (40-110); Anion Gap 12 mmol/L (10-20); BUN (Urea Nitrogen) 15 mg/dL (8.4-25.7); Bilirubin, Total 0.4 mg/dL (0.2-1.2); Calc. Creatinine Clearance 0 mL/min (70-130); Calcium 8.3 mg/dL (7.8-10.44); Carbon Dioxide 28 mmol/L (23-31); Chloride 103 mmol/L (98-107); Estimated GFR 82; Globulin 3.1 g/dL (2.4-3.5); Glucose 129 mg/dL (83-110); Lipase 16 U/L (8-78); Potassium 3.2 mmol/L (3.5-5.1); Protein, Total 6.2 g/dL (5.8-8.1); Sodium 140 mmol/L (136-145)
[2024-04-26 22:29] LABS: INR-International Normal Ratio 4.9; Prothrombin Time 46.2 sec (12.0-14.7)
[2024-04-26 22:30] LABS: PTT 76.2 sec (22.9-36.1)
[2024-04-26 22:37] LABS: Bacteria/HPF None Seen HPF (None Seen); Bilirubin Negative (Negative); Blood, Urine 3+ (Negative); CAUTI Indications for Culture Dysuria,urgency,freq; Clarity Turbid (Clear); Glucose, Urine (Dipstick) Normal (Negative); Ketone, Urine Negative (Negative); Leukocyte 75 Leu/uL (Negative); Nitrite Negative (Negative); Protein, Urine (Dipstick) 50 mg/dL (Neg-Trace); RBC/HPF Greater than 50 HPF (0-3); Specific Gravity, Urine 1.036 (1.002-1.036); Squamous Epithelial 0-3 HPF (0-3); Urobilinogen Normal mg/dL (Less than 2); WBC/HPF 21-50 HPF (0-3)
[2024-04-26 22:39] LABS: Urine Culture Reflex Yes Yes
[2024-04-26] MEDS ORDERED: HUM PROTHROMBIN CPLX(PCC)4FACT 1,000 UNITS, Human Prothrombin Cmp(Kcentra) 500 UNITS in... IV SCH (23:45)
[2024-04-26] MEDS ORDERED: Acetaminophen 325 MG TAB PO PRN (23:47)
[2024-04-26] MEDS ORDERED: Ondansetron PF 4 MG/2 ML Vial IVP PRN (23:47)
[2024-04-27 00:15] LABS: #Basophils Less than 0.03 10x3/uL (0.0-0.2); %Basophils 0.3 % (0.0-1.0); %Eosinophils 1.6 % (0.0-10.0); %Lymphocytes 14.7 % (21.0-51.0); %Monocytes 7.6 % (0.0-10.0); %Neutrophils 75.5 % (42.0-75.0); Hematocrit 38.4 % (42.0-52.0); Hemoglobin 12.4 g/dL (14.0-18.0); Mean Corpuscular HGB CONC 32.3 g/dL (32.0-36.0); Mean Corpuscular Hemoglobin 29.2 pg (27.0-31.0); Mean Corpuscular Volume 90.4 fL (78.0-98.0); Mean Platelet Volume 10.7 fL (7.4-10.4); Platelet Count 169 10x3/uL (130-400); RBC Distribution Width 14.5 % (11.5-14.5); Red Blood Cell (RBC) Count 4.25 mill/uL (4.70-6.10)
[2024-04-27] MEDS: Phytonadione 5 MG TAB PO SCH (03:09)
[2024-04-27] MEDS: HUM PROTHROMBIN CPLX(PCC)4FACT 1,000 UNITS, Human Prothrombin Cmp(Kcentra) 500 UNITS in... IV SCH (03:10)
[2024-04-27] MEDS ORDERED: Potassium Chloride 20 MEQ TAB ONE (03:22)
[2024-04-27] MEDS ORDERED: cefTRIAXone (ROCEPHIN) 1 GM VIAL ONE (03:23)
[2024-04-27] MEDS ORDERED: Sodium Chloride 0.9% 100 ML ONE (03:23)
[2024-04-27] MEDS: cefTRIAXone\\ROCEPHIN 1 GM in Sodium Chloride 0.9% 100 ML IVPB SCH (03:47)
[2024-04-27] MEDS: Potassium Chloride 20 MEQ TAB PO SCH (03:47)
[2024-04-27 04:03] LABS: #Basophils 0.03 10x3/uL (0.0-0.2); %Basophils 0.4 % (0.0-1.0); %Eosinophils 1.9 % (0.0-10.0); %Lymphocytes 13.4 % (21.0-51.0); %Monocytes 8.5 % (0.0-10.0); %Neutrophils 75.5 % (42.0-75.0); Hematocrit 37.8 % (42.0-52.0); Hemoglobin 12.2 g/dL (14.0-18.0); Mean Corpuscular HGB CONC 32.3 g/dL (32.0-36.0); Mean Corpuscular Hemoglobin 29.1 pg (27.0-31.0); Mean Corpuscular Volume 90.2 fL (78.0-98.0); Mean Platelet Volume 10.9 fL (7.4-10.4); Platelet Count 171 10x3/uL (130-400); RBC Distribution Width 14.6 % (11.5-14.5); Red Blood Cell (RBC) Count 4.19 mill/uL (4.70-6.10)
[2024-04-27 04:18] LABS: Anion Gap 11 mmol/L (10-20); BUN (Urea Nitrogen) 14 mg/dL (8.4-25.7); Calc. Creatinine Clearance 0 mL/min (70-130); Calcium 8.2 mg/dL (7.8-10.44); Carbon Dioxide 29 mmol/L (23-31); Chloride 101 mmol/L (98-107); Estimated GFR 87; Glucose 120 mg/dL (83-110); Magnesium 2.3 mg/dL (1.6-2.6); Sodium 138 mmol/L (136-145)
[2024-04-27 04:20] LABS: INR-International Normal Ratio 4.4; Prothrombin Time 42.6 sec (12.0-14.7)
[2024-04-27 04:21] LABS: PTT 79.8 sec (22.9-36.1)
[2024-04-27] MEDS ORDERED: Potassium Chloride 20 MEQ TAB PO SCH (06:30)
[2024-04-27] MEDS: fentaNYL 50 mcg/mL 1 mL Vial SLOW IVP SCH (07:05)
[2024-04-27 07:35] VITALS: BMI 35.4
[2024-04-27 08:59] LABS: Hematocrit 38.4 % (42.0-52.0); Hemoglobin 12.6 g/dL (14.0-18.0)
[2024-04-27] MEDS ORDERED: Phytonadione 10 MG/ML AMP ONE (10:33)
[2024-04-27] MEDS: Phytonadione 10 MG/ML AMP SLOW IVP SCH (10:39)
[2024-04-27 11:49] LABS: Hemoglobin 12.5 g/dL (14.0-18.0)
[2024-04-27 20:38] LABS: Hematocrit 38.2 % (42.0-52.0); Hemoglobin 12.3 g/dL (14.0-18.0)
[2024-04-28 05:18] LABS: #Basophils 0.03 10x3/uL (0.0-0.2); %Basophils 0.4 % (0.0-1.0); %Lymphocytes 14.9 % (21.0-51.0); %Monocytes 7.5 % (0.0-10.0); %Neutrophils 75.1 % (42.0-75.0); Hematocrit 33.8 % (42.0-52.0); Hemoglobin 10.8 g/dL (14.0-18.0); Mean Corpuscular Volume 90.9 fL (78.0-98.0); Mean Platelet Volume 10.7 fL (7.4-10.4); Platelet Count 156 10x3/uL (130-400); RBC Distribution Width 14.6 % (11.5-14.5); Red Blood Cell (RBC) Count 3.72 mill/uL (4.70-6.10)
[2024-04-28 05:33] LABS: INR-International Normal Ratio 1.3; Prothrombin Time 16.3 sec (12.0-14.7)
[2024-04-28 05:34] LABS: PTT 41.4 sec (22.9-36.1)
[2024-04-28 05:43] LABS: Anion Gap 10 mmol/L (10-20); BUN (Urea Nitrogen) 15 mg/dL (8.4-25.7); Calc. Creatinine Clearance 109 mL/min (70-130); Calcium 8.3 mg/dL (7.8-10.44); Carbon Dioxide 29 mmol/L (23-31); Chloride 103 mmol/L (98-107); Estimated GFR 88; Glucose 107 mg/dL (83-110); Magnesium 2.2 mg/dL (1.6-2.6); Potassium 3.3 mmol/L (3.5-5.1); Sodium 139 mmol/L (136-145)
[2024-04-28] MEDS: FLU (Fluad Triv) TS24-25 (65UP)/MF59C/PF 45 MCG/0.5 ML Syringe IM ONE (09:18)
[2024-04-28] MEDS: Levothyroxine Sodium 25 MCG TAB PO SCH (09:19)
[2024-04-28] MEDS: Cyanocobalamin (Vitamin B-12) 1,000 MCG TAB PO SCH (09:56)
[2024-04-28 11:56] LABS: Hematocrit 34.2 % (42.0-52.0); Hemoglobin 11.2 g/dL (14.0-18.0)
[2024-04-28] MEDS: Potassium Chloride 20 MEQ TAB PO SCH (12:23)
[2024-04-28 18:44] LABS: Hematocrit 33.1 % (42.0-52.0); Hemoglobin 10.7 g/dL (14.0-18.0)
[2024-04-28] MEDS: Atorvastatin Calcium 20 MG TAB PO SCH (20:53)
[2024-04-29 06:08] LABS: #Basophils Less than 0.03 10x3/uL (0.0-0.2); %Basophils 0.3 % (0.0-1.0); %Eosinophils 1.6 % (0.0-10.0); %Lymphocytes 11.1 % (21.0-51.0); %Monocytes 8.2 % (0.0-10.0); %Neutrophils 78.5 % (42.0-75.0); Hematocrit 31.9 % (42.0-52.0); Hemoglobin 10.4 g/dL (14.0-18.0); Mean Corpuscular HGB CONC 32.6 g/dL (32.0-36.0); Mean Corpuscular Hemoglobin 29.5 pg (27.0-31.0); Mean Corpuscular Volume 90.4 fL (78.0-98.0); Mean Platelet Volume 11.3 fL (7.4-10.4); Platelet Count 156 10x3/uL (130-400); RBC Distribution Width 14.6 % (11.5-14.5); Red Blood Cell (RBC) Count 3.53 mill/uL (4.70-6.10)
[2024-04-29 06:19] LABS: INR-International Normal Ratio 1.3; PTT 39.8 sec (22.9-36.1); Prothrombin Time 16.5 sec (12.0-14.7)
[2024-04-29 06:30] LABS: Anion Gap 11 mmol/L (10-20); BUN (Urea Nitrogen) 16 mg/dL (8.4-25.7); Calc. Creatinine Clearance 113 mL/min (70-130); Calcium 8.5 mg/dL (7.8-10.44); Carbon Dioxide 28 mmol/L (23-31); Chloride 105 mmol/L (98-107); Estimated GFR 89; Glucose 118 mg/dL (83-110); Potassium 3.4 mmol/L (3.5-5.1); Sodium 141 mmol/L (136-145)
[2024-04-29] MEDS: Tamsulosin HCl 0.4 MG CAP PO SCH (09:56)
[2024-04-29] MEDS: Finasteride 5 MG TAB PO SCH (09:56)
[2024-04-30 11:43] VITALS: BP 160/78; TEMP 98.5
== END 2024-04-30 13:25 | DRG 556 ==
LOC: ERS 20:13 → ERHOLD 23:47 → 2NO 04-27 19:54
PROVIDERS: ADMIT Internal Medicine; ATTEND Internal Medicine
DX: M79.81 Nontraumatic hematoma of soft tissue (principal); D62 Acute posthemorrhagic anemia; I48.20 Chronic atrial fibrillation, unspecified; I50.32 Chronic diastolic (congestive) heart failure; I13.0 Hypertensive heart and chronic kidney disease with heart failure and stage 1 through stage 4 chronic kidney disease, or unspecified chronic kidney disease; E87.6 Hypokalemia; I25.10 Atherosclerotic heart disease of native coronary artery without angina pectoris; E78.5 Hyperlipidemia, unspecified; N18.9 Chronic kidney disease, unspecified; E66.9 Obesity, unspecified; G47.33 Obstructive sleep apnea (adult) (pediatric); R91.1 Solitary pulmonary nodule; Z95.2 Presence of prosthetic heart valve; Z68.35 Body mass index [BMI] 35.0-35.9, adult; Z79.01 Long term (current) use of anticoagulants; Z90.49 Acquired absence of other specified parts of digestive tract; Z95.1 Presence of aortocoronary bypass graft; Z86.73 Personal history of transient ischemic attack (TIA), and cerebral infarction without residual deficits; I25.2 Old myocardial infarction; Z79.899 Other long term (current) drug therapy; Z23 Encounter for immunization
CPT/HCPCS: 36415; 74177; 80048; 80053; 81001; 83605; 83690; 83735; 85018; 85025; 85610; 85730; 86850; 86900; 86901; 87086; 96374; J0696; J3010; J3430; J7168

== ENCOUNTER 2024-12-30 14:06 | Inpatient (IN) | payer MEDICARE, MEDICAID ==
[2024-12-30 15:34] LABS: #Basophils Less than 0.03 10x3/uL (0.0-0.2); #Eosinophils 0.09 10x3/uL (0.0-0.7); #Monocytes 0.50 10x3/uL (0.11-0.59); #Neutrophils 4.34 10x3/uL (1.40-6.50); %Basophils 0.3 % (0.0-1.0); %Eosinophils 1.5 % (0.0-10.0); %Lymphocytes 16.6 % (21.0-51.0); %Monocytes 8.4 % (0.0-10.0); %Neutrophils 72.9 % (42.0-75.0); Hematocrit 45.5 % (42.0-52.0); Hemoglobin 14.8 g/dL (14.0-18.0); Mean Corpuscular Hemoglobin 28.6 pg (27.0-31.0); Mean Corpuscular Volume 88.0 fL (78.0-98.0); Platelet Count 147 10x3/uL (130-400); Red Blood Cell (RBC) Count 5.17 mill/uL (4.70-6.10); White Blood Cell (WBC) Count 5.96 10x3/uL (4.8-10.8)
[2024-12-30 15:38] LABS: Bacteria/HPF None Seen HPF (None Seen); CAUTI Indications for Culture Alt mental st,lethar; RBC/HPF 0-3 HPF (0-3)
[2024-12-30 15:41] LABS: Glucose, Urine (Dipstick) Negative (Negative); Leukocyte Trace (Negative); Protein, Urine (Dipstick) Negative (Neg-Trace); Specific Gravity, Urine 1.015 (1.005-1.030)
[2024-12-30 15:44] LABS: Urine Culture Reflex No No
[2024-12-30 15:45] LABS: Cocaine Metabolite Screen Negative (Negative); THC/Cannabinoid Screen Negative (Negative); Tricyclic Screen Negative (Negative)
[2024-12-30 15:50] LABS: INR-International Normal Ratio 2.5; PTT 41.4 sec (22.9-36.1); Prothrombin Time 27.2 sec (12.0-14.7)
[2024-12-30 16:03] LABS: ALT (SGPT) 10 U/L (Less than 45); AST (SGOT) 17 U/L (11-34); Albumin 3.8 g/dL (3.1-4.5); Alkaline Phosphatase 108 U/L (40-110); Anion Gap 13 mmol/L (10-20); BUN (Urea Nitrogen) 12 mg/dL (8.4-25.7); Bilirubin, Total 0.8 mg/dL (0.3-1.2); Calc. Creatinine Clearance 0 mL/min (70-130); Calcium 8.6 mg/dL (7.8-10.44); Carbon Dioxide 26 mmol/L (23-31); Chloride 105 mmol/L (98-107); Globulin 3.6 g/dL (2.4-3.5); Glucose 97 mg/dL (83-110); Magnesium 2.1 mg/dL (1.6-2.6); Potassium 3.8 mmol/L (3.5-5.1); Sodium 140 mmol/L (136-145)
[2024-12-30 16:09] LABS: Digoxin Less than 0.19 ng/mL (0.8-2.0)
[2024-12-30 16:10] LABS: Acetaminophen Less than 10 mcg/mL (Less than 10); Salicylate Less than 8.0 mg/dL (Less than 8.0)
[2024-12-30 16:10] LABS: Troponin I Less than 0.010 ng/mL (< 0.028)
[2024-12-30] MEDS ORDERED: Ondansetron PF 4 MG/2 ML Vial IVP PRN (19:41)
[2024-12-30] MEDS ORDERED: Acetaminophen 325 MG TAB PO PRN (19:41)
[2024-12-30 20:13] LABS: Troponin I Less than 0.010 ng/mL (< 0.028)
[2024-12-30 20:34] VITALS: BMI 42.7
[2024-12-30] MEDS ORDERED: Gabapentin 100 MG CAP PO PRN (22:10)
[2024-12-31 01:11] LABS: Troponin I Less than 0.010 ng/mL (< 0.028)
[2024-12-31 04:55] LABS: #Basophils 0.03 10x3/uL (0.0-0.2); #Eosinophils 0.14 10x3/uL (0.0-0.7); #Monocytes 0.51 10x3/uL (0.11-0.59); #Neutrophils 4.76 10x3/uL (1.40-6.50); %Basophils 0.5 % (0.0-1.0); %Eosinophils 2.1 % (0.0-10.0); %Lymphocytes 16.6 % (21.0-51.0); %Monocytes 7.8 % (0.0-10.0); %Neutrophils 72.7 % (42.0-75.0); Hematocrit 45.6 % (42.0-52.0); Hemoglobin 14.7 g/dL (14.0-18.0); Mean Corpuscular Hemoglobin 28.5 pg (27.0-31.0); Mean Corpuscular Volume 88.4 fL (78.0-98.0); Platelet Count 151 10x3/uL (130-400); Red Blood Cell (RBC) Count 5.16 mill/uL (4.70-6.10); White Blood Cell (WBC) Count 6.55 10x3/uL (4.8-10.8)
[2024-12-31 05:17] LABS: Anion Gap 11 mmol/L (10-20); BUN (Urea Nitrogen) 14 mg/dL (8.4-25.7); Calc. Creatinine Clearance 96 mL/min (70-130); Calcium 8.4 mg/dL (7.8-10.44); Carbon Dioxide 27 mmol/L (23-31); Chloride 105 mmol/L (98-107); Glucose 99 mg/dL (83-110); Potassium 3.7 mmol/L (3.5-5.1); Sodium 139 mmol/L (136-145)
[2024-12-31 07:51] LABS: INR-International Normal Ratio 2.4; Prothrombin Time 26.2 sec (12.0-14.7)
[2024-12-31] MEDS: Furosemide 20 MG TAB PO SCH (10:04)
[2024-12-31] MEDS: Finasteride 5 MG TAB PO SCH (10:04)
[2024-12-31] MEDS: Famotidine 20 MG TAB PO SCH (10:04)
[2024-12-31 19:31] VITALS: BP 132/61; TEMP 97.9
== END 2024-12-31 23:30 | disposition short-term general hospital (02) | DRG 309 ==
LOC: ERS 14:06 → 2NO 18:56
PROVIDERS: ADMIT Family Medicine; ATTEND Internal Medicine
DX: R00.1 Bradycardia, unspecified (principal); I13.0 Hypertensive heart and chronic kidney disease with heart failure and stage 1 through stage 4 chronic kidney disease, or unspecified chronic kidney disease; I50.32 Chronic diastolic (congestive) heart failure; I69.954 Hemiplegia and hemiparesis following unspecified cerebrovascular disease affecting left non-dominant side; Z68.41 Body mass index [BMI] 40.0-44.9, adult; E78.5 Hyperlipidemia, unspecified; I48.20 Chronic atrial fibrillation, unspecified; I25.10 Atherosclerotic heart disease of native coronary artery without angina pectoris; E66.01 Morbid (severe) obesity due to excess calories; G47.33 Obstructive sleep apnea (adult) (pediatric); N18.9 Chronic kidney disease, unspecified; Z98.890 Other specified postprocedural states; Z90.49 Acquired absence of other specified parts of digestive tract; Z95.1 Presence of aortocoronary bypass graft; Z79.01 Long term (current) use of anticoagulants; Z95.2 Presence of prosthetic heart valve; Z79.899 Other long term (current) drug therapy; Z79.890 Hormone replacement therapy; Z79.891 Long term (current) use of opiate analgesic
CPT/HCPCS: 36415; 70450; 71045; 80048; 80053; 80162; 80306; 80307; 81001; 83605; 83735; 83880; 84443; 84484; 85025; 85610; 85730; 87040; 93005; 93306; 96374; 96376; J0461; J1650

== ENCOUNTER 2025-04-21 14:57 | Emergency (ER) | payer MEDICARE, MEDICAID ==
[2025-04-21 15:53] LABS: #Basophils Less than 0.03 10x3/uL (0.0-0.2); #Eosinophils 0.13 10x3/uL (0.0-0.7); #Monocytes 0.53 10x3/uL (0.11-0.59); #Neutrophils 5.45 10x3/uL (1.40-6.50); %Basophils 0.1 % (0.0-1.0); %Eosinophils 1.8 % (0.0-10.0); %Lymphocytes 12.7 % (21.0-51.0); %Monocytes 7.5 % (0.0-10.0); %Neutrophils 77.6 % (42.0-75.0); Hematocrit 46.3 % (42.0-52.0); Hemoglobin 14.6 g/dL (14.0-18.0); Mean Corpuscular Hemoglobin 28.6 pg (27.0-31.0); Mean Corpuscular Volume 90.8 fL (78.0-98.0); Platelet Count 180 10x3/uL (130-400); Red Blood Cell (RBC) Count 5.10 mill/uL (4.70-6.10); White Blood Cell (WBC) Count 7.03 10x3/uL (4.8-10.8)
[2025-04-21 16:02] LABS: Bacteria/HPF None Seen HPF (None Seen); CAUTI Indications for Culture Pelvic or flank pain; Glucose, Urine (Dipstick) Normal (Negative); Leukocyte 75 Leu/uL (Negative); Protein, Urine (Dipstick) Negative (Neg-Trace); RBC/HPF 0-3 HPF (0-3); Specific Gravity, Urine 1.018 (1.002-1.036)
[2025-04-21 16:04] LABS: Urine Culture Reflex No No
[2025-04-21 16:07] LABS: INR-International Normal Ratio 3.0; PTT 43.4 sec (22.9-36.1); Prothrombin Time 31.2 sec (12.0-14.7)
[2025-04-21 16:12] LABS: ALT (SGPT) 13 U/L (Less than 45); AST (SGOT) 24 U/L (11-34); Albumin 4.0 g/dL (3.1-4.5); Alkaline Phosphatase 104 U/L (40-110); Anion Gap 15 mmol/L (10-20); BUN (Urea Nitrogen) 20 mg/dL (8.4-25.7); Bilirubin, Total 1.0 mg/dL (0.3-1.2); Calc. Creatinine Clearance 0 mL/min (70-130); Calcium 9.1 mg/dL (7.8-10.44); Carbon Dioxide 27 mmol/L (23-31); Chloride 104 mmol/L (98-107); Globulin 3.3 g/dL (2.4-3.5); Glucose 115 mg/dL (83-110); Lipase 23 U/L (8-78); Potassium 4.0 mmol/L (3.5-5.1); Sodium 142 mmol/L (136-145)
== END 2025-04-21 18:30 | disposition home or self-care (01) ==
LOC: ERS 14:57
DX: R10.32 Left lower quadrant pain (principal); I12.9 Hypertensive chronic kidney disease with stage 1 through stage 4 chronic kidney disease, or unspecified chronic kidney disease; N18.9 Chronic kidney disease, unspecified; I48.91 Unspecified atrial fibrillation; E78.5 Hyperlipidemia, unspecified; I25.10 Atherosclerotic heart disease of native coronary artery without angina pectoris; Z86.73 Personal history of transient ischemic attack (TIA), and cerebral infarction without residual deficits; Z79.01 Long term (current) use of anticoagulants; Z79.899 Other long term (current) drug therapy
CPT/HCPCS: 70450; 74177; 80053; 81001; 83690; 85025; 85610; 85730